=== PATIENT | female | born 1945 | race Caucasian/White ===

== ENCOUNTER → 2016-12-28 | Outpatient (CLI) | payer BC ==
--- NOTE | 2016-12-28 10:08 | CT ---
EXAMINATION TYPE: CT brain wo con DATE OF EXAM: 12/28/2016 COMPARISON: NONE HISTORY: R41.[address] of the brain was performed. The ventricles, basal cisterns and sulci overlying the cerebral convexities demonstrate mild enlargem ent. There is no evidence for intracranial hemorrhage or sulcal effacement. There is decreased attenuation about the periventricular white matter and deep white matter of both c erebral hemispheres, compatible with chronic small vessel ischemia. Differential diagnosis does inclu de demyelination. No mass effects are seen.No midline shift. Osseous calvarium is intact. If symptoms persist consider MRI. IMPRESSION: 1. Age related atrophic and chronic small vessel ischemic change without acute intracranial process s een at this time.
== END | disposition home or self-care (01) ==
LOC: RADCTMAIN 09:26
PROVIDERS: ATTEND Family Medicine
DX: G31.1 Senile degeneration of brain, not elsewhere classified (principal); I67.82 Cerebral ischemia
CPT/HCPCS: 70450

== ENCOUNTER → 2017-09-20 | Outpatient (CLI) | payer BC ==
[2017-09-20 12:01] LABS: Blood Urea Nitrogen 12 mg/dL (7-17)
--- NOTE | 2017-09-20 12:55 | CT ---
EXAMINATION TYPE: CT abdomen w con DATE OF EXAM: 09/20/2017 COMPARISON: NONE HISTORY: Upper Abdominal pain for 1-[address] DLP: 452.7 mGycm CONTRAST: CT scan of the abdomen and pelvis is performed with Oral Contrast and with IV Contrast, patient injec rosaline with 100 mL of Isovue 300. FINDINGS: LUNG BASES-: No visible nodule. No infiltrate. Small sliding-type hiatal hernia. LIVER/GB: No calcified gallstones. No space occupying hepatic lesion. Biliary tree is of normal ca liber. Mild hepatic steatosis noted. Large gallstone seen in the region of the gallbladder neck. No g allbladder wall thickening identified. PANCREAS: No inflammation. No distinct mass. SPLEEN: No splenic enlargement. No lesion seen. Small calcified splenic artery aneurysm measuring 9 mm. ADRENALS: No nodule. No thickening. KIDNEYS/BLADDER: No hydronephrosis. No nephrolithiasis. No distinct renal mass. Urinary bladder g rossly unremarkable. BOWEL: Moderate fecal stasis. Dilated loop of small bowel proximally measuring 3 cm of uncertain etio logy. No inflammation. GENITAL ORGANS: No gross abnormality. LYMPH NODES: No greater than 1cm abdominal or pelvic lymph nodes are appreciated. AORTA: No significant abnormality. OSSEOUS STRUCTURES: No significant abnormality is seen. OTHER: No significant additional abnormality is seen. IMPRESSION: 1. Large gallstone seen in the region of the gallbladder neck. No gallbladder wall thickening identi fied. 2. Mild hepatic steatosis. 3.Moderate fecal stasis. Dilated loop of small bowel proximally measuring 3 cm of uncertain etiology.
== END | disposition home or self-care (01) ==
LOC: RADCTMAIN 11:20
PROVIDERS: ATTEND Family Medicine
DX: K80.20 Calculus of gallbladder without cholecystitis without obstruction (principal); K76.0 Fatty (change of) liver, not elsewhere classified; K56.41 Fecal impaction; K31.89 Other diseases of stomach and duodenum
CPT/HCPCS: 82565; 84520; 74160; 36415; Q9967

== ENCOUNTER 2017-10-22 11:35 | Inpatient (IN) | payer BC, MEDICARE ==
[2017-10-22] MEDS ORDERED: SODIUM CHLORIDE 0.9% 500 ML IV STA (12:24)
--- NOTE | 2017-10-22 12:28 | ED ---
General Adult HPI - General Chief complaint: Abdominal Pain Stated complaint: Abd Pain Time Seen by Provider: 10/22/17 12:10 Source: patient, RN notes reviewed Mode of arrival: ambulatory Limitations: no limitations - History of Present Illness Initial comments: This is a 72-year-old female presents emergency Department complaining of a month-long history of abdominal pain. Patient states is diffuse and a little more in the center and to the left than on the right. Patient states her primary medical care doctor did a CAT scan on her and told her she needed her gallbladder out. Patient states the pain does come and go and is worse on certain occasions but she cannot do anything to make it worse or make it better. Patient states barely eating anything for the last 2 weeks. Patient states her last bowel movement was 2 weeks ago. Patient states last time she passed any gas was 1 weeks ago. Patient denies any fevers or chills. Patient denies any chest pain difficulty breathing shortness of breath. Patient denies any dysuria hematuria urinary frequency. - Related Data Home Medications Medication Instructions Recorded Confirmed Baclofen 10 mg PO HS 10/22/17 10/22/17 Fesoterodine Fumarate [Toviaz] 8 mg PO DAILY 10/22/17 10/22/17 Glimepiride [Amaryl] 1 mg PO DAILY 10/22/17 10/22/17 Losartan [Cozaar] 50 mg PO DAILY 10/22/17 10/22/17 Memantine HCl/Donepezil HCl 1 cap PO DAILY 10/22/17 10/22/17 [Namzaric 14 mg-10 mg Capsule] Pioglitazone [Actos] 15 mg PO DAILY 10/22/17 10/22/17 Repaglinide [Prandin] 0.5 mg PO AC-LUNCH 10/22/17 10/22/17 sitaGLIPtin [Januvia] 100 mg PO DAILY 10/22/17 10/22/17 Allergies Allergy/AdvReac Type Severity Reaction Status Date / Time Iodinated Contrast- Oral and Allergy Anaphylaxis Verified 10/22/17 12:41 IV Dye iodine Allergy Anaphylaxis Verified 10/22/17 12:41 Penicillins Allergy Unknown Verified 10/22/17 12:41 Childhood shellfish derived [Shellfish] Allergy Anaphylaxis Verified 10/22/17 12:41 Review of Systems ROS Statement: Those systems with pertinent positive or pertinent negative responses have been documented in the HPI. ROS Other: All systems not noted in ROS Statement are negative. Past Medical History Past Medical History: Diabetes Mellitus, GERD/Reflux, Hypertension History of Any Multi-Drug Resistant Organisms: None Reported Past Surgical History: Hysterectomy Past Psychological History: No Psychological Hx Reported Smoking Status: Never smoker Past Alcohol Use History: None Reported Past Drug Use History: None Reported General Exam - General Exam Comments Initial Comments: GENERAL: Patient is well-developed and well-nourished. Patient is nontoxic and well- hydrated and is in mild distress. ENT: Neck is soft and supple. No significant lymphadenopathy is noted. Oropharynx is clear. Moist mucous membranes. Neck has full range of motion without eliciting any pain. EYES: The sclera were anicteric and conjunctiva were pink and moist. Extraocular movements were intact and pupils were equal round and reactive to light. Eyelids were unremarkable. PULMONARY: Unlabored respirations. Good breath sounds bilaterally. No audible rales rhonchi or wheezing was noted. CARDIOVASCULAR: There is a regular rate and rhythm without any murmurs gallops or rubs. ABDOMEN: Diffuse abdominal tenderness with the epigastric and left upper quadrant a little more tender than anywhere else. Patient also has very tympanic sounding bowel sounds. SKIN: Skin is clear with no lesions or rashes and otherwise unremarkable. NEUROLOGIC: Patient is alert and oriented x3. Cranial nerves II through XII are grossly intact. Motor and sensory are also intact. Normal speech, volume and content. Symmetrical smile. Cerebellar exam grossly intact. MUSCULOSKELETAL: Normal extremities with adequate strength and full range of motion. No lower extremity swelling or edema. No calf tenderness. LYMPHATICS: No significant lymphadenopathy is noted PSYCHIATRIC: Normal psychiatric evaluation. Limitations: no limitations Course Vital Signs 10/22/17 12:11 Temperature 98.3 F Pulse Rate 78 Respiratory 18 Rate Blood Pressure 168/80 O2 Sat by Pulse 99 Oximetry Medical Decision Making - Medical Decision Making X-ray shows a large bowel obstruction or partial obstruction I spoke with Dr. Berkowitz she agreed to admit the patient admitted the patient consult to Dr. Church. - Lab Data Result diagrams: 10/22/17 12:34 10/22/17 12:34 Lab Results 10/22/17 10/22/17 10/22/17 Range/Units 12:34 12:34 13:02 WBC 11.4 H (3.8-10.6) k/uL RBC 4.65 (3.80-5.40) m/uL Hgb 13.2 (11.4-16.0) gm/dL Hct 38.9 (34.0-46.0) % MCV 83.6 (80.0-100.0) fL MCH 28.4 (25.0-35.0) pg MCHC 34.0 (31.0-37.0) g/dL RDW 14.3 (11.5-15.5) % Plt Count 251 (150-450) k/uL Neutrophils % 85 % Lymphocytes % 9 % Monocytes % 4 % Eosinophils % 0 % Basophils % 0 % Neutrophils # 9.7 H (1.3-7.7) k/uL Lymphocytes # 1.0 (1.0-4.8) k/uL Monocytes # 0.5 (0-1.0) k/uL Eosinophils # 0.1 (0-0.7) k/uL Basophils # 0.0 (0-0.2) k/uL Sodium 147 H (137-145) mmol/L Potassium 3.5 (3.5-5.1) mmol/L Chloride 110 H (98-107) mmol/L Carbon Dioxide 18 L (22-30) mmol/L Anion Gap 19 mmol/L BUN 15 (7-17) mg/dL Creatinine 0.69 (0.52-1.04) mg/dL Est GFR (CKD-EPI)AfAm >90 (>60 ml/min/1.73 sqM) Est GFR (CKD-EPI)NonAf 87 (>60 ml/min/1.73 sqM) Glucose 126 H (74-99) mg/dL Calcium 9.7 (8.4-10.2) mg/dL Total Bilirubin 0.7 (0.2-1.3) mg/dL AST 19 (14-36) U/L ALT 30 (9-52) U/L Alkaline Phosphatase 62 (38-126) U/L Total Protein 6.7 (6.3-8.2) g/dL Albumin 4.2 (3.5-5.0) g/dL Amylase 41 (30-110) U/L Lipase 100 (23-300) U/L Urine Color Yellow Urine Appearance Clear (Clear) Urine pH 5.5 (5.0-8.0) Ur Specific [place] 1.026 (1.001-1.035) Urine Protein 1+ H (Negative) Urine Glucose (UA) Negative (Negative) Urine Ketones 4+ H (Negative) Urine Blood Negative (Negative) Urine Nitrite Negative (Negative) Urine Bilirubin 1+ H (Negative) Urine Urobilinogen 2.0 (<2.0) mg/dL Ur Leukocyte Esterase Moderate H (Negative) Urine RBC 2 (0-5) /hpf Urine WBC 15 H (0-5) /hpf Ur Squamous Epith Cells 3 (0-4) /hpf Hyaline Casts 1 (0-2) /lpf Urine Mucus Occasional H (None) /hpf Disposition Clinical Impression: Large bowel obstruction Disposition: ADMITTED IP TO THIS HOSP Referrals: Patrick Oscar MD [Primary Care Provider] - 1-2 days Time of Disposition: 14:02
[2017-10-22 12:48] LABS: Basophils % (A) 0 %; Eosinophils # (A) 0.1 k/uL (0-0.7); Eosinophils % (A) 0 %; HCT 38.9 % (34.0-46.0); HGB 13.2 gm/dL (11.4-16.0); Lymphocytes % (A) 9 %; MCH 28.4 pg (25.0-35.0); MCV 83.6 fL (80.0-100.0); Mean Platelet Volume 7.8; Monocytes # (A) 0.5 k/uL (0-1.0); Monocytes % (A) 4 %; Neutrophils # (A) 9.7 k/uL (1.3-7.7); Neutrophils % (A) 85 %; Platelet Count 251 k/uL (150-450); RBC 4.65 m/uL (3.80-5.40); RDW 14.3 % (11.5-15.5); WBC 11.4 k/uL (3.8-10.6)
[2017-10-22 13:04] LABS: ALT 30 U/L (9-52); AST 19 U/L (14-36); Albumin 4.2 g/dL (3.5-5.0); Alkaline Phosphatase 62 U/L (38-126); Amylase 41 U/L (30-110); Anion Gap 19 mmol/L; Blood Urea Nitrogen 15 mg/dL (7-17); Calcium 9.7 mg/dL (8.4-10.2); Carbon Dioxide 18 mmol/L (22-30); Chloride 110 mmol/L (98-107); Glucose 126 mg/dL (74-99); Lipase 100 U/L (23-300); Potassium 3.5 mmol/L (3.5-5.1); Sodium 147 mmol/L (137-145); Total Bilirubin 0.7 mg/dL (0.2-1.3); Total Protein 6.7 g/dL (6.3-8.2)
[2017-10-22 13:14] LABS: Appearance,Urine Clear (Clear); Bilirubin,Urine 1+ (Negative); Blood,Urine Negative (Negative); Color,Urine Yellow; Glucose,Urine (UA) Negative (Negative); Hyaline Casts,Urine 1 /lpf (0-2); Ketones,Urine 4+ (Negative); Leukocyte Esterase,Urine Moderate (Negative); Mucus,Urine Occasional /hpf; Nitrite,Urine Negative (Negative); PH, Urine 5.5 (5.0-8.0); Protein,Urine 1+ (Negative); RBC,Urine 2 /hpf (0-5); Specific Gravity,Urine 1.026 (1.001-1.035); Squamous Epithelial Cell,Urine 3 /hpf (0-4); WBC,Urine 15 /hpf (0-5)
--- NOTE | 2017-10-22 13:14 | XR ---
EXAMINATION TYPE: XR KUB DATE OF EXAM: 10/22/2017 12:50 PM CLINICAL HISTORY: Right upper quadrant abdominal pain for 2 and associated nausea and vomiting. TECHNIQUE: Single upright image of the abdomen is obtained. COMPARISON: None. FINDINGS: There is diffuse large bowel dilatation measuring up to 8 cm with air seen within the dista l colon. Differential air-fluid levels are noted. Small bowel is mildly dilated up to 4.0 cm. No samir s evidence of pneumoperitoneum. Lung bases are clear. Moderate degenerative changes of the osseous st ructures are seen. No abnormal calcifications. The known cholelithiasis is not appreciated radiograph ically. IMPRESSION: Colonic distention with differential air-fluid levels and small bowel dilatation. However there is air noted within the distal colon and rectum therefore findings may relate to incomplete la rge bowel obstruction or ileus associated with colitis. No current evidence of pneumoperitoneum.
[2017-10-22] MEDS ORDERED: SODIUM CHLORIDE 0.9% 1,000 ML IV ONE (14:02)
[2017-10-22] MEDS ORDERED: POLYETHYLENE GLYCOL 3350 17 GM POWD.PACK PO STA (15:23)
[2017-10-22] MEDS ORDERED: ACETAMINOPHEN TAB 325 MG TAB PO PRN (15:24)
[2017-10-22] MEDS: SODIUM CHLORIDE 0.9% 1,000 ML IV SCH (15:41)
--- NOTE | 2017-10-22 16:15 | P.GSCN ---
<Lynn Nguyễn M - Last Filed: 10/22/17 16:26> History of Present Illness Consult date: 10/22/17 Reason for Consult: Abdominal pain History of present illness: 72-year-old female presented to the emergency room with a chief complaint of having abdominal pain inability to eat felt nauseated. Patient stated been ongoing for the past several weeks. states she has not had a bowel movement in several weeks. According to the patient this is new. Patient states that she has not been passing any gas no fever chills. states was told by her primary care provider after CAT scan was obtained that she needed to have her gallbladder out. Patient was to see Dr. calixto in the office to discuss treatments for gallbladder disease stated that she never made the appointment and did not follow-up according to the patient her symptoms have been ongoing for 3-4 weeks when questioning. Patient states she's been having developing abdominal discomfort over the last week. Her did give the patient a fleets enema a couple weeks ago according to the patient Was no stool. Patient states she just feels nauseated does not feel like eating or drinking when she tries to drink she feels like she's going to throw up" patient is sitting up in bed currently abdomen is slightly distended In the emergency room an x-ray was obtained did show reviewing the report a large bowel obstruction or partial obstruction. Computed tomography scan of the abdomen with contrast obtained in September 20 in summary it showed moderate fecal stasis dilated loops of the small bowel no calcified gallstones large gallstones seen in the neck of the gallbladder no gallbladder wall thickening Amylase 41 lipase 100 AST and ALT not elevated white count 11.4 and total bilirubin 0.7 Review of Systems Essentially unremarkable except as mentioned in the present illness Past Medical History Past Medical History: Diabetes Mellitus, GERD/Reflux, Hypertension, Memory Impairment Additional Past Medical History / Comment(s): "slight memory impairment", scoliosis, dizzy spells and balance issues History of Any Multi-Drug Resistant Organisms: None Reported Past Surgical History: Hysterectomy, Tonsillectomy Additional Past Surgical History / Comment(s): rt breast bx-neg, dental implants Additional Past Anesthesia/Blood Transfusion Reaction / Comm: hx clausterphobia. difficulty waking after sx. pt stated that during sx once her heart stopped. Smoking Status: Never smoker - Past Family History Mother Family Medical History: Myocardial Infarction ([place]) Additional Family Medical History / Comment(s): grandmother had mi as well Father History Unknown: Yes Medications and Allergies Home Medications Medication Instructions Recorded Confirmed Type Baclofen 10 mg PO HS 10/22/17 10/22/17 History Fesoterodine Fumarate [Toviaz] 8 mg PO DAILY 10/22/17 10/22/17 History Glimepiride [Amaryl] 1 mg PO DAILY 10/22/17 10/22/17 History Losartan [Cozaar] 50 mg PO DAILY 10/22/17 10/22/17 History Memantine HCl/Donepezil HCl 1 cap PO DAILY 10/22/17 10/22/17 History [Namzaric 14 mg-10 mg Capsule] Pioglitazone [Actos] 15 mg PO DAILY 10/22/17 10/22/17 History Repaglinide [Prandin] 0.5 mg PO AC-LUNCH 10/22/17 10/22/17 History sitaGLIPtin [Januvia] 100 mg PO DAILY 10/22/17 10/22/17 History Allergies Allergy/AdvReac Type Severity Reaction Status Date / Time Iodinated Contrast- Oral and Allergy Anaphylaxis Verified 10/22/17 12:41 IV Dye iodine Allergy Anaphylaxis Verified 10/22/17 12:41 Penicillins Allergy Unknown Verified 10/22/17 12:41 Childhood shellfish derived [Shellfish] Allergy Anaphylaxis Verified 10/22/17 12:41 Surgical - Exam Vital Signs Temp Pulse Resp BP Pulse Ox 98.3 F 78 18 168/80 99 10/22/17 12:11 10/22/17 12:11 10/22/17 12:11 10/22/17 12:11 10/22/17 12:11 GENERAL APPEARANCE: talkative 72-year-old female patient is sitting up in bed alert, oriented, in no acute distress. VITAL SIGNS: Reviewed HEENT: Head is normocephalic and atraumatic. Pupils are equal and reactive. The nares are patent. Oropharynx is clear without lesions. NECK: Supple without lymphadenopathy. Traches midline. HEART: S1, S2. Regular rate and rhythm. No murmur noted LUNGS: No crackles or wheezes are heard. ABDOMEN: Diffuse abdominal tenderness left upper quadrant greater than the right radiates to the epigastric area. Tympanic bowel sounds slightly distended reports a nausea sensation no active emesis reports urinating no difficulty EXTREMITIES: Normal skin color and turgor. No cyanosis, rash, ulceration, clubbing or edema. Radial pedal pulses are 2/4 bilaterally. NEUROLOGICAL: No focal deficits. Strength and sensation are grossly intact. Results - Labs 10/22/17 12:34 10/22/17 12:34 Abnormal Lab Results - Last 24 Hours (Table) 10/22/17 10/22/17 10/22/17 Range/Units 12:34 12:34 13:02 WBC 11.4 H (3.8-10.6) k/uL Neutrophils # 9.7 H (1.3-7.7) k/uL Sodium 147 H (137-145) mmol/L Chloride 110 H (98-107) mmol/L Carbon Dioxide 18 L (22-30) mmol/L Glucose 126 H (74-99) mg/dL Urine Protein 1+ H (Negative) Urine Ketones 4+ H (Negative) Urine Bilirubin 1+ H (Negative) Ur Leukocyte Esterase Moderate H (Negative) Urine WBC 15 H (0-5) /hpf Urine Mucus Occasional H (None) /hpf Diabetes panel 10/22/17 Range/Units 12:34 Sodium 147 H (137-145) mmol/L Potassium 3.5 (3.5-5.1) mmol/L Chloride 110 H (98-107) mmol/L Carbon Dioxide 18 L (22-30) mmol/L BUN 15 (7-17) mg/dL Creatinine 0.69 (0.52-1.04) mg/dL Glucose 126 H (74-99) mg/dL Calcium 9.7 (8.4-10.2) mg/dL AST 19 (14-36) U/L ALT 30 (9-52) U/L Alkaline Phosphatase 62 (38-126) U/L Total Protein 6.7 (6.3-8.2) g/dL Albumin 4.2 (3.5-5.0) g/dL Calcium panel 10/22/17 Range/Units 12:34 Calcium 9.7 (8.4-10.2) mg/dL Albumin 4.2 (3.5-5.0) g/dL Pituitary panel 10/22/17 Range/Units 12:34 Sodium 147 H (137-145) mmol/L Potassium 3.5 (3.5-5.1) mmol/L Chloride 110 H (98-107) mmol/L Carbon Dioxide 18 L (22-30) mmol/L BUN 15 (7-17) mg/dL Creatinine 0.69 (0.52-1.04) mg/dL Glucose 126 H (74-99) mg/dL Calcium 9.7 (8.4-10.2) mg/dL Adrenal panel 10/22/17 Range/Units 12:34 Sodium 147 H (137-145) mmol/L Potassium 3.5 (3.5-5.1) mmol/L Chloride 110 H (98-107) mmol/L Carbon Dioxide 18 L (22-30) mmol/L BUN 15 (7-17) mg/dL Creatinine 0.69 (0.52-1.04) mg/dL Glucose 126 H (74-99) mg/dL Calcium 9.7 (8.4-10.2) mg/dL Total Bilirubin 0.7 (0.2-1.3) mg/dL AST 19 (14-36) U/L ALT 30 (9-52) U/L Alkaline Phosphatase 62 (38-126) U/L Total Protein 6.7 (6.3-8.2) g/dL Albumin 4.2 (3.5-5.0) g/dL Assessment and Plan Assessment: ] Thanks impression Present on admission diffuse abdominal pain intractable nausea vomiting likely due to a partial large bowel obstruction Present on admission leukocytosis Present on admission constipation CAT scan of the abdomen with contrast done September 20 report indicates large gallstones seen in the gallbladder neck no gallbladder wall thickening Plan IV fluid for hydration Bowel stimulant to be initiated DVT and GI prophylaxis Further surgical recommendations pending will follow with you Keep nothing by mouth except for ice chips Surgical consultation note dictated for The above impression and plan of care have been discussed and directed by signing physician. Lynn Nguyễn nurse practitioner acting as scribe for signing physician. <Rj Calixto - Last Filed: 10/22/17 16:54> Surgical - Exam Vital Signs Temp Pulse Resp BP Pulse Ox 98.3 F 78 18 168/80 99 10/22/17 12:11 10/22/17 12:11 10/22/17 12:11 10/22/17 12:11 10/22/17 12:11 Results - Labs 10/22/17 12:34 10/22/17 12:34 Abnormal Lab Results - Last 24 Hours (Table) 10/22/17 10/22/17 10/22/17 Range/Units 12:34 12:34 13:02 WBC 11.4 H (3.8-10.6) k/uL Neutrophils # 9.7 H (1.3-7.7) k/uL Sodium 147 H (137-145) mmol/L Chloride 110 H (98-107) mmol/L Carbon Dioxide 18 L (22-30) mmol/L Glucose 126 H (74-99) mg/dL Urine Protein 1+ H (Negative) Urine Ketones 4+ H (Negative) Urine Bilirubin 1+ H (Negative) Ur Leukocyte Esterase Moderate H (Negative) Urine WBC 15 H (0-5) /hpf Urine Mucus Occasional H (None) /hpf Diabetes panel 10/22/17 Range/Units 12:34 Sodium 147 H (137-145) mmol/L Potassium 3.5 (3.5-5.1) mmol/L Chloride 110 H (98-107) mmol/L Carbon Dioxide 18 L (22-30) mmol/L BUN 15 (7-17) mg/dL Creatinine 0.69 (0.52-1.04) mg/dL Glucose 126 H (74-99) mg/dL Calcium 9.7 (8.4-10.2) mg/dL AST 19 (14-36) U/L ALT 30 (9-52) U/L Alkaline Phosphatase 62 (38-126) U/L Total Protein 6.7 (6.3-8.2) g/dL Albumin 4.2 (3.5-5.0) g/dL Calcium panel 10/22/17 Range/Units 12:34 Calcium 9.7 (8.4-10.2) mg/dL Albumin 4.2 (3.5-5.0) g/dL Pituitary panel 10/22/17 Range/Units 12:34 Sodium 147 H (137-145) mmol/L Potassium 3.5 (3.5-5.1) mmol/L Chloride 110 H (98-107) mmol/L Carbon Dioxide 18 L (22-30) mmol/L BUN 15 (7-17) mg/dL Creatinine 0.69 (0.52-1.04) mg/dL Glucose 126 H (74-99) mg/dL Calcium 9.7 (8.4-10.2) mg/dL Adrenal panel 10/22/17 Range/Units 12:34 Sodium 147 H (137-145) mmol/L Potassium 3.5 (3.5-5.1) mmol/L Chloride 110 H (98-107) mmol/L Carbon Dioxide 18 L (22-30) mmol/L BUN 15 (7-17) mg/dL Creatinine 0.69 (0.52-1.04) mg/dL Glucose 126 H (74-99) mg/dL Calcium 9.7 (8.4-10.2) mg/dL Total Bilirubin 0.7 (0.2-1.3) mg/dL AST 19 (14-36) U/L ALT 30 (9-52) U/L Alkaline Phosphatase 62 (38-126) U/L Total Protein 6.7 (6.3-8.2) g/dL Albumin 4.2 (3.5-5.0) g/dL Assessment and Plan Plan: Patient's recent CAT scan shows a large gallstone in the neck of the gallbladder. Patient will undergo repeat CAT scan to evaluate for possible colonic obstruction. We will follow with you.
[2017-10-22] MEDS: LACTULOSE 20 GM/30 ML CUP PO SCH ×3 (16:17→21:52)
[2017-10-22 16:49] LABS: Glucose,Whole Blood 93 mg/dL (75-99)
[2017-10-22] MEDS: INSULIN ASPART 100 UNIT/ML 1 ML 10 ML VIAL SQ SCH ×2 (17:01→20:50)
[2017-10-22] MEDS: BARIUM SULFATE 450 ML ORAL.SUSP BOTTLE PO PRN ×2 (17:11→20:05)
[2017-10-22 20:30] LABS: Glucose,Whole Blood 195 mg/dL (75-99)
[2017-10-22] MEDS: ONDANSETRON 4 MG/2 ML VIAL IVP PRN (20:50)
--- NOTE | 2017-10-22 21:16 | P.HPIM ---
History of Present Illness H&P Date: 10/22/17 Chief Complaint: Abdominal pain 72-year-old female who presented to the emergency room with a chief complaint of abdominal pain. The patient reports she has been having abdominal pain for a few months but it has worsened in severity over the last two weeks. She states she waited to come to the hospital after the 17 of October holiday because "all the good doctors go on vacation for the holidays and there would not be anyone good here to take care of me". The patient did have a CT scan of her abdomen in September 2017 due to abdominal pain which revealed large gallstones seen in the region of the gallbladder neck. No gallbladder wall thickening was identified. Mild hepatic steatosis. Moderate fecal stasis. Dilated loop of small bowel proximally measuring 3 cm. The patient was referred to see Dr. Church. However, the patient never followed through with this. She reports decreased appetite. The patient reports she was consuming mostly liquid foods and protein drinks. She reports she tried to eat small amounts of food but would get abdominal pain so she started chewing her food and then spitting it out. She states she has been drinking fluids but likely less than she usually does. She denies nausea or vomiting, however she does report a lot of heartburn and burping. She reports her last bowel movement was 2 1/2 weeks ago. She states she usually has a bowel movement every 2-3 days. She states she had a colonoscopy "years ago" and was told it was normal. She states she has been in bed for the last week due to weakness and fatigue. She denies any urinary symptoms such as frequency, burning, urgency, pain with urination, or odor. She denies fever or chills. Denies chest pain or pressure. She reports mild SOB when lying flat. The patient has a history of diabetes mellitus, hypertension, and gastroesophageal reflux disease. She also reports a history of short term memory loss but is unable to relay what medical condition this is from or what caused it. She is a lifelong non-smoker. She denies alcohol use or drug use. KUB x-ray revealed colonic distention with differential air fluid levels and small bowel dilation. However there is air noted within the distal colon and rectum therefore findings may relate to incomplete large bowel obstruction or ileus associated with colitis. Laboratory data: White count 11.4. Hemoglobin 13.2. Platelet count 251. Sodium 147. Potassium 3.5. Chloride 110. Carbon dioxide 18. BUN 15. Creatinine 0.69. Glucose 126. Total bilirubin 0.7. AST 19. ALT 30. Alkaline phosphatase 62. Amylase 41. Lipase 100. Urinalysis reveals clear yellow urine, 1+ proteinuria, 4+ ketones, 1+ bilirubin, moderate leukocyte esterase, 15 WBC. The patient was admitted to the hospital under the care of Dr. Oscar. Consultations were placed to general surgery. Review of Systems GENERAL: Patient denies fever. Denies chills. EYES: Denies blurred vision. Denies vision changes. Denies eye pain. EARS, NOSE, MOUTH, & THROAT: Denies headache. Denies sore throat. Denies ear pain. RESPIRATORY: Denies cough. Denies shortness of breath. Denies sputum production. Denies hemoptysis. CARDIOVASCULAR: Denies chest pain or pressure. Denies palpitations. Denies arrhythmias. GASTROINTESTINAL: Positive for abdominal pain. Positive for heartburn. Positive for belching. Positive for constipation. Denies blood in the stool. GENITOURINARY: Denies urinary frequency. Denies burning. Denies dysuria. Denies cloudy urine. Denies blood in the urine. MUSCULOSKELETAL: Denies myalgias. Denies joint swelling. Denies decreased range of motion beyond patients baseline. INTEGUMENTARY: Denies pruitis. Denies rash. PSYCHIATRIC: Denies suicidal or homicial ideations. ENDOCRINE: Denies weight change. Denies polydipsia. Denies polyuria. HEMATOLOGIC: Denies bleeding disorders. Past Medical History Past Medical History: Diabetes Mellitus, GERD/Reflux, Hypertension History of Any Multi-Drug Resistant Organisms: None Reported Past Surgical History: Hysterectomy Past Psychological History: No Psychological Hx Reported Smoking Status: Never smoker Past Alcohol Use History: None Reported Past Drug Use History: None Reported - Past Family History Mother Family Medical History: Myocardial Infarction ([place]) Additional Family Medical History / Comment(s): grandmother had mi as well Father History Unknown: Yes Medications and Allergies Home Medications Medication Instructions Recorded Confirmed Type Baclofen 10 mg PO HS 10/22/17 10/22/17 History Fesoterodine Fumarate [Toviaz] 8 mg PO DAILY 10/22/17 10/22/17 History Glimepiride [Amaryl] 1 mg PO DAILY 10/22/17 10/22/17 History Losartan [Cozaar] 50 mg PO DAILY 10/22/17 10/22/17 History Memantine HCl/Donepezil HCl 1 cap PO DAILY 10/22/17 10/22/17 History [Namzaric 14 mg-10 mg Capsule] Pioglitazone [Actos] 15 mg PO DAILY 10/22/17 10/22/17 History Repaglinide [Prandin] 0.5 mg PO AC-LUNCH 10/22/17 10/22/17 History sitaGLIPtin [Januvia] 100 mg PO DAILY 10/22/17 10/22/17 History Allergies Allergy/AdvReac Type Severity Reaction Status Date / Time Iodinated Contrast- Oral and Allergy Anaphylaxis Verified 10/22/17 12:41 IV Dye iodine Allergy Anaphylaxis Verified 10/22/17 12:41 Penicillins Allergy Unknown Verified 10/22/17 12:41 Childhood shellfish derived [Shellfish] Allergy Anaphylaxis Verified 10/22/17 12:41 Physical Exam Vitals: Vital Signs Temp Pulse Resp BP Pulse Ox 10/22/17 14:04 98.1 F 63 18 172/70 97 10/22/17 12:11 98.3 F 78 18 168/80 99 Intake and Output 10/21/17 10/22/17 10/22/17 22:59 06:59 14:59 Other: Weight 64.682 kg GENERAL: This is a 72-year-old female in no apparent distress at the time of examination. Pleasant and cooperative. HEENT: Head is atraumatic, normocephalic. Pupils are equal, round, and reactive to light. Sclerae anicteric. Conjunctivae are clear. Mucus membranes of the mouth are moist. Neck is supple. RESPIRATORY: Clear to ausculation. No wheezes, rales, or rhonchi. No use of accessory muscles. Patient maintaining oxygen saturation greater than 92%. No chest wall tenderness is noted on palpation or with deep breathing. CARDIOVASCULAR: Regular rate and rhythm. S1 and S2 noted. No systolic or diastolic murmur auscultated. No JVD noted. No S3 or S4 noted. GASTROINTESTINAL: Abdominal distention noted. Tympanic bowel sounds x 4 quadrants. Pain and tenderness noted upon palpation x 4 quadrants. INTEGUMENTARY: No cyanosis. No jaundice. No rashes noted. No cellulitis noted. EXTREMITIES: 2+ peripheral pulses. No evidence of peripheral edema. No calf tenderness noted. NEUROLOGIC: Cranial nerves II-XII intact. PSYCHIATRIC: Awake, alert, and oriented X 3. Appropriate affect. Intact judgement and insight. Results CBC & Chem 7: 10/22/17 12:34 10/22/17 12:34 Labs: Abnormal Lab Results - Last 24 Hours (Table) 10/22/17 10/22/17 10/22/17 Range/Units 12:34 12:34 13:02 WBC 11.4 H (3.8-10.6) k/uL Neutrophils # 9.7 H (1.3-7.7) k/uL Sodium 147 H (137-145) mmol/L Chloride 110 H (98-107) mmol/L Carbon Dioxide 18 L (22-30) mmol/L Glucose 126 H (74-99) mg/dL Urine Protein 1+ H (Negative) Urine Ketones 4+ H (Negative) Urine Bilirubin 1+ H (Negative) Ur Leukocyte Esterase Moderate H (Negative) Urine WBC 15 H (0-5) /hpf Urine Mucus Occasional H (None) /hpf Assessment and Plan Plan: ASSESSMENT: Abdominal pain secondary to large bowel obstruction, present on admission Constipation, patient reports no bowel movement for 2.5 weeks Generalized weakness, secondary to above, patient reports laying in bed x 1 week Pyuria, asymptomatic, patient denies any adverse urinary s/s Diabetes mellitus, type II Hypertension Gastroesophageal reflux disease PLAN: General surgery on consult. Appreciate recommendations and input Bowel stimulants NPO except for ice chips Hold home medications at this time. Will begin novolog sliding scale AC/HS Monitor labs GI prophylaxis: Protonix 40 mg IV Daily DVT prophylaxis: SCDs to bilateral LE Monitor vital signs and address as appropriate Discharge planning: Patient to return home when stable Further recommendations pending patient's course Nurse practitioner note has been reviewed by physician. Signing provider agrees with the documented findings, assessment, and plan of care.
--- NOTE | 2017-10-22 21:32 | CT ---
EXAMINATION TYPE: CT abdomen pelvis wo con DATE OF EXAM: 10/22/2017 COMPARISON: 09/20/2017 HISTORY: Abdominal pain with vomiting CT DLP: 383.5 mGycm Automated exposure control for dose reduction was used. TECHNIQUE: Helical acquisition of images was performed from the lung bases through the pelvis. FINDINGS: There is some patchy linear density at the left lung base consistent with atelectasis that is new com pared to old exam. Heart size is normal. Bile ducts are not dilated. There is a 3 cm calcified gallst one. Liver shows no focal defect. Spleen appears normal. There is no pancreatic mass. There is no adr enal mass. Kidneys have normal size and contour. There is no hydronephrosis. Ureters are not dilated. There is no retroperitoneal adenopathy. There is hiatal hernia that is increased compared to old exa m. There are multiple dilated loops of large and small bowel. There are multiple fluid levels in the lar ge and small bowel. Small bowel measures up to 3 cm. There is mild free fluid in the pelvis. There is no sign of free air. I see no intestinal wall thickening. The cecum is dilated to 10.5 cm. I see no bony destructive process. IMPRESSION: THERE IS DILATED LARGE AND SMALL BOWEL WITH FLUID LEVELS CONSISTENT WITH GENERALIZED ILEUS. THIS APPE ARS NEW COMPARED TO OLD CT EXAM. MINIMAL ASCITES FLUID. THERE IS NEW ATELECTASIS AT THE LEFT LUNG BASE COMPARED TO OLD EXAM. LARGE CRISTHIAN CIFIED GALLSTONE. HIATAL HERNIA.
[2017-10-22] MEDS: DOCUSATE 100 MG CAP PO SCH (21:52)
[2017-10-22] MEDS: HYDROmorphone 0.5 MG/0.5 ML SYRINGE IVP PRN (22:49)
[2017-10-23] MEDS: SODIUM CHLORIDE 0.9% 1,000 ML IV SCH ×2 (01:53→09:01)
[2017-10-23] MEDS: HYDROmorphone 0.5 MG/0.5 ML SYRINGE IVP PRN ×4 (04:26→16:43)
[2017-10-23] MEDS: ONDANSETRON 4 MG/2 ML VIAL IVP PRN (04:26)
[2017-10-23 07:25] LABS: Glucose,Whole Blood 191 mg/dL (75-99)
[2017-10-23] MEDS: INSULIN ASPART 100 UNIT/ML 1 ML 10 ML VIAL SQ SCH ×4 (08:00→21:04)
[2017-10-23] MEDS ORDERED: ONDANSETRON 4 MG/2 ML VIAL IVP PRN (08:43)
[2017-10-23] MEDS: LACTULOSE 20 GM/30 ML CUP PO SCH ×3 (08:46→21:03)
[2017-10-23] MEDS: PANTOPRAZOLE 40 MG/10 ML VIAL IVP SCH (08:46)
[2017-10-23] MEDS: POLYETHYLENE GLYCOL 3350 17 GM POWD.PACK PO SCH (08:47)
[2017-10-23] MEDS: DOCUSATE 100 MG CAP PO SCH ×2 (08:47→21:00)
[2017-10-23] MEDS: LEVOFLOXACIN 500MG-D5W PMX 500 MG in DEXTROSE/WATER 1 100ML.BAG IVPB SCH (08:47)
[2017-10-23 09:05] LABS: Basophils % (A) 0 %; Eosinophils % (A) 0 %; HCT 37.9 % (34.0-46.0); HGB 12.6 gm/dL (11.4-16.0); Lymphocytes # (A) 0.6 k/uL (1.0-4.8); Lymphocytes % (A) 4 %; MCH 28.1 pg (25.0-35.0); MCHC 33.1 g/dL (31.0-37.0); MCV 84.8 fL (80.0-100.0); Mean Platelet Volume 8.1; Monocytes # (A) 0.6 k/uL (0-1.0); Monocytes % (A) 4 %; Neutrophils # (A) 13.7 k/uL (1.3-7.7); Neutrophils % (A) 91 %; Platelet Count 267 k/uL (150-450); RBC 4.47 m/uL (3.80-5.40); RDW 14.7 % (11.5-15.5)
[2017-10-23 09:14] LABS: ALT 38 U/L (9-52); AST 28 U/L (14-36); Albumin 3.6 g/dL (3.5-5.0); Alkaline Phosphatase 59 U/L (38-126); Anion Gap 14 mmol/L; Blood Urea Nitrogen 12 mg/dL (7-17); Calcium 9.2 mg/dL (8.4-10.2); Carbon Dioxide 24 mmol/L (22-30); Chloride 110 mmol/L (98-107); Glucose 173 mg/dL (74-99); Potassium 4.3 mmol/L (3.5-5.1); Sodium 148 mmol/L (137-145); Total Bilirubin 0.5 mg/dL (0.2-1.3); Total Protein 5.9 g/dL (6.3-8.2)
--- NOTE | 2017-10-23 09:55 | P.PN ---
Subjective Progress Note Date: 10/23/17 72-year-old female who presented to the emergency room with a chief complaint of abdominal pain. The patient reports she has been having abdominal pain for a few months but it has worsened in severity over the last two weeks. She states she waited to come to the hospital after the 17 of October holiday because "all the good doctors go on vacation for the holidays and there would not be anyone good here to take care of me". The patient did have a CT scan of her abdomen in September 2017 due to abdominal pain which revealed large gallstones seen in the region of the gallbladder neck. No gallbladder wall thickening was identified. Mild hepatic steatosis. Moderate fecal stasis. Dilated loop of small bowel proximally measuring 3 cm. The patient was referred to see Dr. Church. However, the patient never followed through with this. She reports decreased appetite. The patient reports she was consuming mostly liquid foods and protein drinks. She reports she tried to eat small amounts of food but would get abdominal pain so she started chewing her food and then spitting it out. She states she has been drinking fluids but likely less than she usually does. She denies nausea or vomiting, however she does report a lot of heartburn and burping. She reports her last bowel movement was 2 1/2 weeks ago. She states she usually has a bowel movement every 2-3 days. She states she had a colonoscopy "years ago" and was told it was normal. She states she has been in bed for the last week due to weakness and fatigue. She denies any urinary symptoms such as frequency, burning, urgency, pain with urination, or odor. She denies fever or chills. Denies chest pain or pressure. She reports mild SOB when lying flat. The patient has a history of diabetes mellitus, hypertension, and gastroesophageal reflux disease. She also reports a history of short term memory loss but is unable to relay what medical condition this is from or what caused it. She is a lifelong non-smoker. She denies alcohol use or drug use. KUB x-ray revealed colonic distention with differential air fluid levels and small bowel dilation. However there is air noted within the distal colon and rectum therefore findings may relate to incomplete large bowel obstruction or ileus associated with colitis. Laboratory data: White count 11.4. Hemoglobin 13.2. Platelet count 251. Sodium 147. Potassium 3.5. Chloride 110. Carbon dioxide 18. BUN 15. Creatinine 0.69. Glucose 126. Total bilirubin 0.7. AST 19. ALT 30. Alkaline phosphatase 62. Amylase 41. Lipase 100. Urinalysis reveals clear yellow urine, 1+ proteinuria, 4+ ketones, 1+ bilirubin, moderate leukocyte esterase, 15 WBC. The patient was admitted to the hospital under the care of Dr. Oscar. Consultations were placed to general surgery. 10/23/2017 Patient seen and examined at the bedside. Patient continues to complain of abdominal pain. Soap suds enema was ordered yesterday but patient has been refusing. Patient states she will do enema this morning. Patient underwent CT of abdomen and pelvis yesterday which revealed dilated large and small bowel fluid levels consistent with generalized ileus. Minimal ascites fluid. Atelectasis at the left lung base. Large calcified gallstone. Hiatal hernia. Patient reports she drank oral contrast yesterday and then had an episode of emesis prior to her computed tomography scan. No further episodes of emesis since that time. Patient remains NPO except for ice chips. General surgery is following. Objective - Vital Signs Vital signs: Vital Signs Temp 98.0 F 10/23/17 05:20 Pulse 78 10/23/17 05:20 Resp 16 10/23/17 05:20 BP 141/73 10/23/17 05:20 Pulse Ox 96 10/23/17 05:20 Intake & Output 10/22/17 10/23/17 10/23/17 18:59 06:59 18:59 Intake Total 200 Balance 200 Weight 64.682 kg Intake: Intake, IV Titration 200 Amount Levofloxacin 500Mg-D5w 100 Pmx 500 mg In Dextrose/ Water 1 100ml.bag @ 100 mls/hr IVPB Q24H YANET Rx#: [id number] Sodium Chloride 0.9% 1, 100 000 ml @ 100 mls/hr IV . Q10H YANET Rx#:[id number] Other: Voiding Method Toilet Bedside Commode # Voids 1 # Emeses 1 - Exam GENERAL: This is a 72-year-old female in no apparent distress at the time of examination. Pleasant and cooperative. HEENT: Head is atraumatic, normocephalic. Pupils are equal, round, and reactive to light. Sclerae anicteric. Conjunctivae are clear. Mucus membranes of the mouth are moist. Neck is supple. RESPIRATORY: Clear to ausculation. No wheezes, rales, or rhonchi. No use of accessory muscles. Patient maintaining oxygen saturation greater than 92%. No chest wall tenderness is noted on palpation or with deep breathing. CARDIOVASCULAR: Regular rate and rhythm. S1 and S2 noted. No systolic or diastolic murmur auscultated. No JVD noted. No S3 or S4 noted. GASTROINTESTINAL: Abdominal distention noted. Hypoactive bowel sounds x 4 quadrants. Pain and tenderness noted upon palpation x 4 quadrants. INTEGUMENTARY: No cyanosis. No jaundice. No rashes noted. No cellulitis noted. EXTREMITIES: 2+ peripheral pulses. No evidence of peripheral edema. No calf tenderness noted. NEUROLOGIC: Cranial nerves II-XII intact. PSYCHIATRIC: Awake, alert, and oriented X 3. Appropriate affect. Intact judgement and insight. - Labs CBC & Chem 7: 10/23/17 08:15 10/23/17 08:15 Labs: Abnormal Lab Results - Last 24 Hours (Table) 10/22/17 10/22/17 10/22/17 Range/Units 12:34 12:34 13:02 WBC 11.4 H (3.8-10.6) k/uL Neutrophils # 9.7 H (1.3-7.7) k/uL Lymphocytes # (1.0-4.8) k/uL Sodium 147 H (137-145) mmol/L Chloride 110 H (98-107) mmol/L Carbon Dioxide 18 L (22-30) mmol/L Glucose 126 H (74-99) mg/dL POC Glucose (mg/dL) (75-99) mg/dL Total Protein (6.3-8.2) g/dL Urine Protein 1+ H (Negative) Urine Ketones 4+ H (Negative) Urine Bilirubin 1+ H (Negative) Ur Leukocyte Esterase Moderate H (Negative) Urine WBC 15 H (0-5) /hpf Urine Mucus Occasional H (None) /hpf 10/22/17 10/23/17 10/23/17 Range/Units 20:28 07:17 08:15 WBC 15.0 H (3.8-10.6) k/uL Neutrophils # 13.7 H (1.3-7.7) k/uL Lymphocytes # 0.6 L (1.0-4.8) k/uL Sodium (137-145) mmol/L Chloride (98-107) mmol/L Carbon Dioxide (22-30) mmol/L Glucose (74-99) mg/dL POC Glucose (mg/dL) 195 H 191 H (75-99) mg/dL Total Protein (6.3-8.2) g/dL Urine Protein (Negative) Urine Ketones (Negative) Urine Bilirubin (Negative) Ur Leukocyte Esterase (Negative) Urine WBC (0-5) /hpf Urine Mucus (None) /hpf 10/23/17 Range/Units 08:15 WBC (3.8-10.6) k/uL Neutrophils # (1.3-7.7) k/uL Lymphocytes # (1.0-4.8) k/uL Sodium 148 H (137-145) mmol/L Chloride 110 H (98-107) mmol/L Carbon Dioxide (22-30) mmol/L Glucose 173 H (74-99) mg/dL POC Glucose (mg/dL) (75-99) mg/dL Total Protein 5.9 L (6.3-8.2) g/dL Urine Protein (Negative) Urine Ketones (Negative) Urine Bilirubin (Negative) Ur Leukocyte Esterase (Negative) Urine WBC (0-5) /hpf Urine Mucus (None) /hpf Assessment and Plan Plan: ASSESSMENT: Abdominal pain secondary to large bowel obstruction, present on admission Constipation, patient reports no bowel movement for 2.5 weeks Generalized weakness, secondary to above, patient reports laying in bed x 1 week Cholelithiasis Leukocytosis, no evidence of sepsis at this time Pyuria, asymptomatic, patient denies any adverse urinary s/s Hypernatremia Diabetes mellitus, type II Hypertension Gastroesophageal reflux disease PLAN: General surgery on consult. Appreciate recommendations and input Bowel stimulants. Patient agreeable to enema this morning NPO except for ice chips Change IVF to LR due to increasing sodium Hold home medications at this time. Continue novolog sliding scale AC/HS Monitor labs GI prophylaxis: Protonix 40 mg IV Daily DVT prophylaxis: SCDs to bilateral LE Monitor vital signs and address as appropriate Discharge planning: Patient to return home when stable Further recommendations pending patient's course Nurse practitioner note has been reviewed by physician. Signing provider agrees with the documented findings, assessment, and plan of care.
--- NOTE | 2017-10-23 10:46 | P.PN ---
Subjective Progress Note Date: 10/23/17 72-year-old female seen this morning sitting up in bed. Patient reports having a nausea sensation no active emesis. Reports having no bowel movement is not passing gas. Computed tomography scan of the abdomen and pelvis was reviewed. It showed in summary a dilated large and small bowel with fluid levels consistent with a generalized ileus. The cecum is dilated to 10.5. No evidence of free air. There is a 3 cm calcifying gallstones. The bile ducts are not dilated abdomen this morning is firm with a few hypo-active sounding bowel tones Objective - Vital Signs Vital signs: Vital Signs Temp 98.0 F 10/23/17 05:20 Pulse 78 10/23/17 05:20 Resp 16 10/23/17 05:20 BP 141/73 10/23/17 05:20 Pulse Ox 96 10/23/17 05:20 Intake & Output 10/22/17 10/23/17 10/23/17 18:59 06:59 18:59 Intake Total 200 Balance 200 Weight 64.682 kg Intake: Intake, IV Titration 200 Amount Levofloxacin 500Mg-D5w 100 Pmx 500 mg In Dextrose/ Water 1 100ml.bag @ 100 mls/hr IVPB Q24H [facility]ET Rx#: [id number] Sodium Chloride 0.9% 1, 100 000 ml @ 100 mls/hr IV . Q10H YANET Rx#:[id number] Other: Voiding Method Toilet Bedside Commode # Voids 1 # Emeses 1 - Exam Physical exam 72-year-old female sitting up in bed abdomen is more distended firm states feels nauseated no active emesis Lungs essentially clear adequate air movement Heart S1-S2 audible regular Abdomen more distended than prior exam few hypoactive bowel tones states urinating no difficulty no stool not passing gas is not belching diffuse tenderness Extremities no edema - Labs CBC & Chem 7: 10/23/17 08:15 10/23/17 08:15 Labs: Abnormal Lab Results - Last 24 Hours (Table) 10/22/17 10/22/17 10/22/17 Range/Units 12:34 12:34 13:02 WBC 11.4 H (3.8-10.6) k/uL Neutrophils # 9.7 H (1.3-7.7) k/uL Lymphocytes # (1.0-4.8) k/uL Sodium 147 H (137-145) mmol/L Chloride 110 H (98-107) mmol/L Carbon Dioxide 18 L (22-30) mmol/L Glucose 126 H (74-99) mg/dL POC Glucose (mg/dL) (75-99) mg/dL Total Protein (6.3-8.2) g/dL Urine Protein 1+ H (Negative) Urine Ketones 4+ H (Negative) Urine Bilirubin 1+ H (Negative) Ur Leukocyte Esterase Moderate H (Negative) Urine WBC 15 H (0-5) /hpf Urine Mucus Occasional H (None) /hpf 10/22/17 10/23/17 10/23/17 Range/Units 20:28 07:17 08:15 WBC 15.0 H (3.8-10.6) k/uL Neutrophils # 13.7 H (1.3-7.7) k/uL Lymphocytes # 0.6 L (1.0-4.8) k/uL Sodium (137-145) mmol/L Chloride (98-107) mmol/L Carbon Dioxide (22-30) mmol/L Glucose (74-99) mg/dL POC Glucose (mg/dL) 195 H 191 H (75-99) mg/dL Total Protein (6.3-8.2) g/dL Urine Protein (Negative) Urine Ketones (Negative) Urine Bilirubin (Negative) Ur Leukocyte Esterase (Negative) Urine WBC (0-5) /hpf Urine Mucus (None) /hpf 10/23/17 Range/Units 08:15 WBC (3.8-10.6) k/uL Neutrophils # (1.3-7.7) k/uL Lymphocytes # (1.0-4.8) k/uL Sodium 148 H (137-145) mmol/L Chloride 110 H (98-107) mmol/L Carbon Dioxide (22-30) mmol/L Glucose 173 H (74-99) mg/dL POC Glucose (mg/dL) (75-99) mg/dL Total Protein 5.9 L (6.3-8.2) g/dL Urine Protein (Negative) Urine Ketones (Negative) Urine Bilirubin (Negative) Ur Leukocyte Esterase (Negative) Urine WBC (0-5) /hpf Urine Mucus (None) /hpf Assessment and Plan Assessment: ] Thanks impression Present on admission diffuse abdominal pain intractable nausea vomiting likely due to a partial large bowel obstruction Present on admission leukocytosis Present on admission constipation CAT scan of the abdomen with contrast done September 20 report indicates large gallstones seen in the gallbladder neck no gallbladder wall thickening Computed tomography scan abdomen pelvis without contrast done on October 22 report indicates dilated large and small bowel with fluid levels consistent with a generalized ileus new compared to prior CT exam with a 3 cm calcified gallstone Plan Inserted nasal gastric tube connected to suction monitor the response IV fluid for hydration Bowel stimulant to be initiated DVT and GI prophylaxis Further surgical recommendations pending will follow with you Keep nothing by mouth except for ice chips Pain control note dictated for The above impression and plan of care have been discussed and directed by signing physician. Lynn Nguyễn nurse practitioner acting as scribe for signing physician.
[2017-10-23 11:22] LABS: Glucose,Whole Blood 176 mg/dL (75-99)
[2017-10-23] MEDS: LACTATED RINGERS 1,000 ML IV SCH ×2 (12:19→21:02)
[2017-10-23] MEDS: metroNIDAZOLE-NS PMX 500 MG in SALINE 1 100ML.BAG IVPB SCH ×2 (15:10→21:03)
[2017-10-23] MEDS: BENZOCAINE SPRAY 1 CAN MUCOUS MEM PRN (16:44)
[2017-10-23] MEDS ORDERED: ACETAMINOPHEN IV (For NPO) 1,000 MG in EMPTY BAG 1 BAG IVPB PRN (16:55)
[2017-10-23 17:10] LABS: Glucose,Whole Blood 162 mg/dL (75-99)
[2017-10-23 21:06] LABS: Glucose,Whole Blood 133 mg/dL (75-99)
[2017-10-23] MEDS ORDERED: HYDROmorphone 0.5 MG/0.5 ML SYRINGE ONE (23:55)
[2017-10-24] MEDS ORDERED: HYDROmorphone 0.5 MG/0.5 ML SYRINGE ONE (03:26)
[2017-10-24] MEDS: metroNIDAZOLE-NS PMX 500 MG in SALINE 1 100ML.BAG IVPB SCH ×4 (05:18→21:39)
[2017-10-24] MEDS: LACTATED RINGERS 1,000 ML IV SCH ×2 (05:21→15:44)
[2017-10-24 07:27] LABS: Glucose,Whole Blood 186 mg/dL (75-99)
[2017-10-24] MEDS: INSULIN ASPART 100 UNIT/ML 1 ML 10 ML VIAL SQ SCH ×3 (07:41→19:06)
[2017-10-24] MEDS: POLYETHYLENE GLYCOL 3350 17 GM POWD.PACK PO SCH ×2 (07:42→07:47)
[2017-10-24] MEDS: DOCUSATE 100 MG CAP PO SCH ×2 (07:42→21:36)
[2017-10-24] MEDS: LACTULOSE 20 GM/30 ML CUP PO SCH ×3 (07:42→21:39)
[2017-10-24] MEDS: PANTOPRAZOLE 40 MG/10 ML VIAL IVP SCH (07:42)
[2017-10-24] MEDS: HYDROmorphone 0.5 MG/0.5 ML SYRINGE IVP PRN ×3 (07:43→17:34)
[2017-10-24] MEDS: BENZOCAINE SPRAY 1 CAN MUCOUS MEM PRN (07:50)
[2017-10-24 08:26] LABS: Basophils % (A) 0 %; Eosinophils % (A) 0 %; HCT 38.5 % (34.0-46.0); HGB 12.5 gm/dL (11.4-16.0); Lymphocytes # (A) 0.5 k/uL (1.0-4.8); Lymphocytes % (A) 4 %; MCH 27.5 pg (25.0-35.0); MCHC 32.4 g/dL (31.0-37.0); MCV 84.9 fL (80.0-100.0); Mean Platelet Volume 8.5; Monocytes # (A) 0.7 k/uL (0-1.0); Monocytes % (A) 5 %; Neutrophils # (A) 12.3 k/uL (1.3-7.7); Neutrophils % (A) 90 %; Platelet Count 259 k/uL (150-450); RBC 4.53 m/uL (3.80-5.40); RDW 14.6 % (11.5-15.5); WBC 13.7 k/uL (3.8-10.6)
[2017-10-24 08:37] LABS: ALT 53 U/L (9-52); AST 35 U/L (14-36); Albumin 3.5 g/dL (3.5-5.0); Alkaline Phosphatase 61 U/L (38-126); Anion Gap 13 mmol/L; Blood Urea Nitrogen 14 mg/dL (7-17); Calcium 9.2 mg/dL (8.4-10.2); Carbon Dioxide 21 mmol/L (22-30); Chloride 110 mmol/L (98-107); Glucose 183 mg/dL (74-99); Sodium 144 mmol/L (137-145); Total Bilirubin 0.8 mg/dL (0.2-1.3); Total Protein 5.7 g/dL (6.3-8.2)
[2017-10-24] MEDS: LEVOFLOXACIN 500MG-D5W PMX 500 MG in DEXTROSE/WATER 1 100ML.BAG IVPB SCH (09:02)
--- NOTE | 2017-10-24 11:13 | P.PN ---
Subjective Progress Note Date: 10/24/17 72-year-old female seen at the bedside this morning nasal gastric tube to suction increased abdominal distention increased abdominal pain this morning. No stool. States urinating no difficulty. White count 13.7 electrolytes reviewed normal limits afebrile states having more abdominal pain. A few hypoactive bowel tones noted abdomen is distended firm Abdominal x-ray done this morning show a new large amount of free air consider colon perforation small bowel loops dilated up to 5 discuss x-ray findings with Dr. calixto plan is for surgery today discussed findings and plan a care with patient and patient's spouse at the bedside questions answered Objective - Vital Signs Vital signs: Vital Signs Temp 97.8 F 10/24/17 07:30 Pulse 63 10/24/17 07:30 Resp 16 10/24/17 07:30 BP 135/66 10/24/17 09:05 Pulse Ox 96 10/24/17 07:30 Intake & Output 10/23/17 10/24/17 10/24/17 18:59 06:59 18:59 Intake Total 300 1000 200 Output Total 1050 400 Balance -750 600 200 Intake: IV 800 Lactated Ringers 1,000 ml 800 @ 100 mls/hr IV .Q10H [facility] Rx#:[id number] Intake, IV Titration 300 200 200 Amount Levofloxacin 500Mg-D5w 100 100 Pmx 500 mg In Dextrose/ Water 1 100ml.bag @ 100 mls/hr IVPB Q24H [facility] Rx#: [id number] Sodium Chloride 0.9% 1, 100 000 ml @ 100 mls/hr IV . Q10H [facility] Rx#:[id number] metroNIDAZOLE-NS PMX 500 100 200 100 mg In Saline 1 100ml.bag @ 100 mls/hr IVPB Q6H [facility] Rx#:[id number] Output: Gastric Drainage 1050 400 Other: Voiding Method Bedside Commode # Voids 1 1 - Exam Physical exam 72-year-old female sitting up in bed abdomen more distended firm states feels nauseated no active emesis increase abdominal pain this morning Lungs essentially clear adequate air movement no shortness of breath noted Heart S1-S2 audible regular no murmur noted denying chest pain Abdomen nasal gastric tube connected to suction increased distention firm increased abdominal pain a few hypoactive bowel tones noted no stool no difficulty urinating reports a nausea sensation no emesis taking ice chips Extremities no edema - Labs CBC & Chem 7: 10/24/17 08:02 10/24/17 08:02 Labs: Abnormal Lab Results - Last 24 Hours (Table) 10/23/17 10/23/17 10/23/17 Range/Units 11:19 16:48 21:00 WBC (3.8-10.6) k/uL Neutrophils # (1.3-7.7) k/uL Lymphocytes # (1.0-4.8) k/uL Chloride (98-107) mmol/L Carbon Dioxide (22-30) mmol/L Glucose (74-99) mg/dL POC Glucose (mg/dL) 176 H 162 H 133 H (75-99) mg/dL ALT (9-52) U/L Total Protein (6.3-8.2) g/dL 10/24/17 10/24/17 10/24/17 Range/Units 07:10 08:02 08:02 WBC 13.7 H (3.8-10.6) k/uL Neutrophils # 12.3 H (1.3-7.7) k/uL Lymphocytes # 0.5 L (1.0-4.8) k/uL Chloride 110 H (98-107) mmol/L Carbon Dioxide 21 L (22-30) mmol/L Glucose 183 H (74-99) mg/dL POC Glucose (mg/dL) 186 H (75-99) mg/dL ALT 53 H (9-52) U/L Total Protein 5.7 L (6.3-8.2) g/dL Assessment and Plan Assessment: ] Thanks impression Present on admission diffuse abdominal pain intractable nausea vomiting likely due to a partial large bowel obstruction Present on admission leukocytosis Present on admission constipation CAT scan of the abdomen with contrast done September 20 report indicates large gallstones seen in the gallbladder neck no gallbladder wall thickening Computed tomography scan abdomen pelvis without contrast done on October 22 report indicates dilated large and small bowel with fluid levels consistent with a generalized ileus new compared to prior CT exam with a 3 cm calcified gallstone Abdominal x-ray done on the show large amount of free air new consider colon perforation Plan Plan for surgery exploratory laparotomy IV fluid for hydration Bowel stimulant to be initiated DVT and GI prophylaxis Further surgical recommendations pending will follow with you Keep nothing by mouth except for ice chips Pain control note dictated for The above impression and plan of care have been discussed and directed by signing physician. Lynn Nguyễn nurse practitioner acting as scribe for signing physician.
--- NOTE | 2017-10-24 11:59 | XR ---
EXAMINATION TYPE: XR abdomen complete w decub DATE OF EXAM: 10/24/2017 COMPARISON: Correlation CT 10/22/2017 HISTORY: 72-year-old female with ileus and abdominal pain TECHNIQUE: Supine, upright, and left side down lateral decubitus views of the abdomen are obtained. FINDINGS: NG tube is down. The sidehole is just below the level of the GE junction. There is large am ount of free air which is new. Air-fluid levels are present throughout with small bowel loops dilated up to 5.0 cm. IMPRESSION: New large amount of free air. Consider colonic perforation. Small bowel loops remain dilated measurin g up to 5.0 cm. Critical findings called to Nurse Shashi on [facility] at 11:53am and [employer] Gopi at 11:55 AM.
--- NOTE | 2017-10-24 12:05 | P.PN ---
Subjective Progress Note Date: 10/24/17 72-year-old female who presented to the emergency room with a chief complaint of abdominal pain. The patient reports she has been having abdominal pain for a few months but it has worsened in severity over the last two weeks. She states she waited to come to the hospital after the 17 of October holiday because "all the good doctors go on vacation for the holidays and there would not be anyone good here to take care of me". The patient did have a CT scan of her abdomen in September 2017 due to abdominal pain which revealed large gallstones seen in the region of the gallbladder neck. No gallbladder wall thickening was identified. Mild hepatic steatosis. Moderate fecal stasis. Dilated loop of small bowel proximally measuring 3 cm. The patient was referred to see Dr. Church. However, the patient never followed through with this. She reports decreased appetite. The patient reports she was consuming mostly liquid foods and protein drinks. She reports she tried to eat small amounts of food but would get abdominal pain so she started chewing her food and then spitting it out. She states she has been drinking fluids but likely less than she usually does. She denies nausea or vomiting, however she does report a lot of heartburn and burping. She reports her last bowel movement was 2 1/2 weeks ago. She states she usually has a bowel movement every 2-3 days. She states she had a colonoscopy "years ago" and was told it was normal. She states she has been in bed for the last week due to weakness and fatigue. She denies any urinary symptoms such as frequency, burning, urgency, pain with urination, or odor. She denies fever or chills. Denies chest pain or pressure. She reports mild SOB when lying flat. The patient has a history of diabetes mellitus, hypertension, and gastroesophageal reflux disease. She also reports a history of short term memory loss but is unable to relay what medical condition this is from or what caused it. She is a lifelong non-smoker. She denies alcohol use or drug use. KUB x-ray revealed colonic distention with differential air fluid levels and small bowel dilation. However there is air noted within the distal colon and rectum therefore findings may relate to incomplete large bowel obstruction or ileus associated with colitis. Laboratory data: White count 11.4. Hemoglobin 13.2. Platelet count 251. Sodium 147. Potassium 3.5. Chloride 110. Carbon dioxide 18. BUN 15. Creatinine 0.69. Glucose 126. Total bilirubin 0.7. AST 19. ALT 30. Alkaline phosphatase 62. Amylase 41. Lipase 100. Urinalysis reveals clear yellow urine, 1+ proteinuria, 4+ ketones, 1+ bilirubin, moderate leukocyte esterase, 15 WBC. The patient was admitted to the hospital under the care of Dr. Oscar. Consultations were placed to general surgery. 10/23/2017 Patient seen and examined at the bedside. Patient continues to complain of abdominal pain. Soap suds enema was ordered yesterday but patient has been refusing. Patient states she will do enema this morning. Patient underwent CT of abdomen and pelvis yesterday which revealed dilated large and small bowel fluid levels consistent with generalized ileus. Minimal ascites fluid. Atelectasis at the left lung base. Large calcified gallstone. Hiatal hernia. Patient reports she drank oral contrast yesterday and then had an episode of emesis prior to her computed tomography scan. No further episodes of emesis since that time. Patient remains NPO except for ice chips. General surgery is following. 10/24/2017 Patient seen and examined at the bedside with Dr. Oscar. NG tube was inserted yesterday. Remains connected to LIS. Patient has had a total of approximately 1700cc out since insertion. Approximately 400cc since 0200. Patient does report passing flatus. No bowel movement today. Tolerating ice chips. Reports occasional nausea. Abdomen appears more distended today in comparison to yesterday. Sodium has improved to 144 today. Remains on LR at 100cc. Patient is scheduled for xray of her abdomen. Objective - Vital Signs Vital signs: Vital Signs Temp 97.8 F 10/24/17 07:30 Pulse 63 10/24/17 07:30 Resp 16 10/24/17 07:30 BP 135/66 10/24/17 09:05 Pulse Ox 96 10/24/17 07:30 Intake & Output 10/23/17 10/24/17 10/24/17 18:59 06:59 18:59 Intake Total 300 1000 200 Output Total 1050 400 Balance -750 600 200 Weight 64.682 kg Intake: IV 800 Lactated Ringers 1,000 ml 800 @ 100 mls/hr IV .Q10H [facility] Rx#:[id number] Intake, IV Titration 300 200 200 Amount Levofloxacin 500Mg-D5w 100 100 Pmx 500 mg In Dextrose/ Water 1 100ml.bag @ 100 mls/hr IVPB Q24H [facility] Rx#: [id number] Sodium Chloride 0.9% 1, 100 000 ml @ 100 mls/hr IV . Q10H [facility] Rx#:[id number] metroNIDAZOLE-NS PMX 500 100 200 100 mg In Saline 1 100ml.bag @ 100 mls/hr IVPB Q6H [facility] Rx#:[id number] Output: Gastric Drainage 1050 400 Other: Voiding Method Bedside Commode Bedside Commode # Voids 1 1 1 - Exam GENERAL: This is a 72-year-old female in no apparent distress at the time of examination. Pleasant and cooperative. HEENT: Head is atraumatic, normocephalic. Pupils are equal, round, and reactive to light. Sclerae anicteric. Conjunctivae are clear. Mucus membranes of the mouth are moist. Neck is supple. RESPIRATORY: Clear to ausculation. No wheezes, rales, or rhonchi. No use of accessory muscles. Patient maintaining oxygen saturation greater than 92%. No chest wall tenderness is noted on palpation or with deep breathing. CARDIOVASCULAR: Regular rate and rhythm. S1 and S2 noted. No systolic or diastolic murmur auscultated. No JVD noted. No S3 or S4 noted. GASTROINTESTINAL: NG to LIS. Abdominal distention noted. No bowel sounds auscultated in left upper or lower quadrant or right upper quadrant. A few hypoactive tones noted to right lower quadrant. Pain and tenderness noted upon palpation x 4 quadrants. INTEGUMENTARY: No cyanosis. No jaundice. No rashes noted. No cellulitis noted. EXTREMITIES: 2+ peripheral pulses. Trace bilateral lower extremity edema. No calf tenderness noted. NEUROLOGIC: Cranial nerves II-XII intact. PSYCHIATRIC: Awake, alert, and oriented X 3. Appropriate affect. Intact judgement and insight. - Labs CBC & Chem 7: 10/24/17 08:02 10/24/17 08:02 Labs: Abnormal Lab Results - Last 24 Hours (Table) 10/23/17 10/23/17 10/24/17 Range/Units 16:48 21:00 07:10 WBC (3.8-10.6) k/uL Neutrophils # (1.3-7.7) k/uL Lymphocytes # (1.0-4.8) k/uL Chloride (98-107) mmol/L Carbon Dioxide (22-30) mmol/L Glucose (74-99) mg/dL POC Glucose (mg/dL) 162 H 133 H 186 H (75-99) mg/dL ALT (9-52) U/L Total Protein (6.3-8.2) g/dL 10/24/17 10/24/17 Range/Units 08:02 08:02 WBC 13.7 H (3.8-10.6) k/uL Neutrophils # 12.3 H (1.3-7.7) k/uL Lymphocytes # 0.5 L (1.0-4.8) k/uL Chloride 110 H (98-107) mmol/L Carbon Dioxide 21 L (22-30) mmol/L Glucose 183 H (74-99) mg/dL POC Glucose (mg/dL) (75-99) mg/dL ALT 53 H (9-52) U/L Total Protein 5.7 L (6.3-8.2) g/dL Assessment and Plan Plan: ASSESSMENT: Abdominal pain secondary to large bowel obstruction, present on admission Constipation, patient reports no bowel movement for 2.5 weeks Generalized weakness, secondary to above, patient reports laying in bed x 1 week Cholelithiasis Leukocytosis, no evidence of sepsis at this time Pyuria, asymptomatic, patient denies any adverse urinary s/s Hypernatremia, resolved Diabetes mellitus, type II Hypertension Gastroesophageal reflux disease PLAN: General surgery on consult. Appreciate recommendations and input Patient scheduled for abdominal xray. Await results. NPO except for ice chips Hold home medications at this time. Continue novolog sliding scale AC/HS Monitor labs GI prophylaxis: Protonix 40 mg IV Daily DVT prophylaxis: SCDs to bilateral LE Monitor vital signs and address as appropriate Discharge planning: Patient to return home when stable Further recommendations pending patient's course Nurse practitioner note has been reviewed by physician. Signing provider agrees with the documented findings, assessment, and plan of care.
[2017-10-24 12:10] LABS: Glucose,Whole Blood 167 mg/dL (75-99)
--- NOTE | 2017-10-24 13:23 | P.PN ---
Progress Note - Text Progress Note Date: 10/24/17 The patient had abdominal x-rays performed today. There is a large amount of new free air. Patient's condition remains largely unchanged. Patient will undergo exploratory laparoscopy due to perforated viscus today.
[2017-10-24] MEDS: LORazepam 2 MG/ML INJ IV PRN ×2 (13:33→18:56)
[2017-10-24] MEDS ORDERED: IV FLUID CONTINUATION 1,000 ML IV ONE (14:00)
[2017-10-24] MEDS ORDERED: MIDAZOLAM 2 MG/2 ML VIAL IV ONE (14:30)
[2017-10-24] MEDS ORDERED: fentaNYL (PF) 50 MCG/ML 2 ML AMP ONE (14:50)
[2017-10-24] MEDS ORDERED: PHENYLEPHRINE-0.9% NACL SYG 1 MG/10 ML SYRINGE ONE (14:50)
[2017-10-24] MEDS ORDERED: PROPOFOL 10 MG/ML 20 ML VIAL IV ONE (14:50)
[2017-10-24] MEDS ORDERED: ROCURONIUM BROMIDE 10 MG/ML 10 ML VIAL IV ONE (14:50)
[2017-10-24] MEDS ORDERED: LIDOCAINE 1% INJ 10MG/ML (20 ML MDV) ONE (14:50)
[2017-10-24] MEDS ORDERED: SUCCINYLCHOLINE CHLORIDE 100 MG/5 ML SYR IV ONE (14:50)
[2017-10-24] MEDS ORDERED: LACTATED RINGERS 1,000 ML IV ONE ×2 (15:39→16:15)
[2017-10-24] MEDS ORDERED: METOCLOPRAMIDE 5 MG/ML 2 ML VIAL IVP PRN (16:37)
[2017-10-24] MEDS ORDERED: NALOXONE 0.4 MG/ML 1 ML VIAL IV PRN (16:37)
--- NOTE | 2017-10-24 16:37 | P.OP ---
Date of Procedure: 10/24/17 Preoperative Diagnosis: Perforated viscus Postoperative Diagnosis: Cecal perforation Obstructing left colon tumor Procedure(s) Performed: Exploratory laparotomy Right colectomy Left colectomy Partial omentectomy Anesthesia: BRENDAN Surgeon: Rj Church Estimated Blood Loss (ml): 50 Pathology: other (Right colon, left colon, omentum) Condition: critical Disposition: ICU Description of Procedure: Patient's placed on the operative table in the supine position. She received general anesthesia. Her abdomen was prepped and draped in usual sterile fashion. The area was entered through midline incision. There was some free air encountered. The Bookwalter tract with wound. The wound was explored. The cecum appeared to be distended with some serosal tears. There was some evidence of a small perforation of the cecum. This point the small bowel was run it appeared dilated. The colon was then run. The cecum was dilated. The right colon and transverse colon was moderately dilated. In the left colon there was an obstructing apple core type tumor. At this point the right colon was transected at the proximal transverse colon and the terminal ileum was transected with a GI stapler. The Enseal device is used to divide the mesentery. The specimen was sent to pathology. Next the left colon was mobilized. And then using a GI stapler the colon was transected proximally distally to the tumor. Next a [id number] functional end-to-end staple anastomosis created between the ileum and the transverse colon. A 3-0 GI silk sutures uses a stay stitch. The colostomy was then brought up into the left upper quadrant. The fascia was closed with looped #1 PDS suture. The skin was partially closed otto. 2 Telfa aaron were placed in the superior and inferior portion of the wound. The colostomy was then matured using 3-0 Vicryl suture. Patient top procedure well and was sent to ICU in guarded condition.
[2017-10-24] MEDS ORDERED: PROPOFOL 100 ML IV ONE (17:09)
[2017-10-24 17:11] LABS: Glucose,Whole Blood 163 mg/dL (75-99)
--- NOTE | 2017-10-24 17:30 | P.CNPUL ---
History of Present Illness Consult date: 10/24/17 Chief complaint: Acute bowel perforation, obstructive left colonic tumor History of present illness: 72-year-old female patient presented emergency department with abdominal pain and inability to eat and she was having increased nausea. She stated that she has not a bowel movement for several weeks. The patient stated that she was not passing gas also. A CAT scan of the abdomen was done and it showed fecal stasis along with dilated loops of small bowel. An NG tube was placed and significant amount of gastric material was aspirated immediately after the insertion. At the later stage, the patient's abdomen became more distended and a ferritin of the abdomen showed free air within the abdomen. The patient was taken to the operating room for expiratory laparotomy and perforated viscus. The patient was found to have a cecal perforation. 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 She underwent expiratory laparotomy, right colectomy and left colectomy and partial omentectomy and diverticular colostomy. Estimated blood loss was 50 mL. The patient was brought into the ICU following her surgery for further management. She was kept intubated on a mechanical ventilator. Her preoperative blood work showed a white cell count of 15.7. Renal function was stable and within normal limits. LFTs were nonelevated.. The patient is currently intubated on a mechanical ventilator on assist control mode at the rate of 16 with a tidal volume 400 with an FiO2 of 100% and a PEEP of 5. Hemodynamically stable. On no pressors. Orogastric and orotracheal tube are both in place. She is was sedated with Diprivan. She is producing 30-40 mL of urine output. Review of Systems ROS unobtainable: due to endotracheal tube Past Medical History Past Medical History: Dementia, Diabetes Mellitus, GERD/Reflux, Hypertension Additional Past Medical History / Comment(s): "slight memory impairment", scoliosis, dizzy spells and balance issues History of Any Multi-Drug Resistant Organisms: None Reported Past Surgical History: Hysterectomy Additional Past Surgical History / Comment(s): rt breast bx-neg, dental implants Additional Past Anesthesia/Blood Transfusion Reaction / Comment(s): hx clausterphobia. difficulty waking after sx. pt stated that during sx once her heart stopped. Past Psychological History: No Psychological Hx Reported Smoking Status: Never smoker Past Alcohol Use History: None Reported Past Drug Use History: None Reported - Past Family History Mother Family Medical History: Myocardial Infarction ([place]) Additional Family Medical History / Comment(s): grandmother had mi as well Father History Unknown: Yes Medications and Allergies Home Medications Medication Instructions Recorded Confirmed Type Baclofen 10 mg PO HS 10/22/17 10/22/17 History Fesoterodine Fumarate [Toviaz] 8 mg PO DAILY 10/22/17 10/22/17 History Glimepiride [Amaryl] 1 mg PO DAILY 10/22/17 10/22/17 History Losartan [Cozaar] 50 mg PO DAILY 10/22/17 10/22/17 History Memantine HCl/Donepezil HCl 1 cap PO DAILY 10/22/17 10/22/17 History [Namzaric 14 mg-10 mg Capsule] Pioglitazone [Actos] 15 mg PO DAILY 10/22/17 10/22/17 History Repaglinide [Prandin] 0.5 mg PO AC-LUNCH 10/22/17 10/22/17 History sitaGLIPtin [Januvia] 100 mg PO DAILY 10/22/17 10/22/17 History Allergies Allergy/AdvReac Type Severity Reaction Status Date / Time Iodinated Contrast- Oral and Allergy Anaphylaxis Verified 10/24/17 14:03 IV Dye iodine Allergy Anaphylaxis Verified 10/24/17 14:03 Penicillins Allergy Unknown Verified 10/24/17 14:03 Childhood shellfish derived [Shellfish] Allergy Anaphylaxis Verified 10/24/17 14:03 Physical Exam Vitals: Vital Signs Temp Pulse Resp BP Pulse Ox 10/24/17 14:40 100 16 121/76 94 L 10/24/17 14:09 102 H 18 137/75 95 10/24/17 09:05 135/66 10/24/17 07:30 97.8 F 63 16 110/59 96 10/23/17 22:40 98.3 F 84 16 128/70 95 10/23/17 18:15 73 16 Intake and Output 10/24/17 10/24/17 10/24/17 06:59 14:59 22:59 Intake Total 1000 1100 1050 Output Total 400 450 180 Balance 600 650 870 Intake: IV 705 488 1959 Lactated Ringers 1,000 ml 800 @ 100 mls/hr IV .Q10H [facility] Rx#:[id number] Intake, IV Titration 200 200 Amount Levofloxacin 500Mg-D5w 100 Pmx 500 mg In Dextrose/ Water 1 100ml.bag @ 100 mls/hr IVPB Q24H [facility] Rx#: [id number] metroNIDAZOLE-NS PMX 500 200 100 mg In Saline 1 100ml.bag @ 100 mls/hr IVPB Q6H [facility] Rx#:[id number] Output: Gastric Drainage 400 450 Urine 80 Estimated Blood Loss 100 Other: Voiding Method Bedside Commode # Voids 3 Weight 64.682 kg Gen. appearance, comfortable likely distress. Intubated on a mechanical ventilator. Sedated with Diprivan. Head exam was generally normal. There was no scleral icterus or corneal arcus. Mucous membranes were moist. Neck was supple and without jugular venous distension, thyromegaly, or carotid bruits. Carotids were easily palpable bilaterally. There was no adenopathy. Lungs were clear to auscultation and percussion, and with normal diaphragmatic excursion. No wheezes or rales were noted. Cardiac exam revealed the PMI to be normally situated and sized. The rhythm was regular and no extrasystoles were noted during several minutes of auscultation. The first and second heart sounds were normal and physiologic splitting of the second heart sound was noted. There were no murmurs, rubs, clicks, or gallops. Abdomen is soft and nontender. Colostomy site is clean right now and the tissue is viable. No direct tenderness. No rebound tensile guarding at this point. Examination of the extremities revealed easily palpable radial, femoral and pedal pulses. There was no cyanosis, clubbing or edema. Examination of the skin revealed no evidence of significant rashes, suspicious appearing nevi or other concerning lesions. Neurologically the patient is sedated, withdrawing to painful stimuli in all 4 extremities Results - Laboratory Findings CBC and BMP: 10/24/17 08:02 10/24/17 08:02 Abnormal lab findings: Abnormal Labs 10/22/17 10/22/17 10/22/17 12:34 12:34 13:02 WBC 11.4 H Neutrophils # 9.7 H Lymphocytes # Sodium 147 H Chloride 110 H Carbon Dioxide 18 L Glucose 126 H POC Glucose (mg/dL) ALT Total Protein Urine Protein 1+ H Urine Ketones 4+ H Urine Bilirubin 1+ H Ur Leukocyte Esterase Moderate H Urine WBC 15 H Urine Mucus Occasional H 10/22/17 10/23/17 10/23/17 20:28 07:17 08:15 WBC 15.0 H Neutrophils # 13.7 H Lymphocytes # 0.6 L Sodium Chloride Carbon Dioxide Glucose POC Glucose (mg/dL) 195 H 191 H ALT Total Protein Urine Protein Urine Ketones Urine Bilirubin Ur Leukocyte Esterase Urine WBC Urine Mucus 10/23/17 10/23/17 10/23/17 08:15 11:19 16:48 WBC Neutrophils # Lymphocytes # Sodium 148 H Chloride 110 H Carbon Dioxide Glucose 173 H POC Glucose (mg/dL) 176 H 162 H ALT Total Protein 5.9 L Urine Protein Urine Ketones Urine Bilirubin Ur Leukocyte Esterase Urine WBC Urine Mucus 10/23/17 10/24/17 10/24/17 21:00 07:10 08:02 WBC 13.7 H Neutrophils # 12.3 H Lymphocytes # 0.5 L Sodium Chloride Carbon Dioxide Glucose POC Glucose (mg/dL) 133 H 186 H ALT Total Protein Urine Protein Urine Ketones Urine Bilirubin Ur Leukocyte Esterase Urine WBC Urine Mucus 10/24/17 10/24/17 08:02 12:09 WBC Neutrophils # Lymphocytes # Sodium Chloride 110 H Carbon Dioxide 21 L Glucose 183 H POC Glucose (mg/dL) 167 H ALT 53 H Total Protein 5.7 L Urine Protein Urine Ketones Urine Bilirubin Ur Leukocyte Esterase Urine WBC Urine Mucus - Diagnostic Findings Chest x-ray: image reviewed Assessment and Plan Plan: Assessment 1 acute cecal perforation due to an obstructive left colonic mass, status post expiratory laparotomy and right and left colectomy and diverticular colostomy and partial omentectomy and the patient is postop day #0. 2 acute hypoxic respiratory failure secondary to above. The patient was kept intubated on mechanical ventilator postoperatively the patient was transferred to the intensive care unit for further care 3 acute abdomen with cecal perforation and free air in the abdomen secondary to above 4 diabetes mellitus 5 hypertension 6 dementia Plan Continue vent support. Obtain a chest x-ray immediately after arrival to the intensive care unit. Obtain a blood gas. Necessary vent changes were begun accordingly. Continue with IV fluids and the patient will need fluid resuscitation and the patient is currently on lactated Ringer at the rate of 150 mL an hour. Continue Levaquin and Flagyl. Lovenox for DVT prophylaxis. Keep the patient sedated with Diprivan. Monitor hemodynamics. Monitor blood work. Obtain a blood gas in the necessary vent changes. Awaiting postoperative chest x-ray. Keep the patient sedated for today. We'll continue to follow. She is on Lovenox for the prophylaxis. Dilaudid for pain control. NovoLog coverage. We'll continue to follow.
[2017-10-24] MEDS: LACTATED RINGERS 1,000 ML IV ONE ×2 (17:41→21:42)
[2017-10-24 17:42] LABS: ABG Base Excess -2.5 mmol/L; ABG HCO3 23 mmol/L (21-25); ABG PCO2 37 mmHg (35-45); ABG PH 7.39 (7.35-7.45); ABG PO2 >400 mmHg (83-108); ABG TCO2 24 mmol/L (19-24)
[2017-10-24] MEDS ORDERED: INSULIN ASPART 100 UNIT/ML 1 ML 10 ML VIAL SQ SCH (19:15)
[2017-10-24] MEDS: PROPOFOL 1,000 MG in EMPTY BAG 1 BAG IV SCH (19:45)
[2017-10-24] MEDS: IPRATROPIUM-ALBUTEROL 3 ML NEB INHALATION SCH ×2 (20:39→22:58)
[2017-10-25 00:39] LABS: Glucose,Whole Blood 175 mg/dL (75-99)
[2017-10-25] MEDS: PROPOFOL 1,000 MG in EMPTY BAG 1 BAG IV SCH ×2 (00:58→09:15)
[2017-10-25] MEDS: INSULIN ASPART 100 UNIT/ML 1 ML 10 ML VIAL SQ SCH ×4 (00:58→17:51)
[2017-10-25] MEDS ORDERED: SODIUM CHLORIDE 0.9% 1,000 ML IV ONE ×2 (01:45→03:58)
[2017-10-25] MEDS: ACETAMINOPHEN IV (For NPO) 1,000 MG in EMPTY BAG 1 BAG IVPB PRN ×2 (02:44→12:22)
[2017-10-25] MEDS: IPRATROPIUM-ALBUTEROL 3 ML NEB INHALATION SCH ×5 (03:09→20:02)
[2017-10-25] MEDS: metroNIDAZOLE-NS PMX 500 MG in SALINE 1 100ML.BAG IVPB SCH ×4 (04:00→20:54)
[2017-10-25 04:44] LABS: ABG Base Excess -0.9 mmol/L; ABG HCO3 23 mmol/L (21-25); ABG PCO2 34 mmHg (35-45); ABG PH 7.45 (7.35-7.45); ABG PO2 125 mmHg (83-108); ABG TCO2 24 mmol/L (19-24)
[2017-10-25 05:20] LABS: Basophils % (A) 0 %; Eosinophils % (A) 0 %; HCT 33.9 % (34.0-46.0); HGB 11.2 gm/dL (11.4-16.0); Lymphocytes # (A) 0.6 k/uL (1.0-4.8); Lymphocytes % (A) 6 %; MCH 28.4 pg (25.0-35.0); MCHC 33.1 g/dL (31.0-37.0); MCV 85.9 fL (80.0-100.0); Mean Platelet Volume 8.3; Monocytes # (A) 0.6 k/uL (0-1.0); Monocytes % (A) 6 %; Neutrophils # (A) 9.3 k/uL (1.3-7.7); Neutrophils % (A) 87 %; Platelet Count 242 k/uL (150-450); RBC 3.94 m/uL (3.80-5.40); RDW 14.9 % (11.5-15.5); WBC 10.7 k/uL (3.8-10.6)
[2017-10-25 05:49] LABS: ALT 40 U/L (9-52); AST 14 U/L (14-36); Albumin 2.1 g/dL (3.5-5.0); Alkaline Phosphatase 38 U/L (38-126); Anion Gap 7 mmol/L; Blood Urea Nitrogen 12 mg/dL (7-17); Calcium 8.2 mg/dL (8.4-10.2); Carbon Dioxide 22 mmol/L (22-30); Chloride 110 mmol/L (98-107); Glucose 159 mg/dL (74-99); Magnesium 1.7 mg/dL (1.6-2.3); Phosphorus 2.3 mg/dL (2.5-4.5); Potassium 3.8 mmol/L (3.5-5.1); Sodium 139 mmol/L (137-145); Total Bilirubin 0.5 mg/dL (0.2-1.3); Total Protein 3.9 g/dL (6.3-8.2)
[2017-10-25] MEDS ORDERED: Potassium Replacement Protocol 1 EACH MISC MISCELLANE PRN ×2 (06:17→06:25)
[2017-10-25 06:39] LABS: Glucose,Whole Blood 169 mg/dL (75-99)
[2017-10-25] MEDS: MAGNESIUM SULFATE-D5W PMX 1 GM in DEXTROSE/WATER 1 100ML.BAG IVPB SCH ×3 (06:42→10:44)
[2017-10-25] MEDS ORDERED: POTASSIUM PHOSPHATE 10 MMOL in SODIUM CHLORIDE 0.9% 250 ML IV ONE (07:00)
[2017-10-25] MEDS ORDERED: POTASSIUM CHLORIDE ER 20 MEQ TAB.ER PO SCH (07:00)
--- NOTE | 2017-10-25 07:10 | XR ---
EXAMINATION TYPE: XR chest 1V DATE OF EXAM: 10/25/2017 CLINICAL HISTORY: Difficulty breathing progress study. Recent open abdominal surgery for free air. TECHNIQUE: Single AP portable upright view of the chest is obtained. COMPARISON: None. FINDINGS: There is endotracheal tube with tip at aortic knob approximately 3 to 4 cm above esther. T here is orogastric tube projecting below diaphragm. There is right internal jugular central venous ca theter terminating in right atrium. Osseous structures are demineralized. Underlying scoliotic curvature is present. Cardiac silhouette s ize is within normal limits. Patchy bibasilar atelectasis and/or infiltrate with likely tiny bilatera l pleural effusions. Upper lungs are clear without pneumothorax. IMPRESSION: Patchy bibasilar atelectasis and/or infiltrate with suspected tiny bilateral pleural effu sions.
--- NOTE | 2017-10-25 07:15 | P.PN ---
Progress Note - Text Progress Note Date: 10/25/17 72-year-old female status post exporter laparotomy with colectomy. Patient is postop day one catheter day #2. Patient was reviewed left intubated overnight, epidural was not infusing overnight. We'll start epidural infusion at a low rate until the patient is more arousable. Patient is afebrile, intubated, being weaned to extubate.
[2017-10-25] MEDS ORDERED: NALOXONE 0.4 MG/ML 1 ML VIAL IV PRN (07:16)
[2017-10-25] MEDS: ENOXAPARIN 40 MG/0.4 ML SYRINGE SQ SCH (08:15)
[2017-10-25] MEDS: PANTOPRAZOLE 40 MG/10 ML VIAL IVP SCH (08:17)
[2017-10-25] MEDS: LEVOFLOXACIN 500MG-D5W PMX 500 MG in DEXTROSE/WATER 1 100ML.BAG IVPB SCH (08:17)
[2017-10-25] MEDS: POTASSIUM CHLORIDE 10 MEQ in WATER FOR INJECTION 1 100ML.BAG IVPB SCH ×2 (09:16→10:42)
[2017-10-25] MEDS ORDERED: LACTATED RINGERS 1,000 ML IV ONE (10:30)
[2017-10-25] MEDS: LACTULOSE 20 GM/30 ML CUP PO SCH ×3 (11:04→20:53)
[2017-10-25] MEDS: POLYETHYLENE GLYCOL 3350 17 GM POWD.PACK PO SCH (11:04)
[2017-10-25] MEDS: DOCUSATE 100 MG CAP PO SCH ×2 (11:04→20:52)
[2017-10-25 12:09] LABS: Glucose,Whole Blood 161 mg/dL (75-99)
[2017-10-25 12:11] LABS: ABG HCO3 22 mmol/L (21-25); ABG Oxygen Saturation 99.6 % (94-97); ABG PCO2 32 mmHg (35-45); ABG PH 7.45 (7.35-7.45); ABG PO2 134 mmHg (83-108); ABG TCO2 23 mmol/L (19-24)
--- NOTE | 2017-10-25 12:54 | P.PN ---
Subjective Progress Note Date: 10/25/17 72-year-old female who presented to the emergency room with a chief complaint of abdominal pain. The patient reports she has been having abdominal pain for a few months but it has worsened in severity over the last two weeks. She states she waited to come to the hospital after the 17 of October holiday because "all the good doctors go on vacation for the holidays and there would not be anyone good here to take care of me". The patient did have a CT scan of her abdomen in September 2017 due to abdominal pain which revealed large gallstones seen in the region of the gallbladder neck. No gallbladder wall thickening was identified. Mild hepatic steatosis. Moderate fecal stasis. Dilated loop of small bowel proximally measuring 3 cm. The patient was referred to see Dr. Church. However, the patient never followed through with this. She reports decreased appetite. The patient reports she was consuming mostly liquid foods and protein drinks. She reports she tried to eat small amounts of food but would get abdominal pain so she started chewing her food and then spitting it out. She states she has been drinking fluids but likely less than she usually does. She denies nausea or vomiting, however she does report a lot of heartburn and burping. She reports her last bowel movement was 2 1/2 weeks ago. She states she usually has a bowel movement every 2-3 days. She states she had a colonoscopy "years ago" and was told it was normal. She states she has been in bed for the last week due to weakness and fatigue. She denies any urinary symptoms such as frequency, burning, urgency, pain with urination, or odor. She denies fever or chills. Denies chest pain or pressure. She reports mild SOB when lying flat. The patient has a history of diabetes mellitus, hypertension, and gastroesophageal reflux disease. She also reports a history of short term memory loss but is unable to relay what medical condition this is from or what caused it. She is a lifelong non-smoker. She denies alcohol use or drug use. KUB x-ray revealed colonic distention with differential air fluid levels and small bowel dilation. However there is air noted within the distal colon and rectum therefore findings may relate to incomplete large bowel obstruction or ileus associated with colitis. Laboratory data: White count 11.4. Hemoglobin 13.2. Platelet count 251. Sodium 147. Potassium 3.5. Chloride 110. Carbon dioxide 18. BUN 15. Creatinine 0.69. Glucose 126. Total bilirubin 0.7. AST 19. ALT 30. Alkaline phosphatase 62. Amylase 41. Lipase 100. Urinalysis reveals clear yellow urine, 1+ proteinuria, 4+ ketones, 1+ bilirubin, moderate leukocyte esterase, 15 WBC. The patient was admitted to the hospital under the care of Dr. Oscar. Consultations were placed to general surgery. 10/23/2017 Patient seen and examined at the bedside. Patient continues to complain of abdominal pain. Soap suds enema was ordered yesterday but patient has been refusing. Patient states she will do enema this morning. Patient underwent CT of abdomen and pelvis yesterday which revealed dilated large and small bowel fluid levels consistent with generalized ileus. Minimal ascites fluid. Atelectasis at the left lung base. Large calcified gallstone. Hiatal hernia. Patient reports she drank oral contrast yesterday and then had an episode of emesis prior to her computed tomography scan. No further episodes of emesis since that time. Patient remains NPO except for ice chips. General surgery is following. 10/24/2017 Patient seen and examined at the bedside with Dr. Oscar. NG tube was inserted yesterday. Remains connected to LIS. Patient has had a total of approximately 1700cc out since insertion. Approximately 400cc since 0200. Patient does report passing flatus. No bowel movement today. Tolerating ice chips. Reports occasional nausea. Abdomen appears more distended today in comparison to yesterday. Sodium has improved to 144 today. Remains on LR at 100cc. Patient is scheduled for xray of her abdomen. 10/25/2017 Patient had abdominal xray yesterday which revealed free air. She was taken to the OR by Dr. Church. She underwent exploratory laparotomy with right colectomy, left colectomy, partial omentectomy. 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 A colostomy was also performed. She remained intubated and was transferred to the ICU overnight. She was seen and examined this morning in the ICU with Dr. Oscar. She remains vented on 40% Fio2. She is maintaining oxygen saturations greater than 92%. She is sedated on propofol. Patient does withdraw to painful stimuli. She remains hemodynamically stable. NG tube is intact to LIS with bilious output. Approximately 200cc in collection canister. Urinary catheter is intact with yellow urine. Dressing to abdomen is CDI with small area of shadowing to right upper corner of dressing. Colostomy is noted with minimal bloody drainage. Objective - Vital Signs Vital signs: Vital Signs Temp 100.7 F H 10/25/17 04:00 Pulse 74 10/25/17 08:05 Resp 16 10/25/17 08:00 BP 109/52 10/25/17 08:00 Pulse Ox 100 10/25/17 08:00 Intake & Output 10/24/17 10/25/17 10/25/17 18:59 06:59 18:59 Intake Total 2300 4042.098 244.478 Output Total 710 247 Balance 1590 3795.098 244.478 Weight 64.682 kg 73.5 kg Intake: IV 2100 4000 150 ACETAMINOPHEN IV (For NPO 100 ) 1,000 mg In Empty Bag 1 bag @ 400 mls/hr IVPB Q6HR PRN Rx#:[id number] Lactated Ringers 1,000 ml 150 1700 150 @ 100 mls/hr IV .Q10H [facility] Rx#:[id number] Sodium Chloride 0.9% 1, 2000 000 ml @ 999 mls/hr IV . Q1H1M ONE Rx#:[id number] metroNIDAZOLE-NS PMX 500 200 mg In Saline 1 100ml.bag @ 100 mls/hr IVPB Q6H [facility] Rx#:[id number] Intake, IV Titration 200 42.098 94.478 Amount Levofloxacin 500Mg-D5w 100 Pmx 500 mg In Dextrose/ Water 1 100ml.bag @ 100 mls/hr IVPB Q24H [facility] Rx#: [id number] Propofol 1,000 mg In 42.098 94.478 Empty Bag 1 bag @ Titrate IV .Q0M [facility] Rx#: [id number] metroNIDAZOLE-NS PMX 500 100 mg In Saline 1 100ml.bag @ 100 mls/hr IVPB Q6H [facility] Rx#:[id number] Output: Gastric Drainage 450 50 Urine 160 197 Estimated Blood Loss 100 Other: Voiding Method Indwelling Catheter Indwelling Catheter # Voids 3 ABP, PAP, CO, CI - Last Documented Arterial Blood Pressure 138/44 - Exam GENERAL: This is a 72-year-old female who remains intubated and sedated in the ICU. HEENT: ET tube intact. NG intact to LIS. Head is atraumatic, normocephalic. Pupils are equal, round, and reactive to light, although sluggish. Sclerae anicteric. Conjunctivae are clear. Mucus membranes of the mouth are moist. Neck is supple. RESPIRATORY: ET tube intact. Remains on mechanical ventilation. Clear to ausculation. No wheezes, rales, or rhonchi. Patient maintaining oxygen saturation greater than 92%. CARDIOVASCULAR: Regular rate and rhythm. S1 and S2 noted. No systolic or diastolic murmur auscultated. No JVD noted. No S3 or S4 noted. GASTROINTESTINAL: NG tube is intact to LIS with bilious output. Approximately 200cc in collection canister. Urinary catheter is intact with yellow urine. Dressing to abdomen is CDI with small area of shadowing to right upper corner of dressing. Colostomy is noted with minimal bloody drainage. No blood sounds noted. INTEGUMENTARY: No cyanosis. No jaundice. No rashes noted. No cellulitis noted. EXTREMITIES: 2+ peripheral pulses. Trace bilateral lower extremity edema. No calf tenderness noted. NEUROLOGIC: Unable to assess due to mechanical ventilation and continuous IV sedation PSYCHIATRIC: Unable to assess due to mechanical ventilation and continuous IV sedation - Labs CBC & Chem 7: 10/25/17 04:35 10/25/17 04:35 Labs: Abnormal Lab Results - Last 24 Hours (Table) 10/24/17 10/24/17 10/24/17 Range/Units 12:09 17:10 17:39 WBC (3.8-10.6) k/uL Hgb (11.4-16.0) gm/dL Hct (34.0-46.0) % Neutrophils # (1.3-7.7) k/uL Lymphocytes # (1.0-4.8) k/uL ABG pCO2 (35-45) mmHg ABG pO2 >400 H (83-108) mmHg ABG O2 Saturation 100.0 H (94-97) % Chloride (98-107) mmol/L Glucose (74-99) mg/dL POC Glucose (mg/dL) 167 H 163 H (75-99) mg/dL Calcium (8.4-10.2) mg/dL Phosphorus (2.5-4.5) mg/dL Total Protein (6.3-8.2) g/dL Albumin (3.5-5.0) g/dL 10/25/17 10/25/17 10/25/17 Range/Units 00:36 04:35 04:35 WBC 10.7 H (3.8-10.6) k/uL Hgb 11.2 L (11.4-16.0) gm/dL Hct 33.9 L (34.0-46.0) % Neutrophils # 9.3 H (1.3-7.7) k/uL Lymphocytes # 0.6 L (1.0-4.8) k/uL ABG pCO2 (35-45) mmHg ABG pO2 (83-108) mmHg ABG O2 Saturation (94-97) % Chloride 110 H (98-107) mmol/L Glucose 159 H (74-99) mg/dL POC Glucose (mg/dL) 175 H (75-99) mg/dL Calcium 8.2 L (8.4-10.2) mg/dL Phosphorus 2.3 L (2.5-4.5) mg/dL Total Protein 3.9 L (6.3-8.2) g/dL Albumin 2.1 L (3.5-5.0) g/dL 10/25/17 10/25/17 Range/Units 04:37 06:37 WBC (3.8-10.6) k/uL Hgb (11.4-16.0) gm/dL Hct (34.0-46.0) % Neutrophils # (1.3-7.7) k/uL Lymphocytes # (1.0-4.8) k/uL ABG pCO2 34 L (35-45) mmHg ABG pO2 125 H (83-108) mmHg ABG O2 Saturation 99.0 H (94-97) % Chloride (98-107) mmol/L Glucose (74-99) mg/dL POC Glucose (mg/dL) 169 H (75-99) mg/dL Calcium (8.4-10.2) mg/dL Phosphorus (2.5-4.5) mg/dL Total Protein (6.3-8.2) g/dL Albumin (3.5-5.0) g/dL Assessment and Plan Plan: ASSESSMENT: 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, s/p exploratory laparotomy and right and left colectomy and diverticular colostomy and partial omentectomy, POD #1 Abdominal pain secondary to large bowel obstruction, present on admission Constipation, patient reports no bowel movement for 2.5 weeks Generalized weakness, secondary to above, patient reports laying in bed x 1 week Cholelithiasis Leukocytosis, no evidence of sepsis at this time Pyuria, asymptomatic, patient denies any adverse urinary s/s Hypernatremia, resolved Diabetes mellitus, type II Hypertension Gastroesophageal reflux disease Hypophosphatemia PLAN: Continue ventilator management per Dr. Melgar General surgery on consult. Appreciate recommendations and input Monitor labs GI prophylaxis: Protonix 40 mg IV Daily DVT prophylaxis: SCDs to bilateral LE Monitor vital signs and address as appropriate Discharge planning: Patient to return home when stable Further recommendations pending patient's course Nurse practitioner note has been reviewed by physician. Signing provider agrees with the documented findings, assessment, and plan of care.
--- NOTE | 2017-10-25 13:01 | P.PN ---
Subjective Progress Note Date: 10/25/17 Principal diagnosis: Colonic obstruction The patient's postoperative day 1 from exploratory laparotomy with right colectomy and ileocolonic anastomosis and left colectomy with end colostomy. Patient's found have a cecal perforation and a left colon obstruction secondary to a tumor. The patient was extubated a few minutes ago. She's had some complaints of incisional pain. She's been in identical stable overnight with marginal urine output. Objective - Vital Signs Vital signs: Vital Signs Temp 100.7 F H 10/25/17 04:00 Pulse 110 H 10/25/17 11:37 Resp 29 H 10/25/17 11:00 BP 151/63 10/25/17 11:00 Pulse Ox 100 10/25/17 11:00 Intake & Output 10/24/17 10/25/17 10/25/17 18:59 06:59 18:59 Intake Total 2300 4042.098 921.832 Output Total 710 247 100 Balance 1590 3795.098 821.832 Weight 64.682 kg 73.5 kg 73.5 kg Intake: IV 2100 4000 800 ACETAMINOPHEN IV (For NPO 100 ) 1,000 mg In Empty Bag 1 bag @ 400 mls/hr IVPB Q6HR PRN Rx#:[id number] Lactated Ringers 1,000 ml 150 1700 600 @ 100 mls/hr IV .Q10H [facility] Rx#:[id number] Magnesium Sulfate-D5w Pmx 100 1 gm In Dextrose/Water 1 100ml.bag @ 100 mls/hr IVPB Q1H [facility] Rx#: [id number] Potassium Chloride 10 meq 100 In Water For Injection 1 100ml.bag @ 100 mls/hr IVPB Q1H [facility] Rx#: [id number] Sodium Chloride 0.9% 1, 2000 000 ml @ 999 mls/hr IV . Q1H1M [facility] Rx#:[id number] metroNIDAZOLE-NS PMX 500 200 mg In Saline 1 100ml.bag @ 100 mls/hr IVPB Q6H [facility] Rx#:[id number] Intake, IV Titration 200 42.098 121.832 Amount Levofloxacin 500Mg-D5w 100 Pmx 500 mg In Dextrose/ Water 1 100ml.bag @ 100 mls/hr IVPB Q24H [facility] Rx#: [id number] Propofol 1,000 mg In 42.098 121.832 Empty Bag 1 bag @ Titrate IV .Q0M [facility] Rx#: [id number] metroNIDAZOLE-NS PMX 500 100 mg In Saline 1 100ml.bag @ 100 mls/hr IVPB Q6H [facility] Rx#:[id number] Output: Gastric Drainage 450 50 Urine 160 197 100 Estimated Blood Loss 100 Other: Voiding Method Indwelling Catheter Indwelling Catheter Indwelling Catheter # Voids 3 ABP, PAP, CO, CI - Last Documented Arterial Blood Pressure 178/54 - Constitutional General appearance: Present: cooperative - Gastrointestinal Gastrointestinal Comment(s): Abdomen soft. Incision site is clean dry and intact. - Labs CBC & Chem 7: 10/25/17 04:35 10/25/17 04:35 Labs: Abnormal Lab Results - Last 24 Hours (Table) 10/24/17 10/24/17 10/25/17 Range/Units 17:10 17:39 00:36 WBC (3.8-10.6) k/uL Hgb (11.4-16.0) gm/dL Hct (34.0-46.0) % Neutrophils # (1.3-7.7) k/uL Lymphocytes # (1.0-4.8) k/uL ABG pCO2 (35-45) mmHg ABG pO2 >400 H (83-108) mmHg ABG O2 Saturation 100.0 H (94-97) % Chloride (98-107) mmol/L Glucose (74-99) mg/dL POC Glucose (mg/dL) 163 H 175 H (75-99) mg/dL Calcium (8.4-10.2) mg/dL Phosphorus (2.5-4.5) mg/dL Total Protein (6.3-8.2) g/dL Albumin (3.5-5.0) g/dL 10/25/17 10/25/17 10/25/17 Range/Units 04:35 04:35 04:37 WBC 10.7 H (3.8-10.6) k/uL Hgb 11.2 L (11.4-16.0) gm/dL Hct 33.9 L (34.0-46.0) % Neutrophils # 9.3 H (1.3-7.7) k/uL Lymphocytes # 0.6 L (1.0-4.8) k/uL ABG pCO2 34 L (35-45) mmHg ABG pO2 125 H (83-108) mmHg ABG O2 Saturation 99.0 H (94-97) % Chloride 110 H (98-107) mmol/L Glucose 159 H (74-99) mg/dL POC Glucose (mg/dL) (75-99) mg/dL Calcium 8.2 L (8.4-10.2) mg/dL Phosphorus 2.3 L (2.5-4.5) mg/dL Total Protein 3.9 L (6.3-8.2) g/dL Albumin 2.1 L (3.5-5.0) g/dL 10/25/17 10/25/17 10/25/17 Range/Units 06:37 12:00 12:07 WBC (3.8-10.6) k/uL Hgb (11.4-16.0) gm/dL Hct (34.0-46.0) % Neutrophils # (1.3-7.7) k/uL Lymphocytes # (1.0-4.8) k/uL ABG pCO2 32 L (35-45) mmHg ABG pO2 134 H (83-108) mmHg ABG O2 Saturation 99.6 H (94-97) % Chloride (98-107) mmol/L Glucose (74-99) mg/dL POC Glucose (mg/dL) 169 H 161 H (75-99) mg/dL Calcium (8.4-10.2) mg/dL Phosphorus (2.5-4.5) mg/dL Total Protein (6.3-8.2) g/dL Albumin (3.5-5.0) g/dL Assessment and Plan Assessment: Exploratory laparotomy with partial colectomy and colostomy. Patient will remain nothing by mouth. Would recommend TPN to be started. She'll remain in the ICU for another 24-48 hours. Her epidural be resumed.
[2017-10-25] MEDS: ROPIVACAINE 250 MG, HYDROMORPHONE (PF) 5 MG in SODIUM CHLORIDE 0.9% 200 ML EPIDURAL PRN (13:29)
--- NOTE | 2017-10-25 16:02 | P.PN ---
Subjective Progress Note Date: 10/25/17 72-year-old female patient presented emergency department with abdominal pain and inability to eat and she was having increased nausea. She stated that she has not a bowel movement for several weeks. The patient stated that she was not passing gas also. A CAT scan of the abdomen was done and it showed fecal stasis along with dilated loops of small bowel. An NG tube was placed and significant amount of gastric material was aspirated immediately after the insertion. At the later stage, the patient's abdomen became more distended and a ferritin of the abdomen showed free air within the abdomen. The patient was taken to the operating room for expiratory laparotomy and perforated viscus. The patient was found to have a cecal perforation. 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 She underwent expiratory laparotomy, right colectomy and left colectomy and partial omentectomy and diverticular colostomy. Estimated blood loss was 50 mL. The patient was brought into the ICU following her surgery for further management. She was kept intubated on a mechanical ventilator. Her preoperative blood work showed a white cell count of 15.7. Renal function was stable and within normal limits. LFTs were nonelevated.. The patient is currently intubated on a mechanical ventilator on assist control mode at the rate of 16 with a tidal volume 400 with an FiO2 of 100% and a PEEP of 5. Hemodynamically stable. On no pressors. Orogastric and orotracheal tube are both in place. She is was sedated with Diprivan. She is producing 30-40 mL of urine output. On today's evaluation of 10/25/2017 I'm seeing this patient for a follow-up. She is postop day #1. As mentioned earlier the patient underwent a expiratory laparotomy, bowel resection and diverticular colostomy. The patient is intubated on a mechanical ventilator. I give the patient is sedation holiday this morning and she was able to recover very well arouse and follow commands and answering questions appropriately. The patient was an assist-control mode of ventilation and we managed to drop down the FiO2 down to 40% throughout the day yesterday. This morning, her chest x-ray shows no acute abnormalities and ET tube is in a good location. The patient had weaning parameters showing a rapid shallow breathing index of 76 with a respiratory rate of 26 and tidal volume of 550 with a minute ventilation of 11.4 L and a NIF of -14. Subsequently the patient was given a spelled his breathing trial a pressure support of 5 and a PEEP of 5 and after 30 minutes a blood gases obtained that showed a pH of 7.44 with a pCO2 of 31 and pO2 of 134 and the patient was extubated to nasal cannula. Note that overnight the patient was having lower urine output. The patient was given a total of 2 L of IV fluid boluses. She was given another bolus this morning prior to extubation. No leukocytosis. She is having a low-grade fever. She is covered with a combination of Levaquin and Flagyl. The chest x-ray shows some patchy bibasilar atelectatic changes and tiny pleural effusions. Otherwise no other major abnormalities have been noted. Objective - Vital Signs Vital signs: Vital Signs Temp 100.7 F H 10/25/17 04:00 Pulse 102 H 10/25/17 15:30 Resp 23 10/25/17 15:30 BP 124/56 10/25/17 15:30 Pulse Ox 99 10/25/17 15:30 Intake & Output 10/24/17 10/25/17 10/25/17 18:59 06:59 18:59 Intake Total 2300 4042.098 1621.832 Output Total 710 247 215 Balance 1590 3795.098 1406.832 Weight 64.682 kg 73.5 kg 73.5 kg Intake: IV 2100 4000 1500 ACETAMINOPHEN IV (For NPO 100 ) 1,000 mg In Empty Bag 1 bag @ 400 mls/hr IVPB Q6HR PRN Rx#:[id number] Lactated Ringers 1,000 ml 150 1700 1200 @ 100 mls/hr IV .Q10H [facility] Rx#:[id number] Magnesium Sulfate-D5w Pmx 100 1 gm In Dextrose/Water 1 100ml.bag @ 100 mls/hr IVPB Q1H [facility] Rx#: [id number] Potassium Chloride 10 meq 100 In Water For Injection 1 100ml.bag @ 100 mls/hr IVPB Q1H [facility] Rx#: [id number] Sodium Chloride 0.9% 1, 2000 000 ml @ 999 mls/hr IV . Q1H1M [facility] Rx#:[id number] metroNIDAZOLE-NS PMX 500 200 100 mg In Saline 1 100ml.bag @ 100 mls/hr IVPB Q6H [facility] Rx#:[id number] Intake, IV Titration 200 42.098 121.832 Amount Levofloxacin 500Mg-D5w 100 Pmx 500 mg In Dextrose/ Water 1 100ml.bag @ 100 mls/hr IVPB Q24H [facility] Rx#: [id number] Propofol 1,000 mg In 42.098 121.832 Empty Bag 1 bag @ Titrate IV .Q0M [facility] Rx#: [id number] metroNIDAZOLE-NS PMX 500 100 mg In Saline 1 100ml.bag @ 100 mls/hr IVPB Q6H [facility] Rx#:[id number] Output: Gastric Drainage 450 50 Urine 160 197 215 Estimated Blood Loss 100 Other: Voiding Method Indwelling Catheter Indwelling Catheter Indwelling Catheter # Voids 3 ABP, PAP, CO, CI - Last Documented Arterial Blood Pressure 126/50 - Exam Awake and alert and extubated. Nonacute distress. Head exam was generally normal. There was no scleral icterus or corneal arcus. Mucous membranes were moist. NG tube still in place. Neck was supple and without jugular venous distension, thyromegaly, or carotid bruits. Carotids were easily palpable bilaterally. There was no adenopathy. Lungs were clear to auscultation and percussion, and with normal diaphragmatic excursion. No wheezes or rales were noted. Cardiac exam revealed the PMI to be normally situated and sized. The rhythm was regular and no extrasystoles were noted during several minutes of auscultation. The first and second heart sounds were normal and physiologic splitting of the second heart sound was noted. There were no murmurs, rubs, clicks, or gallops. Abdomen is soft. Bowel sounds are absent. No direct tenderness rebound tensile guarding. Surgical wound is dry clean and intact. Colostomy site is viable. Examination of the extremities revealed easily palpable radial, femoral and pedal pulses. There was no cyanosis, clubbing or edema. Examination of the skin revealed no evidence of significant rashes, suspicious appearing nevi or other concerning lesions. Neurologically awake and alert following commands and answering questions appropriately. - Labs CBC & Chem 7: 10/25/17 04:35 10/25/17 04:35 Labs: Abnormal Lab Results - Last 24 Hours (Table) 10/24/17 10/24/17 10/25/17 Range/Units 17:10 17:39 00:36 WBC (3.8-10.6) k/uL Hgb (11.4-16.0) gm/dL Hct (34.0-46.0) % Neutrophils # (1.3-7.7) k/uL Lymphocytes # (1.0-4.8) k/uL ABG pCO2 (35-45) mmHg ABG pO2 >400 H (83-108) mmHg ABG O2 Saturation 100.0 H (94-97) % Chloride (98-107) mmol/L Glucose (74-99) mg/dL POC Glucose (mg/dL) 163 H 175 H (75-99) mg/dL Calcium (8.4-10.2) mg/dL Phosphorus (2.5-4.5) mg/dL Total Protein (6.3-8.2) g/dL Albumin (3.5-5.0) g/dL 18 10/25/17 10/25/17 Range/Units 04:35 04:35 04:37 WBC 10.7 H (3.8-10.6) k/uL Hgb 11.2 L (11.4-16.0) gm/dL Hct 33.9 L (34.0-46.0) % Neutrophils # 9.3 H (1.3-7.7) k/uL Lymphocytes # 0.6 L (1.0-4.8) k/uL ABG pCO2 34 L (35-45) mmHg ABG pO2 125 H (83-108) mmHg ABG O2 Saturation 99.0 H (94-97) % Chloride 110 H (98-107) mmol/L Glucose 159 H (74-99) mg/dL POC Glucose (mg/dL) (75-99) mg/dL Calcium 8.2 L (8.4-10.2) mg/dL Phosphorus 2.3 L (2.5-4.5) mg/dL Total Protein 3.9 L (6.3-8.2) g/dL Albumin 2.1 L (3.5-5.0) g/dL 10/25/17 10/25/17 10/25/17 Range/Units 06:37 12:00 12:07 WBC (3.8-10.6) k/uL Hgb (11.4-16.0) gm/dL Hct (34.0-46.0) % Neutrophils # (1.3-7.7) k/uL Lymphocytes # (1.0-4.8) k/uL ABG pCO2 32 L (35-45) mmHg ABG pO2 134 H (83-108) mmHg ABG O2 Saturation 99.6 H (94-97) % Chloride (98-107) mmol/L Glucose (74-99) mg/dL POC Glucose (mg/dL) 169 H 161 H (75-99) mg/dL Calcium (8.4-10.2) mg/dL Phosphorus (2.5-4.5) mg/dL Total Protein (6.3-8.2) g/dL Albumin (3.5-5.0) g/dL Assessment and Plan Plan: Assessment 1 acute cecal perforation due to an obstructive left colonic mass, status post expiratory laparotomy and right and left colectomy and diverticular colostomy and partial omentectomy and the patient is postop day #1. Hemodynamically stable. Lower urine output was treated with IV fluids. No pressors. 2 acute hypoxic respiratory failure secondary to above. The patient was weaned off the mechanical ventilator based on protocol. The patient had adequate weaning parameters and the patient passed this point is breathing trial and subsequently the patient was extubated to nasal cannula. Chest x-ray showing some limited postoperative attackers changes in lung bases bilaterally. 3 acute abdomen with cecal perforation and free air in the abdomen secondary to above 4 diabetes mellitus 5 hypertension 6 dementia 7 fever, possibly secondary to intra-abdominal source of infection/bacterial peritonitis post cecal perforation. Currently on a combination of Levaquin and Flagyl. Hemodynamically stable. Plan Continue current antibiotic coverage. IV fluids at the rate of 100 mL an hour. Keep NG tube in place. The fever pattern. Use Tylenol for fever. Lactulose was started regarding bowel activity. Lovenox for DVT prophylaxis. Dilaudid for pain control. Patient has epidural Dilaudid for pain control also. Provide the patient incentive spirometer. We'll continue to follow. This is a critically care evaluation that was done in more than 40 minutes. Time with Patient: Greater than 30
[2017-10-25] MEDS: CHLORHEXIDINE GLUCONATE 15 ML CUP MUCOUS MEM SCH ×2 (16:35→20:50)
[2017-10-25] MEDS: LACTATED RINGERS 1,000 ML IV SCH (17:38)
[2017-10-25 17:46] LABS: Glucose,Whole Blood 169 mg/dL (75-99)
[2017-10-25] MEDS ORDERED: IPRATROPIUM-ALBUTEROL 3 ML NEB INHALATION PRN (20:07)
[2017-10-25] MEDS: LORazepam 2 MG/ML INJ IV PRN (23:20)
[2017-10-25 23:26] LABS: Glucose,Whole Blood 129 mg/dL (75-99)
[2017-10-26] MEDS: INSULIN ASPART 100 UNIT/ML 1 ML 10 ML VIAL SQ SCH ×4 (00:45→17:37)
[2017-10-26] MEDS: LACTATED RINGERS 1,000 ML IV SCH ×3 (00:46→17:25)
[2017-10-26] MEDS: metroNIDAZOLE-NS PMX 500 MG in SALINE 1 100ML.BAG IVPB SCH ×4 (02:30→21:40)
[2017-10-26 04:01] LABS: Anion Gap 3 mmol/L; Basophils % (A) 0 %; Blood Urea Nitrogen 11 mg/dL (7-17); Calcium 8.1 mg/dL (8.4-10.2); Carbon Dioxide 24 mmol/L (22-30); Chloride 112 mmol/L (98-107); Eosinophils # (A) 0.1 k/uL (0-0.7); Eosinophils % (A) 1 %; Glucose 122 mg/dL (74-99); HCT 29.1 % (34.0-46.0); Lymphocytes # (A) 0.6 k/uL (1.0-4.8); Lymphocytes % (A) 5 %; MCH 28.3 pg (25.0-35.0); MCHC 32.9 g/dL (31.0-37.0); Magnesium 1.9 mg/dL (1.6-2.3); Mean Platelet Volume 8.1; Monocytes # (A) 0.6 k/uL (0-1.0); Monocytes % (A) 5 %; Neutrophils # (A) 10.1 k/uL (1.3-7.7); Neutrophils % (A) 88 %; Phosphorus 2.4 mg/dL (2.5-4.5); Platelet Count 210 k/uL (150-450); Potassium 4.1 mmol/L (3.5-5.1); RBC 3.38 m/uL (3.80-5.40); RDW 14.8 % (11.5-15.5); Sodium 139 mmol/L (137-145); WBC 11.6 k/uL (3.8-10.6)
[2017-10-26 04:03] LABS: HGB 9.6 gm/dL (11.4-16.0)
[2017-10-26] MEDS ORDERED: Magnesium Replacement Protocol 1 EACH MISC MISCELLANE PRN (04:42)
[2017-10-26] MEDS: MAGNESIUM SULFATE-D5W PMX 1 GM in DEXTROSE/WATER 1 100ML.BAG IVPB SCH ×2 (05:43→06:50)
[2017-10-26 05:48] LABS: Glucose,Whole Blood 141 mg/dL (75-99)
[2017-10-26] MEDS: IPRATROPIUM-ALBUTEROL 3 ML NEB INHALATION SCH ×4 (07:06→21:19)
--- NOTE | 2017-10-26 07:08 | P.PN ---
Progress Note - Text 10/26 650am 72-year-old female status post low anterior resection. Patient is still in the ICU but has been extubated with NG tube still in place. The epidural solution is running at 5 mL an hour and she is comfortable with postop pain control. She is here hemodynamically stable. Plan to continue epidural infusion
--- NOTE | 2017-10-26 08:15 | XR ---
EXAMINATION TYPE: XR chest 1V DATE OF EXAM: 10/26/2017 COMPARISON: 10/25/2017 HISTORY: Difficulty breathing. TECHNIQUE: Single frontal view of the chest is obtained. FINDINGS: Endotracheal tube has been removed in the interim. Enteric tube is slightly cephalad in po sition with its fenestrated portion at the gastroesophageal junction. This should be advanced approxi mately 3 cm for optimal placement. Right internal jugular central venous catheter is unchanged in pos ition. There is improved aeration of the lung bases with minimal residual left basilar atelectasis. S coliotic curvature is again seen with osseous demineralization. Cardia mediastinal silhouette is uppe r limits of normal. Trace left pleural effusion is present with radiographic resolution of the right pleural effusion. IMPRESSION: 1. Improved aeration of the lungs with minimal left basilar subsegmental atelectasis and trace pleura l effusion remaining. 2. Interval extubation although the enteric tube appears slightly cephalad in position and should be advanced approximately 3 cm for optimal placement.
[2017-10-26] MEDS: POLYETHYLENE GLYCOL 3350 17 GM POWD.PACK PO SCH (08:25)
[2017-10-26] MEDS: CHLORHEXIDINE GLUCONATE 15 ML CUP MUCOUS MEM SCH (08:29)
[2017-10-26] MEDS: PANTOPRAZOLE 40 MG/10 ML VIAL IVP SCH (08:29)
[2017-10-26] MEDS: LACTULOSE 20 GM/30 ML CUP PO SCH (08:30)
[2017-10-26] MEDS: DOCUSATE 100 MG CAP PO SCH ×2 (08:30→20:20)
[2017-10-26] MEDS: ENOXAPARIN 40 MG/0.4 ML SYRINGE SQ SCH (08:30)
[2017-10-26] MEDS: LEVOFLOXACIN 500MG-D5W PMX 500 MG in DEXTROSE/WATER 1 100ML.BAG IVPB SCH (08:34)
--- NOTE | 2017-10-26 11:53 | P.PN ---
Subjective Progress Note Date: 10/26/17 72-year-old female who presented to the emergency room with a chief complaint of abdominal pain. The patient reports she has been having abdominal pain for a few months but it has worsened in severity over the last two weeks. She states she waited to come to the hospital after the 17 of October holiday because "all the good doctors go on vacation for the holidays and there would not be anyone good here to take care of me". The patient did have a CT scan of her abdomen in September 2017 due to abdominal pain which revealed large gallstones seen in the region of the gallbladder neck. No gallbladder wall thickening was identified. Mild hepatic steatosis. Moderate fecal stasis. Dilated loop of small bowel proximally measuring 3 cm. The patient was referred to see Dr. Church. However, the patient never followed through with this. She reports decreased appetite. The patient reports she was consuming mostly liquid foods and protein drinks. She reports she tried to eat small amounts of food but would get abdominal pain so she started chewing her food and then spitting it out. She states she has been drinking fluids but likely less than she usually does. She denies nausea or vomiting, however she does report a lot of heartburn and burping. She reports her last bowel movement was 2 1/2 weeks ago. She states she usually has a bowel movement every 2-3 days. She states she had a colonoscopy "years ago" and was told it was normal. She states she has been in bed for the last week due to weakness and fatigue. She denies any urinary symptoms such as frequency, burning, urgency, pain with urination, or odor. She denies fever or chills. Denies chest pain or pressure. She reports mild SOB when lying flat. The patient has a history of diabetes mellitus, hypertension, and gastroesophageal reflux disease. She also reports a history of short term memory loss but is unable to relay what medical condition this is from or what caused it. She is a lifelong non-smoker. She denies alcohol use or drug use. KUB x-ray revealed colonic distention with differential air fluid levels and small bowel dilation. However there is air noted within the distal colon and rectum therefore findings may relate to incomplete large bowel obstruction or ileus associated with colitis. Laboratory data: White count 11.4. Hemoglobin 13.2. Platelet count 251. Sodium 147. Potassium 3.5. Chloride 110. Carbon dioxide 18. BUN 15. Creatinine 0.69. Glucose 126. Total bilirubin 0.7. AST 19. ALT 30. Alkaline phosphatase 62. Amylase 41. Lipase 100. Urinalysis reveals clear yellow urine, 1+ proteinuria, 4+ ketones, 1+ bilirubin, moderate leukocyte esterase, 15 WBC. The patient was admitted to the hospital under the care of Dr. Oscar. Consultations were placed to general surgery. 10/23/2017 Patient seen and examined at the bedside. Patient continues to complain of abdominal pain. Soap suds enema was ordered yesterday but patient has been refusing. Patient states she will do enema this morning. Patient underwent CT of abdomen and pelvis yesterday which revealed dilated large and small bowel fluid levels consistent with generalized ileus. Minimal ascites fluid. Atelectasis at the left lung base. Large calcified gallstone. Hiatal hernia. Patient reports she drank oral contrast yesterday and then had an episode of emesis prior to her computed tomography scan. No further episodes of emesis since that time. Patient remains NPO except for ice chips. General surgery is following. 10/24/2017 Patient seen and examined at the bedside with Dr. Oscar. NG tube was inserted yesterday. Remains connected to LIS. Patient has had a total of approximately 1700cc out since insertion. Approximately 400cc since 0200. Patient does report passing flatus. No bowel movement today. Tolerating ice chips. Reports occasional nausea. Abdomen appears more distended today in comparison to yesterday. Sodium has improved to 144 today. Remains on LR at 100cc. Patient is scheduled for xray of her abdomen. 10/25/2017 Patient had abdominal xray yesterday which revealed free air. She was taken to the OR by Dr. Church. She underwent exploratory laparotomy with right colectomy, left colectomy, partial omentectomy. 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 A colostomy was also performed. She remained intubated and was transferred to the ICU overnight. She was seen and examined this morning in the ICU with Dr. Oscar. She remains vented on 40% Fio2. She is maintaining oxygen saturations greater than 92%. She is sedated on propofol. Patient does withdraw to painful stimuli. She remains hemodynamically stable. NG tube is intact to LIS with bilious output. Approximately 200cc in collection canister. Urinary catheter is intact with yellow urine. Dressing to abdomen is CDI with small area of shadowing to right upper corner of dressing. Colostomy is noted with minimal bloody drainage. 10/26/2017 Patient seen and examined at the bedside. Patient remains in the ICU. She was extubated yesterday. She remains on 2 L nasal cannula with oxygen saturations greater than 92%. Blood pressure has been stable. She is afebrile this morning however the patient did have a temperature last night of 101.1F. She remains on Levaquin and Flagyl. Chest x-ray reveals improved aeration of the lungs with minimal left basilar subsegmental atelectasis and trace pleural effusion. Patient is slightly tachycardic with a heart rate between 100-110. She has an epidural infusing at 5 mL an hour. Patient states her pain is tolerable at this time. Colostomy noted with minimal dark bloody output. NG tube intact to LIS. Indwelling urinary catheter remains intact. Patient denies chest pain or pressure. Denies shortness of breath. She reports dry mouth. White count is 11.6. Hemoglobin is 9.6, down from 11.2. Patient received a few liters of fluid yesterday due to decreased urine output which may account for drop in hemoglobin. Objective - Vital Signs Vital signs: Vital Signs Temp 98.2 F 10/26/17 08:00 Pulse 101 H 10/26/17 10:00 Resp 12 10/26/17 10:00 BP 132/56 10/26/17 10:00 Pulse Ox 94 L 10/26/17 10:00 Intake & Output 10/25/17 10/26/17 10/26/17 18:59 06:59 18:59 Intake Total 3131.832 1905 450 Output Total 655 515 90 Balance 2476.832 1390 360 Weight 73.5 kg 77.6 kg Intake: IV 3010 1905 450 Lactated Ringers 1,000 ml 1350 @ 100 mls/hr IV .Q10H [facility] Rx#:[id number] Lactated Ringers 1,000 ml 260 1905 450 @ 150 mls/hr IV .Q6H40M [facility] Rx#:[id number] Lactated Ringers 1,000 ml 1000 @ 999 mls/hr IV .Q1H1M [facility] Rx#:[id number] Magnesium Sulfate-D5w Pmx 100 1 gm In Dextrose/Water 1 100ml.bag @ 100 mls/hr IVPB Q1H [facility] Rx#: [id number] Potassium Chloride 10 meq 100 In Water For Injection 1 100ml.bag @ 100 mls/hr IVPB Q1H [facility] Rx#: [id number] metroNIDAZOLE-NS PMX 500 200 mg In Saline 1 100ml.bag @ 100 mls/hr IVPB Q6H [facility] Rx#:[id number] Intake, IV Titration 121.832 Amount Propofol 1,000 mg In 121.832 Empty Bag 1 bag @ Titrate IV .Q0M [facility] Rx#: [id number] Output: Gastric Drainage 150 50 Urine 505 465 90 Other: Voiding Method Indwelling Catheter Indwelling Catheter ABP, PAP, CO, CI - Last Documented Arterial Blood Pressure 143/38 - Exam GENERAL: This is a 72-year-old female in no acute distress at the time of examination HEENT: NG intact to LIS. Head is atraumatic, normocephalic. Pupils are equal, round, and reactive to light. Sclerae anicteric. Conjunctivae are clear. Mucus membranes of the mouth are moist. Neck is supple. RESPIRATORY: Clear to ausculation. No wheezes, rales, or rhonchi. Patient maintaining oxygen saturation greater than 92%. CARDIOVASCULAR: Regular rate and rhythm. S1 and S2 noted. No systolic or diastolic murmur auscultated. No JVD noted. No S3 or S4 noted. GASTROINTESTINAL: NG tube is intact to LIS with bilious output. Urinary catheter is intact with yellow urine. Dressing to abdomen is CDI with small area of shadowing. Colostomy is noted with minimal dark bloody drainage. Hypoactive bowel sounds auscultated 4 quadrants INTEGUMENTARY: No cyanosis. No jaundice. No rashes noted. No cellulitis noted. EXTREMITIES: 2+ peripheral pulses. Trace bilateral lower extremity edema. No calf tenderness noted. NEUROLOGIC: Cranial nerves II-XII intact. PSYCHIATRIC: Awake, alert, and oriented X 3. Appropriate affect. Intact judgement and insight. - Labs CBC & Chem 7: 10/26/17 03:45 10/26/17 03:45 Labs: Abnormal Lab Results - Last 24 Hours (Table) 10/25/17 10/25/17 10/25/17 Range/Units 12:00 12:07 17:43 WBC (3.8-10.6) k/uL RBC (3.80-5.40) m/uL Hgb (11.4-16.0) gm/dL Hct (34.0-46.0) % Neutrophils # (1.3-7.7) k/uL Lymphocytes # (1.0-4.8) k/uL ABG pCO2 32 L (35-45) mmHg ABG pO2 134 H (83-108) mmHg ABG O2 Saturation 99.6 H (94-97) % Chloride (98-107) mmol/L Creatinine (0.52-1.04) mg/dL Glucose (74-99) mg/dL POC Glucose (mg/dL) 161 H 169 H (75-99) mg/dL Calcium (8.4-10.2) mg/dL Phosphorus (2.5-4.5) mg/dL 10/25/17 10/26/17 10/26/17 Range/Units 23:24 03:45 03:45 WBC 11.6 H (3.8-10.6) k/uL RBC 3.38 L (3.80-5.40) m/uL Hgb 9.6 L D (11.4-16.0) gm/dL Hct 29.1 L (34.0-46.0) % Neutrophils # 10.1 H (1.3-7.7) k/uL Lymphocytes # 0.6 L (1.0-4.8) k/uL ABG pCO2 (35-45) mmHg ABG pO2 (83-108) mmHg ABG O2 Saturation (94-97) % Chloride 112 H (98-107) mmol/L Creatinine 0.50 L (0.52-1.04) mg/dL Glucose 122 H (74-99) mg/dL POC Glucose (mg/dL) 129 H (75-99) mg/dL Calcium 8.1 L (8.4-10.2) mg/dL Phosphorus 2.4 L (2.5-4.5) mg/dL 10/26/17 Range/Units 05:38 WBC (3.8-10.6) k/uL RBC (3.80-5.40) m/uL Hgb (11.4-16.0) gm/dL Hct (34.0-46.0) % Neutrophils # (1.3-7.7) k/uL Lymphocytes # (1.0-4.8) k/uL ABG pCO2 (35-45) mmHg ABG pO2 (83-108) mmHg ABG O2 Saturation (94-97) % Chloride (98-107) mmol/L Creatinine (0.52-1.04) mg/dL Glucose (74-99) mg/dL POC Glucose (mg/dL) 141 H (75-99) mg/dL Calcium (8.4-10.2) mg/dL Phosphorus (2.5-4.5) mg/dL Assessment and Plan Plan: ASSESSMENT: Abdominal pain with constipation, patient reports no bowel movement for 2.5 weeks, initial imaging reveals large bowel obstruction, 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, s/p exploratory laparotomy and right and left colectomy and diverticular colostomy and partial omentectomy, POD #2 Postoperative acute hypoxic respiratory failure requiring mechanical ventilation , since extubated, an unexpected but potential outcome of surgery Anemia, hemoglobin 9.6, down from 11.2, suspect due to hemodilution from IV fluids/boluses Suspected sepsis with fever, leukocytosis, and tachycardia due to intraabdominal infectious process secondary to cecal perforation Generalized weakness, secondary to abdominal pain, patient reports laying in bed x 1 week History of cholelithiasis Pyuria on admission UA, asymptomatic, patient denies any adverse urinary s/s Hypernatremia, resolved Diabetes mellitus, type II Hypertension Gastroesophageal reflux disease Hypophosphatemia Moderate protein calorie malnutrition, secondary to decreased PO intake PLAN: General surgery on consult. Appreciate recommendations and input Consult dietary for PPN as recommended by general surgery Continue NPO. Patient may have green swabs to moisturize her mouth Continue antibiotics: levaquin and flagyl Continue epidural per anesthesia Monitor labs GI prophylaxis: Protonix 40 mg IV Daily DVT prophylaxis: Lovenox 40mg SQ Daily Monitor vital signs and address as appropriate Discharge planning: Patient lives at home with . When appropriate, will consult PT/OT to determine if patient is safe to be discharged home or if she will require RADHA before returning home Further recommendations pending patient's course Nurse practitioner note has been reviewed by physician. Signing provider agrees with the documented findings, assessment, and plan of care.
[2017-10-26 12:20] LABS: Glucose,Whole Blood 112 mg/dL (75-99)
--- NOTE | 2017-10-26 12:35 | P.PN ---
Subjective Progress Note Date: 10/26/17 72-year-old female patient presented emergency department with abdominal pain and inability to eat and she was having increased nausea. She stated that she has not a bowel movement for several weeks. The patient stated that she was not passing gas also. A CAT scan of the abdomen was done and it showed fecal stasis along with dilated loops of small bowel. An NG tube was placed and significant amount of gastric material was aspirated immediately after the insertion. At the later stage, the patient's abdomen became more distended and a ferritin of the abdomen showed free air within the abdomen. The patient was taken to the operating room for expiratory laparotomy and perforated viscus. The patient was found to have a cecal perforation. 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 She underwent expiratory laparotomy, right colectomy and left colectomy and partial omentectomy and diverticular colostomy. Estimated blood loss was 50 mL. The patient was brought into the ICU following her surgery for further management. She was kept intubated on a mechanical ventilator. Her preoperative blood work showed a white cell count of 15.7. Renal function was stable and within normal limits. LFTs were nonelevated.. The patient is currently intubated on a mechanical ventilator on assist control mode at the rate of 16 with a tidal volume 400 with an FiO2 of 100% and a PEEP of 5. Hemodynamically stable. On no pressors. Orogastric and orotracheal tube are both in place. She is was sedated with Diprivan. She is producing 30-40 mL of urine output. On today's evaluation of 10/25/2017 I'm seeing this patient for a follow-up. She is postop day #1. As mentioned earlier the patient underwent a expiratory laparotomy, bowel resection and diverticular colostomy. The patient is intubated on a mechanical ventilator. I give the patient is sedation holiday this morning and she was able to recover very well arouse and follow commands and answering questions appropriately. The patient was an assist-control mode of ventilation and we managed to drop down the FiO2 down to 40% throughout the day yesterday. This morning, her chest x-ray shows no acute abnormalities and ET tube is in a good location. The patient had weaning parameters showing a rapid shallow breathing index of 76 with a respiratory rate of 26 and tidal volume of 550 with a minute ventilation of 11.4 L and a NIF of -14. Subsequently the patient was given a spelled his breathing trial a pressure support of 5 and a PEEP of 5 and after 30 minutes a blood gases obtained that showed a pH of 7.44 with a pCO2 of 31 and pO2 of 134 and the patient was extubated to nasal cannula. Note that overnight the patient was having lower urine output. The patient was given a total of 2 L of IV fluid boluses. She was given another bolus this morning prior to extubation. No leukocytosis. She is having a low-grade fever. She is covered with a combination of Levaquin and Flagyl. The chest x-ray shows some patchy bibasilar atelectatic changes and tiny pleural effusions. Otherwise no other major abnormalities have been noted. This morning, on 10/26/2017, the patient is postop day #2. The patient is awake yet confused. Note that the patient has underlying dementia and she is admitted to the [facility] at this point in time yet there is no agitation. She is not taking any benzodiazepines. She is off sedation for now. She is using incentive spirometer. NG tube is in place. Output from the NG tube has been in the order of 200 mL over the past 8 hours and 5 of these over the past 24 hours. The patient is afebrile. The patient is hemodynamically stable. The patient has been resuscitated aggressively with IV fluids. The net fluid balance for yesterday was 5.3 L positive. The patient was started on TPN for nutritional support. The patient will have the IV fluids To 75 ML an Hour of Lactated Ringer. No Leukocytosis. No Fever. Still on Levaquin and Flagyl. No Other Significant Events Overnight. Surgeries on the Case and the Abdominal Wound Is Dry Clean and Intact with a Viable Colostomy Site. Objective - Vital Signs Vital signs: Vital Signs Temp 98.2 F 10/26/17 08:00 Pulse 99 10/26/17 11:17 Resp 12 10/26/17 10:00 BP 132/56 10/26/17 10:00 Pulse Ox 94 L 10/26/17 10:00 Intake & Output 10/25/17 10/26/17 10/26/17 18:59 06:59 18:59 Intake Total 3131.832 1905 450 Output Total 655 515 90 Balance 2476.832 1390 360 Weight 73.5 kg 77.6 kg 77.6 kg Intake: IV 3010 1905 450 Lactated Ringers 1,000 ml 1350 @ 100 mls/hr IV .Q10H [facility] Rx#:[id number] Lactated Ringers 1,000 ml 260 1905 450 @ 150 mls/hr IV .Q6H40M [facility] Rx#:[id number] Lactated Ringers 1,000 ml 1000 @ 999 mls/hr IV .Q1H1M [facility] Rx#:[id number] Magnesium Sulfate-D5w Pmx 100 1 gm In Dextrose/Water 1 100ml.bag @ 100 mls/hr IVPB Q1H [facility] Rx#: [id number] Potassium Chloride 10 meq 100 In Water For Injection 1 100ml.bag @ 100 mls/hr IVPB Q1H [facility] Rx#: [id number] metroNIDAZOLE-NS PMX 500 200 mg In Saline 1 100ml.bag @ 100 mls/hr IVPB Q6H [facility] Rx#:[id number] Intake, IV Titration 121.832 Amount Propofol 1,000 mg In 121.832 Empty Bag 1 bag @ Titrate IV .Q0M [facility] Rx#: [id number] Output: Gastric Drainage 150 50 Urine 505 465 90 Other: Voiding Method Indwelling Catheter Indwelling Catheter ABP, PAP, CO, CI - Last Documented Arterial Blood Pressure 143/38 - Exam Awake and alert and extubated. Nonacute distress. NG tube is in place Head exam was generally normal. There was no scleral icterus or corneal arcus. Mucous membranes were moist. NG tube still in place. Neck was supple and without jugular venous distension, thyromegaly, or carotid bruits. Carotids were easily palpable bilaterally. There was no adenopathy. Lungs were clear to auscultation and percussion, and with normal diaphragmatic excursion. No wheezes or rales were noted. Cardiac exam revealed the PMI to be normally situated and sized. The rhythm was regular and no extrasystoles were noted during several minutes of auscultation. The first and second heart sounds were normal and physiologic splitting of the second heart sound was noted. There were no murmurs, rubs, clicks, or gallops. Abdomen is soft. Bowel sounds are absent. No direct tenderness rebound tensile guarding. Surgical wound is dry clean and intact. Colostomy site is viable. Examination of the extremities revealed easily palpable radial, femoral and pedal pulses. There was no cyanosis, clubbing or edema. Examination of the skin revealed no evidence of significant rashes, suspicious appearing nevi or other concerning lesions. Neurologically awake and alert, the patient is resistant confused and oriented only to people not to place and time. - Labs CBC & Chem 7: 10/26/17 03:45 10/26/17 03:45 Labs: Abnormal Lab Results - Last 24 Hours (Table) 10/25/17 10/25/17 10/26/17 Range/Units 17:43 23:24 03:45 WBC 11.6 H (3.8-10.6) k/uL RBC 3.38 L (3.80-5.40) m/uL Hgb 9.6 L D (11.4-16.0) gm/dL Hct 29.1 L (34.0-46.0) % Neutrophils # 10.1 H (1.3-7.7) k/uL Lymphocytes # 0.6 L (1.0-4.8) k/uL Chloride (98-107) mmol/L Creatinine (0.52-1.04) mg/dL Glucose (74-99) mg/dL POC Glucose (mg/dL) 169 H 129 H (75-99) mg/dL Calcium (8.4-10.2) mg/dL Phosphorus (2.5-4.5) mg/dL 10/26/17 10/26/17 10/26/17 Range/Units 03:45 05:38 12:00 WBC (3.8-10.6) k/uL RBC (3.80-5.40) m/uL Hgb (11.4-16.0) gm/dL Hct (34.0-46.0) % Neutrophils # (1.3-7.7) k/uL Lymphocytes # (1.0-4.8) k/uL Chloride 112 H (98-107) mmol/L Creatinine 0.50 L (0.52-1.04) mg/dL Glucose 122 H (74-99) mg/dL POC Glucose (mg/dL) 141 H 112 H (75-99) mg/dL Calcium 8.1 L (8.4-10.2) mg/dL Phosphorus 2.4 L (2.5-4.5) mg/dL Assessment and Plan Plan: Assessment 1 acute cecal perforation due to an obstructive left colonic mass, status post expiratory laparotomy and right and left colectomy and diverticular colostomy and partial omentectomy and the patient is postop day #2. Hemodynamically stable. is still nothing by mouth. NG tube is in place. TPN will be started for nutritional support. 2 acute hypoxic respiratory failure secondary to above. Patient was extubated without any major difficulties and currently she is stable with improved aeration in lung bases on today's chest x-ray with trace small bilateral pleural effusions. 3 acute abdomen with cecal perforation and free air in the abdomen secondary to above 4 diabetes mellitus 5 hypertension 6 dementia 7 fever, possibly secondary to intra-abdominal source of infection/bacterial peritonitis post cecal perforation. Currently on a combination of Levaquin and Flagyl. Hemodynamically stable. Plan Continue supportive care. Keep the patient nothing by mouth for now. TPN for nutritional support. The IV Fluids to 75 ML an Hour. Continue Levaquin and Flagyl. Monitor Mentation. Avoid Benzodiazepines. Epidural Dilaudid for Pain Control. Incentive Spirometer. Keep the Patient ICU for 24 Hours. Keep NG Tube in Place for Another 24 Hours.
[2017-10-26] MEDS ORDERED: MVI, ADULT NO.4 WITH VIT K 10 ML, TRACE (CONC-1ML/DOSE) 1 ML in AMINO ACID 4.25%-D10W+L... IV SCH ×3 (13:00)
[2017-10-26 13:51] LABS: ALT 37 U/L (9-52); AST 16 U/L (14-36); Albumin 1.9 g/dL (3.5-5.0); Alkaline Phosphatase 39 U/L (38-126); Anion Gap 2 mmol/L; Blood Urea Nitrogen 9 mg/dL (7-17); Calcium 7.7 mg/dL (8.4-10.2); Carbon Dioxide 25 mmol/L (22-30); Chloride 112 mmol/L (98-107); Glucose 106 mg/dL (74-99); Potassium 3.8 mmol/L (3.5-5.1); Sodium 139 mmol/L (137-145); Total Bilirubin 0.3 mg/dL (0.2-1.3); Total Protein 3.6 g/dL (6.3-8.2); Triglycerides 62 mg/dL (<150)
--- NOTE | 2017-10-26 14:41 | P.PN ---
Subjective Progress Note Date: 10/26/17 Principal diagnosis: Obstructing left colon cancer, cecal perforation The patient remained stable. She is undergoing physical therapy currently. There is been no acute changes overnight. She's has no significant bowel function. Objective - Vital Signs Vital signs: Vital Signs Temp 98.2 F 10/26/17 08:00 Pulse 99 10/26/17 11:17 Resp 12 10/26/17 10:00 BP 132/56 10/26/17 10:00 Pulse Ox 94 L 10/26/17 10:00 Intake & Output 10/25/17 10/26/17 10/26/17 18:59 06:59 18:59 Intake Total 3131.832 1905 450 Output Total 655 515 90 Balance 2476.832 1390 360 Weight 73.5 kg 77.6 kg 77.6 kg Intake: IV 3010 1905 450 Lactated Ringers 1,000 ml 1350 @ 100 mls/hr IV .Q10H [facility] Rx#:[id number] Lactated Ringers 1,000 ml 260 1905 450 @ 150 mls/hr IV .Q6H40M [facility] Rx#:[id number] Lactated Ringers 1,000 ml 1000 @ 999 mls/hr IV .Q1H1M [facility] Rx#:[id number] Magnesium Sulfate-D5w Pmx 100 1 gm In Dextrose/Water 1 100ml.bag @ 100 mls/hr IVPB Q1H [facility] Rx#: [id number] Potassium Chloride 10 meq 100 In Water For Injection 1 100ml.bag @ 100 mls/hr IVPB Q1H [facility] Rx#: [id number] metroNIDAZOLE-NS PMX 500 200 mg In Saline 1 100ml.bag @ 100 mls/hr IVPB Q6H [facility] Rx#:[id number] Intake, IV Titration 121.832 Amount Propofol 1,000 mg In 121.832 Empty Bag 1 bag @ Titrate IV .Q0M [facility] Rx#: [id number] Output: Gastric Drainage 150 50 Urine 505 465 90 Other: Voiding Method Indwelling Catheter Indwelling Catheter ABP, PAP, CO, CI - Last Documented Arterial Blood Pressure 143/38 - Constitutional General appearance: Present: cooperative - Gastrointestinal Gastrointestinal Comment(s): Abdomen soft. Colostomy is pink. Incision site is clean dry and intact. - Labs CBC & Chem 7: 10/26/17 03:45 10/26/17 12:58 Labs: Abnormal Lab Results - Last 24 Hours (Table) 10/25/17 10/25/17 10/26/17 Range/Units 17:43 23:24 03:45 WBC 11.6 H (3.8-10.6) k/uL RBC 3.38 L (3.80-5.40) m/uL Hgb 9.6 L D (11.4-16.0) gm/dL Hct 29.1 L (34.0-46.0) % Neutrophils # 10.1 H (1.3-7.7) k/uL Lymphocytes # 0.6 L (1.0-4.8) k/uL Chloride (98-107) mmol/L Creatinine (0.52-1.04) mg/dL Glucose (74-99) mg/dL POC Glucose (mg/dL) 169 H 129 H (75-99) mg/dL Calcium (8.4-10.2) mg/dL Phosphorus (2.5-4.5) mg/dL Total Protein (6.3-8.2) g/dL Albumin (3.5-5.0) g/dL 10/26/17 10/26/17 10/26/17 Range/Units 03:45 05:38 12:00 WBC (3.8-10.6) k/uL RBC (3.80-5.40) m/uL Hgb (11.4-16.0) gm/dL Hct (34.0-46.0) % Neutrophils # (1.3-7.7) k/uL Lymphocytes # (1.0-4.8) k/uL Chloride 112 H (98-107) mmol/L Creatinine 0.50 L (0.52-1.04) mg/dL Glucose 122 H (74-99) mg/dL POC Glucose (mg/dL) 141 H 112 H (75-99) mg/dL Calcium 8.1 L (8.4-10.2) mg/dL Phosphorus 2.4 L (2.5-4.5) mg/dL Total Protein (6.3-8.2) g/dL Albumin (3.5-5.0) g/dL 10/26/17 Range/Units 12:58 WBC (3.8-10.6) k/uL RBC (3.80-5.40) m/uL Hgb (11.4-16.0) gm/dL Hct (34.0-46.0) % Neutrophils # (1.3-7.7) k/uL Lymphocytes # (1.0-4.8) k/uL Chloride 112 H (98-107) mmol/L Creatinine (0.52-1.04) mg/dL Glucose 106 H (74-99) mg/dL POC Glucose (mg/dL) (75-99) mg/dL Calcium 7.7 L (8.4-10.2) mg/dL Phosphorus (2.5-4.5) mg/dL Total Protein 3.6 L (6.3-8.2) g/dL Albumin 1.9 L (3.5-5.0) g/dL Assessment and Plan Assessment: Status post right colectomy with ileocolonic anastomosis, status post left colectomy with end colostomy. Patient will continue nothing by mouth. She'll have her diet started once her bowel functions returned. Continue TPN. Dr. Packer will be covering me
[2017-10-26] MEDS: FAT EMULSION 20% 250 ML IV SCH (17:23)
[2017-10-26 17:56] LABS: Glucose,Whole Blood 134 mg/dL (75-99)
[2017-10-26 18:06] LABS: Glucose,Whole Blood 137 mg/dL (75-99)
[2017-10-27 00:09] LABS: Glucose,Whole Blood 152 mg/dL (75-99)
[2017-10-27] MEDS: INSULIN ASPART 100 UNIT/ML 1 ML 10 ML VIAL SQ SCH ×4 (00:30→18:20)
[2017-10-27] MEDS: metroNIDAZOLE-NS PMX 500 MG in SALINE 1 100ML.BAG IVPB SCH ×4 (03:00→21:58)
[2017-10-27] MEDS: LACTATED RINGERS 1,000 ML IV SCH ×2 (03:00→17:06)
[2017-10-27 06:06] LABS: Basophils % (A) 0 %; Eosinophils # (A) 0.2 k/uL (0-0.7); Eosinophils % (A) 2 %; HCT 29.3 % (34.0-46.0); HGB 9.3 gm/dL (11.4-16.0); Hypochromasia Slight; Lymphocytes # (A) 0.7 k/uL (1.0-4.8); Lymphocytes % (A) 5 %; MCH 27.8 pg (25.0-35.0); MCHC 31.9 g/dL (31.0-37.0); MCV 87.4 fL (80.0-100.0); Monocytes # (A) 0.6 k/uL (0-1.0); Monocytes % (A) 5 %; Neutrophils # (A) 10.8 k/uL (1.3-7.7); Neutrophils % (A) 87 %; Platelet Count 205 k/uL (150-450); RBC 3.35 m/uL (3.80-5.40); RDW 14.5 % (11.5-15.5); WBC 12.4 k/uL (3.8-10.6)
[2017-10-27 06:13] LABS: Glucose,Whole Blood 162 mg/dL (75-99)
[2017-10-27] MEDS: 1: MVI, ADULT NO.4 WITH VIT K 10 ML, TRACE (CONC-1ML/DOSE) 1 ML in AMINO ACID 4.25%-D10W IV SCH ×6 (06:17→08:51)
[2017-10-27 06:33] LABS: Anion Gap 4 mmol/L; Blood Urea Nitrogen 9 mg/dL (7-17); Calcium 7.8 mg/dL (8.4-10.2); Carbon Dioxide 26 mmol/L (22-30); Chloride 109 mmol/L (98-107); Glucose 166 mg/dL (74-99); Magnesium 1.9 mg/dL (1.6-2.3); Phosphorus 2.8 mg/dL (2.5-4.5); Potassium 3.7 mmol/L (3.5-5.1); Sodium 139 mmol/L (137-145)
[2017-10-27] MEDS ORDERED: Potassium Replacement Protocol 1 EACH MISC MISCELLANE PRN (06:46)
--- NOTE | 2017-10-27 06:58 | XR ---
EXAMINATION TYPE: XR chest 1V DATE OF EXAM: 10/27/2017 HISTORY: follow up. REFERENCE: Previous study dated 10/26/2017. FINDINGS: The patient's NG tube and right internal jugular catheter remain in place, unchanged in kayleen earance. There is left basilar airspace disease. There is platelike atelectasis at the right lung base. This h as worsened slightly. Heart size upper limits of normal. No definite pleural fluid is seen. IMPRESSION: MILD, WORSENING ATELECTASIS, RIGHT LUNG BASE.
[2017-10-27] MEDS: MAGNESIUM SULFATE-D5W PMX 1 GM in DEXTROSE/WATER 1 100ML.BAG IVPB SCH ×2 (07:17→08:42)
[2017-10-27] MEDS: POTASSIUM CHLORIDE 10 MEQ in WATER FOR INJECTION 1 100ML.BAG IVPB SCH ×2 (07:17→08:39)
[2017-10-27] MEDS: IPRATROPIUM-ALBUTEROL 3 ML NEB INHALATION SCH ×4 (07:58→22:02)
[2017-10-27] MEDS: DOCUSATE 100 MG CAP PO SCH ×2 (08:37→21:57)
[2017-10-27] MEDS: ENOXAPARIN 40 MG/0.4 ML SYRINGE SQ SCH (08:38)
[2017-10-27] MEDS: FAT EMULSION 20% 250 ML IV SCH (08:45)
[2017-10-27] MEDS: PANTOPRAZOLE 40 MG/10 ML VIAL IVP SCH (08:45)
[2017-10-27] MEDS: POLYETHYLENE GLYCOL 3350 17 GM POWD.PACK PO SCH (08:46)
[2017-10-27] MEDS: LEVOFLOXACIN 500MG-D5W PMX 500 MG in DEXTROSE/WATER 1 100ML.BAG IVPB SCH (09:50)
[2017-10-27 12:03] LABS: Glucose,Whole Blood 188 mg/dL (75-99)
--- NOTE | 2017-10-27 12:41 | PN ---
PROGRESS NOTE INTENSIVE CARE PROGRESS NOTE: This is a 72-year-old white female who presented to the emergency room with the chief complaint of abdominal pain. The patient reports that she was having abdominal pain for a few months, but it worsened in severity over the last weeks. She states she wanted to come to the hospital after the October 17 holiday because all the good doctors go on vacation for the holidays and there would not be anyone there to take care of her. Unfortunately, she had a CT scan of the abdomen in September of 2017 due to abdominal pain which revealed large gallstones in the region of the gallbladder. At that time we thought she either had some gallbladder disease or something acutely. At that time I tried to put her in a hospital. Again she disagreed and actually had stated that she would, then she called back from home and said that she would not. She has a longstanding history of diabetes, hypertension, GE reflux. She has had some short memory loss with some mild progressive dementia, but she is well orientated to person, place and thing. She is a long-time nonsmoker. No alcohol use. She initially was placed in the hospital and had an NG tube placed for small and large bowel obstruction, and she looked like she continued to improve. Her CT scan on 10/23/2017 was reviewed and revealed dilated large and small bowel consistent with generalized ileus and some minimal amount of ascites. she was examined by me at bedside. An NG tube was inserted and she remained comfortable. She had not been passing any flatulence and her physical examination at that time remained stable. On 10/24 she underwent an abdominal flat plate after we examined her, and the abdominal flat plate was completed on 10/25 which basically free air. At that time she was taken to the operating room. Dr. Church did a right colectomy and a left colectomy with partial omentectomy and she was found to have a cecal perforation and obstructive tumor in the left colon. Colostomy was performed and she remained intubated and was placed in the ICU for observation. On 10/25 we saw her; she remained intubated but stable. Her labs were all within normal limits at that period of time and she was treated accordingly. Her vital signs at this time are blood pressure 140/70, heart rate in the 90s, respiratory rate 17, and oxygen saturation 99 on room air. Her eyes and nose remained okay. Her weight has changed from 77.6 to 79 kg. She has now been started on hyperalimentation accordingly. Laboratory this morning showed a WBC of 12.4 and hemoglobin 9.3. Her chem-17 showed a creatinine of 0.5 and a BUN of 9, and her blood sugars were stable. Sodium 139, potassium 3.9. Pathology specimen from surgery is still pending. EYES: Pupils seem well. ENT is within normal limits. A dry mouth. She does have an NG tube placed. Oxygen at 3 L. Neck is supple. She does have a carotid vein catheter intravenous, which is stable. CHEST: Essentially clear to auscultation, but chest x-ray noted to have some left lower lung atelectasis. HEART: Sinus rhythm. No murmur. ABDOMEN: Observation shows the colostomy but no drainage, just a little bit of blood. No bowel sounds are heard at this point. Incision is covered. No surrounding cellulitis. Lower extremities have a minimal amount of swelling with good palpable lower extremity pulses. ASSESSMENT: 1. Abdominal pain with constipation; had no bowel movements for a couple weeks; found to have an acute cecal perforation and obstructed left colonic mass. 2. Exploratory laparotomy with right and left colectomy, diverticular colostomy and partial omentectomy. 3. Postoperative acute hypoxic respiratory failure requiring mechanical ventilation. She is now extubated. 4. Hemoglobin at this time is now 9.6. 5. Suspected sepsis with fever, leukocytosis and tachycardia from an intraabdominal infection and cecal perforation. 6. Weakness secondary to abdominal pain and lying in bed. 7. Cholelithiasis. 8. Pyuria. Denies symptomatology. 9. Hypernatremia, resolved. 10.Type 2 diabetes, stable. 11.Hypertension. 12.Gastroesophageal reflux. 13.Hypophosphatemia. 14.Moderate protein-caloric problems at this time. We are following with Surgery. N.P.O. We did start some TPN. Epidural to be discontinued today. Will continue with antibiotics, Lovenox, Protonix. Will consult PT and OT to determine if patient is safe to discharge when she finally gets to that point. She might need ECF for short periods. We have no micro at this point and still waiting on pathology specimen. I talked with family, which was her daughter and son-in-law and also her at the bedside, and answered all their questions and they seemed to be fine with the answers. Patient seems to be well orientated to her place. She did have some delirium last night. She is safe, after talking with Dr. Melgar and nurses, to be transferred to a med/surg bed. Time spent with her was 45 minutes. JULES / WINNIE: [id number] /
--- NOTE | 2017-10-27 13:06 | P.PN ---
Subjective Progress Note Date: 10/27/17 The patient is a 72-year-old female who underwent surgery by Dr. Church and is s/p colectomy. Family and daughter is at bedside. Patient is awake and alert. Pain is controlled with epidural. No nausea or vomiting with NGT present. Ostomy is starting to function. Objective - Vital Signs Vital signs: Vital Signs Temp 98.7 F 10/27/17 12:00 Pulse 101 H 10/27/17 12:00 Resp 22 10/27/17 12:00 BP 155/72 10/27/17 12:00 Pulse Ox 98 10/27/17 12:00 Intake & Output 10/26/17 10/27/17 10/27/17 18:59 06:59 18:59 Intake Total 1200 1705 1488 Output Total 495 425 100 Balance 705 1280 1388 Weight 77.6 kg 79.7 kg Intake: IV 1200 730 550 Lactated Ringers 1,000 ml 1050 @ 75 mls/hr IV .[id number] [facility] Rx#:[id number] Mvi, Adult No.4 with Vit 150 730 450 K 10 ml Trace (Conc-1Ml/ Dose) 1 ml In Amino Acid 4.25%-D10w+Lytes*E* 1,000 ml @ 50 mls/hr IV . [id number] [facility] Rx#:[id number] metroNIDAZOLE-NS PMX 500 100 mg In Saline 1 100ml.bag @ 100 mls/hr IVPB Q6H [facility] Rx#:[id number] Intake, IV Titration 975 938 Amount Fat Emulsion 20% 250 ml @ 63 21 mls/hr IV DAILY [facility] Rx#:[id number] Lactated Ringers 1,000 ml 975 375 @ 75 mls/hr IV .[id number] [facility] Rx#:[id number] Levofloxacin 500Mg-D5w 100 Pmx 500 mg In Dextrose/ Water 1 100ml.bag @ 100 mls/hr IVPB Q24H [facility] Rx#: [id number] Magnesium Sulfate-D5w Pmx 200 1 gm In Dextrose/Water 1 100ml.bag @ 100 mls/hr IVPB Q1H [facility] Rx#: [id number] Potassium Chloride 10 meq 200 In Water For Injection 1 100ml.bag @ 100 mls/hr IVPB Q1H [facility] Rx#: [id number] Output: Gastric Drainage 150 Urine 345 425 100 Other: Voiding Method Indwelling Catheter Indwelling Catheter ABP, PAP, CO, CI - Last Documented Arterial Blood Pressure 117/43 - Exam ABDOMEN: Dressing changed at bedside with her nurse. Packing present along superior and inferior of incision removed. No signs of cellulitis or infection. Ostomy with scant stool and no flatus in coloplast. GENERAL: Well developed and in no acute distress. HEENT: No sclera icterus. Extraocular movements grossly intact. Moist buccal mucosa. Head is atraumatic, normocephalic. Hears conversational speech. No nasal drainage. NECK: Supple without lymphadenopathy. No JV distention. CHEST: Non-labored respirations and equal bilateral excursions. CARDIOVASCULAR: Regular rate and rhythm. Palpable 2+ radial pulses. MUSCULOSKELETAL: No clubbing, cyanosis. 2+ pedal pulses. + pedal edema. NEUROLOGIC: No focal or lateralizing signs. PSYCH: Appropriate affect. Alert and oriented to person, place and time. SKIN: Good skin turgor. Well perfused. - Labs CBC & Chem 7: 10/27/17 05:25 10/27/17 05:25 Labs: Abnormal Lab Results - Last 24 Hours (Table) 10/26/17 10/26/17 10/26/17 Range/Units 12:58 17:36 18:01 WBC (3.8-10.6) k/uL RBC (3.80-5.40) m/uL Hgb (11.4-16.0) gm/dL Hct (34.0-46.0) % Neutrophils # (1.3-7.7) k/uL Lymphocytes # (1.0-4.8) k/uL Chloride 112 H (98-107) mmol/L Creatinine (0.52-1.04) mg/dL Glucose 106 H (74-99) mg/dL POC Glucose (mg/dL) 134 H 137 H (75-99) mg/dL Calcium 7.7 L (8.4-10.2) mg/dL Total Protein 3.6 L (6.3-8.2) g/dL Albumin 1.9 L (3.5-5.0) g/dL 10/27/17 10/27/17 10/27/17 Range/Units 00:07 05:25 05:25 WBC 12.4 H (3.8-10.6) k/uL RBC 3.35 L (3.80-5.40) m/uL Hgb 9.3 L (11.4-16.0) gm/dL Hct 29.3 L (34.0-46.0) % Neutrophils # 10.8 H (1.3-7.7) k/uL Lymphocytes # 0.7 L (1.0-4.8) k/uL Chloride 109 H (98-107) mmol/L Creatinine 0.50 L (0.52-1.04) mg/dL Glucose 166 H (74-99) mg/dL POC Glucose (mg/dL) 152 H (75-99) mg/dL Calcium 7.8 L (8.4-10.2) mg/dL Total Protein (6.3-8.2) g/dL Albumin (3.5-5.0) g/dL 10/27/17 10/27/17 Range/Units 06:11 12:02 WBC (3.8-10.6) k/uL RBC (3.80-5.40) m/uL Hgb (11.4-16.0) gm/dL Hct (34.0-46.0) % Neutrophils # (1.3-7.7) k/uL Lymphocytes # (1.0-4.8) k/uL Chloride (98-107) mmol/L Creatinine (0.52-1.04) mg/dL Glucose (74-99) mg/dL POC Glucose (mg/dL) 162 H 188 H (75-99) mg/dL Calcium (8.4-10.2) mg/dL Total Protein (6.3-8.2) g/dL Albumin (3.5-5.0) g/dL Assessment and Plan (1) Colon neoplasm Current Visit: Yes Status: Acute Code(s): D49.0 - NEOPLASM OF UNSPECIFIED BEHAVIOR OF DIGESTIVE SYSTEM SNOMED Code(s): 345081434 (2) Large bowel obstruction Current Visit: Yes Status: Acute Code(s): K56.609 - UNSP INTESTNL OBST, UNSP TO PARTIAL VERSUS COMPLETE OBST SNOMED Code(s): 712249310 (3) H/O colectomy Current Visit: Yes Status: Acute Code(s): Z90.49 - ACQUIRED ABSENCE OF OTHER SPECIFIED PARTS OF DIGESTIVE TRACT SNOMED Code(s): 814936465 Plan: 1. Epidural management per anesthesia protocol. 2. Okay with transfer to floor when agreeable with critical care team. 3. Physical therapy and occupational therapy evaluation recommended. 4. Continue NGT pending resolution of bowel function. Critical care time 17 minutes
--- NOTE | 2017-10-27 14:02 | P.PN ---
Subjective Progress Note Date: 10/27/17 72-year-old female patient presented emergency department with abdominal pain and inability to eat and she was having increased nausea. She stated that she has not a bowel movement for several weeks. The patient stated that she was not passing gas also. A CAT scan of the abdomen was done and it showed fecal stasis along with dilated loops of small bowel. An NG tube was placed and significant amount of gastric material was aspirated immediately after the insertion. At the later stage, the patient's abdomen became more distended and a ferritin of the abdomen showed free air within the abdomen. The patient was taken to the operating room for expiratory laparotomy and perforated viscus. The patient was found to have a cecal perforation. 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 She underwent expiratory laparotomy, right colectomy and left colectomy and partial omentectomy and diverticular colostomy. Estimated blood loss was 50 mL. The patient was brought into the ICU following her surgery for further management. She was kept intubated on a mechanical ventilator. Her preoperative blood work showed a white cell count of 15.7. Renal function was stable and within normal limits. LFTs were nonelevated.. The patient is currently intubated on a mechanical ventilator on assist control mode at the rate of 16 with a tidal volume 400 with an FiO2 of 100% and a PEEP of 5. Hemodynamically stable. On no pressors. Orogastric and orotracheal tube are both in place. She is was sedated with Diprivan. She is producing 30-40 mL of urine output. On today's evaluation of 10/25/2017 I'm seeing this patient for a follow-up. She is postop day #1. As mentioned earlier the patient underwent a expiratory laparotomy, bowel resection and diverticular colostomy. The patient is intubated on a mechanical ventilator. I give the patient is sedation holiday this morning and she was able to recover very well arouse and follow commands and answering questions appropriately. The patient was an assist-control mode of ventilation and we managed to drop down the FiO2 down to 40% throughout the day yesterday. This morning, her chest x-ray shows no acute abnormalities and ET tube is in a good location. The patient had weaning parameters showing a rapid shallow breathing index of 76 with a respiratory rate of 26 and tidal volume of 550 with a minute ventilation of 11.4 L and a NIF of -14. Subsequently the patient was given a spelled his breathing trial a pressure support of 5 and a PEEP of 5 and after 30 minutes a blood gases obtained that showed a pH of 7.44 with a pCO2 of 31 and pO2 of 134 and the patient was extubated to nasal cannula. Note that overnight the patient was having lower urine output. The patient was given a total of 2 L of IV fluid boluses. She was given another bolus this morning prior to extubation. No leukocytosis. She is having a low-grade fever. She is covered with a combination of Levaquin and Flagyl. The chest x-ray shows some patchy bibasilar atelectatic changes and tiny pleural effusions. Otherwise no other major abnormalities have been noted. This morning, on 10/26/2017, the patient is postop day #2. The patient is awake yet confused. Note that the patient has underlying dementia and she is admitted to the [facility] at this point in time yet there is no agitation. She is not taking any benzodiazepines. She is off sedation for now. She is using incentive spirometer. NG tube is in place. Output from the NG tube has been in the order of 200 mL over the past 8 hours and 5 of these over the past 24 hours. The patient is afebrile. The patient is hemodynamically stable. The patient has been resuscitated aggressively with IV fluids. The net fluid balance for yesterday was 5.3 L positive. The patient was started on TPN for nutritional support. The patient will have the IV fluids To 75 ML an Hour of Lactated Ringer. No Leukocytosis. No Fever. Still on Levaquin and Flagyl. No Other Significant Events Overnight. Surgeries on the Case and the Abdominal Wound Is Dry Clean and Intact with a Viable Colostomy Site. Objective - Vital Signs Vital signs: Vital Signs Temp 98.7 F 10/27/17 12:00 Pulse 94 10/27/17 13:00 Resp 19 10/27/17 13:00 BP 133/60 10/27/17 13:00 Pulse Ox 98 10/27/17 13:00 Intake & Output 10/26/17 10/27/17 10/27/17 18:59 06:59 18:59 Intake Total 1200 1705 2484 Output Total 495 425 145 Balance 705 1280 2339 Weight 77.6 kg 79.7 kg Intake: IV 7684 268 1485 Lactated Ringers 1,000 ml 1050 @ 75 mls/hr IV .[id number] [facility] Rx#:[id number] Mvi, Adult No.4 with Vit 856 806 7546 K 10 ml Trace (Conc-1Ml/ Dose) 1 ml In Amino Acid 4.25%-D10w+Lytes*E* 1,000 ml @ 50 mls/hr IV . [id number] [facility] Rx#:[id number] metroNIDAZOLE-NS PMX 500 100 mg In Saline 1 100ml.bag @ 100 mls/hr IVPB Q6H [facility] Rx#:[id number] Intake, IV Titration 975 1034 Amount Fat Emulsion 20% 250 ml @ 84 21 mls/hr IV DAILY [facility] Rx#:[id number] Lactated Ringers 1,000 ml 975 450 @ 75 mls/hr IV .[id number] [facility] Rx#:[id number] Levofloxacin 500Mg-D5w 100 Pmx 500 mg In Dextrose/ Water 1 100ml.bag @ 100 mls/hr IVPB Q24H [facility] Rx#: [id number] Magnesium Sulfate-D5w Pmx 200 1 gm In Dextrose/Water 1 100ml.bag @ 100 mls/hr IVPB Q1H [facility] Rx#: [id number] Potassium Chloride 10 meq 200 In Water For Injection 1 100ml.bag @ 100 mls/hr IVPB Q1H [facility] Rx#: [id number] Output: Gastric Drainage 150 Urine 345 425 145 Other: Voiding Method Indwelling Catheter Indwelling Catheter ABP, PAP, CO, CI - Last Documented Arterial Blood Pressure 117/43 - Exam Awake and alert and extubated. Nonacute distress. NG tube is in place Head exam was generally normal. There was no scleral icterus or corneal arcus. Mucous membranes were moist. NG tube still in place. Neck was supple and without jugular venous distension, thyromegaly, or carotid bruits. Carotids were easily palpable bilaterally. There was no adenopathy. Lungs were clear to auscultation and percussion, and with normal diaphragmatic excursion. No wheezes or rales were noted. Cardiac exam revealed the PMI to be normally situated and sized. The rhythm was regular and no extrasystoles were noted during several minutes of auscultation. The first and second heart sounds were normal and physiologic splitting of the second heart sound was noted. There were no murmurs, rubs, clicks, or gallops. Abdomen is soft. Bowel sounds are absent. No direct tenderness rebound tensile guarding. Surgical wound is dry clean and intact. Colostomy site is viable. Examination of the extremities revealed easily palpable radial, femoral and pedal pulses. There was no cyanosis, clubbing or edema. Examination of the skin revealed no evidence of significant rashes, suspicious appearing nevi or other concerning lesions. Neurologically awake and alert, the patient is resistant confused and oriented only to people not to place and time. - Labs CBC & Chem 7: 10/27/17 05:25 10/27/17 05:25 Labs: Abnormal Lab Results - Last 24 Hours (Table) 10/26/17 10/26/17 10/27/17 Range/Units 17:36 18:01 00:07 WBC (3.8-10.6) k/uL RBC (3.80-5.40) m/uL Hgb (11.4-16.0) gm/dL Hct (34.0-46.0) % Neutrophils # (1.3-7.7) k/uL Lymphocytes # (1.0-4.8) k/uL Chloride (98-107) mmol/L Creatinine (0.52-1.04) mg/dL Glucose (74-99) mg/dL POC Glucose (mg/dL) 134 H 137 H 152 H (75-99) mg/dL Calcium (8.4-10.2) mg/dL 10/27/17 10/27/17 10/27/17 Range/Units 05:25 05:25 06:11 WBC 12.4 H (3.8-10.6) k/uL RBC 3.35 L (3.80-5.40) m/uL Hgb 9.3 L (11.4-16.0) gm/dL Hct 29.3 L (34.0-46.0) % Neutrophils # 10.8 H (1.3-7.7) k/uL Lymphocytes # 0.7 L (1.0-4.8) k/uL Chloride 109 H (98-107) mmol/L Creatinine 0.50 L (0.52-1.04) mg/dL Glucose 166 H (74-99) mg/dL POC Glucose (mg/dL) 162 H (75-99) mg/dL Calcium 7.8 L (8.4-10.2) mg/dL 10/27/17 Range/Units 12:02 WBC (3.8-10.6) k/uL RBC (3.80-5.40) m/uL Hgb (11.4-16.0) gm/dL Hct (34.0-46.0) % Neutrophils # (1.3-7.7) k/uL Lymphocytes # (1.0-4.8) k/uL Chloride (98-107) mmol/L Creatinine (0.52-1.04) mg/dL Glucose (74-99) mg/dL POC Glucose (mg/dL) 188 H (75-99) mg/dL Calcium (8.4-10.2) mg/dL Assessment and Plan Plan: Assessment 1 acute cecal perforation due to an obstructive left colonic mass, status post expiratory laparotomy and right and left colectomy and diverticular colostomy and partial omentectomy and the patient is postop day #3. Hemodynamically stable. is still nothing by mouth. NG tube is in place. The patient remains nothing by mouth. TPN was started for nutritional support. Patient remains on a broad-spectrum antibiotic coverage with a combination of Levaquin and Flagyl. Hemodynamically stable. Patient is on epidural Dilaudid for pain control. 2 acute hypoxic respiratory failure secondary to above. Patient was extubated without any major difficulties and currently she is stable with improved aeration in lung bases on today's chest x-ray with trace small bilateral pleural effusions and atelectatic changes in lung bases. NG tube remains in a good location. 3 acute abdomen with cecal perforation and free air in the abdomen secondary to above 4 diabetes mellitus 5 hypertension 6 dementia, with ongoing altered mentation probably due to a combination of dementia and postoperative delirium 7 fever, possibly secondary to intra-abdominal source of infection/bacterial peritonitis post cecal perforation. Currently on a combination of Levaquin and Flagyl. Hemodynamically stable. Currently the patient is afebrile and her last temperature spike was on 10/25/2017 afternoon when she spiked a temperature of 11.1. 8 delirium Plan Continue supportive care. Keep the patient nothing by mouth for now. TPN for nutritional support. The IV Fluids to 75 ML an Hour. Continue Levaquin and Flagyl. Monitor Mentation. Avoid Benzodiazepines. Epidural Dilaudid for Pain Control. Incentive Spirometer. Keep the Patient ICU for 24 Hours. Keep NG Tube in Place for Another 24 Hours. Lovenox for DVT prophylaxis. Electrolyte monitoring. monitoring. We'll continue to follow.
--- NOTE | 2017-10-27 14:33 | P.PN ---
Progress Note - Text Progress Note Date: 10/27/17 Postoperative day # 3 status post explarotory laparotomy/epidural catheter placed for postoperative analgesia, patient doing well epidural site okay, patient currently on combination of epidural infusion solution of ropivacaine 0.0625% and Dilaudid 20 g per mL the infusion rate at 5 ml per hour , patient had no motor deficit epidural site okay , vital signs stable , Assessment and plan= post operative day # 3 patient doing well , there is no anesthesia related complications Patient received Lovenox 8:00 in the morning epidural catheter will be discontinued at 8:00 PM ( 20 :00) Medications will be managed by the surgical team.
[2017-10-27] MEDS: ROPIVACAINE 250 MG, HYDROMORPHONE (PF) 5 MG in SODIUM CHLORIDE 0.9% 200 ML EPIDURAL PRN (15:18)
[2017-10-27] MEDS ORDERED: 1: MVI, ADULT NO.4 WITH VIT K 10 ML, TRACE (CONC-1ML/DOSE) 1 ML, POTASSIUM CHLORIDE 20 M IV SCH ×10 (16:00)
[2017-10-27] MEDS: 1: MVI, ADULT NO.4 WITH VIT K 10 ML, TRACE (CONC-1ML/DOSE) 1 ML, POTASSIUM CHLORIDE 20 M IV SCH ×10 (16:58→18:00)
[2017-10-27 18:33] LABS: Glucose,Whole Blood 189 mg/dL (75-99)
[2017-10-27] MEDS ORDERED: 1: MVI, ADULT NO.4 WITH VIT K 10 ML, TRACE (CONC-1ML/DOSE) 1 ML in AMINO ACID 4.25%-D10W IV SCH ×3 (20:00)
[2017-10-28 01:25] LABS: Glucose,Whole Blood 249 mg/dL (75-99)
[2017-10-28] MEDS: INSULIN ASPART 100 UNIT/ML 1 ML 10 ML VIAL SQ SCH ×5 (01:45→23:38)
[2017-10-28] MEDS: metroNIDAZOLE-NS PMX 500 MG in SALINE 1 100ML.BAG IVPB SCH ×4 (04:10→21:44)
[2017-10-28] MEDS: 1: MVI, ADULT NO.4 WITH VIT K 10 ML, TRACE (CONC-1ML/DOSE) 1 ML, POTASSIUM CHLORIDE 20 M IV SCH ×15 (04:11→16:35)
[2017-10-28 05:34] LABS: Glucose,Whole Blood 246 mg/dL (75-99)
[2017-10-28] MEDS: LACTATED RINGERS 1,000 ML IV SCH ×2 (06:23→21:42)
[2017-10-28] MEDS: DOCUSATE 100 MG CAP PO SCH ×2 (07:15→21:42)
[2017-10-28] MEDS: POLYETHYLENE GLYCOL 3350 17 GM POWD.PACK PO SCH (07:45)
[2017-10-28] MEDS: ENOXAPARIN 40 MG/0.4 ML SYRINGE SQ SCH (07:49)
[2017-10-28] MEDS: PANTOPRAZOLE 40 MG/10 ML VIAL IVP SCH (07:49)
[2017-10-28] MEDS: FAT EMULSION 20% 250 ML IV SCH (07:49)
[2017-10-28] MEDS: LEVOFLOXACIN 500MG-D5W PMX 500 MG in DEXTROSE/WATER 1 100ML.BAG IVPB SCH (07:50)
[2017-10-28 08:35] LABS: Basophils % (A) 0 %; Eosinophils # (A) 0.1 k/uL (0-0.7); Eosinophils % (A) 1 %; HCT 28.1 % (34.0-46.0); Lymphocytes # (A) 0.4 k/uL (1.0-4.8); Lymphocytes % (A) 4 %; MCH 26.9 pg (25.0-35.0); MCV 84.2 fL (80.0-100.0); Monocytes # (A) 0.9 k/uL (0-1.0); Monocytes % (A) 8 %; Neutrophils # (A) 9.3 k/uL (1.3-7.7); Neutrophils % (A) 86 %; Platelet Count 228 k/uL (150-450); RBC 3.33 m/uL (3.80-5.40); RDW 14.3 % (11.5-15.5); WBC 10.8 k/uL (3.8-10.6)
[2017-10-28 08:43] LABS: Anion Gap 4 mmol/L; Blood Urea Nitrogen 11 mg/dL (7-17); Calcium 7.6 mg/dL (8.4-10.2); Carbon Dioxide 27 mmol/L (22-30); Chloride 107 mmol/L (98-107); Glucose 184 mg/dL (74-99); Magnesium 2.1 mg/dL (1.6-2.3); Phosphorus 3.4 mg/dL (2.5-4.5); Sodium 138 mmol/L (137-145)
[2017-10-28] MEDS: IPRATROPIUM-ALBUTEROL 3 ML NEB INHALATION SCH ×4 (08:59→20:01)
--- NOTE | 2017-10-28 11:27 | P.PN ---
Subjective Progress Note Date: 10/28/17 On 10/28/2017, the patient is on the medical floor. NG tube is in place and output has diminished. The patient's colostomy is functioning is some stool material active bleeding within the back. Patient on TPN for nutritional support. She is confused at baseline. She has underlying dementia. Surgical wound site is dry clean and intact. She is using incentive spirometer. No respiratory difficulties. She is postop day #4. TPN is being utilized for nutritional support. Objective - Vital Signs Vital signs: Vital Signs Temp 100 F H 10/28/17 06:00 Pulse 96 10/28/17 09:10 Resp 20 10/28/17 06:00 BP 151/76 10/28/17 06:48 Pulse Ox 92 L 10/28/17 06:00 Intake & Output 10/27/17 10/28/17 10/28/17 18:59 06:59 18:59 Intake Total 2295.083 2359.5 Output Total 225 600 Balance 2070.083 1759.5 Intake: IV 820 200 Lactated Ringers 1,000 ml 0 0 @ 75 mls/hr IV .[id number] [facility] Rx#:[id number] Mvi, Adult No.4 with Vit 720 K 10 ml Trace (Conc-1Ml/ Dose) 1 ml In Amino Acid 4.25%-D10w+Lytes*E* 1,000 ml @ 50 mls/hr IV . [id number] [facility] Rx#:[id number] metroNIDAZOLE-NS PMX 500 100 200 mg In Saline 1 100ml.bag @ 100 mls/hr IVPB Q6H [facility] Rx#:[id number] Intake, IV Titration 1358.272 4089.5 Amount Fat Emulsion 20% 250 ml @ 126 250 21 mls/hr IV DAILY [facility] Rx#:[id number] Lactated Ringers 1,000 ml 600 0 @ 75 mls/hr IV .[id number] [facility] Rx#:[id number] Levofloxacin 500Mg-D5w 100 Pmx 500 mg In Dextrose/ Water 1 100ml.bag @ 100 mls/hr IVPB Q24H [facility] Rx#: [id number] Magnesium Sulfate-D5w Pmx 200 1 gm In Dextrose/Water 1 100ml.bag @ 100 mls/hr IVPB Q1H [facility] Rx#: [id number] Mvi, Adult No.4 with Vit 900 K 10 ml Trace (Conc-1Ml/ Dose) 1 ml In Amino Acid 4.25%-D10w+Lytes*E* 1,000 ml @ 90 mls/hr IV .BY DURATION [facility] Rx#: [id number] Mvi, Adult No.4 with Vit 1009.5 K 10 ml Trace (Conc-1Ml/ Dose) 1 ml Potassium Chloride 20 meq Magnesium Sulfate Syg 8 meq In Amino Acid 4.25%-D10w+ Lytes*E* 1,000 ml @ 90 mls/hr IV .BY DURATION [facility] Rx#:[id number] Potassium Chloride 10 meq 200 In Water For Injection 1 100ml.bag @ 100 mls/hr IVPB Q1H [facility] Rx#: [id number] Potassium Chloride 20 meq 0 Magnesium Sulfate Syg 8 meq In Amino Acid 4.25%- D10w+Lytes*E* 1,000 ml @ 90 mls/hr IV .BY DURATION [facility] Rx#:[id number] Ropivacaine 250 mg 249.083 Hydromorphone (Pf) 5 mg In Sodium Chloride 0.9% 200 ml @ Per Protocol EPIDURAL .Q0M PRN Rx#: [id number] Oral 0 Output: Urine 225 600 Other: Voiding Method Indwelling Catheter Indwelling Catheter ABP, PAP, CO, CI - Last Documented Arterial Blood Pressure 117/43 - Exam Awake and alert NG tube is in place Head exam was generally normal. There was no scleral icterus or corneal arcus. Mucous membranes were moist. NG tube still in place. Neck was supple and without jugular venous distension, thyromegaly, or carotid bruits. Carotids were easily palpable bilaterally. There was no adenopathy. Lungs were clear to auscultation and percussion, and with normal diaphragmatic excursion. No wheezes or rales were noted. Cardiac exam revealed the PMI to be normally situated and sized. The rhythm was regular and no extrasystoles were noted during several minutes of auscultation. The first and second heart sounds were normal and physiologic splitting of the second heart sound was noted. There were no murmurs, rubs, clicks, or gallops. Abdomen is soft. Bowel sounds are absent. No direct tenderness rebound tensile guarding. Surgical wound is dry clean and intact. Colostomy site is viable. Examination of the extremities revealed easily palpable radial, femoral and pedal pulses. There was no cyanosis, clubbing or edema. Examination of the skin revealed no evidence of significant rashes, suspicious appearing nevi or other concerning lesions. Neurologically awake and alert, the patient is resistant confused and oriented only to people not to place and time. - Labs CBC & Chem 7: 10/28/17 07:50 10/28/17 07:50 Labs: Abnormal Lab Results - Last 24 Hours (Table) 10/27/17 10/27/17 10/28/17 Range/Units 12:02 18:06 00:53 WBC (3.8-10.6) k/uL RBC (3.80-5.40) m/uL Hgb (11.4-16.0) gm/dL Hct (34.0-46.0) % Neutrophils # (1.3-7.7) k/uL Lymphocytes # (1.0-4.8) k/uL Creatinine (0.52-1.04) mg/dL Glucose (74-99) mg/dL POC Glucose (mg/dL) 188 H 189 H 249 H (75-99) mg/dL Calcium (8.4-10.2) mg/dL 10/28/17 10/28/17 10/28/17 Range/Units 05:28 07:50 07:50 WBC 10.8 H (3.8-10.6) k/uL RBC 3.33 L (3.80-5.40) m/uL Hgb 9.0 L (11.4-16.0) gm/dL Hct 28.1 L (34.0-46.0) % Neutrophils # 9.3 H (1.3-7.7) k/uL Lymphocytes # 0.4 L (1.0-4.8) k/uL Creatinine 0.40 L (0.52-1.04) mg/dL Glucose 184 H (74-99) mg/dL POC Glucose (mg/dL) 246 H (75-99) mg/dL Calcium 7.6 L (8.4-10.2) mg/dL Assessment and Plan Plan: Assessment 1 acute 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 Epidural catheter has been removed. The patient has NG tube in place. The patient is receiving TPN for nutritional support. His adequate material collecting in the colostomy bag. 2 acute hypoxic respiratory failure secondary to above. Patient was extubated without any major difficulties and currently she is stable 3 acute abdomen with cecal perforation and free air in the abdomen secondary to above 4 diabetes mellitus 5 hypertension 6 dementia, with ongoing altered mentation probably due to a combination of dementia and postoperative delirium 7 fever 8 delirium Plan Continue supportive care. Keep the patient nothing by mouth for now. TPN for nutritional support. Discussed with surgery and consider removing NG tube. Continue rest of the supportive care. The patient will be advised to continue the incentive spirometer. Early mobility. We'll continue to follow.
--- NOTE | 2017-10-28 11:39 | PN ---
PROGRESS NOTE The patient is doing much better today. Still having abdominal pain. Epidural anesthesia-pain control was removed at 4 o'clock this morning. The patient doing relatively well at this period of time, and I appreciate Dr. Melgar and Dr. Wells and Tiana Sharp, nurse practitioner's note. Again, this is a 72-year-old white female presented to the emergency room with chief complaint of abdominal pain. The patient reports that she was having abdominal pain for a few months and worsened with severity. I did see her in the office and did order a CT scan of the abdomen at that time, which has showed some minimal dilated loops of bowel, but worst of all was a large gallstone in her gallbladder. At that time, I told her that she needed to have a surgical consultation and be placed in the hospital accordingly. She denied at that period of time. After another week or so, she called and said she had severe abdominal pain, talked with her , brought to the emergency room. Long-standing history of diabetes, hypertension, GE reflux. Followup CT scan of 09/23/2017 revealed bilaterally dilated small bowel and large bowel, which appeared to be ileus with some minimal amount of ascites. NG tube was placed at that period of time. That morning I walked into the room with my nurse practitioner, Valeria, and she had no bowel sounds. Abdominal series was ordered by surgery and she had free air. She at that time was taken to the hospital and taken to the OR by Dr. 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 At this period of time we are into the 4th day postop, still awaiting pathology results. Her lab shows WBC of 10, 8.9 hemoglobin with a 138 sodium, 4 potassium, 0.4 and creatinine and a BUN of 11. Her blood sugars are within normal limits. Covered by insulin. Her I's and O's show a positive 1659 balance with her on hyperalimentation along with IV fluids at 100 at this point. She is still having gastric drainage, a bloody type of material, over the last 12 hours for 10 hours. She has only had 50 mL indwelling catheter is still present. The patient is not mobile. She is sitting up, minimally elevated in bed. REVIEW OF SYSTEMS: EYES: She is seeing well, but she does have some exudate pus material she says on her eyes. ENT: Very dry mouth. Wants to drink water but cannot. RESPIRATORY: No shortness of breath. HEART: No palpitations. No chest pain. No orthopnea or paroxysmal nocturnal dyspnea. ABDOMEN: No hematemesis, melena, hematochezia, but off the colostomy. There is some mixed reddish drainage and obviously she also has a hemoglobin has now dropped down to 9. Lower legs are been within normal limits with minimal amount of pain. SKIN: She has no complaints. PSYCHIATRIC: She does have some dementia. Her delirium appears to be improved. She is not depressed, but just anxious. PHYSICAL EXAMINATION: VITAL SIGNS: At this time, vital signs show blood pressure 150/76, heart rate at this time was 96, respiratory rate is right around 16, O2 is at 2 L. EYES: Pupils are equal, round, react to light and accommodation. ENT showed tympanic membranes and pharynx to be negative, but a very dry mouth. NECK: Supple. Midline trachea. Left carotid vein catheterization is done. CHEST: Essentially clear to auscultation. Heart sinus rhythm. No murmur. Abdomen has no bowel sounds. Colostomy is draining mostly clear or bloody type of drainage. It is soft. No palpable organomegaly. Lower extremities are +1 swelling. PSYCHIATRIC she is alert, well oriented to person, place, and thing. No palpable masses. No organomegaly. Lower extremities are +1 swelling, nonpitting. Good palpable lower extremity pulses. No new rashes that are seen. ASSESSMENT: 1. Postop day 4 from previous abdominal pain with constipation with acute cecal perforation and left colonic mass still waiting results pathology assessment exploratory. 2. Exploratory laparotomy with right and left colectomy per and partial omentectomy. 3. Postoperative acute hypoxic respiratory failure, on mechanical ventilation. Not on mechanical ventilation, has now been removed. 4. Respiratory therapy. 5. Anemia secondary from blood loss. At this time. Hemoglobin is at 9. I suspected sepsis with fever, leukocytosis, tachycardia from intraabdominal infection, cecal perforation. No cultures were done. 6. Weakness secondary to abdominal pain. 7. Cholelithiasis. 8. Pyuria, which was negative for urine in her urine at this time. 9. Hypernatremia. 10.Type 2 diabetes. 11.History of some dementia. 12.Hypertension. 13.Gastroesophageal reflux disease. 14.Possible hypophosphatemia 14. 15.Moderate protein caloric decrease in intake. 16.Acute conjunctivitis. PLAN: The patient has been started on TPN. We will continue to decrease her IV fluids, peripheral to 50 mL an hour. NG tube is still in place with it to be decided on removal continued per Dr. Wells today. Physical therapy and occupational therapy has been ordered, but no activity at this time. We added Cipro ophthalmic drops. I talked with Dr. Melgar last p.m. We will continue her on 4th floor. The patient's prognosis is good. Please refer to my orders. MMODL / IJN: [id number] /
[2017-10-28 11:43] LABS: Glucose,Whole Blood 261 mg/dL (75-99)
[2017-10-28] MEDS: CIPROFLOXACIN 0.3% OPHTH SOLN 5 ML BTL BOTH EYES SCH ×4 (11:51→23:22)
--- NOTE | 2017-10-28 12:57 | P.PN ---
Subjective Progress Note Date: 10/28/17 The patient is a 72-year-old female who underwent surgery by Dr. Church and is s/p colectomy. Her is at bedside. She has flatus and stool in her colostomy bag. She is eager to drink water. Epidural was discontinued. Cruz catheter present. No fevers or chills. WBC improving. Objective - Vital Signs Vital signs: Vital Signs Temp 100 F H 10/28/17 06:00 Pulse 96 10/28/17 12:10 Resp 20 10/28/17 06:00 BP 151/76 10/28/17 06:48 Pulse Ox 92 L 10/28/17 06:00 Intake & Output 10/27/17 10/28/17 10/28/17 18:59 06:59 18:59 Intake Total 2295.083 2359.5 Output Total 225 600 Balance 2070.083 1759.5 Intake: IV 820 200 Lactated Ringers 1,000 ml 0 0 @ 75 mls/hr IV .[id number] [facility] Rx#:[id number] Mvi, Adult No.4 with Vit 720 K 10 ml Trace (Conc-1Ml/ Dose) 1 ml In Amino Acid 4.25%-D10w+Lytes*E* 1,000 ml @ 50 mls/hr IV . [id number] YANET Rx#:[id number] metroNIDAZOLE-NS PMX 500 100 200 mg In Saline 1 100ml.bag @ 100 mls/hr IVPB Q6H [facility] Rx#:[id number] Intake, IV Titration 5384.111 3548.5 Amount Fat Emulsion 20% 250 ml @ 126 250 21 mls/hr IV DAILY [facility] Rx#:[id number] Lactated Ringers 1,000 ml 600 0 @ 75 mls/hr IV .[id number] [facility] Rx#:[id number] Levofloxacin 500Mg-D5w 100 Pmx 500 mg In Dextrose/ Water 1 100ml.bag @ 100 mls/hr IVPB Q24H [facility] Rx#: [id number] Magnesium Sulfate-D5w Pmx 200 1 gm In Dextrose/Water 1 100ml.bag @ 100 mls/hr IVPB Q1H [facility] Rx#: [id number] Mvi, Adult No.4 with Vit 900 K 10 ml Trace (Conc-1Ml/ Dose) 1 ml In Amino Acid 4.25%-D10w+Lytes*E* 1,000 ml @ 90 mls/hr IV .BY DURATION [facility] Rx#: [id number] Mvi, Adult No.4 with Vit 1009.5 K 10 ml Trace (Conc-1Ml/ Dose) 1 ml Potassium Chloride 20 meq Magnesium Sulfate Syg 8 meq In Amino Acid 4.25%-D10w+ Lytes*E* 1,000 ml @ 90 mls/hr IV .BY DURATION [facility] Rx#:[id number] Potassium Chloride 10 meq 200 In Water For Injection 1 100ml.bag @ 100 mls/hr IVPB Q1H [facility] Rx#: [id number] Potassium Chloride 20 meq 0 Magnesium Sulfate Syg 8 meq In Amino Acid 4.25%- D10w+Lytes*E* 1,000 ml @ 90 mls/hr IV .BY DURATION [facility] Rx#:[id number] Ropivacaine 250 mg 249.083 Hydromorphone (Pf) 5 mg In Sodium Chloride 0.9% 200 ml @ Per Protocol EPIDURAL .Q0M PRN Rx#: [id number] Oral 0 Output: Urine 225 600 Other: Voiding Method Indwelling Catheter Indwelling Catheter ABP, PAP, CO, CI - Last Documented Arterial Blood Pressure 117/43 - Exam ABDOMEN: New dressing along midline and clean. No cellulitis. Ostomy with stool and flatus GENERAL: Well developed and in no acute distress. HEENT: No sclera icterus. Extraocular movements grossly intact. Moist buccal mucosa. Head is atraumatic, normocephalic. Hears conversational speech. No nasal drainage. NECK: Supple without lymphadenopathy. CHEST: Non-labored respirations and equal bilateral excursions. CARDIOVASCULAR: Regular rate and rhythm. Palpable 2+ radial pulses. MUSCULOSKELETAL: No clubbing, cyanosis. 2+ pedal pulses. 1+ pedal edema. NEUROLOGIC: No focal or lateralizing signs. PSYCH: Appropriate affect. Alert and oriented to person, place and time. SKIN: Good skin turgor. Well perfused. - Labs CBC & Chem 7: 10/28/17 07:50 10/28/17 07:50 Labs: Abnormal Lab Results - Last 24 Hours (Table) 10/27/17 10/28/17 10/28/17 Range/Units 18:06 00:53 05:28 WBC (3.8-10.6) k/uL RBC (3.80-5.40) m/uL Hgb (11.4-16.0) gm/dL Hct (34.0-46.0) % Neutrophils # (1.3-7.7) k/uL Lymphocytes # (1.0-4.8) k/uL Creatinine (0.52-1.04) mg/dL Glucose (74-99) mg/dL POC Glucose (mg/dL) 189 H 249 H 246 H (75-99) mg/dL Calcium (8.4-10.2) mg/dL 10/28/17 10/28/17 10/28/17 Range/Units 07:50 07:50 11:41 WBC 10.8 H (3.8-10.6) k/uL RBC 3.33 L (3.80-5.40) m/uL Hgb 9.0 L (11.4-16.0) gm/dL Hct 28.1 L (34.0-46.0) % Neutrophils # 9.3 H (1.3-7.7) k/uL Lymphocytes # 0.4 L (1.0-4.8) k/uL Creatinine 0.40 L (0.52-1.04) mg/dL Glucose 184 H (74-99) mg/dL POC Glucose (mg/dL) 261 H (75-99) mg/dL Calcium 7.6 L (8.4-10.2) mg/dL Assessment and Plan (1) Colon neoplasm Current Visit: Yes Status: Acute Code(s): D49.0 - NEOPLASM OF UNSPECIFIED BEHAVIOR OF DIGESTIVE SYSTEM SNOMED Code(s): 725693510 (2) Large bowel obstruction Current Visit: Yes Status: Acute Code(s): K56.609 - UNSP INTESTNL OBST, UNSP TO PARTIAL VERSUS COMPLETE OBST SNOMED Code(s): 095457542 (3) H/O colectomy Current Visit: Yes Status: Acute Code(s): Z90.49 - ACQUIRED ABSENCE OF OTHER SPECIFIED PARTS OF DIGESTIVE TRACT SNOMED Code(s): 406763048 Plan: 1. Remove Cruz catheter as she has increased risk for urinary tract infection. May use adult diapers instead. 2. Start clear liquid diet. However clamp NG tube in the interim for nausea. 3. NG tube to be discontinued once patient tolerated liquid diet.
[2017-10-28] MEDS: HYDROmorphone 0.5 MG/0.5 ML SYRINGE IVP PRN ×2 (15:07→21:35)
[2017-10-28 17:12] LABS: Glucose,Whole Blood 289 mg/dL (75-99)
[2017-10-28 23:30] LABS: Glucose,Whole Blood 284 mg/dL (75-99)
[2017-10-29] MEDS: HYDROmorphone 0.5 MG/0.5 ML SYRINGE IVP PRN ×5 (01:49→20:30)
[2017-10-29] MEDS: metroNIDAZOLE-NS PMX 500 MG in SALINE 1 100ML.BAG IVPB SCH ×4 (02:15→21:40)
[2017-10-29] MEDS: 1: MVI, ADULT NO.4 WITH VIT K 10 ML, TRACE (CONC-1ML/DOSE) 1 ML, POTASSIUM CHLORIDE 20 M IV SCH ×15 (03:24→14:06)
[2017-10-29] MEDS: CIPROFLOXACIN 0.3% OPHTH SOLN 5 ML BTL BOTH EYES SCH ×6 (04:04→23:03)
[2017-10-29 05:24] LABS: Glucose,Whole Blood 278 mg/dL (75-99)
[2017-10-29] MEDS: INSULIN ASPART 100 UNIT/ML 1 ML 10 ML VIAL SQ SCH ×5 (05:29→21:50)
[2017-10-29] MEDS: LACTATED RINGERS 1,000 ML IV SCH (07:35)
[2017-10-29] MEDS: IPRATROPIUM-ALBUTEROL 3 ML NEB INHALATION SCH ×4 (08:15→19:46)
--- NOTE | 2017-10-29 08:26 | P.PN ---
Subjective Progress Note Date: 10/29/17 72-year-old female who presented to the emergency room with a chief complaint of abdominal pain. The patient reports she has been having abdominal pain for a few months but it has worsened in severity over the last two weeks. She states she waited to come to the hospital after the 17 of October holiday because "all the good doctors go on vacation for the holidays and there would not be anyone good here to take care of me". The patient did have a CT scan of her abdomen in September 2017 due to abdominal pain which revealed large gallstones seen in the region of the gallbladder neck. No gallbladder wall thickening was identified. Mild hepatic steatosis. Moderate fecal stasis. Dilated loop of small bowel proximally measuring 3 cm. The patient was referred to see Dr. Church. However, the patient never followed through with this. She reports decreased appetite. The patient reports she was consuming mostly liquid foods and protein drinks. She reports she tried to eat small amounts of food but would get abdominal pain so she started chewing her food and then spitting it out. She states she has been drinking fluids but likely less than she usually does. She denies nausea or vomiting, however she does report a lot of heartburn and burping. She reports her last bowel movement was 2 1/2 weeks ago. She states she usually has a bowel movement every 2-3 days. She states she had a colonoscopy "years ago" and was told it was normal. She states she has been in bed for the last week due to weakness and fatigue. She denies any urinary symptoms such as frequency, burning, urgency, pain with urination, or odor. She denies fever or chills. Denies chest pain or pressure. She reports mild SOB when lying flat. The patient has a history of diabetes mellitus, hypertension, and gastroesophageal reflux disease. She also reports a history of short term memory loss but is unable to relay what medical condition this is from or what caused it. She is a lifelong non-smoker. She denies alcohol use or drug use. KUB x-ray revealed colonic distention with differential air fluid levels and small bowel dilation. However there is air noted within the distal colon and rectum therefore findings may relate to incomplete large bowel obstruction or ileus associated with colitis. Laboratory data: White count 11.4. Hemoglobin 13.2. Platelet count 251. Sodium 147. Potassium 3.5. Chloride 110. Carbon dioxide 18. BUN 15. Creatinine 0.69. Glucose 126. Total bilirubin 0.7. AST 19. ALT 30. Alkaline phosphatase 62. Amylase 41. Lipase 100. Urinalysis reveals clear yellow urine, 1+ proteinuria, 4+ ketones, 1+ bilirubin, moderate leukocyte esterase, 15 WBC. The patient was admitted to the hospital under the care of Dr. Oscar. Consultations were placed to general surgery. 10/23/2017 Patient seen and examined at the bedside. Patient continues to complain of abdominal pain. Soap suds enema was ordered yesterday but patient has been refusing. Patient states she will do enema this morning. Patient underwent CT of abdomen and pelvis yesterday which revealed dilated large and small bowel fluid levels consistent with generalized ileus. Minimal ascites fluid. Atelectasis at the left lung base. Large calcified gallstone. Hiatal hernia. Patient reports she drank oral contrast yesterday and then had an episode of emesis prior to her computed tomography scan. No further episodes of emesis since that time. Patient remains NPO except for ice chips. General surgery is following. 10/24/2017 Patient seen and examined at the bedside with Dr. Oscar. NG tube was inserted yesterday. Remains connected to LIS. Patient has had a total of approximately 1700cc out since insertion. Approximately 400cc since 0200. Patient does report passing flatus. No bowel movement today. Tolerating ice chips. Reports occasional nausea. Abdomen appears more distended today in comparison to yesterday. Sodium has improved to 144 today. Remains on LR at 100cc. Patient is scheduled for xray of her abdomen. 10/25/2017 Patient had abdominal xray yesterday which revealed free air. She was taken to the OR by Dr. Church. She underwent exploratory laparotomy with right colectomy, left colectomy, partial omentectomy. 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 A colostomy was also performed. She remained intubated and was transferred to the ICU overnight. She was seen and examined this morning in the ICU with Dr. Oscar. She remains vented on 40% Fio2. She is maintaining oxygen saturations greater than 92%. She is sedated on propofol. Patient does withdraw to painful stimuli. She remains hemodynamically stable. NG tube is intact to LIS with bilious output. Approximately 200cc in collection canister. Urinary catheter is intact with yellow urine. Dressing to abdomen is CDI with small area of shadowing to right upper corner of dressing. Colostomy is noted with minimal bloody drainage. 10/26/2017 Patient seen and examined at the bedside. Patient remains in the ICU. She was extubated yesterday. She remains on 2 L nasal cannula with oxygen saturations greater than 92%. Blood pressure has been stable. She is afebrile this morning however the patient did have a temperature last night of 101.1F. She remains on Levaquin and Flagyl. Chest x-ray reveals improved aeration of the lungs with minimal left basilar subsegmental atelectasis and trace pleural effusion. Patient is slightly tachycardic with a heart rate between 100-110. She has an epidural infusing at 5 mL an hour. Patient states her pain is tolerable at this time. Colostomy noted with minimal dark bloody output. NG tube intact to LIS. Indwelling urinary catheter remains intact. Patient denies chest pain or pressure. Denies shortness of breath. She reports dry mouth. White count is 11.6. Hemoglobin is 9.6, down from 11.2. Patient received a few liters of fluid yesterday due to decreased urine output which may account for drop in hemoglobin. 10/27/2017-notes per Dr. Oscar 10/28/2017-notes per Dr. Oscar 10/29/2017 Patient seen and examined at the bedside. Patient is awake and alert. Patient was started on clear liquids and is tolerating well. Denies nausea or vomiting. Patient states she feels as though she can not swallow and feels like she is choking at times, however patient is laying flat in bed and trying to drink. Patient encouraged to sit up in bed when attempting to drink liquids. Patients urinary catheter was discontinued yesterday. Patient is voiding in a brief. She has not been ambulating to the bathroom. She denies shortness of breath, chest pain, or pressure. TPN continues to infuse. Colostomy with small amount of brown output. Lab work from this morning is currently pending. Objective - Vital Signs Vital signs: Vital Signs Temp 98.9 F 10/29/17 07:16 Pulse 102 H 10/29/17 07:16 Resp 16 10/29/17 07:16 BP 182/81 07/16/18 07:16 Pulse Ox 97 10/29/17 07:16 Intake & Output 10/28/17 10/29/17 10/29/17 18:59 06:59 18:59 Output Total 600 Balance -600 Output: Urine 600 Uretheral (Cruz) 600 Other: Voiding Method Indwelling Catheter Bedpan # Voids 2 ABP, PAP, CO, CI - Last Documented Arterial Blood Pressure 117/43 - Exam GENERAL: This is a 72-year-old female in no acute distress at the time of examination HEENT: NG intact. Head is atraumatic, normocephalic. Pupils are equal, round, and reactive to light. Sclerae anicteric. Conjunctivae are clear. Mucus membranes of the mouth are moist. Neck is supple. RESPIRATORY: Clear to ausculation. No wheezes, rales, or rhonchi. Patient maintaining oxygen saturation greater than 92%. CARDIOVASCULAR: Regular rate and rhythm. S1 and S2 noted. No systolic or diastolic murmur auscultated. No JVD noted. No S3 or S4 noted. GASTROINTESTINAL: NG tube is intact. Dressing to abdomen is CDI. Colostomy is noted with small amount of brown stool. Hypoactive bowel sounds auscultated 4 quadrants INTEGUMENTARY: No cyanosis. No jaundice. No rashes noted. No cellulitis noted. EXTREMITIES: 2+ peripheral pulses. Minimal bilateral lower extremity edema. No calf tenderness noted. NEUROLOGIC: Cranial nerves II-XII intact. PSYCHIATRIC: Awake, alert, and oriented X 3. Appropriate affect. Intact judgement and insight. - Labs CBC & Chem 7: 10/29/17 08:19 10/29/17 08:19 Labs: Abnormal Lab Results - Last 24 Hours (Table) 10/28/17 10/28/17 10/28/17 Range/Units 07:50 07:50 11:41 WBC 10.8 H (3.8-10.6) k/uL RBC 3.33 L (3.80-5.40) m/uL Hgb 9.0 L (11.4-16.0) gm/dL Hct 28.1 L (34.0-46.0) % Neutrophils # 9.3 H (1.3-7.7) k/uL Lymphocytes # 0.4 L (1.0-4.8) k/uL Creatinine 0.40 L (0.52-1.04) mg/dL Glucose 184 H (74-99) mg/dL POC Glucose (mg/dL) 261 H (75-99) mg/dL Calcium 7.6 L (8.4-10.2) mg/dL 10/28/17 10/28/17 10/29/17 Range/Units 17:04 23:28 05:22 WBC (3.8-10.6) k/uL RBC (3.80-5.40) m/uL Hgb (11.4-16.0) gm/dL Hct (34.0-46.0) % Neutrophils # (1.3-7.7) k/uL Lymphocytes # (1.0-4.8) k/uL Creatinine (0.52-1.04) mg/dL Glucose (74-99) mg/dL POC Glucose (mg/dL) 289 H 284 H 278 H (75-99) mg/dL Calcium (8.4-10.2) mg/dL Assessment and Plan Plan: ASSESSMENT: Abdominal pain with constipation, patient reports no bowel movement for 2.5 weeks, initial imaging reveals large bowel obstruction, 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, s/p exploratory laparotomy and right and left colectomy and diverticular colostomy and partial omentectomy, POD #5 Postoperative acute hypoxic respiratory failure requiring mechanical ventilation , since extubated, an unexpected but potential outcome of surgery Anemia, hemoglobin 9.6, down from 11.2, suspect due to hemodilution from IV fluids/boluses Suspected sepsis with fever, leukocytosis, and tachycardia due to intraabdominal infectious process secondary to cecal perforation, improving Generalized weakness, secondary to abdominal pain, patient reports laying in bed x 1 week History of cholelithiasis Pyuria on admission UA, asymptomatic, patient denies any adverse urinary s/s Hypernatremia, resolved Diabetes mellitus, type II Hyperglycemia, suspect secondary to clear liquid diet and dextrose in PPN Hypertension Gastroesophageal reflux disease Hypophosphatemia, resolved History of dementia Moderate protein calorie malnutrition, secondary to decreased PO intake Acute conjunctivitis PLAN: General surgery on consult. Appreciate recommendations and input Continue clear liquid diet. Continue PPN and IV fluids. Discontinue NG if tolerating clear liquid diet Patient to be out of bed and ambulating today. Up to chair for all meals. Up to bathroom or BSC to void. Avoid letting patient void in a brief due to possible excoriation. Continue novolog sliding scale. Will add novolog 5 units with meals and levemir 15 units at HS Continue antibiotics: levaquin and flagyl Monitor labs GI prophylaxis: Protonix 40 mg IV Daily DVT prophylaxis: Lovenox 40mg SQ Daily Monitor vital signs and address as appropriate Discharge planning: Patient lives at home with . Patient will likely require RADHA before returning home Further recommendations pending patient's course Nurse practitioner note has been reviewed by physician. Signing provider agrees with the documented findings, assessment, and plan of care.
[2017-10-29] MEDS: FAT EMULSION 20% 250 ML IV SCH (09:16)
[2017-10-29] MEDS: PANTOPRAZOLE 40 MG/10 ML VIAL IVP SCH (09:16)
[2017-10-29] MEDS: DOCUSATE 100 MG CAP PO SCH ×2 (09:17→21:42)
[2017-10-29] MEDS: ENOXAPARIN 40 MG/0.4 ML SYRINGE SQ SCH (09:17)
[2017-10-29] MEDS: LEVOFLOXACIN 500MG-D5W PMX 500 MG in DEXTROSE/WATER 1 100ML.BAG IVPB SCH (09:17)
[2017-10-29 09:30] LABS: Basophils % (A) 0 %; Eosinophils # (A) 0.1 k/uL (0-0.7); Eosinophils % (A) 1 %; HCT 31.1 % (34.0-46.0); HGB 10.1 gm/dL (11.4-16.0); Lymphocytes # (A) 0.5 k/uL (1.0-4.8); Lymphocytes % (A) 4 %; MCH 27.3 pg (25.0-35.0); MCHC 32.4 g/dL (31.0-37.0); MCV 84.3 fL (80.0-100.0); Mean Platelet Volume 7.3; Monocytes # (A) 1.3 k/uL (0-1.0); Monocytes % (A) 9 %; Neutrophils # (A) 11.3 k/uL (1.3-7.7); Neutrophils % (A) 85 %; Platelet Count 287 k/uL (150-450); RBC 3.69 m/uL (3.80-5.40); RDW 14.1 % (11.5-15.5); WBC 13.4 k/uL (3.8-10.6)
[2017-10-29 09:33] LABS: Anion Gap 7 mmol/L; Blood Urea Nitrogen 11 mg/dL (7-17); Calcium 7.8 mg/dL (8.4-10.2); Carbon Dioxide 25 mmol/L (22-30); Chloride 106 mmol/L (98-107); Glucose 240 mg/dL (74-99); Magnesium 2.1 mg/dL (1.6-2.3); Phosphorus 3.5 mg/dL (2.5-4.5); Potassium 4.4 mmol/L (3.5-5.1); Sodium 138 mmol/L (137-145)
[2017-10-29 11:55] LABS: Glucose,Whole Blood 292 mg/dL (75-99)
[2017-10-29] MEDS: NYSTATIN 100,000 UNIT/ML SUSP 500,000 UNIT/5 ML CUP PO SCH ×3 (14:00→21:51)
--- NOTE | 2017-10-29 14:12 | P.PN ---
Subjective Progress Note Date: 10/29/17 Principal diagnosis: Acute cecal perforation On 10/28/2017, the patient is on the medical floor. NG tube is in place and output has diminished. The patient's colostomy is functioning is some stool material active bleeding within the back. Patient on TPN for nutritional support. She is confused at baseline. She has underlying dementia. Surgical wound site is dry clean and intact. She is using incentive spirometer. No respiratory difficulties. She is postop day #4. TPN is being utilized for nutritional support. On 10/29/2017, patient seems to be doing quite well, continues to have abdominal pain and discomfort. Colostomy is functioning relatively well. Patient is on TPN for nutritional support, intermittently confused, but today she seems to be very appropriate, she knew where she was, she knew what year wasn't, and her daughter is at bedside. Patient is doing poorly with incentive spirometry, she is presently postoperative day #5. Labs were reviewed relatively normal electrolytes, CBC is relatively normal she does have a bit of leukocytosis with WBC count of 13.4. Objective - Vital Signs Vital signs: Vital Signs Temp 98.9 F 10/29/17 07:16 Pulse 90 10/29/17 12:33 Resp 16 10/29/17 07:16 BP 182/81 10/29/17 07:16 Pulse Ox 97 10/29/17 07:16 Intake & Output 10/28/17 10/29/17 10/29/17 18:59 06:59 18:59 Intake Total 963 Output Total 600 Balance -600 963 Intake: Intake, IV Titration 963 Amount Potassium Chloride 20 meq 963 Magnesium Sulfate Syg 8 meq In Amino Acid 4.25%- D10w+Lytes*E* 1,000 ml @ 90 mls/hr IV .BY DURATION [facility] Rx#:[id number] Output: Urine 600 Uretheral (Cruz) 600 Other: Voiding Method Indwelling Catheter Bedpan # Voids 2 ABP, PAP, CO, CI - Last Documented Arterial Blood Pressure 117/43 - Exam Physical Exam: Revealed a 72-year-old female in no form of respiratory distress. Head: Atraumatic, normocephalic. HEENT:[Neck is supple.] [No neck masses.] [No thyromegaly.] [No JVD.] Chest: [Diminished breath sounds at the bases no crackles or rhonchi or wheezes. Cardiac Exam: [Normal S1 and S2, no S3 gallop, no murmur.] Abdomen: [Bowel sounds are absent. No direct tenderness rebound tensile guarding. Surgical wound is dry clean and intact. Colostomy site is viable. Extremities: [No clubbing, no edema, no cyanosis.] Neurological Exam: [No focal neurologic deficit.] Skin: No rashes. - Labs CBC & Chem 7: 10/29/17 08:19 10/29/17 08:19 Labs: Abnormal Lab Results - Last 24 Hours (Table) 10/28/17 10/28/17 10/29/17 Range/Units 17:04 23:28 05:22 WBC (3.8-10.6) k/uL RBC (3.80-5.40) m/uL Hgb (11.4-16.0) gm/dL Hct (34.0-46.0) % Neutrophils # (1.3-7.7) k/uL Lymphocytes # (1.0-4.8) k/uL Monocytes # (0-1.0) k/uL Creatinine (0.52-1.04) mg/dL Glucose (74-99) mg/dL POC Glucose (mg/dL) 289 H 284 H 278 H (75-99) mg/dL Calcium (8.4-10.2) mg/dL 10/29/17 10/29/17 10/29/17 Range/Units 08:19 08:19 11:41 WBC 13.4 H (3.8-10.6) k/uL RBC 3.69 L (3.80-5.40) m/uL Hgb 10.1 L (11.4-16.0) gm/dL Hct 31.1 L (34.0-46.0) % Neutrophils # 11.3 H (1.3-7.7) k/uL Lymphocytes # 0.5 L (1.0-4.8) k/uL Monocytes # 1.3 H (0-1.0) k/uL Creatinine 0.40 L (0.52-1.04) mg/dL Glucose 240 H (74-99) mg/dL POC Glucose (mg/dL) 292 H (75-99) mg/dL Calcium 7.8 L (8.4-10.2) mg/dL Assessment and Plan Assessment: 1 acute cecal perforation due to an obstructive left colonic mass, status post expiratory laparotomy and right and left colectomy and diverticular colostomy and partial omentectomy and the patient is postop day #5. Epidural catheter has been removed. The patient has NG tube in place. The patient is receiving TPN for nutritional support. His adequate material collecting in the colostomy bag. 2 acute hypoxic respiratory failure secondary to above. Patient was extubated without any major difficulties and currently she is stable 3 acute abdomen with cecal perforation and free air in the abdomen secondary to above 4 diabetes mellitus 5 hypertension 6 fever, resolved 7 delirium, resolved Recommendation: Continue present supportive care measures, nutritional support, incentive spirometry, early ambulation. We'll continue to follow on a when necessary basis. Time with Patient: Less than 30
[2017-10-29 14:45] VITALS: BMI 30.1
[2017-10-29] MEDS: LOSARTAN 50 MG TAB PO SCH (15:49)
[2017-10-29 17:10] LABS: Glucose,Whole Blood 297 mg/dL (75-99)
--- NOTE | 2017-10-29 18:42 | P.PN ---
Subjective Progress Note Date: 10/29/17 The patient is a 72-year-old female who underwent surgery by Dr. Church and is s/p colectomy. Her NG tube has been discontinued. She is tolerating clears however she complains about high sugary beverages. She is a diabetic. She is yet to ambulate per her discussion. No reports of fevers or chills. Her ostomy is working. Objective - Vital Signs Vital signs: Vital Signs Temp 99.1 F 10/29/17 13:58 Pulse 90 10/29/17 16:22 Resp 16 10/29/17 13:58 BP 164/79 10/29/17 13:58 Pulse Ox 97 10/29/17 16:09 Intake & Output 10/28/17 10/29/17 10/29/17 18:59 06:59 18:59 Intake Total 963 Output Total 600 Balance -600 963 Weight 79.7 kg Intake: Intake, IV Titration 963 Amount Potassium Chloride 20 meq 963 Magnesium Sulfate Syg 8 meq In Amino Acid 4.25%- D10w+Lytes*E* 1,000 ml @ 90 mls/hr IV .BY DURATION [facility] Rx#:[id number] Output: Urine 600 Uretheral (Cruz) 600 Other: Voiding Method Indwelling Catheter Bedpan # Voids 2 ABP, PAP, CO, CI - Last Documented Arterial Blood Pressure 117/43 - Exam ABDOMEN: Intact. No cellulitis. Ostomy with stool and flatus GENERAL: Well developed and in no acute distress. HEENT: No sclera icterus. Extraocular movements grossly intact. Moist buccal mucosa. Head is atraumatic, normocephalic. Hears conversational speech. No nasal drainage. NECK: Supple without lymphadenopathy. CHEST: Non-labored respirations and equal bilateral excursions. CARDIOVASCULAR: Regular rate and rhythm. Palpable 2+ radial pulses. MUSCULOSKELETAL: No clubbing, cyanosis. 2+ pedal pulses. 1+ pedal edema. NEUROLOGIC: No focal or lateralizing signs. PSYCH: Appropriate affect. Alert and oriented to person, place and time. SKIN: Good skin turgor. Well perfused. - Labs CBC & Chem 7: 10/29/17 08:19 10/29/17 08:19 Labs: Abnormal Lab Results - Last 24 Hours (Table) 10/28/17 10/29/17 10/29/17 Range/Units 23:28 05:22 08:19 WBC 13.4 H (3.8-10.6) k/uL RBC 3.69 L (3.80-5.40) m/uL Hgb 10.1 L (11.4-16.0) gm/dL Hct 31.1 L (34.0-46.0) % Neutrophils # 11.3 H (1.3-7.7) k/uL Lymphocytes # 0.5 L (1.0-4.8) k/uL Monocytes # 1.3 H (0-1.0) k/uL Creatinine (0.52-1.04) mg/dL Glucose (74-99) mg/dL POC Glucose (mg/dL) 284 H 278 H (75-99) mg/dL Calcium (8.4-10.2) mg/dL 10/29/17 10/29/17 10/29/17 Range/Units 08:19 11:41 17:08 WBC (3.8-10.6) k/uL RBC (3.80-5.40) m/uL Hgb (11.4-16.0) gm/dL Hct (34.0-46.0) % Neutrophils # (1.3-7.7) k/uL Lymphocytes # (1.0-4.8) k/uL Monocytes # (0-1.0) k/uL Creatinine 0.40 L (0.52-1.04) mg/dL Glucose 240 H (74-99) mg/dL POC Glucose (mg/dL) 292 H 297 H (75-99) mg/dL Calcium 7.8 L (8.4-10.2) mg/dL Assessment and Plan (1) Colon neoplasm Current Visit: Yes Status: Acute Code(s): D49.0 - NEOPLASM OF UNSPECIFIED BEHAVIOR OF DIGESTIVE SYSTEM SNOMED Code(s): 240489156 (2) Large bowel obstruction Current Visit: Yes Status: Acute Code(s): K56.609 - UNSP INTESTNL OBST, UNSP TO PARTIAL VERSUS COMPLETE OBST SNOMED Code(s): 114943689 (3) H/O colectomy Current Visit: Yes Status: Acute Code(s): Z90.49 - ACQUIRED ABSENCE OF OTHER SPECIFIED PARTS OF DIGESTIVE TRACT SNOMED Code(s): 560375048 Plan: 1. Clear liquid diet adjusted to consistent carbohydrate. 2. Physical therapy recommended. 3. Patient is stable from a surgical standpoint for discharge once medically stable.
[2017-10-29 20:47] LABS: Glucose,Whole Blood 274 mg/dL (75-99)
[2017-10-29] MEDS ORDERED: INSULIN DETEMIR 100 UNIT/ML 10 ML VIAL SQ SCH (21:00)
[2017-10-29] MEDS: BACLOFEN 10 MG TAB PO SCH (21:42)
[2017-10-30] MEDS: HYDROmorphone 0.5 MG/0.5 ML SYRINGE IVP PRN ×6 (00:32→21:11)
[2017-10-30 00:51] LABS: Glucose,Whole Blood 288 mg/dL (75-99)
[2017-10-30] MEDS: 1: MVI, ADULT NO.4 WITH VIT K 10 ML, TRACE (CONC-1ML/DOSE) 1 ML, POTASSIUM CHLORIDE 20 M IV SCH ×10 (01:26→12:07)
[2017-10-30] MEDS: ACETAMINOPHEN TAB 325 MG TAB PO PRN ×2 (02:02→15:49)
[2017-10-30] MEDS: CIPROFLOXACIN 0.3% OPHTH SOLN 5 ML BTL BOTH EYES SCH ×6 (03:50→23:00)
[2017-10-30] MEDS: metroNIDAZOLE-NS PMX 500 MG in SALINE 1 100ML.BAG IVPB SCH ×4 (03:50→21:08)
[2017-10-30] MEDS: LACTATED RINGERS 1,000 ML IV SCH (03:51)
[2017-10-30] MEDS: IPRATROPIUM-ALBUTEROL 3 ML NEB INHALATION SCH ×4 (07:00→20:17)
[2017-10-30 07:32] LABS: Glucose,Whole Blood 298 mg/dL (75-99)
[2017-10-30] MEDS: INSULIN ASPART 100 UNIT/ML 1 ML 10 ML VIAL SQ SCH ×7 (08:14→21:07)
[2017-10-30] MEDS: DOCUSATE 100 MG CAP PO SCH ×2 (08:15→21:06)
[2017-10-30] MEDS: ENOXAPARIN 40 MG/0.4 ML SYRINGE SQ SCH (08:15)
[2017-10-30] MEDS: LEVOFLOXACIN 500MG-D5W PMX 500 MG in DEXTROSE/WATER 1 100ML.BAG IVPB SCH (08:15)
[2017-10-30] MEDS: FAT EMULSION 20% 250 ML IV SCH (08:15)
[2017-10-30] MEDS: PANTOPRAZOLE 40 MG/10 ML VIAL IVP SCH (08:16)
[2017-10-30] MEDS: PIOGLITAZONE 15 MG TAB PO SCH (08:16)
[2017-10-30] MEDS: TROSPIUM CHLORIDE 20 MG TABLET PO SCH ×2 (08:16→21:09)
[2017-10-30] MEDS: LOSARTAN 50 MG TAB PO SCH (08:16)
[2017-10-30] MEDS: NYSTATIN 100,000 UNIT/ML SUSP 500,000 UNIT/5 ML CUP PO SCH ×4 (08:16→21:09)
[2017-10-30] MEDS: DONEPEZIL HCL PO SCH (08:17)
[2017-10-30] MEDS: MEMANTINE HCL PO SCH (08:17)
[2017-10-30 09:31] LABS: Basophils % (A) 0 %; Eosinophils # (A) 0.1 k/uL (0-0.7); Eosinophils % (A) 1 %; HCT 31.3 % (34.0-46.0); Lymphocytes # (A) 0.6 k/uL (1.0-4.8); Lymphocytes % (A) 4 %; MCH 27.1 pg (25.0-35.0); MCHC 32.1 g/dL (31.0-37.0); MCV 84.4 fL (80.0-100.0); Mean Platelet Volume 8.3; Monocytes # (A) 1.2 k/uL (0-1.0); Monocytes % (A) 8 %; Neutrophils # (A) 13.2 k/uL (1.3-7.7); Neutrophils % (A) 86 %; Platelet Count 347 k/uL (150-450); RDW 14.4 % (11.5-15.5); WBC 15.3 k/uL (3.8-10.6)
[2017-10-30 09:50] LABS: Anion Gap 6 mmol/L; Blood Urea Nitrogen 11 mg/dL (7-17); Calcium 7.9 mg/dL (8.4-10.2); Carbon Dioxide 26 mmol/L (22-30); Chloride 106 mmol/L (98-107); Glucose 283 mg/dL (74-99); Magnesium 2.1 mg/dL (1.6-2.3); Phosphorus 3.9 mg/dL (2.5-4.5); Potassium 4.4 mmol/L (3.5-5.1); Sodium 138 mmol/L (137-145)
--- NOTE | 2017-10-30 10:31 | P.PN ---
Subjective Progress Note Date: 10/30/17 72-year-old female who presented to the emergency room with a chief complaint of abdominal pain. The patient reports she has been having abdominal pain for a few months but it has worsened in severity over the last two weeks. She states she waited to come to the hospital after the 17 of October holiday because "all the good doctors go on vacation for the holidays and there would not be anyone good here to take care of me". The patient did have a CT scan of her abdomen in September 2017 due to abdominal pain which revealed large gallstones seen in the region of the gallbladder neck. No gallbladder wall thickening was identified. Mild hepatic steatosis. Moderate fecal stasis. Dilated loop of small bowel proximally measuring 3 cm. The patient was referred to see Dr. Church. However, the patient never followed through with this. She reports decreased appetite. The patient reports she was consuming mostly liquid foods and protein drinks. She reports she tried to eat small amounts of food but would get abdominal pain so she started chewing her food and then spitting it out. She states she has been drinking fluids but likely less than she usually does. She denies nausea or vomiting, however she does report a lot of heartburn and burping. She reports her last bowel movement was 2 1/2 weeks ago. She states she usually has a bowel movement every 2-3 days. She states she had a colonoscopy "years ago" and was told it was normal. She states she has been in bed for the last week due to weakness and fatigue. She denies any urinary symptoms such as frequency, burning, urgency, pain with urination, or odor. She denies fever or chills. Denies chest pain or pressure. She reports mild SOB when lying flat. The patient has a history of diabetes mellitus, hypertension, and gastroesophageal reflux disease. She also reports a history of short term memory loss but is unable to relay what medical condition this is from or what caused it. She is a lifelong non-smoker. She denies alcohol use or drug use. KUB x-ray revealed colonic distention with differential air fluid levels and small bowel dilation. However there is air noted within the distal colon and rectum therefore findings may relate to incomplete large bowel obstruction or ileus associated with colitis. Laboratory data: White count 11.4. Hemoglobin 13.2. Platelet count 251. Sodium 147. Potassium 3.5. Chloride 110. Carbon dioxide 18. BUN 15. Creatinine 0.69. Glucose 126. Total bilirubin 0.7. AST 19. ALT 30. Alkaline phosphatase 62. Amylase 41. Lipase 100. Urinalysis reveals clear yellow urine, 1+ proteinuria, 4+ ketones, 1+ bilirubin, moderate leukocyte esterase, 15 WBC. The patient was admitted to the hospital under the care of Dr. Oscar. Consultations were placed to general surgery. 10/23/2017 Patient seen and examined at the bedside. Patient continues to complain of abdominal pain. Soap suds enema was ordered yesterday but patient has been refusing. Patient states she will do enema this morning. Patient underwent CT of abdomen and pelvis yesterday which revealed dilated large and small bowel fluid levels consistent with generalized ileus. Minimal ascites fluid. Atelectasis at the left lung base. Large calcified gallstone. Hiatal hernia. Patient reports she drank oral contrast yesterday and then had an episode of emesis prior to her computed tomography scan. No further episodes of emesis since that time. Patient remains NPO except for ice chips. General surgery is following. 10/24/2017 Patient seen and examined at the bedside with Dr. Oscar. NG tube was inserted yesterday. Remains connected to LIS. Patient has had a total of approximately 1700cc out since insertion. Approximately 400cc since 0200. Patient does report passing flatus. No bowel movement today. Tolerating ice chips. Reports occasional nausea. Abdomen appears more distended today in comparison to yesterday. Sodium has improved to 144 today. Remains on LR at 100cc. Patient is scheduled for xray of her abdomen. 10/25/2017 Patient had abdominal xray yesterday which revealed free air. She was taken to the OR by Dr. Church. She underwent exploratory laparotomy with right colectomy, left colectomy, partial omentectomy. 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 A colostomy was also performed. She remained intubated and was transferred to the ICU overnight. She was seen and examined this morning in the ICU with Dr. Oscar. She remains vented on 40% Fio2. She is maintaining oxygen saturations greater than 92%. She is sedated on propofol. Patient does withdraw to painful stimuli. She remains hemodynamically stable. NG tube is intact to LIS with bilious output. Approximately 200cc in collection canister. Urinary catheter is intact with yellow urine. Dressing to abdomen is CDI with small area of shadowing to right upper corner of dressing. Colostomy is noted with minimal bloody drainage. 10/26/2017 Patient seen and examined at the bedside. Patient remains in the ICU. She was extubated yesterday. She remains on 2 L nasal cannula with oxygen saturations greater than 92%. Blood pressure has been stable. She is afebrile this morning however the patient did have a temperature last night of 101.1F. She remains on Levaquin and Flagyl. Chest x-ray reveals improved aeration of the lungs with minimal left basilar subsegmental atelectasis and trace pleural effusion. Patient is slightly tachycardic with a heart rate between 100-110. She has an epidural infusing at 5 mL an hour. Patient states her pain is tolerable at this time. Colostomy noted with minimal dark bloody output. NG tube intact to LIS. Indwelling urinary catheter remains intact. Patient denies chest pain or pressure. Denies shortness of breath. She reports dry mouth. White count is 11.6. Hemoglobin is 9.6, down from 11.2. Patient received a few liters of fluid yesterday due to decreased urine output which may account for drop in hemoglobin. 10/27/2017-notes per Dr. Oscar 10/28/2017-notes per Dr. Oscar 10/29/2017 Patient seen and examined at the bedside. Patient is awake and alert. Patient was started on clear liquids and is tolerating well. Denies nausea or vomiting. Patient states she feels as though she can not swallow and feels like she is choking at times, however patient is laying flat in bed and trying to drink. Patient encouraged to sit up in bed when attempting to drink liquids. Patients urinary catheter was discontinued yesterday. Patient is voiding in a brief. She has not been ambulating to the bathroom. She denies shortness of breath, chest pain, or pressure. TPN continues to infuse. Colostomy with small amount of brown output. Lab work from this morning is currently pending. 10/30/2017 Patient seen and examined at the bedside at the bedside on rounds with Dr. Oscar. Patient is sitting up in the chair. She states she does not feel well this morning. Patient did have a fever last night of 100.2. She was slightly tachycardic with a heart rate in the low 100s. She is afebrile this morning. She is tolerating clear liquid diet. Diet has not been advanced yet. Will defer to surgery. Patient continues to have TPN infusing. Blood sugars yesterday were in the 200s. Levemir and novolog with meals were added, in addition to novolog sliding scale. Spoke with dietary yesterday who states patients TPN has the minimal amount of dextrose possible. PT/OT are on consult. Patient continues to have generalized weakness and will likely require RADHA at the time of discharge. Objective - Vital Signs Vital signs: Vital Signs Temp 98.6 F 10/30/17 05:40 Pulse 86 10/30/17 07:13 Resp 20 10/30/17 05:40 BP 134/70 10/30/17 05:40 Pulse Ox 96 10/30/17 07:04 Intake & Output 10/29/17 10/30/17 10/30/17 18:59 06:59 18:59 Intake Total 963 Balance 963 Weight 79.7 kg Intake: Intake, IV Titration 963 Amount Potassium Chloride 20 meq 963 Magnesium Sulfate Syg 8 meq In Amino Acid 4.25%- D10w+Lytes*E* 1,000 ml @ 90 mls/hr IV .BY DURATION [facility] Rx#:[id number] Other: Voiding Method Bedside Commode Bedpan Diaper Incontinent ABP, PAP, CO, CI - Last Documented Arterial Blood Pressure 117/43 - Exam GENERAL: This is a 72-year-old female in no acute distress at the time of examination HEENT: Head is atraumatic, normocephalic. Pupils are equal, round, and reactive to light. Sclerae anicteric. Conjunctivae are clear. Mucus membranes of the mouth are moist. Neck is supple. RESPIRATORY: Rhonchi present bilaterally. No wheezing noted. Patient maintaining oxygen saturation greater than 92%. CARDIOVASCULAR: Regular rate and rhythm. S1 and S2 noted. No systolic or diastolic murmur auscultated. No JVD noted. No S3 or S4 noted. GASTROINTESTINAL: Dressing to abdomen is CDI. Colostomy is noted with brown liquid stool. Bowel sounds auscultated 4 quadrants INTEGUMENTARY: No cyanosis. No jaundice. No rashes noted. No cellulitis noted. EXTREMITIES: 2+ peripheral pulses. Minimal bilateral lower extremity edema. No calf tenderness noted. NEUROLOGIC: Cranial nerves II-XII intact. PSYCHIATRIC: Awake, alert, and oriented X 3. Appropriate affect. Intact judgement and insight. - Labs CBC & Chem 7: 10/30/17 08:25 10/30/17 08:25 Labs: Abnormal Lab Results - Last 24 Hours (Table) 10/29/17 10/29/17 10/29/17 Range/Units 08:19 11:41 17:08 WBC 13.4 H (3.8-10.6) k/uL RBC 3.69 L (3.80-5.40) m/uL Hgb 10.1 L (11.4-16.0) gm/dL Hct 31.1 L (34.0-46.0) % Neutrophils # 11.3 H (1.3-7.7) k/uL Lymphocytes # 0.5 L (1.0-4.8) k/uL Monocytes # 1.3 H (0-1.0) k/uL Creatinine (0.52-1.04) mg/dL Glucose (74-99) mg/dL POC Glucose (mg/dL) 292 H 297 H (75-99) mg/dL Calcium (8.4-10.2) mg/dL 10/29/17 10/30/17 10/30/17 Range/Units 20:46 00:49 07:29 WBC (3.8-10.6) k/uL RBC (3.80-5.40) m/uL Hgb (11.4-16.0) gm/dL Hct (34.0-46.0) % Neutrophils # (1.3-7.7) k/uL Lymphocytes # (1.0-4.8) k/uL Monocytes # (0-1.0) k/uL Creatinine (0.52-1.04) mg/dL Glucose (74-99) mg/dL POC Glucose (mg/dL) 274 H 288 H 298 H (75-99) mg/dL Calcium (8.4-10.2) mg/dL 10/30/17 10/30/17 Range/Units 08:25 08:25 WBC 15.3 H (3.8-10.6) k/uL RBC 3.70 L (3.80-5.40) m/uL Hgb 10.0 L (11.4-16.0) gm/dL Hct 31.3 L (34.0-46.0) % Neutrophils # 13.2 H (1.3-7.7) k/uL Lymphocytes # 0.6 L (1.0-4.8) k/uL Monocytes # 1.2 H (0-1.0) k/uL Creatinine 0.42 L (0.52-1.04) mg/dL Glucose 283 H (74-99) mg/dL POC Glucose (mg/dL) (75-99) mg/dL Calcium 7.9 L (8.4-10.2) mg/dL Assessment and Plan Plan: ASSESSMENT: Abdominal pain with constipation, patient reports no bowel movement for 2.5 weeks, initial imaging reveals large bowel obstruction, 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, s/p exploratory laparotomy and right and left colectomy and diverticular colostomy and partial omentectomy, POD #6 Postoperative acute hypoxic respiratory failure requiring mechanical ventilation , since extubated, an unexpected but potential outcome of surgery Anemia, hemoglobin 9.6, down from 11.2, suspect due to hemodilution from IV fluids/boluses, improving Suspected sepsis with fever, leukocytosis, and tachycardia due to intraabdominal infectious process secondary to cecal perforation, improving Generalized weakness, secondary to abdominal pain, patient reports laying in bed x 1 week History of cholelithiasis Pyuria on admission UA, asymptomatic, patient denies any adverse urinary s/s Hypernatremia, resolved Diabetes mellitus, type II Hyperglycemia, suspect secondary to clear liquid diet and dextrose in TPN Hypertension Gastroesophageal reflux disease Hypophosphatemia, resolved History of dementia Moderate protein calorie malnutrition, secondary to decreased PO intake Acute conjunctivitis PLAN: General surgery on consult. Appreciate recommendations and input Continue clear liquid diet. Advance when okay with surgery Continue TPN until PO intake improves. Obtain midline IV and then discontinue right IJ to reduce risk of infection UA, blood cultures, and chest x-ray Patient to be out of bed and ambulating. Up to chair for all meals. Up to bathroom or BSC to void. Avoid letting patient void in a brief due to possible excoriation. Continue novolog sliding scale. Increase novolog to 10 units with meals and increase Levemir to 30 units. Continue antibiotics: levaquin and flagyl Monitor labs GI prophylaxis: Protonix 40 mg IV Daily DVT prophylaxis: Lovenox 40mg SQ Daily Monitor vital signs and address as appropriate Discharge planning: Patient lives at home with . Patient will require RADHA before returning home Further recommendations pending patient's course Nurse practitioner note has been reviewed by physician. Signing provider agrees with the documented findings, assessment, and plan of care.
[2017-10-30 11:36] LABS: Glucose,Whole Blood 268 mg/dL (75-99)
--- NOTE | 2017-10-30 14:12 | XR ---
EXAMINATION TYPE: XR chest 2V DATE OF EXAM: 10/30/2017 COMPARISON: Chest x-ray from 3 days ago. HISTORY: Rhonchi and leukocytosis with fever. TECHNIQUE: Frontal and lateral views of the chest are obtained. FINDINGS: There is interval removal of orogastric tube. There is stable appearance of right internal jugular central venous catheter. There is persistent bibasilar opacities. There is no new focal airspace opacity, pleural effusion, pn eumothorax. Cardiac silhouette size is stable and upper limits of normal. Osseous structures remain d emineralized. IMPRESSION: Persistent bibasilar infiltrate and/or atelectasis perhaps slightly more prominent in r ight lung base versus post recent prior.
--- NOTE | 2017-10-30 16:26 | P.PN ---
Subjective Progress Note Date: 10/30/17 Principal diagnosis: Acute cecal perforation due to an obstructive left colonic mass, status post exploratory laparotomy right and left colectomy and diverticular colostomy Acute cecal perforation On 10/28/2017, the patient is on the medical floor. NG tube is in place and output has diminished. The patient's colostomy is functioning is some stool material active bleeding within the back. Patient on TPN for nutritional support. She is confused at baseline. She has underlying dementia. Surgical wound site is dry clean and intact. She is using incentive spirometer. No respiratory difficulties. She is postop day #4. TPN is being utilized for nutritional support. On 10/29/2017, patient seems to be doing quite well, continues to have abdominal pain and discomfort. Colostomy is functioning relatively well. Patient is on TPN for nutritional support, intermittently confused, but today she seems to be very appropriate, she knew where she was, she knew what year wasn't, and her daughter is at bedside. Patient is doing poorly with incentive spirometry, she is presently postoperative day #5. Labs were reviewed relatively normal electrolytes, CBC is relatively normal she does have a bit of leukocytosis with WBC count of 13.4. On 10/30/2016 patient seen in follow-up on medical surgical floor. She is awake , alert, oriented 3, denies any cold, room air pulse ox is 88%, lung sounds are positive for scattered basilar crackles, patient's incentive spirometer effort is 500 mL today. She is still having to moderate amount of incisional abdominal discomfort. Her colostomy is now working, there is a small amount of liquid brown stool in it today. She was started on TPN, patient was started on oral feedings and she is tolerating regular diet, although her oral intake is limited due to lack of appetite. She did have a low-grade fever last night, with T-max of 100.2F, this was an isolated fever, patient continues on Levaquin , Flagyl. Today's chest x-ray has been reviewed by Dr. Chin, showed persistent bibasilar atelectasis slightly more prominent in the right lung. Clinically patient is stable. Objective - Vital Signs Vital signs: Vital Signs Temp 98.0 F 10/30/17 14:35 Pulse 102 H 10/30/17 14:35 Resp 18 10/30/17 14:35 BP 133/77 07/17/18 14:35 Pulse Ox 98 10/30/17 14:35 Intake & Output 10/29/17 10/30/17 10/30/17 18:59 06:59 18:59 Intake Total 963 961.5 Balance 963 961.5 Weight 79.7 kg 79.7 kg Intake: Intake, IV Titration 963 961.5 Amount Mvi, Adult No.4 with Vit 961.5 K 10 ml Trace (Conc-1Ml/ Dose) 1 ml Potassium Chloride 20 meq Magnesium Sulfate Syg 8 meq In Amino Acid 4.25%-D10w+ Lytes*E* 1,000 ml @ 90 mls/hr IV .BY DURATION [facility] Rx#:[id number] Potassium Chloride 20 meq 963 Magnesium Sulfate Syg 8 meq In Amino Acid 4.25%- D10w+Lytes*E* 1,000 ml @ 90 mls/hr IV .BY DURATION [facility] Rx#:[id number] Other: Voiding Method Bedside Commode Bedside Commode Bedpan Bedpan Diaper Diaper Incontinent Incontinent ABP, PAP, CO, CI - Last Documented Arterial Blood Pressure 117/43 - Exam Physical Exam: Revealed a 72-year-old female in no form of respiratory distress. Head: Atraumatic, normocephalic. HEENT:[Neck is supple.] [No neck masses.] [No thyromegaly.] [No JVD.] Chest: [Diminished breath sounds at the bases, with bibasilar crackles Cardiac Exam: [Normal S1 and S2, no S3 gallop, no murmur.] Abdomen: [Bowel sounds are absent. No direct tenderness rebound tensile guarding. Surgical wound is dry clean and intact. Colostomy site is viable. Extremities: [No clubbing, no edema, no cyanosis.] Neurological Exam: [No focal neurologic deficit.] Skin: No rashes. - Labs CBC & Chem 7: 10/30/17 08:25 10/30/17 08:25 Labs: Abnormal Lab Results - Last 24 Hours (Table) 10/29/17 10/29/17 10/30/17 Range/Units 17:08 20:46 00:49 WBC (3.8-10.6) k/uL RBC (3.80-5.40) m/uL Hgb (11.4-16.0) gm/dL Hct (34.0-46.0) % Neutrophils # (1.3-7.7) k/uL Lymphocytes # (1.0-4.8) k/uL Monocytes # (0-1.0) k/uL Creatinine (0.52-1.04) mg/dL Glucose (74-99) mg/dL POC Glucose (mg/dL) 297 H 274 H 288 H (75-99) mg/dL Calcium (8.4-10.2) mg/dL 10/30/17 10/30/17 10/30/17 Range/Units 07:29 08:25 08:25 WBC 15.3 H (3.8-10.6) k/uL RBC 3.70 L (3.80-5.40) m/uL Hgb 10.0 L (11.4-16.0) gm/dL Hct 31.3 L (34.0-46.0) % Neutrophils # 13.2 H (1.3-7.7) k/uL Lymphocytes # 0.6 L (1.0-4.8) k/uL Monocytes # 1.2 H (0-1.0) k/uL Creatinine 0.42 L (0.52-1.04) mg/dL Glucose 283 H (74-99) mg/dL POC Glucose (mg/dL) 298 H (75-99) mg/dL Calcium 7.9 L (8.4-10.2) mg/dL 10/30/17 Range/Units 11:32 WBC (3.8-10.6) k/uL RBC (3.80-5.40) m/uL Hgb (11.4-16.0) gm/dL Hct (34.0-46.0) % Neutrophils # (1.3-7.7) k/uL Lymphocytes # (1.0-4.8) k/uL Monocytes # (0-1.0) k/uL Creatinine (0.52-1.04) mg/dL Glucose (74-99) mg/dL POC Glucose (mg/dL) 268 H (75-99) mg/dL Calcium (8.4-10.2) mg/dL Assessment and Plan Plan: Assessment: 1 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 Epidural catheter has been removed. NG tube has been discontinued, no nausea, no vomiting, and the patient is tolerating oral feedings. The patient is receiving TPN for nutritional support. His adequate material collecting in the colostomy bag. 2 acute hypoxic respiratory failure secondary to above. Patient was extubated without any major difficulties and currently she is stable 3 acute abdomen with cecal perforation and free air in the abdomen secondary to above 4 diabetes mellitus 5 hypertension 6 fever, resolved 7 delirium, resolved Recommendation: Continue incentive spirometry use, continue encouraging deep breathing and coughing, trace activity as tolerated, his chest x-ray has been reviewed, and shows bibasilar atelectasis. Patient remains stable from pulmonary/critical care standpoint, will follow the patient on as-needed basis. I performed a history & physical examination of the patient and discussed their management with my nurse practitioner, Maureen Hernandez. I reviewed the nurse practitioner's note and agree with the documented findings and plan of care. Lung sounds are positive for bibasilar crackles. The findings and the impression was discussed with the patient. I attest to the documentation by the nurse practitioner. Time with Patient: Less than 30
[2017-10-30 17:20] LABS: Glucose,Whole Blood 287 mg/dL (75-99)
[2017-10-30 19:20] LABS: Appearance,Urine Clear (Clear); Bacteria,Urine Occasional /hpf; Bilirubin,Urine Negative (Negative); Blood,Urine Negative (Negative); Color,Urine Yellow; Glucose,Urine (UA) 4+ (Negative); Ketones,Urine Negative (Negative); Leukocyte Esterase,Urine Small (Negative); Mucus,Urine Rare /hpf; Nitrite,Urine Negative (Negative); Protein,Urine Negative (Negative); RBC,Urine 1 /hpf (0-5); Squamous Epithelial Cell,Urine 1 /hpf (0-4); Urobilinogen,Urine <2.0 mg/dL (<2.0); WBC,Urine 4 /hpf (0-5)
--- NOTE | 2017-10-30 20:14 | P.PN ---
Subjective Progress Note Date: 10/30/17 The patient is a 72-year-old female who underwent surgery by Dr. Church and is s/p colectomy. She is tolerating soft diet. In fact, she has more energy today at the last several days. She is working physical therapy. Separately, WBC elevated. She still on TPN. Objective - Vital Signs Vital signs: Vital Signs Temp 98.0 F 10/30/17 14:35 Pulse 88 10/30/17 16:45 Resp 18 10/30/17 14:35 BP 133/77 10/30/17 14:35 Pulse Ox 98 10/30/17 14:35 Intake & Output 10/30/17 10/30/17 10/31/17 06:59 18:59 06:59 Intake Total 961.5 Balance 961.5 Weight 79.7 kg Intake: Intake, IV Titration 961.5 Amount Mvi, Adult No.4 with Vit 961.5 K 10 ml Trace (Conc-1Ml/ Dose) 1 ml Potassium Chloride 20 meq Magnesium Sulfate Syg 8 meq In Amino Acid 4.25%-D10w+ Lytes*E* 1,000 ml @ 90 mls/hr IV .BY DURATION [facility] Rx#:[id number] Other: Voiding Method Bedside Commode Bedside Commode Bedpan Bedpan Diaper Diaper Incontinent Incontinent ABP, PAP, CO, CI - Last Documented Arterial Blood Pressure 117/43 - Exam ABDOMEN: Intact. Ostomy with stool and flatus GENERAL: Well developed and in no acute distress. HEENT: No sclera icterus. Extraocular movements grossly intact. Moist buccal mucosa. Head is atraumatic, normocephalic. Hears conversational speech. No nasal drainage. NECK: Supple without lymphadenopathy. CHEST: Non-labored respirations and equal bilateral excursions. CARDIOVASCULAR: Regular rate and rhythm. Palpable 2+ radial pulses. MUSCULOSKELETAL: No clubbing, cyanosis. 2+ pedal pulses. 1+ pedal edema. NEUROLOGIC: No focal or lateralizing signs. PSYCH: Appropriate affect. Alert and oriented to person, place and time. SKIN: Good skin turgor. Well perfused. - Labs CBC & Chem 7: 10/30/17 08:25 10/30/17 08:25 Labs: Abnormal Lab Results - Last 24 Hours (Table) 07/10/30/17 10/30/17 Range/Units 20:46 00:49 07:29 WBC (3.8-10.6) k/uL RBC (3.80-5.40) m/uL Hgb (11.4-16.0) gm/dL Hct (34.0-46.0) % Neutrophils # (1.3-7.7) k/uL Lymphocytes # (1.0-4.8) k/uL Monocytes # (0-1.0) k/uL Creatinine (0.52-1.04) mg/dL Glucose (74-99) mg/dL POC Glucose (mg/dL) 274 H 288 H 298 H (75-99) mg/dL Calcium (8.4-10.2) mg/dL Urine Glucose (UA) (Negative) Ur Leukocyte Esterase (Negative) Urine Bacteria (None) /hpf Urine Mucus (None) /hpf 10/30/17 10/30/17 10/30/17 Range/Units 08:25 08:25 11:32 WBC 15.3 H (3.8-10.6) k/uL RBC 3.70 L (3.80-5.40) m/uL Hgb 10.0 L (11.4-16.0) gm/dL Hct 31.3 L (34.0-46.0) % Neutrophils # 13.2 H (1.3-7.7) k/uL Lymphocytes # 0.6 L (1.0-4.8) k/uL Monocytes # 1.2 H (0-1.0) k/uL Creatinine 0.42 L (0.52-1.04) mg/dL Glucose 283 H (74-99) mg/dL POC Glucose (mg/dL) 268 H (75-99) mg/dL Calcium 7.9 L (8.4-10.2) mg/dL Urine Glucose (UA) (Negative) Ur Leukocyte Esterase (Negative) Urine Bacteria (None) /hpf Urine Mucus (None) /hpf 10/30/17 10/30/17 Range/Units 17:16 19:00 WBC (3.8-10.6) k/uL RBC (3.80-5.40) m/uL Hgb (11.4-16.0) gm/dL Hct (34.0-46.0) % Neutrophils # (1.3-7.7) k/uL Lymphocytes # (1.0-4.8) k/uL Monocytes # (0-1.0) k/uL Creatinine (0.52-1.04) mg/dL Glucose (74-99) mg/dL POC Glucose (mg/dL) 287 H (75-99) mg/dL Calcium (8.4-10.2) mg/dL Urine Glucose (UA) 4+ H (Negative) Ur Leukocyte Esterase Small H (Negative) Urine Bacteria Occasional H (None) /hpf Urine Mucus Rare H (None) /hpf Assessment and Plan (1) Colon neoplasm Current Visit: Yes Status: Acute Code(s): D49.0 - NEOPLASM OF UNSPECIFIED BEHAVIOR OF DIGESTIVE SYSTEM SNOMED Code(s): 152468317 (2) Large bowel obstruction Current Visit: Yes Status: Acute Code(s): K56.609 - UNSP INTESTNL OBST, UNSP TO PARTIAL VERSUS COMPLETE OBST SNOMED Code(s): 985353784 (3) H/O colectomy Current Visit: Yes Status: Acute Code(s): Z90.49 - ACQUIRED ABSENCE OF OTHER SPECIFIED PARTS OF DIGESTIVE TRACT SNOMED Code(s): 371746138 Plan: 1. Her WBCs elevating. Recommend evaluation for potential source including right neck central line. 2. Weaning TPN. 3. Start peripheral IV. 4. Antibiotic management per infectious disease.
[2017-10-30 20:54] LABS: Glucose,Whole Blood 156 mg/dL (75-99)
[2017-10-30] MEDS: INSULIN DETEMIR 100 UNIT/ML 10 ML VIAL SQ SCH (21:06)
[2017-10-30] MEDS: BACLOFEN 10 MG TAB PO SCH (21:06)
[2017-10-31] MEDS ORDERED: HYDROmorphone 0.5 MG/0.5 ML SYRINGE ONE (00:25)
[2017-10-31] MEDS ORDERED: LACTATED RINGERS 1,000 ML BAG IV ONE (00:25)
[2017-10-31] MEDS: LACTATED RINGERS 1,000 ML IV SCH ×2 (04:19→23:55)
[2017-10-31] MEDS: CIPROFLOXACIN 0.3% OPHTH SOLN 5 ML BTL BOTH EYES SCH ×5 (04:21→21:41)
[2017-10-31] MEDS: metroNIDAZOLE-NS PMX 500 MG in SALINE 1 100ML.BAG IVPB SCH ×4 (04:21→21:07)
[2017-10-31 07:10] LABS: Glucose,Whole Blood 239 mg/dL (75-99)
[2017-10-31] MEDS: ENOXAPARIN 40 MG/0.4 ML SYRINGE SQ SCH (07:40)
[2017-10-31] MEDS: INSULIN ASPART 100 UNIT/ML 1 ML 10 ML VIAL SQ SCH ×7 (07:59→23:57)
[2017-10-31] MEDS: TROSPIUM CHLORIDE 20 MG TABLET PO SCH ×2 (08:00→21:18)
[2017-10-31] MEDS: NYSTATIN 100,000 UNIT/ML SUSP 500,000 UNIT/5 ML CUP PO SCH ×4 (08:00→21:18)
[2017-10-31] MEDS: LOSARTAN 50 MG TAB PO SCH (08:00)
[2017-10-31] MEDS: LEVOFLOXACIN 500MG-D5W PMX 500 MG in DEXTROSE/WATER 1 100ML.BAG IVPB SCH (08:00)
[2017-10-31] MEDS: FAT EMULSION 20% 250 ML IV SCH (08:00)
[2017-10-31] MEDS: PIOGLITAZONE 15 MG TAB PO SCH (08:00)
[2017-10-31] MEDS: PANTOPRAZOLE 40 MG/10 ML VIAL IVP SCH (08:00)
[2017-10-31] MEDS: DOCUSATE 100 MG CAP PO SCH (08:00)
[2017-10-31] MEDS: MEMANTINE HCL PO SCH (08:13)
[2017-10-31] MEDS: DONEPEZIL HCL PO SCH (08:13)
--- NOTE | 2017-10-31 08:41 | P.PN ---
Subjective Progress Note Date: 10/31/17 72-year-old female who presented to the emergency room with a chief complaint of abdominal pain. The patient reports she has been having abdominal pain for a few months but it has worsened in severity over the last two weeks. She states she waited to come to the hospital after the 17 of October holiday because "all the good doctors go on vacation for the holidays and there would not be anyone good here to take care of me". The patient did have a CT scan of her abdomen in September 2017 due to abdominal pain which revealed large gallstones seen in the region of the gallbladder neck. No gallbladder wall thickening was identified. Mild hepatic steatosis. Moderate fecal stasis. Dilated loop of small bowel proximally measuring 3 cm. The patient was referred to see Dr. Church. However, the patient never followed through with this. She reports decreased appetite. The patient reports she was consuming mostly liquid foods and protein drinks. She reports she tried to eat small amounts of food but would get abdominal pain so she started chewing her food and then spitting it out. She states she has been drinking fluids but likely less than she usually does. She denies nausea or vomiting, however she does report a lot of heartburn and burping. She reports her last bowel movement was 2 1/2 weeks ago. She states she usually has a bowel movement every 2-3 days. She states she had a colonoscopy "years ago" and was told it was normal. She states she has been in bed for the last week due to weakness and fatigue. She denies any urinary symptoms such as frequency, burning, urgency, pain with urination, or odor. She denies fever or chills. Denies chest pain or pressure. She reports mild SOB when lying flat. The patient has a history of diabetes mellitus, hypertension, and gastroesophageal reflux disease. She also reports a history of short term memory loss but is unable to relay what medical condition this is from or what caused it. She is a lifelong non-smoker. She denies alcohol use or drug use. KUB x-ray revealed colonic distention with differential air fluid levels and small bowel dilation. However there is air noted within the distal colon and rectum therefore findings may relate to incomplete large bowel obstruction or ileus associated with colitis. Laboratory data: White count 11.4. Hemoglobin 13.2. Platelet count 251. Sodium 147. Potassium 3.5. Chloride 110. Carbon dioxide 18. BUN 15. Creatinine 0.69. Glucose 126. Total bilirubin 0.7. AST 19. ALT 30. Alkaline phosphatase 62. Amylase 41. Lipase 100. Urinalysis reveals clear yellow urine, 1+ proteinuria, 4+ ketones, 1+ bilirubin, moderate leukocyte esterase, 15 WBC. The patient was admitted to the hospital under the care of Dr. Oscar. Consultations were placed to general surgery. 10/23/2017 Patient seen and examined at the bedside. Patient continues to complain of abdominal pain. Soap suds enema was ordered yesterday but patient has been refusing. Patient states she will do enema this morning. Patient underwent CT of abdomen and pelvis yesterday which revealed dilated large and small bowel fluid levels consistent with generalized ileus. Minimal ascites fluid. Atelectasis at the left lung base. Large calcified gallstone. Hiatal hernia. Patient reports she drank oral contrast yesterday and then had an episode of emesis prior to her computed tomography scan. No further episodes of emesis since that time. Patient remains NPO except for ice chips. General surgery is following. 10/24/2017 Patient seen and examined at the bedside with Dr. Oscar. NG tube was inserted yesterday. Remains connected to LIS. Patient has had a total of approximately 1700cc out since insertion. Approximately 400cc since 0200. Patient does report passing flatus. No bowel movement today. Tolerating ice chips. Reports occasional nausea. Abdomen appears more distended today in comparison to yesterday. Sodium has improved to 144 today. Remains on LR at 100cc. Patient is scheduled for xray of her abdomen. 10/25/2017 Patient had abdominal xray yesterday which revealed free air. She was taken to the OR by Dr. Church. She underwent exploratory laparotomy with right colectomy, left colectomy, partial omentectomy. 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 A colostomy was also performed. She remained intubated and was transferred to the ICU overnight. She was seen and examined this morning in the ICU with Dr. Oscar. She remains vented on 40% Fio2. She is maintaining oxygen saturations greater than 92%. She is sedated on propofol. Patient does withdraw to painful stimuli. She remains hemodynamically stable. NG tube is intact to LIS with bilious output. Approximately 200cc in collection canister. Urinary catheter is intact with yellow urine. Dressing to abdomen is CDI with small area of shadowing to right upper corner of dressing. Colostomy is noted with minimal bloody drainage. 10/26/2017 Patient seen and examined at the bedside. Patient remains in the ICU. She was extubated yesterday. She remains on 2 L nasal cannula with oxygen saturations greater than 92%. Blood pressure has been stable. She is afebrile this morning however the patient did have a temperature last night of 101.1F. She remains on Levaquin and Flagyl. Chest x-ray reveals improved aeration of the lungs with minimal left basilar subsegmental atelectasis and trace pleural effusion. Patient is slightly tachycardic with a heart rate between 100-110. She has an epidural infusing at 5 mL an hour. Patient states her pain is tolerable at this time. Colostomy noted with minimal dark bloody output. NG tube intact to LIS. Indwelling urinary catheter remains intact. Patient denies chest pain or pressure. Denies shortness of breath. She reports dry mouth. White count is 11.6. Hemoglobin is 9.6, down from 11.2. Patient received a few liters of fluid yesterday due to decreased urine output which may account for drop in hemoglobin. 10/27/2017-notes per Dr. Oscar 10/28/2017-notes per Dr. Oscar 10/29/2017 Patient seen and examined at the bedside. Patient is awake and alert. Patient was started on clear liquids and is tolerating well. Denies nausea or vomiting. Patient states she feels as though she can not swallow and feels like she is choking at times, however patient is laying flat in bed and trying to drink. Patient encouraged to sit up in bed when attempting to drink liquids. Patients urinary catheter was discontinued yesterday. Patient is voiding in a brief. She has not been ambulating to the bathroom. She denies shortness of breath, chest pain, or pressure. TPN continues to infuse. Colostomy with small amount of brown output. Lab work from this morning is currently pending. 10/30/2017 Patient seen and examined at the bedside at the bedside on rounds with Dr. Oscar. Patient is sitting up in the chair. She states she does not feel well this morning. Patient did have a fever last night of 100.2. She was slightly tachycardic with a heart rate in the low 100s. She is afebrile this morning. She is tolerating clear liquid diet. Diet has not been advanced yet. Will defer to surgery. Patient continues to have TPN infusing. Blood sugars yesterday were in the 200s. Levemir and novolog with meals were added, in addition to novolog sliding scale. Spoke with dietary yesterday who states patients TPN has the minimal amount of dextrose possible. PT/OT are on consult. Patient continues to have generalized weakness and will likely require RADHA at the time of discharge. 10/31/2017 Patient seen and examined at the bedside. Patient is awake and alert. Patient reports she sat in the chair yesterday and worked with PT. She states she ambulated to the bathroom. Patient reports decreased appetite. She is tolerating PO intake without nausea or vomiting, but reports only taking a few bites of each meal. TPN continues to infuse. Patient is scheduled for midline IV insertion today. Lovenox to be held until after procedure. Right IJ to be removed afterwards and tip cultured. Infectious disease was consulted yesterday due to increasing WBC. Labs from this AM are pending. Patient was pancultured and results are currently pending. Chest x-ray completed yesterday reveals bilateral atelectasis. Patient was encouraged to increase activity as tolerated. Patient is to be up in the chair 3 with meals. Patients blood sugars have been in the 200s. Patient's Levemir was increased to 30 units yesterday. NovoLog with meals was also increased yesterday. Per nursing, they did not give 30 units of Levemir as ordered because the patient sugar was 159. Nursing only gave the patient 15 units of Levemir and did not notify physician. Patient's blood sugar this morning is 239. Objective - Vital Signs Vital signs: Vital Signs Temp 98.6 F 10/31/17 06:12 Pulse 111 H 10/31/17 06:12 Resp 22 10/31/17 06:12 BP 173/84 10/31/17 06:12 Pulse Ox 96 10/31/17 06:12 Intake & Output 10/30/17 10/31/17 10/31/17 18:59 06:59 18:59 Intake Total 961.5 Balance 961.5 Weight 79.7 kg Intake: Intake, IV Titration 961.5 Amount Mvi, Adult No.4 with Vit 961.5 K 10 ml Trace (Conc-1Ml/ Dose) 1 ml Potassium Chloride 20 meq Magnesium Sulfate Syg 8 meq In Amino Acid 4.25%-D10w+ Lytes*E* 1,000 ml @ 90 mls/hr IV .BY DURATION [facility] Rx#:[id number] Other: Voiding Method Bedside Commode Bedside Commode Bedpan Bedpan Diaper Diaper Incontinent Incontinent ABP, PAP, CO, CI - Last Documented Arterial Blood Pressure 117/43 - Exam GENERAL: This is a 72-year-old female in no acute distress at the time of examination HEENT: Head is atraumatic, normocephalic. Pupils are equal, round, and reactive to light. Sclerae anicteric. Conjunctivae are clear. Mucus membranes of the mouth are moist. Neck is supple. RESPIRATORY: Diminished bilaterally, improved from yesterday. No wheezing noted. Patient maintaining oxygen saturation greater than 92%. CARDIOVASCULAR: Regular rate and rhythm. S1 and S2 noted. No systolic or diastolic murmur auscultated. No JVD noted. No S3 or S4 noted. GASTROINTESTINAL: Dressing to abdomen is CDI. Colostomy is noted with brown liquid stool. Bowel sounds auscultated 4 quadrants INTEGUMENTARY: No cyanosis. No jaundice. No rashes noted. No cellulitis noted. EXTREMITIES: 2+ peripheral pulses. Minimal bilateral lower extremity edema. No calf tenderness noted. NEUROLOGIC: Cranial nerves II-XII intact. PSYCHIATRIC: Awake, alert, and oriented X 3. Appropriate affect. Intact judgement and insight. - Labs CBC & Chem 7: 10/30/17 08:25 10/30/17 08:25 Labs: Abnormal Lab Results - Last 24 Hours (Table) 10/30/17 10/30/17 10/30/17 Range/Units 08:25 08:25 11:32 WBC 15.3 H (3.8-10.6) k/uL RBC 3.70 L (3.80-5.40) m/uL Hgb 10.0 L (11.4-16.0) gm/dL Hct 31.3 L (34.0-46.0) % Neutrophils # 13.2 H (1.3-7.7) k/uL Lymphocytes # 0.6 L (1.0-4.8) k/uL Monocytes # 1.2 H (0-1.0) k/uL Creatinine 0.42 L (0.52-1.04) mg/dL Glucose 283 H (74-99) mg/dL POC Glucose (mg/dL) 268 H (75-99) mg/dL Calcium 7.9 L (8.4-10.2) mg/dL Urine Glucose (UA) (Negative) Ur Leukocyte Esterase (Negative) Urine Bacteria (None) /hpf Urine Mucus (None) /hpf 10/30/17 10/30/17 10/30/17 Range/Units 17:16 19:00 20:52 WBC (3.8-10.6) k/uL RBC (3.80-5.40) m/uL Hgb (11.4-16.0) gm/dL Hct (34.0-46.0) % Neutrophils # (1.3-7.7) k/uL Lymphocytes # (1.0-4.8) k/uL Monocytes # (0-1.0) k/uL Creatinine (0.52-1.04) mg/dL Glucose (74-99) mg/dL POC Glucose (mg/dL) 287 H 156 H (75-99) mg/dL Calcium (8.4-10.2) mg/dL Urine Glucose (UA) 4+ H (Negative) Ur Leukocyte Esterase Small H (Negative) Urine Bacteria Occasional H (None) /hpf Urine Mucus Rare H (None) /hpf 10/31/17 Range/Units 07:08 WBC (3.8-10.6) k/uL RBC (3.80-5.40) m/uL Hgb (11.4-16.0) gm/dL Hct (34.0-46.0) % Neutrophils # (1.3-7.7) k/uL Lymphocytes # (1.0-4.8) k/uL Monocytes # (0-1.0) k/uL Creatinine (0.52-1.04) mg/dL Glucose (74-99) mg/dL POC Glucose (mg/dL) 239 H (75-99) mg/dL Calcium (8.4-10.2) mg/dL Urine Glucose (UA) (Negative) Ur Leukocyte Esterase (Negative) Urine Bacteria (None) /hpf Urine Mucus (None) /hpf Microbiology - Last 24 Hours (Table) 10/30/17 19:00 Urine Culture - Preliminary Urine,Voided Assessment and Plan Plan: ASSESSMENT: Abdominal pain with constipation, patient reports no bowel movement for 2.5 weeks, initial imaging reveals large bowel obstruction, 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, s/p exploratory laparotomy and right and left colectomy and diverticular colostomy and partial omentectomy, POD #7 Postoperative acute hypoxic respiratory failure requiring mechanical ventilation , since extubated, an unexpected but potential outcome of surgery Anemia, hemoglobin 9.6, down from 11.2, suspect due to hemodilution from IV fluids/boluses, improving Suspected sepsis with fever, leukocytosis, and tachycardia due to intraabdominal infectious process secondary to cecal perforation or other infectious etiology Generalized weakness, secondary to abdominal pain, patient reports laying in bed x 1 week History of cholelithiasis Pyuria on admission UA, asymptomatic, patient denies any adverse urinary s/s Hypernatremia, resolved Diabetes mellitus, type II Hyperglycemia, suspect secondary to clear liquids and dextrose in TPN Hypertension Gastroesophageal reflux disease Hypophosphatemia, resolved History of dementia Moderate protein calorie malnutrition, secondary to decreased PO intake Acute conjunctivitis PLAN: General surgery on consult. Appreciate recommendations and input Continue IV fluid as patient reports only taking a few sips of water throughout the day Encourage oral intake. Continue TPN until PO intake improves. Obtain midline IV and then discontinue right IJ to reduce risk of infection Culture tip of right IJ after removal Await results of cultures. Continue antibiotics Infectious disease consulted yesterday. Await recommendations and input Patient to be out of bed and ambulating. Up to chair for all meals. Up to bathroom or BSC to void. Avoid letting patient void in a brief due to possible excoriation. Continue novolog sliding scale, levemir at HS, and novolog 10 units with meals DO NOT hold patients levemir or give decreased dose without notifying physician Monitor labs GI prophylaxis: Protonix 40 mg IV Daily DVT prophylaxis: Lovenox 40mg SQ Daily Monitor vital signs and address as appropriate Discharge planning: Patient lives at home with . Patient will require RADHA before returning home Further recommendations pending patient's course Nurse practitioner note has been reviewed by physician. Signing provider agrees with the documented findings, assessment, and plan of care.
[2017-10-31 09:18] LABS: Basophils # (A) 0.1 k/uL (0-0.2); Basophils % (A) 0 %; Eosinophils # (A) 0.2 k/uL (0-0.7); Eosinophils % (A) 1 %; HCT 33.6 % (34.0-46.0); HGB 10.8 gm/dL (11.4-16.0); Lymphocytes # (A) 0.8 k/uL (1.0-4.8); Lymphocytes % (A) 5 %; MCH 27.3 pg (25.0-35.0); MCHC 32.2 g/dL (31.0-37.0); MCV 84.8 fL (80.0-100.0); Mean Platelet Volume 7.6; Monocytes % (A) 7 %; Neutrophils # (A) 13.6 k/uL (1.3-7.7); Neutrophils % (A) 86 %; Platelet Count 485 k/uL (150-450); RBC 3.97 m/uL (3.80-5.40); RDW 14.7 % (11.5-15.5); WBC 15.8 k/uL (3.8-10.6)
[2017-10-31] MEDS: HYDROmorphone 0.5 MG/0.5 ML SYRINGE IVP PRN ×3 (09:19→16:05)
[2017-10-31] MEDS: IPRATROPIUM-ALBUTEROL 3 ML NEB INHALATION SCH ×4 (09:28→20:30)
[2017-10-31 09:44] LABS: Anion Gap 8 mmol/L; Blood Urea Nitrogen 12 mg/dL (7-17); Carbon Dioxide 25 mmol/L (22-30); Chloride 106 mmol/L (98-107); Glucose 244 mg/dL (74-99); Magnesium 2.1 mg/dL (1.6-2.3); Phosphorus 4.7 mg/dL (2.5-4.5); Potassium 4.5 mmol/L (3.5-5.1); Sodium 139 mmol/L (137-145)
[2017-10-31] MEDS ORDERED: IV FLUID CONTINUATION 50 ML IV ONE (09:45)
[2017-10-31] MEDS ORDERED: LIDOCAINE 2% SYG (PF) 100 MG/5 ML MISCELLANE ONE (09:55)
[2017-10-31] MEDS: ACETAMINOPHEN TAB 325 MG TAB PO PRN ×2 (11:13→21:23)
--- NOTE | 2017-10-31 11:56 | IR ---
EXAMINATION TYPE: IR cvc insert >=5 years DATE OF EXAM: 10/31/2017 COMPARISON: NONE CLINICAL HISTORY: Needs long-term intravenous access for total parenteral nutrition PROCEDURE: After informed consent, the skin overlying the left cephalic vein was localized with ultrasound and n oted to be compressible and patent. An ultrasound image was obtained and submitted on the patient's chart. The overlying skin was prepped and draped and Lidocaine was used for local anesthesia. A ski n maria isabel was made with a scalpel. Access was gained to the vein under ultrasound guidance with a 21 ga uge needle and a 0.018 inch wire was advanced. Access site was dilated with Peel-Away sheath and cat heter tailored to the appropriate length and advanced such that the distal tip is at the cavoatrial j unction. Spot image was obtained verifying placement. Catheter was fixed to the skin and a sterile dressing was placed following hemostasis. Catheter was aspirated and flushed with saline. Patient w as discharged in stable condition without complication. Maximal barrier technique is utilized. Ultra sound image is documented on the chart. Ultrasound used with sterile technique. Fluoro time and fluoroscopic images submitted to document procedure: 38 intraoperative images. 0.2 mi nutes fluoroscopy time. IMPRESSION: STATUS POST ULTRASOUND AND FLUOROSCOPIC GUIDED PICC LINE PLACEMENT, READY FOR USE. THIS PROCEDURE WAS PERFORMED BY THE UNDERSIGNED.
[2017-10-31 11:59] LABS: Glucose,Whole Blood 250 mg/dL (75-99)
--- NOTE | 2017-10-31 12:42 | P.PN ---
Subjective Progress Note Date: 10/31/17 The patient is a 72-year-old female who underwent surgery by Dr. Church and is s/p colectomy. She is sitting up in bedside. Her daughter is at bedside. Infectious disease team is at bedside. She has central line along the right neck. Patient reports generalized weakness. Minimal ambulation. Objective - Vital Signs Vital signs: Vital Signs Temp 98.6 F 10/31/17 06:12 Pulse 100 10/31/17 11:43 Resp 22 10/31/17 06:12 BP 173/84 10/31/17 06:12 Pulse Ox 96 10/31/17 06:12 Intake & Output 10/30/17 10/31/17 10/31/17 18:59 06:59 18:59 Intake Total 961.5 Balance 961.5 Weight 79.7 kg Intake: Intake, IV Titration 961.5 Amount Mvi, Adult No.4 with Vit 961.5 K 10 ml Trace (Conc-1Ml/ Dose) 1 ml Potassium Chloride 20 meq Magnesium Sulfate Syg 8 meq In Amino Acid 4.25%-D10w+ Lytes*E* 1,000 ml @ 90 mls/hr IV .BY DURATION [facility] Rx#:[id number] Other: Voiding Method Bedside Commode Bedside Commode Bedside Commode Bedpan Bedpan Bedpan Diaper Diaper Incontinent Incontinent Incontinent ABP, PAP, CO, CI - Last Documented Arterial Blood Pressure 117/43 - Exam ABDOMEN: Dressing intact. Ostomy with stool and flatus GENERAL: Well developed and in no acute distress. HEENT: No sclera icterus. Extraocular movements grossly intact. Moist buccal mucosa. Head is atraumatic, normocephalic. Hears conversational speech. No nasal drainage. NECK: Supple without lymphadenopathy. CHEST: Non-labored respirations and equal bilateral excursions. CARDIOVASCULAR: Regular rate and rhythm. Palpable 2+ radial pulses. MUSCULOSKELETAL: No clubbing, cyanosis. NEUROLOGIC: No focal or lateralizing signs. PSYCH: Appropriate affect. Alert and oriented to person, place and time. SKIN: Good skin turgor. Well perfused. - Labs CBC & Chem 7: 10/31/17 08:24 10/31/17 08:24 Labs: Abnormal Lab Results - Last 24 Hours (Table) 10/30/17 10/30/17 10/30/17 Range/Units 17:16 19:00 20:52 WBC (3.8-10.6) k/uL Hgb (11.4-16.0) gm/dL Hct (34.0-46.0) % Plt Count (150-450) k/uL Neutrophils # (1.3-7.7) k/uL Lymphocytes # (1.0-4.8) k/uL Creatinine (0.52-1.04) mg/dL Glucose (74-99) mg/dL POC Glucose (mg/dL) 287 H 156 H (75-99) mg/dL Calcium (8.4-10.2) mg/dL Phosphorus (2.5-4.5) mg/dL Urine Glucose (UA) 4+ H (Negative) Ur Leukocyte Esterase Small H (Negative) Urine Bacteria Occasional H (None) /hpf Urine Mucus Rare H (None) /hpf 10/31/17 10/31/17 10/31/17 Range/Units 07:08 08:24 08:24 WBC 15.8 H (3.8-10.6) k/uL Hgb 10.8 L (11.4-16.0) gm/dL Hct 33.6 L (34.0-46.0) % Plt Count 485 H (150-450) k/uL Neutrophils # 13.6 H (1.3-7.7) k/uL Lymphocytes # 0.8 L (1.0-4.8) k/uL Creatinine 0.45 L (0.52-1.04) mg/dL Glucose 244 H (74-99) mg/dL POC Glucose (mg/dL) 239 H (75-99) mg/dL Calcium 8.0 L (8.4-10.2) mg/dL Phosphorus 4.7 H (2.5-4.5) mg/dL Urine Glucose (UA) (Negative) Ur Leukocyte Esterase (Negative) Urine Bacteria (None) /hpf Urine Mucus (None) /hpf 10/31/17 Range/Units 11:56 WBC (3.8-10.6) k/uL Hgb (11.4-16.0) gm/dL Hct (34.0-46.0) % Plt Count (150-450) k/uL Neutrophils # (1.3-7.7) k/uL Lymphocytes # (1.0-4.8) k/uL Creatinine (0.52-1.04) mg/dL Glucose (74-99) mg/dL POC Glucose (mg/dL) 250 H (75-99) mg/dL Calcium (8.4-10.2) mg/dL Phosphorus (2.5-4.5) mg/dL Urine Glucose (UA) (Negative) Ur Leukocyte Esterase (Negative) Urine Bacteria (None) /hpf Urine Mucus (None) /hpf Microbiology - Last 24 Hours (Table) 10/30/17 08:25 Blood Culture - Preliminary Blood No Growth after 24 hours 10/30/17 09:06 Blood Culture - Preliminary Blood No Growth after 24 hours 10/30/17 19:00 Urine Culture - Preliminary Urine,Voided Assessment and Plan (1) Colon neoplasm Current Visit: Yes Status: Acute Code(s): D49.0 - NEOPLASM OF UNSPECIFIED BEHAVIOR OF DIGESTIVE SYSTEM SNOMED Code(s): 873062677 (2) Large bowel obstruction Current Visit: Yes Status: Acute Code(s): K56.609 - UNSP INTESTNL OBST, UNSP TO PARTIAL VERSUS COMPLETE OBST SNOMED Code(s): 734242837 (3) H/O colectomy Current Visit: Yes Status: Acute Code(s): Z90.49 - ACQUIRED ABSENCE OF OTHER SPECIFIED PARTS OF DIGESTIVE TRACT SNOMED Code(s): 636568614 Plan: 1. Infectious disease following for source of leukocytosis. 2. Recommend discontinuing central line with peripheral IV placement. 3. Continue physical therapy. 4. Ostomy care.
[2017-10-31] MEDS: 1: MVI, ADULT NO.4 WITH VIT K 10 ML, TRACE (CONC-1ML/DOSE) 1 ML, POTASSIUM CHLORIDE 20 M IV SCH ×5 (13:03)
[2017-10-31] MEDS: MEROPENEM 2 GM in SODIUM CHLORIDE 0.9% 100 ML IVPB SCH ×2 (13:24→21:41)
--- NOTE | 2017-10-31 14:06 | P.CONS ---
History of Present Illness - Reason for Consult Consult date: 10/31/17 Antibiotic management - History of Present Illness This is a 72-year-old female patient who has had ongoing problems with abdominal pain for a few months but had been worsening. In September the patient was referred to Dr. Church however she did not follow up. She then presented to [facility] emergency center on October 22 complaining of abdominal pain, decreased appetite heartburn, no nausea or vomiting and lack of bowel movement. She was initially found to have fecal stasis along with dilated loops of the small bowel. NG tube was placed and there was return of significant amount of gastric material. She was treated conservatively until she had further abdominal distention and x-ray of the abdomen showed free air. Patient was taken for exploratory laparotomy on October 24 with right colectomy and left colectomy and partial omentectomy and diverticular colostomy. She was then transferred to the intensive care unit where she was intubated for approximately 24 hours. She was started on TPN which is continued. She has had episodes of fever starting on October 25 of 101.4 and has ongoing leukocytosis currently at 15. On the she had a repeat urinalysis done which was clear with leukoesterase small and bacteria occasional. Urine culture is in progress. She does have previous blood cultures are showing no growth after 24 hours. She has been treated with Levaquin and Flagyl due to ALLERGY to penicillin. According to the patient, daughters at the bedside and nursing staff, patient has been essentially and active. She transferred from bed to chair today with physical therapy. She complains of weakness in her legs unable to lift her left leg and weakness of her right arm and feels that everything is very heavy. She is having output from her colostomy and brown liquid stool. She complains of frequent incontinence of urine for which she is wearing a depends. Patient states that she has had this problem prior to this admission and was on medication for it. Her Cruz catheter has been removed. Patient is eating very little and Ensure has been added. She remains on TPN with access of right central line which is to be removed today and catheter tip sent for culture. She has had a PICC line placed in the left arm. Patient complains about abdominal pain which is not controlled and she forgets to take her medicine when it is due and then her pain is more significant. She states the pain is why she is not moving and doing physical therapy. Suggested that patient keep track of her next dose of pain medicine on her board and also to request pain medicine before physical therapy works with her. Review of Systems All systems: negative Constitutional: Reports anorexia, Reports fatigue, Reports poor appetite, Reports weakness, Denies chills, Denies fever Eyes: denies blurred vision, denies pain Ears, nose, mouth and throat: Denies dental pain, Denies headache, Denies mouth pain, Denies sore throat Cardiovascular: Reports leg edema, Denies chest pain, Denies claudication, Denies dyspnea on exertion, Denies lightheadedness, Denies shortness of breath, Denies syncope Respiratory: Denies cough, Denies cough with sputum, Denies dyspnea, Denies excessive sputum, Denies hemoptysis, Denies home oxygen, Denies wheezing Gastrointestinal: Reports abdominal pain, Reports loss of appetite, Denies diarrhea, Denies nausea, Denies vomiting Genitourinary: Reports dysuria, Denies hematuria Musculoskeletal: Denies myalgias Integumentary: Denies pruritus, Denies rash Neurological: Denies numbness, Denies weakness Psychiatric: Denies anxiety, Denies depression Endocrine: Denies fatigue, Denies weight change Past Medical History Past Medical History: Dementia, Diabetes Mellitus, GERD/Reflux, Hypertension Additional Past Medical History / Comment(s): "slight memory impairment", scoliosis, dizzy spells and balance issues History of Any Multi-Drug Resistant Organisms: None Reported Past Surgical History: Hysterectomy Additional Past Surgical History / Comment(s): rt breast bx-neg, dental implants Additional Past Anesthesia/Blood Transfusion Reaction / Comm: hx clausterphobia. difficulty waking after sx. pt stated that during sx once her heart stopped. Past Psychological History: No Psychological Hx Reported Smoking Status: Never smoker Past Alcohol Use History: None Reported Past Drug Use History: None Reported - Past Family History Mother Family Medical History: Myocardial Infarction ([place]) Additional Family Medical History / Comment(s): grandmother had mi as well Father History Unknown: Yes Medications and Allergies Home Medications Medication Instructions Recorded Confirmed Type Baclofen 10 mg PO HS 10/22/17 10/22/17 History Fesoterodine Fumarate [Toviaz] 8 mg PO DAILY 10/22/17 10/22/17 History Glimepiride [Amaryl] 1 mg PO DAILY 10/22/17 10/22/17 History Losartan [Cozaar] 50 mg PO DAILY 10/22/17 10/22/17 History Memantine HCl/Donepezil HCl 1 cap PO DAILY 10/22/17 10/22/17 History [Namzaric 14 mg-10 mg Capsule] Pioglitazone [Actos] 15 mg PO DAILY 10/22/17 10/22/17 History Repaglinide [Prandin] 0.5 mg PO AC-LUNCH 10/22/17 10/22/17 History sitaGLIPtin [Januvia] 100 mg PO DAILY 10/22/17 10/22/17 History Allergies Allergy/AdvReac Type Severity Reaction Status Date / Time Iodinated Contrast- Oral and Allergy Anaphylaxis Verified 10/24/17 14:03 IV Dye iodine Allergy Anaphylaxis Verified 10/24/17 14:03 Penicillins Allergy Unknown Verified 10/24/17 14:03 Childhood shellfish derived [Shellfish] Allergy Anaphylaxis Verified 10/24/17 14:03 Physical Exam Vitals: Vital Signs Temp Pulse Pulse Resp BP BP Pulse Ox 10/31/17 11:43 100 10/31/17 11:30 100 10/31/17 06:12 98.6 F 111 H 22 173/84 96 10/30/17 22:40 98.6 F 114 H 24 174/85 96 10/30/17 16:45 88 10/30/17 16:29 88 10/30/17 14:35 98.0 F 102 H 18 133/77 98 Intake and Output 10/30/17 10/31/17 10/31/17 22:59 06:59 14:59 Other: Voiding Method Bedside Commode Bedside Commode Bedside Commode Bedpan Bedpan Bedpan Diaper Diaper Incontinent Incontinent Incontinent Gen: This is a 72-year-old patient seen sitting in a chair at the bedside in no acute distress. HEENT: Head is atraumatic, normocephalic. Pupils equal, round. Sclerae is anicteric. Mucous membranes of the mouth are somewhat dry. NECK: Supple. No JVD. No lymphadenopathy. No thyromegaly. LUNGS: Clear to auscultation. No wheezes or rhonchi. No intercostal retractions. HEART: Regular rate and rhythm. No murmur. ABDOMEN: Soft. Bowel sounds are present. +[address] on the left side draining brown liquid stool. Large dressing in place to the right abdomen which was not removed for evaluation.. EXTREMITIES: Trace bilateral pedal edema. Dorsalis pedis is +2 bilaterally. NEUROLOGICAL: Patient is awake, alert and oriented x3. Cranial nerves 2 through 12 are grossly intact. Results Results: Laboratory Results WBC 15.8 k/uL (3.8-10.6) H 10/31/17 08:24 RBC 3.97 m/uL (3.80-5.40) 10/31/17 08:24 Hgb 10.8 gm/dL (11.4-16.0) L 10/31/17 08:24 Hct 33.6 % (34.0-46.0) L 10/31/17 08:24 MCV 84.8 fL (80.0-100.0) 10/31/17 08:24 MCH 27.3 pg (25.0-35.0) 10/31/17 08:24 MCHC 32.2 g/dL (31.0-37.0) 10/31/17 08:24 RDW 14.7 % (11.5-15.5) 10/31/17 08:24 Plt Count 485 k/uL (150-450) H 10/31/17 08:24 Neutrophils % 86 % 10/31/17 08:24 Lymphocytes % 5 % 10/31/17 08:24 Monocytes % 7 % 10/31/17 08:24 Eosinophils % 1 % 10/31/17 08:24 Basophils % 0 % 10/31/17 08:24 Neutrophils # 13.6 k/uL (1.3-7.7) H 10/31/17 08:24 Lymphocytes # 0.8 k/uL (1.0-4.8) L 10/31/17 08:24 Monocytes # 1.0 k/uL (0-1.0) 10/31/17 08:24 Eosinophils # 0.2 k/uL (0-0.7) 10/31/17 08:24 Basophils # 0.1 k/uL (0-0.2) 10/31/17 08:24 Manual Slide Review Performed 10/29/17 08:19 Hypochromasia Slight 10/27/17 05:25 Sample Site casey 10/25/17 12:00 ABG pH 7.45 (7.35-7.45) 10/25/17 12:00 ABG pCO2 32 mmHg (35-45) L 10/25/17 12:00 ABG pO2 134 mmHg (83-108) H 10/25/17 12:00 ABG HCO3 22 mmol/L (21-25) 10/25/17 12:00 ABG Total CO2 23 mmol/L (19-24) 10/25/17 12:00 ABG O2 Saturation 99.6 % (94-97) H 10/25/17 12:00 ABG Base Excess -2.0 mmol/L 10/25/17 12:00 Solo Test no 10/25/17 12:00 FiO2 40 % 10/25/17 12:00 Sodium 139 mmol/L (137-145) 10/31/17 08:24 Potassium 4.5 mmol/L (3.5-5.1) 10/31/17 08:24 Chloride 106 mmol/L (98-107) 10/31/17 08:24 Carbon Dioxide 25 mmol/L (22-30) 10/31/17 08:24 Anion Gap 8 mmol/L 10/31/17 08:24 BUN 12 mg/dL (7-17) 10/31/17 08:24 Creatinine 0.45 mg/dL (0.52-1.04) L 10/31/17 08:24 Est GFR (CKD-EPI)AfAm >90 (>60 ml/min/1.73 sqM) 10/31/17 08:24 Est GFR (CKD-EPI)NonAf >90 (>60 ml/min/1.73 sqM) 10/31/17 08:24 Glucose 244 mg/dL (74-99) H 10/31/17 08:24 POC Glucose (mg/dL) 250 mg/dL (75-99) H 10/31/17 11:56 POC Glu Match Marker JOVANY Jennifre Ho 10/31/17 11:56 Calcium 8.0 mg/dL (8.4-10.2) L 10/31/17 08:24 Ionized Calcium Randall 5.0 mg/dL (4.5-5.3) 10/26/17 12:58 Phosphorus 4.7 mg/dL (2.5-4.5) H 10/31/17 08:24 Magnesium 2.1 mg/dL (1.6-2.3) 10/31/17 08:24 Total Bilirubin 0.3 mg/dL (0.2-1.3) 10/26/17 12:58 AST 16 U/L (14-36) 10/26/17 12:58 ALT 37 U/L (9-52) 10/26/17 12:58 Alkaline Phosphatase 39 U/L (38-126) 10/26/17 12:58 Total Protein 3.6 g/dL (6.3-8.2) L 10/26/17 12:58 Albumin 1.9 g/dL (3.5-5.0) L 10/26/17 12:58 Triglycerides 62 mg/dL (<150) 10/26/17 12:58 Amylase 41 U/L (30-110) 10/22/17 12:34 Lipase 100 U/L (23-300) 10/22/17 12:34 Urine Color Yellow 10/30/17 19:00 Urine Appearance Clear (Clear) 10/30/17 19:00 Urine pH 7.0 (5.0-8.0) 10/30/17 19:00 Ur Specific [place] 1.010 (1.001-1.035) 10/30/17 19:00 Urine Protein Negative (Negative) 10/30/17 19:00 Urine Glucose (UA) 4+ (Negative) H 10/30/17 19:00 Urine Ketones Negative (Negative) 10/30/17 19:00 Urine Blood Negative (Negative) 10/30/17 19:00 Urine Nitrite Negative (Negative) 10/30/17 19:00 Urine Bilirubin Negative (Negative) 10/30/17 19:00 Urine Urobilinogen <2.0 mg/dL (<2.0) 10/30/17 19:00 Ur Leukocyte Esterase Small (Negative) H 10/30/17 19:00 Urine RBC 1 /hpf (0-5) 10/30/17 19:00 Urine WBC 4 /hpf (0-5) 10/30/17 19:00 Ur Squamous Epith Cells 1 /hpf (0-4) 10/30/17 19:00 Urine Bacteria Occasional /hpf (None) H 10/30/17 19:00 Hyaline Casts 1 /lpf (0-2) 10/22/17 13:02 Urine Mucus Rare /hpf (None) H 10/30/17 19:00 Blood Type B Positive 10/24/17 13:49 Blood Type Confirm B Positive 10/24/17 08:02 Blood Type Recheck CABO Indicated 10/24/17 13:49 Antibody Screen NEGATIVE 10/24/17 13:49 Spec Expiration Date 10/27/2017 - 234810/24/17 13:49 CBC & Chem 7: 11/01/17 08:03 11/01/17 08:03 Labs: Abnormal Lab Results - Last 24 Hours (Table) 10/30/17 10/30/17 10/30/17 Range/Units 17:16 19:00 20:52 WBC (3.8-10.6) k/uL Hgb (11.4-16.0) gm/dL Hct (34.0-46.0) % Plt Count (150-450) k/uL Neutrophils # (1.3-7.7) k/uL Lymphocytes # (1.0-4.8) k/uL Creatinine (0.52-1.04) mg/dL Glucose (74-99) mg/dL POC Glucose (mg/dL) 287 H 156 H (75-99) mg/dL Calcium (8.4-10.2) mg/dL Phosphorus (2.5-4.5) mg/dL Urine Glucose (UA) 4+ H (Negative) Ur Leukocyte Esterase Small H (Negative) Urine Bacteria Occasional H (None) /hpf Urine Mucus Rare H (None) /hpf 10/31/17 10/31/17 10/31/17 Range/Units 07:08 08:24 08:24 WBC 15.8 H (3.8-10.6) k/uL Hgb 10.8 L (11.4-16.0) gm/dL Hct 33.6 L (34.0-46.0) % Plt Count 485 H (150-450) k/uL Neutrophils # 13.6 H (1.3-7.7) k/uL Lymphocytes # 0.8 L (1.0-4.8) k/uL Creatinine 0.45 L (0.52-1.04) mg/dL Glucose 244 H (74-99) mg/dL POC Glucose (mg/dL) 239 H (75-99) mg/dL Calcium 8.0 L (8.4-10.2) mg/dL Phosphorus 4.7 H (2.5-4.5) mg/dL Urine Glucose (UA) (Negative) Ur Leukocyte Esterase (Negative) Urine Bacteria (None) /hpf Urine Mucus (None) /hpf 10/31/17 Range/Units 11:56 WBC (3.8-10.6) k/uL Hgb (11.4-16.0) gm/dL Hct (34.0-46.0) % Plt Count (150-450) k/uL Neutrophils # (1.3-7.7) k/uL Lymphocytes # (1.0-4.8) k/uL Creatinine (0.52-1.04) mg/dL Glucose (74-99) mg/dL POC Glucose (mg/dL) 250 H (75-99) mg/dL Calcium (8.4-10.2) mg/dL Phosphorus (2.5-4.5) mg/dL Urine Glucose (UA) (Negative) Ur Leukocyte Esterase (Negative) Urine Bacteria (None) /hpf Urine Mucus (None) /hpf Microbiology - Last 24 Hours (Table) 10/30/17 08:25 Blood Culture - Preliminary Blood No Growth after 24 hours 10/30/17 09:06 Blood Culture - Preliminary Blood No Growth after 24 hours 10/30/17 19:00 Urine Culture - Preliminary Urine,Voided Assessment and Plan Plan: This is a 72-year-old female patient presented to the hospital with abdominal pain found to have perforated viscus status post exploratory laparotomy, right colectomy, left colectomy and partial omentectomy and diverticula colostomy. Patient has had ongoing leukocytosis. She has been on IV antibiotics the form of Levaquin and Flagyl which will be switched over to meropenem and vancomycin. Continue supportive care. Patient has been encouraged to participate with physical therapy increase activity. Ensure has been added. Patient is currently on TPN and on oral food as well but taking only a few bites at a time. Right triple-lumen to be removed and patient has had a PICC line placed. Culture to be sent from the central line. Continue supportive care. Further recommendations as patient presses. The above dictated assessment and findings were discussed with Dr. Craty. The impression and plan of care have been directed as dictated. Gladys Moreland nurse practitioner acting as scribe for Dr. Carty.
[2017-10-31 17:21] LABS: Glucose,Whole Blood 227 mg/dL (75-99)
[2017-10-31 20:58] LABS: Glucose,Whole Blood 130 mg/dL (75-99)
[2017-10-31] MEDS: BACLOFEN 10 MG TAB PO SCH (21:05)
[2017-10-31] MEDS: BENZOCAINE SPRAY 1 CAN MUCOUS MEM PRN (21:05)
[2017-10-31] MEDS: INSULIN DETEMIR 100 UNIT/ML 10 ML VIAL SQ SCH (21:18)
[2017-10-31] MEDS ORDERED: VANCOMYCIN IV PER PHARMACY 1 EACH MISC MISCELLANE PRN (22:48)
--- NOTE | 2017-10-31 22:50 | P.CON ---
Consult Note - . Consult date: 10/31/17 Assessment/Plan:: This is a 72-year-old female patient who has had ongoing problems with abdominal pain for a few months but had been worsening. In September the patient was referred to Dr. Church however she did not follow up. She then presented to [facility] emergency center on October 22 complaining of abdominal pain, decreased appetite heartburn, no nausea or vomiting and lack of bowel movement. She was initially found to have fecal stasis along with dilated loops of the small bowel. NG tube was placed and there was return of significant amount of gastric material. She was treated conservatively until she had further abdominal distention and x-ray of the abdomen showed free air. Patient was taken for exploratory laparotomy on October 24 with right colectomy and left colectomy and partial omentectomy and diverticular colostomy. She was then transferred to the intensive care unit where she was intubated for approximately 24 hours. She was started on TPN which is continued. She has had episodes of fever starting on October 25 of 101.4 and has ongoing leukocytosis currently at 15. On the she had a repeat urinalysis done which was clear with leukoesterase small and bacteria occasional. Urine culture is in progress. She does have previous blood cultures are showing no growth after 24 hours. She has been treated with Levaquin and Flagyl due to ALLERGY to penicillin. According to the patient, daughters at the bedside and nursing staff, patient has been essentially and active. She transferred from bed to chair today with physical therapy. She complains of weakness in her legs unable to lift her left leg and weakness of her right arm and feels that everything is very heavy. She is having output from her colostomy and brown liquid stool. She complains of frequent incontinence of urine for which she is wearing a depends. Patient states that she has had this problem prior to this admission and was on medication for it. Her Cruz catheter has been removed. Patient is eating very little and Ensure has been added. She remains on TPN with access of right central line which is to be removed today and catheter tip sent for culture. She has had a PICC line placed in the left arm. Patient complains about abdominal pain which is not controlled and she forgets to take her medicine when it is due and then her pain is more significant. She states the pain is why she is not moving and doing physical therapy. Suggested that patient keep track of her next dose of pain medicine on her board and also to request pain medicine before physical therapy works with her. Please see the consult note is dictated by nurse practitioner Mrs. Gladys Morelnad. This 72-year-old woman has a very complex hospital stay regarding her history of months of abdominal pain eventually had surgical intervention was found to have evidence of colon cancer. Since then she having difficulties with fever and leukocytosis. Cultures negative so far but there are concerns to potential pneumonia and line related infection and consequently the consult requested antibiotics have been altered to meropenem and vancomycin with the above concerns. Cultures are in progress. The patient is profoundly weak and likely will need to go to rehab for recovery. Patient was monitored after antibiotic changed and cultures will be followed. I agree with evaluation, assessment and plan by nurse Mrs. Gladys Moreland.
[2017-10-31] MEDS: HYDROmorphone 1 MG/ML 1 ML SYRINGE IVP PRN (23:16)
[2017-10-31] MEDS: VANCOMYCIN 1,500 MG in SODIUM CHLORIDE 0.9% 250 ML IVPB ONE (23:39)
[2017-11-01] MEDS: metroNIDAZOLE-NS PMX 500 MG in SALINE 1 100ML.BAG IVPB SCH (00:05)
[2017-11-01] MEDS: CIPROFLOXACIN 0.3% OPHTH SOLN 5 ML BTL BOTH EYES SCH ×6 (02:31→20:38)
[2017-11-01] MEDS: DOCUSATE 100 MG CAP PO SCH ×3 (03:14→20:14)
[2017-11-01] MEDS: 1: MVI, ADULT NO.4 WITH VIT K 10 ML, TRACE (CONC-1ML/DOSE) 1 ML, POTASSIUM CHLORIDE 20 M IV SCH ×15 (03:29→22:07)
[2017-11-01] MEDS: VANCOMYCIN 1,500 MG in SODIUM CHLORIDE 0.9% 250 ML IVPB ONE (03:31)
[2017-11-01] MEDS: MEROPENEM 2 GM in SODIUM CHLORIDE 0.9% 100 ML IVPB SCH ×3 (03:54→20:12)
[2017-11-01 06:47] LABS: Glucose,Whole Blood 143 mg/dL (75-99)
[2017-11-01] MEDS: IPRATROPIUM-ALBUTEROL 3 ML NEB INHALATION SCH ×4 (07:16→19:18)
[2017-11-01 08:23] LABS: Basophils # (A) 0.1 k/uL (0-0.2); Basophils % (A) 1 %; Eosinophils # (A) 0.3 k/uL (0-0.7); Eosinophils % (A) 2 %; HCT 36.3 % (34.0-46.0); HGB 11.6 gm/dL (11.4-16.0); Lymphocytes # (A) 1.2 k/uL (1.0-4.8); Lymphocytes % (A) 7 %; MCHC 32.1 g/dL (31.0-37.0); MCV 84.3 fL (80.0-100.0); Mean Platelet Volume 7.1; Monocytes # (A) 0.8 k/uL (0-1.0); Monocytes % (A) 5 %; Neutrophils # (A) 15.9 k/uL (1.3-7.7); Neutrophils % (A) 85 %; Platelet Count 578 k/uL (150-450); RDW 14.8 % (11.5-15.5); WBC 18.7 k/uL (3.8-10.6)
[2017-11-01 08:41] LABS: Anion Gap 8 mmol/L; Blood Urea Nitrogen 12 mg/dL (7-17); Calcium 8.2 mg/dL (8.4-10.2); Carbon Dioxide 24 mmol/L (22-30); Chloride 108 mmol/L (98-107); Glucose 174 mg/dL (74-99); Magnesium 2.2 mg/dL (1.6-2.3); Phosphorus 4.6 mg/dL (2.5-4.5); Potassium 4.6 mmol/L (3.5-5.1); Sodium 140 mmol/L (137-145)
[2017-11-01] MEDS: DONEPEZIL HCL PO SCH (08:53)
[2017-11-01] MEDS: MEMANTINE HCL PO SCH (08:53)
[2017-11-01] MEDS: LOSARTAN 50 MG TAB PO SCH (08:55)
[2017-11-01] MEDS: INSULIN ASPART 100 UNIT/ML 1 ML 10 ML VIAL SQ SCH ×7 (08:56→22:12)
[2017-11-01] MEDS: ENOXAPARIN 40 MG/0.4 ML SYRINGE SQ SCH (08:56)
[2017-11-01] MEDS: TROSPIUM CHLORIDE 20 MG TABLET PO SCH ×2 (08:56→20:13)
[2017-11-01] MEDS: VANCOMYCIN 1,500 MG in SODIUM CHLORIDE 0.9% 250 ML IVPB SCH ×2 (08:56→21:44)
[2017-11-01] MEDS: FAT EMULSION 20% 250 ML IV SCH (08:56)
[2017-11-01] MEDS: HYDROmorphone 1 MG/ML 1 ML SYRINGE IVP PRN ×4 (09:00→18:38)
[2017-11-01] MEDS: PANTOPRAZOLE 40 MG/10 ML VIAL IVP SCH (09:13)
[2017-11-01] MEDS: PIOGLITAZONE 15 MG TAB PO SCH (09:13)
[2017-11-01] MEDS: NYSTATIN 100,000 UNIT/ML SUSP 500,000 UNIT/5 ML CUP PO SCH ×4 (09:13→22:13)
[2017-11-01] MEDS: ACETAMINOPHEN TAB 325 MG TAB PO PRN (11:28)
[2017-11-01 12:12] LABS: Glucose,Whole Blood 218 mg/dL (75-99)
[2017-11-01 17:24] LABS: Glucose,Whole Blood 156 mg/dL (75-99)
[2017-11-01] MEDS: LACTATED RINGERS 1,000 ML IV SCH (17:41)
--- NOTE | 2017-11-01 19:38 | P.PN ---
Subjective Progress Note Date: 11/01/17 The patient is a 72-year-old female who underwent surgery by Dr. Church and is s/p colectomy. She has more energy today. She now has an appetite. Central line is removed. Infectious disease team is seeing her for her leukocytosis. She complains mostly of swelling of her legs. Objective - Vital Signs Vital signs: Vital Signs Temp 97.4 F L 11/01/17 15:16 Pulse 96 11/01/17 19:30 Resp 18 11/01/17 15:44 BP 130/60 11/01/17 15:16 Pulse Ox 97 11/01/17 15:16 Intake & Output 11/01/17 11/01/17 11/02/17 06:59 18:59 06:59 Intake Total 600 720 Balance 600 720 Intake: Oral 600 720 Other: Voiding Method Bedside Commode Toilet # Voids 2 1 # Bowel Movements 1 ABP, PAP, CO, CI - Last Documented Arterial Blood Pressure 117/43 - Exam ABDOMEN: Ostomy with stool and flatus GENERAL: Well developed and in no acute distress. HEENT: No sclera icterus. Extraocular movements grossly intact. Moist buccal mucosa. Head is atraumatic, normocephalic. Hears conversational speech. No nasal drainage. NECK: Supple without lymphadenopathy. CHEST: Non-labored respirations and equal bilateral excursions. CARDIOVASCULAR: Regular rate and rhythm. Palpable 2+ radial pulses. MUSCULOSKELETAL: No clubbing, cyanosis. 2+ pedal edema. NEUROLOGIC: No focal or lateralizing signs. PSYCH: Appropriate affect. Alert and oriented to person, place and time. SKIN: Good skin turgor. Well perfused. - Labs CBC & Chem 7: 11/01/17 08:03 11/01/17 08:03 Labs: Abnormal Lab Results - Last 24 Hours (Table) 10/31/17 11/01/17 11/01/17 Range/Units 20:49 06:44 08:03 WBC (3.8-10.6) k/uL Plt Count (150-450) k/uL Neutrophils # (1.3-7.7) k/uL Chloride 108 H (98-107) mmol/L Creatinine 0.50 L (0.52-1.04) mg/dL Glucose 174 H (74-99) mg/dL POC Glucose (mg/dL) 130 H 143 H (75-99) mg/dL Calcium 8.2 L (8.4-10.2) mg/dL Phosphorus 4.6 H (2.5-4.5) mg/dL 11/01/17 11/01/17 11/01/17 Range/Units 08:03 12:06 17:11 WBC 18.7 H (3.8-10.6) k/uL Plt Count 578 H (150-450) k/uL Neutrophils # 15.9 H (1.3-7.7) k/uL Chloride (98-107) mmol/L Creatinine (0.52-1.04) mg/dL Glucose (74-99) mg/dL POC Glucose (mg/dL) 218 H 156 H (75-99) mg/dL Calcium (8.4-10.2) mg/dL Phosphorus (2.5-4.5) mg/dL Microbiology - Last 24 Hours (Table) 10/30/17 08:25 Blood Culture - Preliminary Blood No Growth after 48 hours 10/30/17 09:06 Blood Culture - Preliminary Blood No Growth after 48 hours 10/31/17 13:48 Catheter Tip Culture - Preliminary Catheter Tip 10/30/17 19:00 Urine Culture - Final Urine,Voided Assessment and Plan (1) Colon neoplasm Current Visit: Yes Status: Acute Code(s): D49.0 - NEOPLASM OF UNSPECIFIED BEHAVIOR OF DIGESTIVE SYSTEM SNOMED Code(s): 861116866 (2) Large bowel obstruction Current Visit: Yes Status: Acute Code(s): K56.609 - UNSP INTESTNL OBST, UNSP TO PARTIAL VERSUS COMPLETE OBST SNOMED Code(s): 424836302 (3) H/O colectomy Current Visit: Yes Status: Acute Code(s): Z90.49 - ACQUIRED ABSENCE OF OTHER SPECIFIED PARTS OF DIGESTIVE TRACT SNOMED Code(s): 857539331 Plan: 1. Regular diet. 2. Physical therapy. 3. Dr. Church to resume care tomorrow.
[2017-11-01] MEDS: BENZOCAINE SPRAY 1 CAN MUCOUS MEM PRN (20:13)
[2017-11-01] MEDS: BACLOFEN 10 MG TAB PO SCH (20:13)
[2017-11-01 21:17] LABS: Glucose,Whole Blood 85 mg/dL (75-99)
[2017-11-01] MEDS: INSULIN DETEMIR 100 UNIT/ML 10 ML VIAL SQ SCH (22:11)
[2017-11-02] MEDS ORDERED: HYDROmorphone 1 MG/ML 1 ML SYRINGE ONE (00:35)
[2017-11-02] MEDS: MEROPENEM 2 GM in SODIUM CHLORIDE 0.9% 100 ML IVPB SCH ×3 (06:18→20:36)
[2017-11-02 06:59] LABS: Glucose,Whole Blood 129 mg/dL (75-99)
[2017-11-02] MEDS: INSULIN ASPART 100 UNIT/ML 1 ML 10 ML VIAL SQ SCH ×7 (07:12→22:36)
[2017-11-02] MEDS: CIPROFLOXACIN 0.3% OPHTH SOLN 5 ML BTL BOTH EYES SCH ×5 (07:35→20:36)
[2017-11-02] MEDS: IPRATROPIUM-ALBUTEROL 3 ML NEB INHALATION SCH ×4 (07:41→22:07)
[2017-11-02] MEDS: 1: MVI, ADULT NO.4 WITH VIT K 10 ML, TRACE (CONC-1ML/DOSE) 1 ML, POTASSIUM CHLORIDE 20 M IV SCH ×5 (08:19)
[2017-11-02] MEDS: DONEPEZIL HCL PO SCH (08:20)
[2017-11-02] MEDS: MEMANTINE HCL PO SCH (08:20)
[2017-11-02] MEDS: FAT EMULSION 20% 250 ML IV SCH (08:20)
[2017-11-02] MEDS: DOCUSATE 100 MG CAP PO SCH ×2 (08:21→20:42)
[2017-11-02] MEDS: PANTOPRAZOLE 40 MG/10 ML VIAL IVP SCH (08:21)
[2017-11-02] MEDS: TROSPIUM CHLORIDE 20 MG TABLET PO SCH ×2 (08:21→20:42)
[2017-11-02] MEDS: LOSARTAN 50 MG TAB PO SCH (08:22)
[2017-11-02] MEDS: NYSTATIN 100,000 UNIT/ML SUSP 500,000 UNIT/5 ML CUP PO SCH ×4 (08:22→20:42)
[2017-11-02] MEDS: PIOGLITAZONE 15 MG TAB PO SCH (08:22)
[2017-11-02] MEDS: ENOXAPARIN 40 MG/0.4 ML SYRINGE SQ SCH (08:22)
[2017-11-02 08:24] LABS: Anion Gap 8 mmol/L; Blood Urea Nitrogen 11 mg/dL (7-17); Calcium 8.3 mg/dL (8.4-10.2); Carbon Dioxide 23 mmol/L (22-30); Chloride 107 mmol/L (98-107); Glucose 134 mg/dL (74-99); Magnesium 2.1 mg/dL (1.6-2.3); Phosphorus 4.3 mg/dL (2.5-4.5); Potassium 4.5 mmol/L (3.5-5.1); Sodium 138 mmol/L (137-145)
[2017-11-02] MEDS: ACETAMINOPHEN TAB 325 MG TAB PO PRN (08:32)
[2017-11-02 09:32] LABS: Basophils # (A) 0.1 k/uL (0-0.2); Basophils % (A) 1 %; Eosinophils # (A) 0.3 k/uL (0-0.7); Eosinophils % (A) 2 %; HGB 10.7 gm/dL (11.4-16.0); Hypochromasia Slight; Lymphocytes % (A) 6 %; MCHC 31.6 g/dL (31.0-37.0); MCV 85.7 fL (80.0-100.0); Mean Platelet Volume 7.5; Monocytes # (A) 0.7 k/uL (0-1.0); Monocytes % (A) 4 %; Neutrophils # (A) 14.8 k/uL (1.3-7.7); Neutrophils % (A) 86 %; Platelet Count 537 k/uL (150-450); RBC 3.97 m/uL (3.80-5.40); RDW 15.4 % (11.5-15.5); WBC 17.2 k/uL (3.8-10.6)
[2017-11-02] MEDS: HYDROcodone/APAP 7.5-325MG 1 EACH TAB PO PRN ×3 (09:35→22:54)
[2017-11-02] MEDS: VANCOMYCIN 1,500 MG in SODIUM CHLORIDE 0.9% 250 ML IVPB SCH ×2 (10:01→21:36)
[2017-11-02] MEDS: HYDROmorphone 1 MG/ML 1 ML SYRINGE IVP PRN ×2 (12:07→15:22)
[2017-11-02 12:42] LABS: Glucose,Whole Blood 136 mg/dL (75-99)
[2017-11-02] MEDS: LACTATED RINGERS 1,000 ML IV SCH (12:49)
[2017-11-02 17:34] LABS: Glucose,Whole Blood 79 mg/dL (75-99)
[2017-11-02 17:34] LABS: Glucose,Whole Blood 56 mg/dL (75-99)
[2017-11-02 17:34] LABS: Glucose,Whole Blood 58 mg/dL (75-99)
[2017-11-02] MEDS: BACLOFEN 10 MG TAB PO SCH (20:37)
--- NOTE | 2017-11-02 20:50 | US ---
EXAMINATION TYPE: US venous doppler duplex LE BI DATE OF EXAM: 11/02/2017 6:04 PM COMPARISON: NONE CLINICAL HISTORY: bilateral leg edema. SIDE PERFORMED: Bilateral TECHNIQUE: The lower extremity deep venous system is examined utilizing real time linear array sonog thierry with graded compression, doppler sonography and color-flow sonography. VESSELS IMAGED: External Iliac Vein (EIV) Common Femoral Vein Deep Femoral Vein Greater Saphenous Vein * Femoral Vein Popliteal Vein Small Saphenous Vein * Proximal Calf Veins-limited visualization (* superficial vessels) Patient has severe swelling, with pitting edema. Technically difficult study. Right Leg: Negative for DVT Left Leg: Negative for DVT IMPRESSION: No evidence of deep venous thrombosis in the right and left leg.
[2017-11-02 20:58] LABS: Glucose,Whole Blood 141 mg/dL (75-99)
[2017-11-02] MEDS ORDERED: VANCOMYCIN TROUGH DUE 1 EACH MISC MISCELLANE ONE (21:00)
[2017-11-02] MEDS: INSULIN DETEMIR 100 UNIT/ML 10 ML VIAL SQ SCH (22:49)
[2017-11-02] MEDS ORDERED: INSULIN DETEMIR 100 UNIT/ML 10 ML VIAL SQ STA (22:53)
--- NOTE | 2017-11-03 00:08 | P.PN ---
Subjective Progress Note Date: 11/02/17 This is a 72-year-old female patient who has had ongoing problems with abdominal pain for a few months but had been worsening. In September the patient was referred to Dr. Church however she did not follow up. She then presented to [facility] emergency [facility] on October 22 complaining of abdominal pain, decreased appetite heartburn, no nausea or vomiting and lack of bowel movement. She was initially found to have fecal stasis along with dilated loops of the small bowel. NG tube was placed and there was return of significant amount of gastric material. She was treated conservatively until she had further abdominal distention and x-ray of the abdomen showed free air. Patient was taken for exploratory laparotomy on October 24 with right colectomy and left colectomy and partial omentectomy and diverticular colostomy. She was then transferred to the intensive care unit where she was intubated for approximately 24 hours. She was started on TPN which is continued. She has had episodes of fever starting on October 25 of 101.4 and has ongoing leukocytosis currently at 15. On the she had a repeat urinalysis done which was clear with leukoesterase small and bacteria occasional. Urine culture is in progress. She does have previous blood cultures are showing no growth after 24 hours. She has been treated with Levaquin and Flagyl due to ALLERGY to penicillin. According to the patient, daughters at the bedside and nursing staff, patient has been essentially and active. She transferred from bed to chair today with physical therapy. She complains of weakness in her legs unable to lift her left leg and weakness of her right arm and feels that everything is very heavy. She is having output from her colostomy and brown liquid stool. She complains of frequent incontinence of urine for which she is wearing a depends. Patient states that she has had this problem prior to this admission and was on medication for it. Her Cruz catheter has been removed. Patient is eating very little and Ensure has been added. She remains on TPN with access of right central line which is to be removed today and catheter tip sent for culture. She has had a PICC line placed in the left arm. Patient complains about abdominal pain which is not controlled and she forgets to take her medicine when it is due and then her pain is more significant. She states the pain is why she is not moving and doing physical therapy. Suggested that patient keep track of her next dose of pain medicine on her board and also to request pain medicine before physical therapy works with her. 11/02/2017 72-year-old woman is started have some recovery from her surgery. She is no longer on TPN, has developed some appetite and has had solid foods throughout the day. Despite this she has a very negative attitude, relates nobody is helping her, and is quite uncooperative. Objective - Vital Signs Vital signs: Vital Signs Temp 97.4 F L 11/02/17 14:44 Pulse 88 11/02/17 15:55 Resp 20 11/02/17 14:44 BP 109/50 11/02/17 16:59 Pulse Ox 96 11/02/17 14:44 Intake & Output 11/02/17 11/02/17 11/03/17 06:59 18:59 06:59 Intake Total 0 Balance 0 Weight 79.7 kg Intake: Oral 0 Other: Voiding Method Bedside Commode Bedside Commode # Voids 1 ABP, PAP, CO, CI - Last Documented Arterial Blood Pressure 117/43 - Exam Gen: This is a 72-year-old patient seen sitting in a chair at the bedside in no acute distress. HEENT: Head is atraumatic, normocephalic. Pupils equal, round. Sclerae is anicteric. Mucous membranes of the mouth are somewhat dry. NECK: Supple. No JVD. No lymphadenopathy. No thyromegaly. LUNGS: Clear to auscultation. No wheezes or rhonchi. No intercostal retractions. HEART: Regular rate and rhythm. No murmur. ABDOMEN: Soft. Bowel sounds are present. +[address] on the left side draining brown liquid stool. Large dressing in place to the right abdomen which was not removed for evaluation.. EXTREMITIES: Trace bilateral pedal edema. Dorsalis pedis is +2 bilaterally. NEUROLOGICAL: Patient is awake, alert and oriented x3 - Labs CBC & Chem 7: 11/02/17 07:33 11/02/17 07:33 Labs: Abnormal Lab Results - Last 24 Hours (Table) 11/02/17 11/02/17 11/02/17 Range/Units 06:53 07:33 07:33 WBC 17.2 H (3.8-10.6) k/uL Hgb 10.7 L (11.4-16.0) gm/dL Plt Count 537 H (150-450) k/uL Neutrophils # 14.8 H (1.3-7.7) k/uL Glucose 134 H (74-99) mg/dL POC Glucose (mg/dL) 129 H (75-99) mg/dL Calcium 8.3 L (8.4-10.2) mg/dL 11/02/17 11/02/17 11/02/17 Range/Units 12:39 16:58 17:13 WBC (3.8-10.6) k/uL Hgb (11.4-16.0) gm/dL Plt Count (150-450) k/uL Neutrophils # (1.3-7.7) k/uL Glucose (74-99) mg/dL POC Glucose (mg/dL) 136 H 56 L 58 L (75-99) mg/dL Calcium (8.4-10.2) mg/dL 11/02/17 Range/Units 20:39 WBC (3.8-10.6) k/uL Hgb (11.4-16.0) gm/dL Plt Count (150-450) k/uL Neutrophils # (1.3-7.7) k/uL Glucose (74-99) mg/dL POC Glucose (mg/dL) 141 H (75-99) mg/dL Calcium (8.4-10.2) mg/dL Microbiology - Last 24 Hours (Table) 10/31/17 13:48 Catheter Tip Culture - Final Catheter Tip 10/30/17 08:25 Blood Culture - Preliminary Blood No Growth after 72 hours 10/30/17 09:06 Blood Culture - Preliminary Blood No Growth after 72 hours Laboratory Results WBC 17.2 k/uL (3.8-10.6) H 11/02/17 07:33 RBC 3.97 m/uL (3.80-5.40) 11/02/17 07:33 Hgb 10.7 gm/dL (11.4-16.0) L 11/02/17 07:33 Hct 34.0 % (34.0-46.0) 11/02/17 07:33 MCV 85.7 fL (80.0-100.0) 11/02/17 07:33 MCH 27.0 pg (25.0-35.0) 11/02/17 07:33 MCHC 31.6 g/dL (31.0-37.0) 11/02/17 07:33 RDW 15.4 % (11.5-15.5) 11/02/17 07:33 Plt Count 537 k/uL (150-450) H 11/02/17 07:33 Neutrophils % 86 % 11/02/17 07:33 Lymphocytes % 6 % 11/02/17 07:33 Monocytes % 4 % 11/02/17 07:33 Eosinophils % 2 % 11/02/17 07:33 Basophils % 1 % 11/02/17 07:33 Neutrophils # 14.8 k/uL (1.3-7.7) H 11/02/17 07:33 Lymphocytes # 1.0 k/uL (1.0-4.8) 11/02/17 07:33 Monocytes # 0.7 k/uL (0-1.0) 11/02/17 07:33 Eosinophils # 0.3 k/uL (0-0.7) 11/02/17 07:33 Basophils # 0.1 k/uL (0-0.2) 11/02/17 07:33 Manual Slide Review Performed 10/29/17 08:19 Hypochromasia Slight 11/02/17 07:33 Sample Site casey 10/25/17 12:00 ABG pH 7.45 (7.35-7.45) 10/25/17 12:00 ABG pCO2 32 mmHg (35-45) L 10/25/17 12:00 ABG pO2 134 mmHg (83-108) H 10/25/17 12:00 ABG HCO3 22 mmol/L (21-25) 10/25/17 12:00 ABG Total CO2 23 mmol/L (19-24) 10/25/17 12:00 ABG O2 Saturation 99.6 % (94-97) H 10/25/17 12:00 ABG Base Excess -2.0 mmol/L 10/25/17 12:00 Solo Test no 10/25/17 12:00 FiO2 40 % 10/25/17 12:00 Sodium 138 mmol/L (137-145) 11/02/17 07:33 Potassium 4.5 mmol/L (3.5-5.1) 11/02/17 07:33 Chloride 107 mmol/L (98-107) 11/02/17 07:33 Carbon Dioxide 23 mmol/L (22-30) 11/02/17 07:33 Anion Gap 8 mmol/L 11/02/17 07:33 BUN 11 mg/dL (7-17) 11/02/17 07:33 Creatinine 0.54 mg/dL (0.52-1.04) 11/02/17 07:33 Est GFR (CKD-EPI)AfAm >90 (>60 ml/min/1.73 sqM) 11/02/17 07:33 Est GFR (CKD-EPI)NonAf >90 (>60 ml/min/1.73 sqM) 11/02/17 07:33 Glucose 134 mg/dL (74-99) H 11/02/17 07:33 POC Glucose (mg/dL) 141 mg/dL (75-99) H 11/02/17 20:39 POC Glu Magnetic T[employer] Typewriter Operator ID Zelda Phillips 11/02/17 20:39 Calcium 8.3 mg/dL (8.4-10.2) L 11/02/17 07:33 Ionized Calcium Randall 5.0 mg/dL (4.5-5.3) 10/26/17 12:58 Phosphorus 4.3 mg/dL (2.5-4.5) 11/02/17 07:33 Magnesium 2.1 mg/dL (1.6-2.3) 11/02/17 07:33 Total Bilirubin 0.3 mg/dL (0.2-1.3) 10/26/17 12:58 AST 16 U/L (14-36) 10/26/17 12:58 ALT 37 U/L (9-52) 10/26/17 12:58 Alkaline Phosphatase 39 U/L (38-126) 10/26/17 12:58 Total Protein 3.6 g/dL (6.3-8.2) L 10/26/17 12:58 Albumin 1.9 g/dL (3.5-5.0) L 10/26/17 12:58 Triglycerides 62 mg/dL (<150) 10/26/17 12:58 Amylase 41 U/L (30-110) 10/22/17 12:34 Lipase 100 U/L (23-300) 10/22/17 12:34 Urine Color Yellow 10/30/17 19:00 Urine Appearance Clear (Clear) 10/30/17 19:00 Urine pH 7.0 (5.0-8.0) 10/30/17 19:00 Ur Specific [place] 1.010 (1.001-1.035) 10/30/17 19:00 Urine Protein Negative (Negative) 10/30/17 19:00 Urine Glucose (UA) 4+ (Negative) H 10/30/17 19:00 Urine Ketones Negative (Negative) 10/30/17 19:00 Urine Blood Negative (Negative) 10/30/17 19:00 Urine Nitrite Negative (Negative) 10/30/17 19:00 Urine Bilirubin Negative (Negative) 10/30/17 19:00 Urine Urobilinogen <2.0 mg/dL (<2.0) 10/30/17 19:00 Ur Leukocyte Esterase Small (Negative) H 10/30/17 19:00 Urine RBC 1 /hpf (0-5) 10/30/17 19:00 Urine WBC 4 /hpf (0-5) 10/30/17 19:00 Ur Squamous Epith Cells 1 /hpf (0-4) 10/30/17 19:00 Urine Bacteria Occasional /hpf (None) H 10/30/17 19:00 Hyaline Casts 1 /lpf (0-2) 10/22/17 13:02 Urine Mucus Rare /hpf (None) H 10/30/17 19:00 Vancomycin Trough 17.4 ug/mL 11/02/17 21:09 Blood Type B Positive 10/24/17 13:49 Blood Type Confirm B Positive 10/24/17 08:02 Blood Type Recheck CABO Indicated 10/24/17 13:49 Antibody Screen NEGATIVE 10/24/17 13:49 Spec Expiration Date 10/27/2017 - 2349 10/24/17 13:49 Microbiology 10/31/17 13:48 Catheter Tip Catheter Tip Culture - Final 10/30/17 08:25 Blood Blood Culture - Preliminary No Growth after 72 hours 10/30/17 09:06 Blood Blood Culture - Preliminary No Growth after 72 hours 10/30/17 19:00 Urine,Voided Urine Culture - Final Assessment and Plan (1) Colon neoplasm Current Visit: Yes Status: Acute Code(s): D49.0 - NEOPLASM OF UNSPECIFIED BEHAVIOR OF DIGESTIVE SYSTEM SNOMED Code(s): 259356347 (2) Fever Narrative/Plan: This 72-year-old woman has a very complex hospital stay regarding her history of months of abdominal pain eventually had surgical intervention was found to have evidence of colon cancer. Since then she having difficulties with fever and leukocytosis. Cultures negative so far but there are concerns to potential pneumonia and line related infection and consequently the consult requested antibiotics have been altered to meropenem and vancomycin with the above concerns. Cultures are in progress. 11/02/2017. Cultures remain negative at this point in time the patient has had improvement of her status in that she is now off of TPN, she is tolerating a diet and is not having significant abdominal pain at the moment. Catheter tip cultures negative as are her blood cultures. Is responding well to current antimicrobial therapy. The improvement is related to the patient however she is in a very unpleasant mood at this time. She relates that no one is helping her and that she will never get better. We do reinforce the obvious improvements that she has had over the last few days. Although she is able to voice the improvements she refuses to see that she is having improvement at this time. And as noted was distinctly unpleasant and difficult to communicate with. In plain language she was educated that she has been very ill, she 72 years of age and is going to take her many weeks to have any significant recovery from this level of illness. She is in charge of how quickly she will recover by participating in rehabilitation course. She again states that she simply isn't going to get better. Again reinforced that she has been very ill, it is our expectation is that she will have improvement and that she needs to be hopeful that she'll occur. Current Visit: Yes Status: Acute Code(s): R50.9 - FEVER, UNSPECIFIED SNOMED Code(s): 904689320
[2017-11-03] MEDS: CIPROFLOXACIN 0.3% OPHTH SOLN 5 ML BTL BOTH EYES SCH ×6 (01:10→19:54)
[2017-11-03 01:55] LABS: Glucose,Whole Blood 112 mg/dL (75-99)
[2017-11-03] MEDS: HYDROcodone/APAP 7.5-325MG 1 EACH TAB PO PRN ×3 (03:54→21:47)
[2017-11-03] MEDS: MEROPENEM 2 GM in SODIUM CHLORIDE 0.9% 100 ML IVPB SCH ×3 (05:19→19:54)
[2017-11-03 07:26] LABS: Glucose,Whole Blood 82 mg/dL (75-99)
[2017-11-03] MEDS: INSULIN ASPART 100 UNIT/ML 1 ML 10 ML VIAL SQ SCH ×7 (07:57→21:44)
[2017-11-03] MEDS: DOCUSATE 100 MG CAP PO SCH ×2 (07:59→19:55)
[2017-11-03] MEDS: ENOXAPARIN 40 MG/0.4 ML SYRINGE SQ SCH (07:59)
[2017-11-03] MEDS: NYSTATIN 100,000 UNIT/ML SUSP 500,000 UNIT/5 ML CUP PO SCH ×4 (08:00→19:57)
[2017-11-03] MEDS: LOSARTAN 50 MG TAB PO SCH (08:00)
[2017-11-03] MEDS: TROSPIUM CHLORIDE 20 MG TABLET PO SCH ×2 (08:00→19:55)
[2017-11-03] MEDS: PIOGLITAZONE 15 MG TAB PO SCH (08:00)
[2017-11-03] MEDS: PANTOPRAZOLE 40 MG/10 ML VIAL IVP SCH (08:00)
[2017-11-03] MEDS: LACTATED RINGERS 1,000 ML IV SCH (08:01)
[2017-11-03] MEDS: MEMANTINE HCL PO SCH (08:07)
[2017-11-03] MEDS: DONEPEZIL HCL PO SCH (08:07)
[2017-11-03] MEDS: IPRATROPIUM-ALBUTEROL 3 ML NEB INHALATION SCH ×4 (09:06→20:17)
[2017-11-03] MEDS: VANCOMYCIN 1,500 MG in SODIUM CHLORIDE 0.9% 250 ML IVPB SCH ×2 (09:25→21:47)
[2017-11-03] MEDS: HYDROmorphone 1 MG/ML 1 ML SYRINGE IVP PRN ×3 (09:29→19:57)
--- NOTE | 2017-11-03 10:13 | P.PN ---
Subjective Progress Note Date: 11/03/17 Principal diagnosis: Obstructing left colon cancer The patient resting comfortably in chair. She has had some oral intake. She has had some mild incisional pain. Her colostomy is functional. Objective - Vital Signs Vital signs: Vital Signs Temp 97.3 F L 11/03/17 07:00 Pulse 95 11/03/17 07:00 Resp 20 11/03/17 07:00 BP 108/69 11/03/17 07:00 Pulse Ox 95 11/03/17 07:00 Intake & Output 11/02/17 11/03/17 11/03/17 18:59 06:59 18:59 Intake Total 0 Balance 0 Weight 79.7 kg Intake: Oral 0 Other: Voiding Method Bedside Commode Bedside Commode ABP, PAP, CO, CI - Last Documented Arterial Blood Pressure 117/43 - Constitutional General appearance: Present: average body habitus, cooperative - Gastrointestinal Gastrointestinal Comment(s): Abdomen soft. Incision site is clean and intact. Colostomy has some liquid stool within it. - Labs CBC & Chem 7: 11/02/17 07:33 11/02/17 07:33 Labs: Abnormal Lab Results - Last 24 Hours (Table) 11/02/17 11/02/17 11/02/17 Range/Units 12:39 16:58 17:13 POC Glucose (mg/dL) 136 H 56 L 58 L (75-99) mg/dL 11/02/17 11/03/17 Range/Units 20:39 01:53 POC Glucose (mg/dL) 141 H 112 H (75-99) mg/dL Microbiology - Last 24 Hours (Table) 10/31/17 13:48 Catheter Tip Culture - Final Catheter Tip 10/30/17 08:25 Blood Culture - Preliminary Blood No Growth after 72 hours 10/30/17 09:06 Blood Culture - Preliminary Blood No Growth after 72 hours Assessment and Plan Plan: Status post left colectomy with end colostomy, status post right colectomy for cecal perforation with ileal colon anastomosis. Patient's is doing well. I anticipate she will be able to discharge home in 24-48 hours.
[2017-11-03 11:33] LABS: Glucose,Whole Blood 112 mg/dL (75-99)
[2017-11-03 17:37] LABS: Glucose,Whole Blood 135 mg/dL (75-99)
[2017-11-03] MEDS: BACLOFEN 10 MG TAB PO SCH (19:55)
[2017-11-03 20:59] LABS: Glucose,Whole Blood 141 mg/dL (75-99)
[2017-11-03] MEDS: INSULIN DETEMIR 100 UNIT/ML 10 ML VIAL SQ SCH (21:47)
[2017-11-04] MEDS: CIPROFLOXACIN 0.3% OPHTH SOLN 5 ML BTL BOTH EYES SCH ×6 (00:55→20:34)
[2017-11-04 02:09] LABS: Glucose,Whole Blood 111 mg/dL (75-99)
[2017-11-04] MEDS: MEROPENEM 2 GM in SODIUM CHLORIDE 0.9% 100 ML IVPB SCH ×3 (04:02→20:34)
[2017-11-04] MEDS: LACTATED RINGERS 1,000 ML IV SCH (05:17)
[2017-11-04] MEDS: HYDROmorphone 1 MG/ML 1 ML SYRINGE IVP PRN ×4 (05:18→18:23)
[2017-11-04 07:09] LABS: Glucose,Whole Blood 104 mg/dL (75-99)
[2017-11-04] MEDS: INSULIN ASPART 100 UNIT/ML 1 ML 10 ML VIAL SQ SCH ×7 (07:16→22:16)
[2017-11-04] MEDS: IPRATROPIUM-ALBUTEROL 3 ML NEB INHALATION SCH ×4 (07:51→18:29)
[2017-11-04] MEDS: ENOXAPARIN 40 MG/0.4 ML SYRINGE SQ SCH (08:03)
[2017-11-04] MEDS: TROSPIUM CHLORIDE 20 MG TABLET PO SCH ×2 (08:04→20:36)
[2017-11-04] MEDS: DOCUSATE 100 MG CAP PO SCH ×2 (08:04→20:36)
[2017-11-04] MEDS: PIOGLITAZONE 15 MG TAB PO SCH (08:04)
[2017-11-04] MEDS: LOSARTAN 50 MG TAB PO SCH (08:04)
[2017-11-04] MEDS: PANTOPRAZOLE 40 MG/10 ML VIAL IVP SCH (08:04)
[2017-11-04] MEDS: NYSTATIN 100,000 UNIT/ML SUSP 500,000 UNIT/5 ML CUP PO SCH ×4 (08:04→22:10)
[2017-11-04] MEDS: MEMANTINE HCL PO SCH (08:12)
[2017-11-04] MEDS: DONEPEZIL HCL PO SCH (08:12)
--- NOTE | 2017-11-04 09:19 | P.PN ---
Progress Note - Text Progress Note Date: 11/04/17 The patient has complaints of a headache. She also has some complaints of incisional pain. She states her throat is dry. On exam her vital signs appear stable. Her abdomen is soft. There is some mild incisional tenderness. There is no rebound or guarding. There is a large amount of stool in the colostomy. History of obstructing left colon cancer with cecal perforation. Patient has undergone right colectomy with ileocolonic anastomosis and left colectomy with end colostomy. Patient's leukocytosis was thought to be due to her central line. She will have her CBC drawn again tomorrow. If she has any further abdominal pain we will perform a CAT scan of the abdomen pelvis to rule out any possible abscess.
[2017-11-04] MEDS: VANCOMYCIN 1,500 MG in SODIUM CHLORIDE 0.9% 250 ML IVPB SCH ×2 (10:17→22:10)
[2017-11-04 11:54] LABS: Glucose,Whole Blood 104 mg/dL (75-99)
[2017-11-04 14:08] LABS: Glucose,Whole Blood 119 mg/dL (75-99)
[2017-11-04] MEDS: HYDROcodone/APAP 7.5-325MG 1 EACH TAB PO PRN (15:37)
[2017-11-04 17:04] LABS: Glucose,Whole Blood 156 mg/dL (75-99)
[2017-11-04] MEDS: BACLOFEN 10 MG TAB PO SCH (20:36)
[2017-11-04 21:03] LABS: Glucose,Whole Blood 63 mg/dL (75-99)
[2017-11-04 21:23] LABS: Glucose,Whole Blood 58 mg/dL (75-99)
[2017-11-04 21:40] LABS: Glucose,Whole Blood 68 mg/dL (75-99)
[2017-11-04 22:10] LABS: Glucose,Whole Blood 84 mg/dL (75-99)
[2017-11-04] MEDS: INSULIN DETEMIR 100 UNIT/ML 10 ML VIAL SQ SCH (22:16)
--- NOTE | 2017-11-04 22:18 | PN ---
PROGRESS NOTE I am covering for Dr. Oscar. DATE OF SERVICE: 11/04/2017. HISTORY OF PRESENT ILLNESS: This 72-year-old woman who was admitted after right colectomy for obstructing left colon cancer and sigmoid perforation, is being closely monitored. Patient is complaining of severe abdominal pain and the patient has had bilateral leg edema as well. Dr. Church is following the patient closely. An ultrasound of the legs was negative for DVT. No chest pain. No palpitations. No fever. EXAM: Alert and oriented x3. Pulse 92, blood pressure 150/68, respirations 16, temperature 98.8, pulse ox 98% on room air. HEENT: Conjunctivae normal. LUNGS: Breath sounds diminished at the bases. Few scattered rhonchi. ABDOMEN: Soft, nontender. LEGS: Bilateral leg edema. NERVOUS SYSTEM: Diffusely weak. LABS: Glucose 104, 104, 119, 156. ASSESSMENT: 1. Status post exploratory laparotomy and colectomy with colostomy. 2. History of cecal perforation and obstructive left colonic mass. 3. Possible acute hypoxic respiratory failure. 4. Anemia. 5. Generalized weakness and abdominal pain. 6. History of cholelithiasis. 7. Pyuria. 8. Hyponatremia. 9. Diabetes type 2. 10.Hypertension. 11.Gastroesophageal reflux disease. 12.Hypophosphatemia. 13.Dementia. RECOMMENDATIONS: Recommend to continue current management. Continue with continue medications. Multiple consultants including Pulmonary and Infectious Disease are following the patient. Patient is on antibiotics. We will continue to monitor. Dr. Oscar will follow. Further management to follow. See orders for details. MMODL / IJN: [id number] /
[2017-11-04 22:57] LABS: Glucose,Whole Blood 131 mg/dL (75-99)
[2017-11-05] MEDS: CIPROFLOXACIN 0.3% OPHTH SOLN 5 ML BTL BOTH EYES SCH ×7 (01:03→23:02)
[2017-11-05 02:16] LABS: Glucose,Whole Blood 182 mg/dL (75-99)
[2017-11-05] MEDS: HYDROmorphone 1 MG/ML 1 ML SYRINGE IVP PRN ×5 (02:24→22:56)
[2017-11-05] MEDS: LACTATED RINGERS 1,000 ML IV SCH ×2 (03:41→21:22)
[2017-11-05] MEDS: MEROPENEM 2 GM in SODIUM CHLORIDE 0.9% 100 ML IVPB SCH ×3 (03:52→20:18)
[2017-11-05 07:19] LABS: Glucose,Whole Blood 149 mg/dL (75-99)
[2017-11-05] MEDS: IPRATROPIUM-ALBUTEROL 3 ML NEB INHALATION SCH ×4 (07:26→20:24)
[2017-11-05] MEDS: NYSTATIN 100,000 UNIT/ML SUSP 500,000 UNIT/5 ML CUP PO SCH ×4 (08:03→23:02)
[2017-11-05] MEDS: INSULIN ASPART 100 UNIT/ML 1 ML 10 ML VIAL SQ SCH ×7 (08:03→22:46)
[2017-11-05] MEDS: DOCUSATE 100 MG CAP PO SCH ×2 (08:03→20:19)
[2017-11-05] MEDS: PIOGLITAZONE 15 MG TAB PO SCH (08:03)
[2017-11-05] MEDS: ENOXAPARIN 40 MG/0.4 ML SYRINGE SQ SCH (08:03)
[2017-11-05] MEDS: PANTOPRAZOLE 40 MG/10 ML VIAL IVP SCH (08:04)
[2017-11-05 08:20] LABS: Basophils % (A) 0 %; Eosinophils # (A) 0.1 k/uL (0-0.7); Eosinophils % (A) 2 %; HCT 31.4 % (34.0-46.0); HGB 10.1 gm/dL (11.4-16.0); Hypochromasia Slight; Lymphocytes # (A) 1.2 k/uL (1.0-4.8); Lymphocytes % (A) 14 %; MCH 27.1 pg (25.0-35.0); MCV 84.6 fL (80.0-100.0); Mean Platelet Volume 7.5; Monocytes # (A) 0.6 k/uL (0-1.0); Monocytes % (A) 7 %; Neutrophils # (A) 6.1 k/uL (1.3-7.7); Neutrophils % (A) 74 %; Platelet Count 467 k/uL (150-450); RBC 3.71 m/uL (3.80-5.40); RDW 15.8 % (11.5-15.5); WBC 8.2 k/uL (3.8-10.6)
[2017-11-05] MEDS: LOSARTAN 50 MG TAB PO SCH (08:35)
[2017-11-05] MEDS: TROSPIUM CHLORIDE 20 MG TABLET PO SCH ×2 (08:35→20:19)
[2017-11-05] MEDS: HYDROcodone/APAP 7.5-325MG 1 EACH TAB PO PRN ×4 (09:12→22:57)
[2017-11-05] MEDS: DONEPEZIL HCL PO SCH (10:50)
[2017-11-05] MEDS: MEMANTINE HCL PO SCH (10:50)
[2017-11-05] MEDS: VANCOMYCIN 1,500 MG in SODIUM CHLORIDE 0.9% 250 ML IVPB SCH ×2 (10:50→23:18)
[2017-11-05 12:06] LABS: Anion Gap 4 mmol/L; Blood Urea Nitrogen 6 mg/dL (7-17); Calcium 8.4 mg/dL (8.4-10.2); Carbon Dioxide 23 mmol/L (22-30); Chloride 111 mmol/L (98-107); Glucose 150 mg/dL (74-99); Sodium 138 mmol/L (137-145)
[2017-11-05 12:07] LABS: Glucose,Whole Blood 59 mg/dL (75-99)
[2017-11-05 12:07] LABS: Glucose,Whole Blood 65 mg/dL (75-99)
[2017-11-05 12:18] LABS: Glucose,Whole Blood 156 mg/dL (75-99)
[2017-11-05] MEDS: FUROSEMIDE 10 MG/ML 4 ML VIAL IV SCH ×2 (12:58→20:18)
[2017-11-05 14:27] LABS: Glucose,Whole Blood 223 mg/dL (75-99)
--- NOTE | 2017-11-05 16:33 | P.PN ---
Progress Note - Text Progress Note Date: 11/05/17 The patient resting comfortably in her chair. She has some minimal complaints of abdominal pain. Her white count is normal. On exam her vital signs are stable. Her abdomen is soft. Her incision is clean dry and intact. There is liquid stool in her colostomy bag. Status post left colectomy and right colectomy with ileocolonic anastomosis. The patient is doing fairly well. She can hopefully be discharged home tomorrow.
--- NOTE | 2017-11-05 16:38 | PN ---
PROGRESS NOTE DATE OF SERVICE: 11/05/2017. I am covering for Dr. Oscar. HISTORY OF PRESENT ILLNESS: This 72-year-old woman was admitted after exploratory laparotomy, colectomy and colostomy is being closely monitored. Patient had bilateral leg swelling also. The patient is possibly looking for PT, OT evaluation also. No chest pain. No palpitations. No fever. PHYSICAL EXAM: Alert and oriented x3. Pulse is 86, blood pressure 117/71, respiration 20, temperature 98.8, pulse ox 94% on room air. HEENT: Conjunctivae normal. NECK: No jugular venous distention. CARDIOVASCULAR: S1, S2 RESPIRATORY: Breath sounds diminished in the bases. A few scattered rhonchi, no crackles. ABDOMEN: Soft, nontender. LEGS: Bilateral leg edema. NERVOUS SYSTEM: No focal deficits. LABS: WBC 8, hemoglobin 10.7. Accu-Cheks noted. ASSESSMENT: 1. Status post exploratory laparotomy, colectomy and colostomy. 2. History of cecal perforation and obstruction of the left chronic mass. 3. Postoperative acute hypoxic respiratory failure. 4. Anemia. 5. Generalized weakness. 6. Abdominal pain. 7. History of cholelithiasis. 8. Pyuria. 9. Hyponatremia. 10.Diabetes mellitus type 2. 11.Hypertension. 12.Gastroesophageal reflux disease. 13.Hypophosphatemia. 14.Dementia. RECOMMENDATIONS AND DISCUSSION: I recommend to continue current management and symptomatic treatment, incentive spirometry. I would start the patient on a small dose of Lasix and continue to monitor. Monitor blood sugars closely. PT/OT evaluation, possible ECF rehab. Guarded prognosis. Further recommendations to follow. Continue the DVT prophylaxis. Continue the rest of the medications. Dr. Oscar will follow. MMODL / IJN: [id number] /
[2017-11-05 17:08] LABS: Glucose,Whole Blood 165 mg/dL (75-99)
[2017-11-05] MEDS: BACLOFEN 10 MG TAB PO SCH (20:19)
[2017-11-05] MEDS: INSULIN DETEMIR 100 UNIT/ML 10 ML VIAL SQ SCH (20:31)
[2017-11-05 20:50] LABS: Glucose,Whole Blood 171 mg/dL (75-99)
--- NOTE | 2017-11-05 22:58 | P.PN ---
Subjective Progress Note Date: 11/05/17 This is a 72-year-old female patient who has had ongoing problems with abdominal pain for a few months but had been worsening. In September the patient was referred to Dr. Church however she did not follow up. She then presented to [facility] emergency center on October 22 complaining of abdominal pain, decreased appetite heartburn, no nausea or vomiting and lack of bowel movement. She was initially found to have fecal stasis along with dilated loops of the small bowel. NG tube was placed and there was return of significant amount of gastric material. She was treated conservatively until she had further abdominal distention and x-ray of the abdomen showed free air. Patient was taken for exploratory laparotomy on October 24 with right colectomy and left colectomy and partial omentectomy and diverticular colostomy. She was then transferred to the intensive care unit where she was intubated for approximately 24 hours. She was started on TPN which is continued. She has had episodes of fever starting on October 25 of 101.4 and has ongoing leukocytosis currently at 15. On the she had a repeat urinalysis done which was clear with leukoesterase small and bacteria occasional. Urine culture is in progress. She does have previous blood cultures are showing no growth after 24 hours. She has been treated with Levaquin and Flagyl due to ALLERGY to penicillin. According to the patient, daughters at the bedside and nursing staff, patient has been essentially and active. She transferred from bed to chair today with physical therapy. She complains of weakness in her legs unable to lift her left leg and weakness of her right arm and feels that everything is very heavy. She is having output from her colostomy and brown liquid stool. She complains of frequent incontinence of urine for which she is wearing a depends. Patient states that she has had this problem prior to this admission and was on medication for it. Her Cruz catheter has been removed. Patient is eating very little and Ensure has been added. She remains on TPN with access of right central line which is to be removed today and catheter tip sent for culture. She has had a PICC line placed in the left arm. Patient complains about abdominal pain which is not controlled and she forgets to take her medicine when it is due and then her pain is more significant. She states the pain is why she is not moving and doing physical therapy. Suggested that patient keep track of her next dose of pain medicine on her board and also to request pain medicine before physical therapy works with her. 11/02/2017 72-year-old woman is started have some recovery from her surgery. She is no longer on TPN, has developed some appetite and has had solid foods throughout the day. Despite this she has a very negative attitude, relates nobody is helping her, and is quite uncooperative. 11/05/2017 patient continues recover from her surgery. She's been seen by the surgeon and continues to have improvement with no plans for further surgical intervention. Patient is doing well off of TPN. Pain is improving but persists. No nausea or emesis or diarrhea are related. Objective - Vital Signs Vital signs: Vital Signs Temp 96.9 F L 11/05/17 14:32 Pulse 92 11/05/17 20:34 Resp 16 11/05/17 14:32 BP 119/63 11/05/17 14:32 Pulse Ox 96 11/05/17 20:24 Intake & Output 11/05/17 11/05/17 11/06/17 06:59 18:59 06:59 Other: Voiding Method Bedside Commode # Voids 5 1 3 # Bowel Movements 0 ABP, PAP, CO, CI - Last Documented Arterial Blood Pressure 117/43 - Exam Gen: This is a 72-year-old patient seen sitting in a chair at the bedside in no acute distress. HEENT: Head is atraumatic, normocephalic. Pupils equal, round. Sclerae is anicteric. Mucous membranes of the mouth are somewhat dry. NECK: Supple. No JVD. No lymphadenopathy. No thyromegaly. LUNGS: Clear to auscultation. No wheezes or rhonchi. No intercostal retractions. HEART: Regular rate and rhythm. No murmur. ABDOMEN: Soft. Bowel sounds are present. +[address] on the left side draining brown liquid stool. Large dressing in place to the right abdomen which was not removed for evaluation.. EXTREMITIES: Trace bilateral pedal edema. Dorsalis pedis is +2 bilaterally. NEUROLOGICAL: Patient is awake, alert and oriented x3 - Labs CBC & Chem 7: 11/05/17 07:32 11/05/17 07:32 Labs: Abnormal Lab Results - Last 24 Hours (Table) 11/04/17 11/05/1718 Range/Units 22:45 02:04 07:09 RBC (3.80-5.40) m/uL Hgb (11.4-16.0) gm/dL Hct (34.0-46.0) % RDW (11.5-15.5) % Plt Count (150-450) k/uL Chloride (98-107) mmol/L BUN (7-17) mg/dL Creatinine (0.52-1.04) mg/dL Glucose (74-99) mg/dL POC Glucose (mg/dL) 131 H 182 H 149 H (75-99) mg/dL 11/05/17 11/05/17 11/05/17 Range/Units 07:32 07:32 11:31 RBC 3.71 L (3.80-5.40) m/uL Hgb 10.1 L (11.4-16.0) gm/dL Hct 31.4 L (34.0-46.0) % RDW 15.8 H (11.5-15.5) % Plt Count 467 H (150-450) k/uL Chloride 111 H (98-107) mmol/L BUN 6 L (7-17) mg/dL Creatinine 0.50 L (0.52-1.04) mg/dL Glucose 150 H (74-99) mg/dL POC Glucose (mg/dL) 65 L (75-99) mg/dL 11/05/17 11/05/17 11/05/17 Range/Units 11:46 12:13 14:23 RBC (3.80-5.40) m/uL Hgb (11.4-16.0) gm/dL Hct (34.0-46.0) % RDW (11.5-15.5) % Plt Count (150-450) k/uL Chloride (98-107) mmol/L BUN (7-17) mg/dL Creatinine (0.52-1.04) mg/dL Glucose (74-99) mg/dL POC Glucose (mg/dL) 59 L 156 H 223 H (75-99) mg/dL 11/05/17 11/05/17 Range/Units 17:03 20:49 RBC (3.80-5.40) m/uL Hgb (11.4-16.0) gm/dL Hct (34.0-46.0) % RDW (11.5-15.5) % Plt Count (150-450) k/uL Chloride (98-107) mmol/L BUN (7-17) mg/dL Creatinine (0.52-1.04) mg/dL Glucose (74-99) mg/dL POC Glucose (mg/dL) 165 H 171 H (75-99) mg/dL Microbiology - Last 24 Hours (Table) 10/30/17 08:25 Blood Culture - Final Blood No Growth after 144 hours 10/30/17 09:06 Blood Culture - Final Blood No Growth after 144 hours Laboratory Results WBC 8.2 k/uL (3.8-10.6) 11/05/17 07:32 RBC 3.71 m/uL (3.80-5.40) L 11/05/17 07:32 Hgb 10.1 gm/dL (11.4-16.0) L 11/05/17 07:32 Hct 31.4 % (34.0-46.0) L 11/05/17 07:32 MCV 84.6 fL (80.0-100.0) 11/05/17 07:32 MCH 27.1 pg (25.0-35.0) 11/05/17 07:32 MCHC 32.0 g/dL (31.0-37.0) 11/05/17 07:32 RDW 15.8 % (11.5-15.5) H 11/05/17 07:32 Plt Count 467 k/uL (150-450) H 11/05/17 07:32 Neutrophils % 74 % 11/05/17 07:32 Lymphocytes % 14 % 11/05/17 07:32 Monocytes % 7 % 11/05/17 07:32 Eosinophils % 2 % 11/05/17 07:32 Basophils % 0 % 11/05/17 07:32 Neutrophils # 6.1 k/uL (1.3-7.7) 11/05/17 07:32 Lymphocytes # 1.2 k/uL (1.0-4.8) 11/05/17 07:32 Monocytes # 0.6 k/uL (0-1.0) 11/05/17 07:32 Eosinophils # 0.1 k/uL (0-0.7) 11/05/17 07:32 Basophils # 0.0 k/uL (0-0.2) 11/05/17 07:32 Manual Slide Review Performed 10/29/17 08:19 Hypochromasia Slight 11/05/17 07:32 Sample Site casey 10/25/17 12:00 ABG pH 7.45 (7.35-7.45) 10/25/17 12:00 ABG pCO2 32 mmHg (35-45) L 10/25/17 12:00 ABG pO2 134 mmHg (83-108) H 10/25/17 12:00 ABG HCO3 22 mmol/L (21-25) 10/25/17 12:00 ABG Total CO2 23 mmol/L (19-24) 10/25/17 12:00 ABG O2 Saturation 99.6 % (94-97) H 10/25/17 12:00 ABG Base Excess -2.0 mmol/L 10/25/17 12:00 Solo Test no 10/25/17 12:00 FiO2 40 % 10/25/17 12:00 Sodium 138 mmol/L (137-145) 11/05/17 07:32 Potassium 4.0 mmol/L (3.5-5.1) 11/05/17 07:32 Chloride 111 mmol/L (98-107) H 11/05/17 07:32 Carbon Dioxide 23 mmol/L (22-30) 11/05/17 07:32 Anion Gap 4 mmol/L 11/05/17 07:32 BUN 6 mg/dL (7-17) L 11/05/17 07:32 Creatinine 0.50 mg/dL (0.52-1.04) L 11/05/17 07:32 Est GFR (CKD-EPI)AfAm >90 (>60 ml/min/1.73 sqM) 11/05/17 07:32 Est GFR (CKD-EPI)NonAf >90 (>60 ml/min/1.73 sqM) 11/05/17 07:32 Glucose 150 mg/dL (74-99) H 11/05/17 07:32 POC Glucose (mg/dL) 171 mg/dL (75-99) H 11/05/17 20:49 POC Glu Nurse'S Assistant ID Taryn Mckeon 11/05/17 20:49 Calcium 8.4 mg/dL (8.4-10.2) 11/05/17 07:32 Ionized Calcium Randall 5.0 mg/dL (4.5-5.3) 10/26/17 12:58 Phosphorus 4.3 mg/dL (2.5-4.5) 11/02/17 07:33 Magnesium 2.1 mg/dL (1.6-2.3) 11/02/17 07:33 Total Bilirubin 0.3 mg/dL (0.2-1.3) 10/26/17 12:58 AST 16 U/L (14-36) 10/26/17 12:58 ALT 37 U/L (9-52) 10/26/17 12:58 Alkaline Phosphatase 39 U/L (38-126) 10/26/17 12:58 Total Protein 3.6 g/dL (6.3-8.2) L 10/26/17 12:58 Albumin 1.9 g/dL (3.5-5.0) L 10/26/17 12:58 Triglycerides 62 mg/dL (<150) 10/26/17 12:58 Amylase 41 U/L (30-110) 10/22/17 12:34 Lipase 100 U/L (23-300) 10/22/17 12:34 Urine Color Yellow 10/30/17 19:00 Urine Appearance Clear (Clear) 10/30/17 19:00 Urine pH 7.0 (5.0-8.0) 10/30/17 19:00 Ur Specific [place] 1.010 (1.001-1.035) 10/30/17 19:00 Urine Protein Negative (Negative) 10/30/17 19:00 Urine Glucose (UA) 4+ (Negative) H 10/30/17 19:00 Urine Ketones Negative (Negative) 10/30/17 19:00 Urine Blood Negative (Negative) 10/30/17 19:00 Urine Nitrite Negative (Negative) 10/30/17 19:00 Urine Bilirubin Negative (Negative) 10/30/17 19:00 Urine Urobilinogen <2.0 mg/dL (<2.0) 10/30/17 19:00 Ur Leukocyte Esterase Small (Negative) H 10/30/17 19:00 Urine RBC 1 /hpf (0-5) 10/30/17 19:00 Urine WBC 4 /hpf (0-5) 10/30/17 19:00 Ur Squamous Epith Cells 1 /hpf (0-4) 10/30/17 19:00 Urine Bacteria Occasional /hpf (None) H 10/30/17 19:00 Hyaline Casts 1 /lpf (0-2) 10/22/17 13:02 Urine Mucus Rare /hpf (None) H 10/30/17 19:00 Vancomycin Trough 17.4 ug/mL 11/02/17 21:09 Blood Type B Positive 10/24/17 13:49 Blood Type Confirm B Positive 10/24/17 08:02 Blood Type Recheck CABO Indicated 10/24/17 13:49 Antibody Screen NEGATIVE 10/24/17 13:49 Spec Expiration Date 10/27/2017 - 9 10/24/17 13:49 Microbiology 10/30/17 08:25 Blood Blood Culture - Final No Growth after 144 hours 10/30/17 09:06 Blood Blood Culture - Final No Growth after 144 hours 10/31/17 13:48 Catheter Tip Catheter Tip Culture - Final 10/30/17 19:00 Urine,Voided Urine Culture - Final Assessment and Plan (1) Colon neoplasm Current Visit: Yes Status: Acute Code(s): D49.0 - NEOPLASM OF UNSPECIFIED BEHAVIOR OF DIGESTIVE SYSTEM SNOMED Code(s): 466114292 (2) Fever Narrative/Plan: This 72-year-old woman has a very complex hospital stay regarding her history of months of abdominal pain eventually had surgical intervention was found to have evidence of colon cancer. Since then she having difficulties with fever and leukocytosis. Cultures negative so far but there are concerns to potential pneumonia and line related infection and consequently the consult requested antibiotics have been altered to meropenem and vancomycin with the above concerns. Cultures are in progress. 11/02/2017. Cultures remain negative at this point in time the patient has had improvement of her status in that she is now off of TPN, she is tolerating a diet and is not having significant abdominal pain at the moment. Catheter tip cultures negative as are her blood cultures. Is responding well to current antimicrobial therapy. The improvement is related to the patient however she is in a very unpleasant mood at this time. She relates that no one is helping her and that she will never get better. We do reinforce the obvious improvements that she has had over the last few days. Although she is able to voice the improvements she refuses to see that she is having improvement at this time. And as noted was distinctly unpleasant and difficult to communicate with. In plain language she was educated that she has been very ill, she 72 years of age and is going to take her many weeks to have any significant recovery from this level of illness. She is in charge of how quickly she will recover by participating in rehabilitation course. She again states that she simply isn't going to get better. Again reinforced that she has been very ill, it is our expectation is that she will have improvement and that she needs to be hopeful that she'll occur. 11/05/2017 patient has had some improvement overall, sitting upright able to eat her dinner. Pain is better controlled but still somewhat persistent but again improved. Surgeries evaluated and likely she'll be discharged to rehab in the near future. Ideally would complete for further days of meropenem for her intra-abdominal infection responded well to this course of antibiotic therapy. No positive cultures are noted vancomycin is discontinued. Leukocytosis has resolved clinically improved. Current Visit: Yes Status: Acute Code(s): R50.9 - FEVER, UNSPECIFIED SNOMED Code(s): 354046006
[2017-11-06] MEDS: HYDROcodone/APAP 7.5-325MG 1 EACH TAB PO PRN ×5 (00:59→21:55)
[2017-11-06] MEDS: MEROPENEM 1 GM in SODIUM CHLORIDE 0.9% 100 ML IVPB SCH ×4 (01:00→23:22)
[2017-11-06 01:56] LABS: Glucose,Whole Blood 55 mg/dL (75-99)
[2017-11-06 02:00] VITALS: RESP 18
[2017-11-06 02:15] LABS: Glucose,Whole Blood 62 mg/dL (75-99)
[2017-11-06 02:39] LABS: Glucose,Whole Blood 80 mg/dL (75-99)
[2017-11-06 03:17] LABS: Glucose,Whole Blood 106 mg/dL (75-99)
[2017-11-06 04:18] LABS: Glucose,Whole Blood 105 mg/dL (75-99)
[2017-11-06] MEDS: CIPROFLOXACIN 0.3% OPHTH SOLN 5 ML BTL BOTH EYES SCH ×3 (05:11→12:00)
[2017-11-06 07:31] LABS: Glucose,Whole Blood 106 mg/dL (75-99)
[2017-11-06] MEDS: INSULIN ASPART 100 UNIT/ML 1 ML 10 ML VIAL SQ SCH ×4 (08:35→20:46)
[2017-11-06] MEDS: IPRATROPIUM-ALBUTEROL 3 ML NEB INHALATION SCH ×4 (08:46→19:42)
[2017-11-06] MEDS: NYSTATIN 100,000 UNIT/ML SUSP 500,000 UNIT/5 ML CUP PO SCH ×4 (08:47→20:47)
[2017-11-06] MEDS: DONEPEZIL HCL PO SCH (08:48)
[2017-11-06] MEDS: MEMANTINE HCL PO SCH (08:48)
[2017-11-06] MEDS: TROSPIUM CHLORIDE 20 MG TABLET PO SCH ×2 (08:48→20:17)
[2017-11-06] MEDS: ENOXAPARIN 40 MG/0.4 ML SYRINGE SQ SCH (08:48)
[2017-11-06] MEDS: PANTOPRAZOLE 40 MG/10 ML VIAL IVP SCH (08:48)
[2017-11-06] MEDS: PIOGLITAZONE 15 MG TAB PO SCH (08:49)
[2017-11-06] MEDS: FUROSEMIDE 10 MG/ML 4 ML VIAL IV SCH (08:49)
[2017-11-06] MEDS: DOCUSATE 100 MG CAP PO SCH ×2 (08:49→20:17)
[2017-11-06] MEDS: LOSARTAN 50 MG TAB PO SCH (08:49)
[2017-11-06] MEDS: PANTOPRAZOLE 40 MG TABLET PO SCH (08:51)
[2017-11-06] MEDS ORDERED: VANCOMYCIN TROUGH DUE 1 EACH MISC MISCELLANE ONE (09:00)
[2017-11-06] MEDS ORDERED: busPIRone HCl 10 MG TAB PO SCH (09:00)
[2017-11-06] MEDS ORDERED: POTASSIUM CHLORIDE ER 20 MEQ TAB.ER PO SCH (09:00)
[2017-11-06 09:44] LABS: Anion Gap 5 mmol/L; Blood Urea Nitrogen 7 mg/dL (7-17); Calcium 8.9 mg/dL (8.4-10.2); Carbon Dioxide 28 mmol/L (22-30); Chloride 107 mmol/L (98-107); Glucose 131 mg/dL (74-99); Potassium 4.2 mmol/L (3.5-5.1); Sodium 140 mmol/L (137-145)
[2017-11-06 09:49] LABS: Basophils % (A) 0 %; Eosinophils # (A) 0.2 k/uL (0-0.7); Eosinophils % (A) 3 %; HCT 32.8 % (34.0-46.0); HGB 10.4 gm/dL (11.4-16.0); Hypochromasia Slight; Lymphocytes # (A) 1.2 k/uL (1.0-4.8); Lymphocytes % (A) 16 %; MCHC 31.6 g/dL (31.0-37.0); MCV 85.4 fL (80.0-100.0); Mean Platelet Volume 7.5; Monocytes # (A) 0.6 k/uL (0-1.0); Monocytes % (A) 8 %; Neutrophils # (A) 5.1 k/uL (1.3-7.7); Neutrophils % (A) 70 %; Platelet Count 519 k/uL (150-450); RBC 3.84 m/uL (3.80-5.40); RDW 15.9 % (11.5-15.5); WBC 7.2 k/uL (3.8-10.6)
--- NOTE | 2017-11-06 10:37 | CDI ---
Last Revision, March 2017 Date: 11/06/2017 12:00:00 AM From: Ginger AGARWAL,RN,CCDS Admit Date: 10/22/2017 2:02:00 PM Patient Name: Carmen Morocho Visit Number: [id number] ATTENTION: The Clinical Documentation Specialists (CDI) and [facility] Coding Staff appreciate your assistance in clarifying documentation. Please respond to the clarification below the line at the bottom and electronically sign. The CDI & [facility] Coding staff will review the response and follow-up if needed. Please note: Queries are made part of the Legal Health Record. If you have any questions, please contact the author of this message via ITS. Dr. Patrick Oscar Clarification is sought regarding the documentation of suspected Sepsis. Suspected sepsis with fever, leukocytosis, and tachycardia due to intraabdominal infectious process secondary to cecal perforation or other infectious etiology is noted in several progress notes. History/Risk Factors: presenting with constipation and abd pain found to have Colon CA with acute cecal perforation due to obs left colonic mass with OR on of exp lap and rt and left colectomy, partial omenectomy and diverting colostomy, DM2, moderate protein calorie malnutrition, and dementia. Postoperative respiratory failure requiring mechanical ventilation Clinical Indicators: ID notes episodes of fever starting in October 25 of 101.4 with ongoing leukocytosis WBC 10/22 11.4 to high of 18.7 on 11/01 with current Wbcs of 8.2 Blood cultures urine cultures cath tip cultures Final with no growth Vitals signs 10/22 : 172/70 98.1 63 18 to VS on 10/25 143/38 101.4 hr to 106 RR to 26 Other Clinical Indicators: chest persistent bibasilar infiltrate and or atelectasis perhaps more pronounced in rt lung base versus post recent prior : Abd x-ray 10/22 ileus 10/24 free air Treatment has included : Flagyl and Levaquin due to PCN allergies, IV fluid bolus, IV Tylenol, Meropenem and Vancomycin ID Consult 10/31 Cultures negative so far but there are concerns to potential pneumonia and line related infection PN 11/05 ideally would complete for further days of meropenem for her intra-abdominal infection responded well to this course of antibiotic therapy. No positive cultures are noted vancomycin is discontinued In your professional opinion, please clarify if these findings signify one of the following conditions, whether the condition is POA, and cause, if known below the line. Sepsis ruled out Sepsis 2nd to unknown etiology treated Sepsis 2nd to treated Other, please specify Unable to determine Present on Admission: Yes No SIRS Criteria..2 or more of the following may indicate SIRS: Temperature < 96.8F (36C) or > 101.0F (38.3C) Heart Rate > 90 bpm Respiratory Rate > 20 breaths/min or PaCO2 < 32 mmHg White Blood Cell Count > 12,000 or < 4,000 cells/mm3 or > 10% bands Lactate >2.0 mmol/L (>4.0 is equivalent to septic shock) Please continue to document in your progress notes and discharge summary in order to capture severity of illness and risk of mortality. Include clinical findings that support your diagnosis. ____ MTDD
--- NOTE | 2017-11-06 11:53 | P.PN ---
Progress Note - Text Progress Note Date: 11/06/17 The patient's resting comfortably in her chair. She is being discharged to rehab tomorrow. She has no real complaints. On exam her vital signs are stable. Her abdomen soft. Her colostomy is functioning. Status post right colectomy with ileocolonic anastomosis and left colectomy with end colostomy. Patient will hopefully discharge to rehab in the a.m.
[2017-11-06 12:06] LABS: Glucose,Whole Blood 184 mg/dL (75-99)
--- NOTE | 2017-11-06 13:42 | P.PN ---
Subjective Progress Note Date: 11/06/17 72-year-old female who presented to the emergency room with a chief complaint of abdominal pain. The patient reports she has been having abdominal pain for a few months but it has worsened in severity over the last two weeks. She states she waited to come to the hospital after the 17 of October holiday because "all the good doctors go on vacation for the holidays and there would not be anyone good here to take care of me". The patient did have a CT scan of her abdomen in September 2017 due to abdominal pain which revealed large gallstones seen in the region of the gallbladder neck. No gallbladder wall thickening was identified. Mild hepatic steatosis. Moderate fecal stasis. Dilated loop of small bowel proximally measuring 3 cm. The patient was referred to see Dr. Church. However, the patient never followed through with this. She reports decreased appetite. The patient reports she was consuming mostly liquid foods and protein drinks. She reports she tried to eat small amounts of food but would get abdominal pain so she started chewing her food and then spitting it out. She states she has been drinking fluids but likely less than she usually does. She denies nausea or vomiting, however she does report a lot of heartburn and burping. She reports her last bowel movement was 2 1/2 weeks ago. She states she usually has a bowel movement every 2-3 days. She states she had a colonoscopy "years ago" and was told it was normal. She states she has been in bed for the last week due to weakness and fatigue. She denies any urinary symptoms such as frequency, burning, urgency, pain with urination, or odor. She denies fever or chills. Denies chest pain or pressure. She reports mild SOB when lying flat. The patient has a history of diabetes mellitus, hypertension, and gastroesophageal reflux disease. She also reports a history of short term memory loss but is unable to relay what medical condition this is from or what caused it. She is a lifelong non-smoker. She denies alcohol use or drug use. KUB x-ray revealed colonic distention with differential air fluid levels and small bowel dilation. However there is air noted within the distal colon and rectum therefore findings may relate to incomplete large bowel obstruction or ileus associated with colitis. Laboratory data: White count 11.4. Hemoglobin 13.2. Platelet count 251. Sodium 147. Potassium 3.5. Chloride 110. Carbon dioxide 18. BUN 15. Creatinine 0.69. Glucose 126. Total bilirubin 0.7. AST 19. ALT 30. Alkaline phosphatase 62. Amylase 41. Lipase 100. Urinalysis reveals clear yellow urine, 1+ proteinuria, 4+ ketones, 1+ bilirubin, moderate leukocyte esterase, 15 WBC. The patient was admitted to the hospital under the care of Dr. Oscar. Consultations were placed to general surgery. 10/23/2017 Patient seen and examined at the bedside. Patient continues to complain of abdominal pain. Soap suds enema was ordered yesterday but patient has been refusing. Patient states she will do enema this morning. Patient underwent CT of abdomen and pelvis yesterday which revealed dilated large and small bowel fluid levels consistent with generalized ileus. Minimal ascites fluid. Atelectasis at the left lung base. Large calcified gallstone. Hiatal hernia. Patient reports she drank oral contrast yesterday and then had an episode of emesis prior to her computed tomography scan. No further episodes of emesis since that time. Patient remains NPO except for ice chips. General surgery is following. 10/24/2017 Patient seen and examined at the bedside with Dr. Oscar. NG tube was inserted yesterday. Remains connected to LIS. Patient has had a total of approximately 1700cc out since insertion. Approximately 400cc since 0200. Patient does report passing flatus. No bowel movement today. Tolerating ice chips. Reports occasional nausea. Abdomen appears more distended today in comparison to yesterday. Sodium has improved to 144 today. Remains on LR at 100cc. Patient is scheduled for xray of her abdomen. 10/25/2017 Patient had abdominal xray yesterday which revealed free air. She was taken to the OR by Dr. Church. She underwent exploratory laparotomy with right colectomy, left colectomy, partial omentectomy. 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 A colostomy was also performed. She remained intubated and was transferred to the ICU overnight. She was seen and examined this morning in the ICU with Dr. Oscar. She remains vented on 40% Fio2. She is maintaining oxygen saturations greater than 92%. She is sedated on propofol. Patient does withdraw to painful stimuli. She remains hemodynamically stable. NG tube is intact to LIS with bilious output. Approximately 200cc in collection canister. Urinary catheter is intact with yellow urine. Dressing to abdomen is CDI with small area of shadowing to right upper corner of dressing. Colostomy is noted with minimal bloody drainage. 10/26/2017 Patient seen and examined at the bedside. Patient remains in the ICU. She was extubated yesterday. She remains on 2 L nasal cannula with oxygen saturations greater than 92%. Blood pressure has been stable. She is afebrile this morning however the patient did have a temperature last night of 101.1F. She remains on Levaquin and Flagyl. Chest x-ray reveals improved aeration of the lungs with minimal left basilar subsegmental atelectasis and trace pleural effusion. Patient is slightly tachycardic with a heart rate between 100-110. She has an epidural infusing at 5 mL an hour. Patient states her pain is tolerable at this time. Colostomy noted with minimal dark bloody output. NG tube intact to LIS. Indwelling urinary catheter remains intact. Patient denies chest pain or pressure. Denies shortness of breath. She reports dry mouth. White count is 11.6. Hemoglobin is 9.6, down from 11.2. Patient received a few liters of fluid yesterday due to decreased urine output which may account for drop in hemoglobin. 10/27/2017-notes per Dr. Oscar 10/28/2017-notes per Dr. Oscar 10/29/2017 Patient seen and examined at the bedside. Patient is awake and alert. Patient was started on clear liquids and is tolerating well. Denies nausea or vomiting. Patient states she feels as though she can not swallow and feels like she is choking at times, however patient is laying flat in bed and trying to drink. Patient encouraged to sit up in bed when attempting to drink liquids. Patients urinary catheter was discontinued yesterday. Patient is voiding in a brief. She has not been ambulating to the bathroom. She denies shortness of breath, chest pain, or pressure. TPN continues to infuse. Colostomy with small amount of brown output. Lab work from this morning is currently pending. 10/30/2017 Patient seen and examined at the bedside at the bedside on rounds with Dr. Oscar. Patient is sitting up in the chair. She states she does not feel well this morning. Patient did have a fever last night of 100.2. She was slightly tachycardic with a heart rate in the low 100s. She is afebrile this morning. She is tolerating clear liquid diet. Diet has not been advanced yet. Will defer to surgery. Patient continues to have TPN infusing. Blood sugars yesterday were in the 200s. Levemir and novolog with meals were added, in addition to novolog sliding scale. Spoke with dietary yesterday who states patients TPN has the minimal amount of dextrose possible. PT/OT are on consult. Patient continues to have generalized weakness and will likely require RADHA at the time of discharge. 10/31/2017 Patient seen and examined at the bedside. Patient is awake and alert. Patient reports she sat in the chair yesterday and worked with PT. She states she ambulated to the bathroom. Patient reports decreased appetite. She is tolerating PO intake without nausea or vomiting, but reports only taking a few bites of each meal. TPN continues to infuse. Patient is scheduled for midline IV insertion today. Lovenox to be held until after procedure. Right IJ to be removed afterwards and tip cultured. Infectious disease was consulted yesterday due to increasing WBC. Labs from this AM are pending. Patient was pancultured and results are currently pending. Chest x-ray completed yesterday reveals bilateral atelectasis. Patient was encouraged to increase activity as tolerated. Patient is to be up in the chair 3 with meals. Patients blood sugars have been in the 200s. Patient's Levemir was increased to 30 units yesterday. NovoLog with meals was also increased yesterday. Per nursing, they did not give 30 units of Levemir as ordered because the patient sugar was 159. Nursing only gave the patient 15 units of Levemir and did not notify physician. Patient's blood sugar this morning is 239. 11/01/2017-11/05/2017-Per covering provider 11/06/2017 Patient seen and examined at the bedside on rounds with Dr. Oscar. Patient is awake and alert. Patient remains on a regular diet and is tolerating without nausea or vomiting. Patient's white count has been trending downward and is currently within normal limits. Patient is being followed by infectious disease. Patient currently remains on meropenem. Dr. Carty recommends 4 more days of treatment. She has a PICC to left arm. She has been working with PT/OT. Plans are currently in progress for discharge to [facility] tomorrow. Objective - Vital Signs Vital signs: Vital Signs Temp 98.3 F 11/06/17 06:37 Pulse 96 11/06/17 08:56 Resp 18 11/06/17 06:37 BP 127/70 11/06/17 06:37 Pulse Ox 97 11/06/17 06:37 Intake & Output 11/05/17 11/06/17 11/06/17 18:59 06:59 18:59 Other: Voiding Method Bedside Commode Bedside Commode # Voids 1 3 ABP, PAP, CO, CI - Last Documented Arterial Blood Pressure 117/43 - Exam GENERAL: This is a 72-year-old female in no acute distress at the time of examination HEENT: Head is atraumatic, normocephalic. Pupils are equal, round, and reactive to light. Sclerae anicteric. Conjunctivae are clear. Mucus membranes of the mouth are moist. Neck is supple. RESPIRATORY: Clear to auscultation. No wheezing noted. Patient maintaining oxygen saturation greater than 92%. CARDIOVASCULAR: Regular rate and rhythm. S1 and S2 noted. No systolic or diastolic murmur auscultated. No JVD noted. No S3 or S4 noted. GASTROINTESTINAL: Dressing to abdomen is CDI. Colostomy is noted with brown liquid stool. Bowel sounds auscultated 4 quadrants INTEGUMENTARY: No cyanosis. No jaundice. No rashes noted. No cellulitis noted. EXTREMITIES: 2+ peripheral pulses. Minimal bilateral lower extremity edema. No calf tenderness noted. NEUROLOGIC: Cranial nerves II-XII intact. PSYCHIATRIC: Awake, alert, and oriented X 3. Appropriate affect. Intact judgement and insight. - Labs CBC & Chem 7: 11/06/17 08:42 11/06/17 08:42 Labs: Abnormal Lab Results - Last 24 Hours (Table) 11/05/17 11/05/17 11/05/17 Range/Units 14:23 17:03 20:49 Hgb (11.4-16.0) gm/dL Hct (34.0-46.0) % RDW (11.5-15.5) % Plt Count (150-450) k/uL Glucose (74-99) mg/dL POC Glucose (mg/dL) 223 H 165 H 171 H (75-99) mg/dL 11/06/17 11/06/17 11/06/17 Range/Units 01:44 02:13 03:07 Hgb (11.4-16.0) gm/dL Hct (34.0-46.0) % RDW (11.5-15.5) % Plt Count (150-450) k/uL Glucose (74-99) mg/dL POC Glucose (mg/dL) 55 L 62 L 106 H (75-99) mg/dL 11/06/17 11/06/17 11/06/17 Range/Units 04:16 07:10 08:42 Hgb 10.4 L (11.4-16.0) gm/dL Hct 32.8 L (34.0-46.0) % RDW 15.9 H (11.5-15.5) % Plt Count 519 H (150-450) k/uL Glucose (74-99) mg/dL POC Glucose (mg/dL) 105 H 106 H (75-99) mg/dL 11/06/17 11/06/17 Range/Units 08:42 12:03 Hgb (11.4-16.0) gm/dL Hct (34.0-46.0) % RDW (11.5-15.5) % Plt Count (150-450) k/uL Glucose 131 H (74-99) mg/dL POC Glucose (mg/dL) 184 H (75-99) mg/dL Microbiology - Last 24 Hours (Table) 10/30/17 08:25 Blood Culture - Final Blood No Growth after 144 hours 10/30/17 09:06 Blood Culture - Final Blood No Growth after 144 hours Assessment and Plan Plan: ASSESSMENT: Abdominal pain with constipation, patient reports no bowel movement for 2.5 weeks, initial imaging reveals large bowel obstruction, 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, s/p exploratory laparotomy and right and left colectomy and diverticular colostomy and partial omentectomy Postoperative acute hypoxic respiratory failure requiring mechanical ventilation , since extubated, an unexpected but potential outcome of surgery Anemia, hemoglobin 9.6, down from 11.2, suspect due to hemodilution from IV fluids/boluses, improving Suspected sepsis with fever, leukocytosis, and tachycardia due to intraabdominal infectious process secondary to cecal perforation or other infectious etiology Generalized weakness, secondary to abdominal pain, patient reports laying in bed x 1 week History of cholelithiasis Pyuria on admission UA, asymptomatic, patient denies any adverse urinary s/s Hypernatremia, resolved Diabetes mellitus, type II Hyperglycemia, suspect secondary to clear liquids and dextrose in TPN, improving Hypoglycemia, secondary to insulin administration Hypertension Gastroesophageal reflux disease Hypophosphatemia, resolved History of dementia Moderate protein calorie malnutrition, secondary to decreased PO intake Acute conjunctivitis, improving PLAN: General surgery on consult. Appreciate recommendations and input Consult oncology Infectious disease consulted yesterday. Await recommendations and input Continue antibiotics. Dr. Carty recommends meropenem for additional 4 days Increase activity. Encourage ambulation in the hallway NovoLog 10 units with meals was discontinued yesterday. Continue NovoLog sliding scale ACHS. Decrease Levemir from 30 units to 10 minutes at HS Discontinue IV Lasix. Patient to receive dose of PO Lasix tomorrow Begin Buspar 10mg BID for anxiety Monitor labs GI prophylaxis: Protonix 40 mg IV Daily DVT prophylaxis: Lovenox 40mg SQ Daily Monitor vital signs and address as appropriate Discharge planning: Patient lives at home with . Patient will require RADHA before returning home Further recommendations pending patient's course Nurse practitioner note has been reviewed by physician. Signing provider agrees with the documented findings, assessment, and plan of care.
[2017-11-06] MEDS: ACETAMINOPHEN TAB 325 MG TAB PO PRN ×2 (14:24→14:33)
[2017-11-06 17:16] LABS: Glucose,Whole Blood 167 mg/dL (75-99)
--- NOTE | 2017-11-06 18:56 | P.CONS ---
History of Present Illness - Reason for Consult Consult date: 11/06/17 colon adenocarcinoma Requesting physician: Valeria Tai - Chief Complaint SBO - History of Present Illness Pt seen today for new diagnosis of colon adenocarcinoma, s/p left and right colon resections with creation of ostomy. 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 loss, nausea, vomiting, she did note her appetite was less, no other physical c/o or acute changes that she can recall, no personal history of cancer, no family history of caner. Review of Systems 10 point ROS as stated in HPI Past Medical History Past Medical History: Cancer (11/01/17 adenocarcinoma stage II), Dementia, Diabetes Mellitus, GERD/Reflux, Hypertension Additional Past Medical History / Comment(s): "slight memory impairment", scoliosis, dizzy spells and balance issues History of Any Multi-Drug Resistant Organisms: None Reported Past Surgical History: Bowel Resection, Hysterectomy Additional Past Surgical History / Comment(s): rt breast bx-neg, dental implants , ostomy 11/01/17 Additional Past Anesthesia/Blood Transfusion Reaction / Comm: hx clausterphobia. difficulty waking after sx. pt stated that during sx once her heart stopped. Past Psychological History: No Psychological Hx Reported Smoking Status: Never smoker Past Alcohol Use History: None Reported Past Drug Use History: None Reported - Past Family History Mother Family Medical History: Myocardial Infarction (ND) Additional Family Medical History / Comment(s): grandmother had mi as well Father History Unknown: Yes Medications and Allergies Home Medications Medication Instructions Recorded Confirmed Type Baclofen 10 mg PO HS 10/22/17 10/22/17 History Fesoterodine Fumarate [Toviaz] 8 mg PO DAILY 10/22/17 10/22/17 History Glimepiride [Amaryl] 1 mg PO DAILY 10/22/17 10/22/17 History Losartan [Cozaar] 50 mg PO DAILY 10/22/17 10/22/17 History Memantine HCl/Donepezil HCl 1 cap PO DAILY 10/22/17 10/22/17 History [Namzaric 14 mg-10 mg Capsule] Pioglitazone [Actos] 15 mg PO DAILY 10/22/17 10/22/17 History Repaglinide [Prandin] 0.5 mg PO AC-LUNCH 10/22/17 10/22/17 History sitaGLIPtin [Januvia] 100 mg PO DAILY 10/22/17 10/22/17 History Allergies Allergy/AdvReac Type Severity Reaction Status Date / Time Iodinated Contrast- Oral and Allergy Anaphylaxis Verified 10/24/17 14:03 IV Dye iodine Allergy Anaphylaxis Verified 10/24/17 14:03 Penicillins Allergy Unknown Verified 10/24/17 14:03 Childhood shellfish derived [Shellfish] Allergy Anaphylaxis Verified 10/24/17 14:03 Physical Exam Vitals: Vital Signs Temp Pulse Pulse Resp BP Pulse Ox 11/06/17 15:49 96 11/06/17 15:41 92 11/06/17 14:30 97.5 F L 94 18 151/72 98 11/06/17 08:56 96 11/06/17 08:46 96 11/06/17 06:37 98.3 F 86 18 127/70 97 11/06/17 01:12 85 148/68 11/05/17 23:00 97.3 F L 89 18 128/54 97 11/05/17 20:34 92 11/05/17 20:24 96 96 Intake and Output 11/06/17 11/06/17 11/06/17 06:59 14:59 22:59 Intake Total 100 Output Total 600 Balance -500 Intake: Intake, IV Titration 100 Amount Meropenem 1 gm In Sodium 100 Chloride 0.9% 100 ml @ 100 mls/hr IVPB Q8HR [facility] Rx#:[id number] Output: Urine 600 Other: Voiding Method Bedside Commode Bedside Commode # Voids 3 3 Weight 79.7 kg - Constitutional General appearance: average body habitus, cooperative, no acute distress - EENT Eyes: anicteric sclerae, EOMI, normal appearance ENT: hearing grossly normal, normal oropharynx - Neck Neck: no lymphadenopathy - Respiratory Respiratory: bilateral: CTA - Cardiovascular Rhythm: regular Heart sounds: normal: S1, S2 Abnormal Heart Sounds: no systolic murmur, no diastolic murmur, no rub, no S3 Gallop, no S4 Gallop, no click, no other leg Peripheral Edema: bilateral: 2+ - Gastrointestinal LUQ ostomy, liquid, brown stool noted, decreased bowel sounds, surgical dressings C/D/I General gastrointestinal: distended - Integumentary Integumentary: pale - Neurologic Neurologic: CNII-XII intact - Musculoskeletal Musculoskeletal: generalized weakness, strength equal bilaterally - Psychiatric Psychiatric: A&O x's 3, appropriate affect, intact judgment & insight Results CBC & Chem 7: 11/06/17 08:42 11/06/17 08:42 Labs: Abnormal Lab Results - Last 24 Hours (Table) 11/05/17 11/06/17 11/06/17 Range/Units 20:49 01:44 02:13 Hgb (11.4-16.0) gm/dL Hct (34.0-46.0) % RDW (11.5-15.5) % Plt Count (150-450) k/uL Glucose (74-99) mg/dL POC Glucose (mg/dL) 171 H 55 L 62 L (75-99) mg/dL 11/06/17 11/06/17 11/06/17 Range/Units 03:07 04:16 07:10 Hgb (11.4-16.0) gm/dL Hct (34.0-46.0) % RDW (11.5-15.5) % Plt Count (150-450) k/uL Glucose (74-99) mg/dL POC Glucose (mg/dL) 106 H 105 H 106 H (75-99) mg/dL 11/06/17 11/06/17 11/06/17 Range/Units 08:42 08:42 12:03 Hgb 10.4 L (11.4-16.0) gm/dL Hct 32.8 L (34.0-46.0) % RDW 15.9 H (11.5-15.5) % Plt Count 519 H (150-450) k/uL Glucose 131 H (74-99) mg/dL POC Glucose (mg/dL) 184 H (75-99) mg/dL 11/06/17 Range/Units 17:04 Hgb (11.4-16.0) gm/dL Hct (34.0-46.0) % RDW (11.5-15.5) % Plt Count (150-450) k/uL Glucose (74-99) mg/dL POC Glucose (mg/dL) 167 H (75-99) mg/dL CT scan - abdomen: report reviewed CT scan - pelvis: report reviewed Assessment and Plan (1) Stage II carcinoma of colon Narrative/Plan: Case reviewed in detail with Dr. Walton. Pathology, surgical reports and CT scan reports reviewed. Discussed with pt new diagnosis of stage II colon adenocarcinoma. Explained to pt that the left colon had cancer, the right did not. The left colon was obstructed and the right was perforated. Based on the presentation, adjuvant chemotherapy would be the recommendation to reduce risk of cancer recurrence. Being that pt was alone, assured her that no treatment would be considered until she was adequately healed from surgery and had the opportunity to regain some strength. She will meet at that time with the Doctor and discuss recurrence risk percentages and what treatments would be appropriate. Also, Oncotype testing is going to be requested on the tumor to evaluate how aggressive tumor is. This testing further assists in decision making when considering chemo vs no chemo and recurrence of disease. Pt verbalized understanding most of what we discussed. Encouraged pt to have family come to appt with the Doctor. F/U appt will be scheduled. Requisition for Oncotype Dx already sent. Current Visit: Yes Status: Acute Priority: High Code(s): C18.9 - MALIGNANT NEOPLASM OF COLON, UNSPECIFIED SNOMED Code(s): 901396228 Time with Patient: Greater than 30 (counseling and coordingating care)
[2017-11-06] MEDS: BACLOFEN 10 MG TAB PO SCH (20:17)
[2017-11-06 20:33] LABS: Glucose,Whole Blood 154 mg/dL (75-99)
[2017-11-06] MEDS ORDERED: INSULIN DETEMIR 100 UNIT/ML 10 ML VIAL SQ SCH (21:00)
--- NOTE | 2017-11-06 21:33 | P.PN ---
Subjective Progress Note Date: 11/06/17 This is a 72-year-old female patient who has had ongoing problems with abdominal pain for a few months but had been worsening. In September the patient was referred to Dr. Church however she did not follow up. She then presented to [facility] emergency center on October 22 complaining of abdominal pain, decreased appetite heartburn, no nausea or vomiting and lack of bowel movement. She was initially found to have fecal stasis along with dilated loops of the small bowel. NG tube was placed and there was return of significant amount of gastric material. She was treated conservatively until she had further abdominal distention and x-ray of the abdomen showed free air. Patient was taken for exploratory laparotomy on October 24 with right colectomy and left colectomy and partial omentectomy and diverticular colostomy. She was then transferred to the intensive care unit where she was intubated for approximately 24 hours. She was started on TPN which is continued. She has had episodes of fever starting on October 25 of 101.4 and has ongoing leukocytosis currently at 15. On the she had a repeat urinalysis done which was clear with leukoesterase small and bacteria occasional. Urine culture is in progress. She does have previous blood cultures are showing no growth after 24 hours. She has been treated with Levaquin and Flagyl due to ALLERGY to penicillin. According to the patient, daughters at the bedside and nursing staff, patient has been essentially and active. She transferred from bed to chair today with physical therapy. She complains of weakness in her legs unable to lift her left leg and weakness of her right arm and feels that everything is very heavy. She is having output from her colostomy and brown liquid stool. She complains of frequent incontinence of urine for which she is wearing a depends. Patient states that she has had this problem prior to this admission and was on medication for it. Her Cruz catheter has been removed. Patient is eating very little and Ensure has been added. She remains on TPN with access of right central line which is to be removed today and catheter tip sent for culture. She has had a PICC line placed in the left arm. Patient complains about abdominal pain which is not controlled and she forgets to take her medicine when it is due and then her pain is more significant. She states the pain is why she is not moving and doing physical therapy. Suggested that patient keep track of her next dose of pain medicine on her board and also to request pain medicine before physical therapy works with her. 11/02/2017 72-year-old woman is started have some recovery from her surgery. She is no longer on TPN, has developed some appetite and has had solid foods throughout the day. Despite this she has a very negative attitude, relates nobody is helping her, and is quite uncooperative. 11/05/2017 patient continues recover from her surgery. She's been seen by the surgeon and continues to have improvement with no plans for further surgical intervention. Patient is doing well off of TPN. Pain is improving but persists. No nausea or emesis or diarrhea are related. 11/06/2017 patient is having some improvement in that her appetite is allowing her to eat some solids she's having output from her ostomy. Continues to have a bizarre affect. She has a suture that has been retained into the right side of her neck from a catheter. I offered to remove it and obtain a suture removal kit. Upon arriving back with some student nurses she relates that she does not want me to remove the suture in her neck that has been left behind. She relates that her beautician can remove this, we relate that it is a retained suture and would require medical removal. She then just relates that she doesn't trust me. Objective - Vital Signs Vital signs: Vital Signs Temp 97.5 F L 11/06/17 14:30 Pulse 96 11/06/17 20:00 Resp 18 11/06/17 14:30 BP 151/72 11/06/17 14:30 Pulse Ox 98 11/06/17 14:30 Intake & Output 11/06/17 11/06/17 11/07/17 06:59 18:59 06:59 Intake Total 100 Output Total 600 Balance -500 Weight 79.7 kg Intake: Intake, IV Titration 100 Amount Meropenem 1 gm In Sodium 100 Chloride 0.9% 100 ml @ 100 mls/hr IVPB Q8HR [facility] Rx#:[id number] Output: Urine 600 Other: Voiding Method Bedside Commode Bedside Commode # Voids 3 3 3 ABP, PAP, CO, CI - Last Documented Arterial Blood Pressure 117/43 - Exam Gen: This is a 72-year-old patient seen sitting in a chair at the bedside in no acute distress. HEENT: Head is atraumatic, normocephalic. Pupils equal, round. Sclerae is anicteric. Mucous membranes of the mouth are somewhat dry. NECK: Supple. No JVD. No lymphadenopathy. No thyromegaly. LUNGS: Clear to auscultation. No wheezes or rhonchi. No intercostal retractions. HEART: Regular rate and rhythm. No murmur. ABDOMEN: Soft. Bowel sounds are present. +[address] on the left side draining brown liquid stool. Large dressing in place to the right abdomen which was not removed for evaluation.. EXTREMITIES: Trace bilateral pedal edema. Dorsalis pedis is +2 bilaterally. NEUROLOGICAL: Patient is awake, alert and oriented x3 has a very strange affect , concern to ability for reasonable thinking - Labs CBC & Chem 7: 11/06/17 08:42 11/06/17 08:42 Labs: Abnormal Lab Results - Last 24 Hours (Table) 11/06/17 11/06/17 11/06/17 Range/Units 01:44 02:13 03:07 Hgb (11.4-16.0) gm/dL Hct (34.0-46.0) % RDW (11.5-15.5) % Plt Count (150-450) k/uL Glucose (74-99) mg/dL POC Glucose (mg/dL) 55 L 62 L 106 H (75-99) mg/dL 11/06/17 11/06/17 11/06/17 Range/Units 04:16 07:10 08:42 Hgb 10.4 L (11.4-16.0) gm/dL Hct 32.8 L (34.0-46.0) % RDW 15.9 H (11.5-15.5) % Plt Count 519 H (150-450) k/uL Glucose (74-99) mg/dL POC Glucose (mg/dL) 105 H 106 H (75-99) mg/dL 11/06/17 11/06/17 11/06/17 Range/Units 08:42 12:03 17:04 Hgb (11.4-16.0) gm/dL Hct (34.0-46.0) % RDW (11.5-15.5) % Plt Count (150-450) k/uL Glucose 131 H (74-99) mg/dL POC Glucose (mg/dL) 184 H 167 H (75-99) mg/dL 11/06/17 Range/Units 20:31 Hgb (11.4-16.0) gm/dL Hct (34.0-46.0) % RDW (11.5-15.5) % Plt Count (150-450) k/uL Glucose (74-99) mg/dL POC Glucose (mg/dL) 154 H (75-99) mg/dL Laboratory Results WBC 7.2 k/uL (3.8-10.6) 11/06/17 08:42 RBC 3.84 m/uL (3.80-5.40) 11/06/17 08:42 Hgb 10.4 gm/dL (11.4-16.0) L 11/06/17 08:42 Hct 32.8 % (34.0-46.0) L 11/06/17 08:42 MCV 85.4 fL (80.0-100.0) 11/06/17 08:42 MCH 27.0 pg (25.0-35.0) 11/06/17 08:42 MCHC 31.6 g/dL (31.0-37.0) 11/06/17 08:42 RDW 15.9 % (11.5-15.5) H 11/06/17 08:42 Plt Count 519 k/uL (150-450) H 11/06/17 08:42 Neutrophils % 70 % 11/06/17 08:42 Lymphocytes % 16 % 11/06/17 08:42 Monocytes % 8 % 11/06/17 08:42 Eosinophils % 3 % 11/06/17 08:42 Basophils % 0 % 11/06/17 08:42 Neutrophils # 5.1 k/uL (1.3-7.7) 11/06/17 08:42 Lymphocytes # 1.2 k/uL (1.0-4.8) 11/06/17 08:42 Monocytes # 0.6 k/uL (0-1.0) 11/06/17 08:42 Eosinophils # 0.2 k/uL (0-0.7) 11/06/17 08:42 Basophils # 0.0 k/uL (0-0.2) 11/06/17 08:42 Manual Slide Review Performed 10/29/17 08:19 Hypochromasia Slight 11/06/17 08:42 Sample Site casey 10/25/17 12:00 ABG pH 7.45 (7.35-7.45) 10/25/17 12:00 ABG pCO2 32 mmHg (35-45) L 10/25/17 12:00 ABG pO2 134 mmHg (83-108) H 10/25/17 12:00 ABG HCO3 22 mmol/L (21-25) 10/25/17 12:00 ABG Total CO2 23 mmol/L (19-24) 10/25/17 12:00 ABG O2 Saturation 99.6 % (94-97) H 10/25/17 12:00 ABG Base Excess -2.0 mmol/L 10/25/17 12:00 Solo Test no 10/25/17 12:00 FiO2 40 % 10/25/17 12:00 Sodium 140 mmol/L (137-145) 11/06/17 08:42 Potassium 4.2 mmol/L (3.5-5.1) 11/06/17 08:42 Chloride 107 mmol/L (98-107) 11/06/17 08:42 Carbon Dioxide 28 mmol/L (22-30) 11/06/17 08:42 Anion Gap 5 mmol/L 11/06/17 08:42 BUN 7 mg/dL (7-17) 11/06/17 08:42 Creatinine 0.55 mg/dL (0.52-1.04) 11/06/17 08:42 Est GFR (CKD-EPI)AfAm >90 (>60 ml/min/1.73 sqM) 11/06/17 08:42 Est GFR (CKD-EPI)NonAf >90 (>60 ml/min/1.73 sqM) 11/06/17 08:42 Glucose 131 mg/dL (74-99) H 11/06/17 08:42 POC Glucose (mg/dL) 154 mg/dL (75-99) H 11/06/17 20:31 POC Glu Cloth Cutting Machine Operator ID Taryn Mckeon 11/06/17 20:31 Calcium 8.9 mg/dL (8.4-10.2) 11/06/17 08:42 Ionized Calcium Randall 5.0 mg/dL (4.5-5.3) 10/26/17 12:58 Phosphorus 4.3 mg/dL (2.5-4.5) 11/02/17 07:33 Magnesium 2.1 mg/dL (1.6-2.3) 11/02/17 07:33 Total Bilirubin 0.3 mg/dL (0.2-1.3) 10/26/17 12:58 AST 16 U/L (14-36) 10/26/17 12:58 ALT 37 U/L (9-52) 10/26/17 12:58 Alkaline Phosphatase 39 U/L (38-126) 10/26/17 12:58 Total Protein 3.6 g/dL (6.3-8.2) L 10/26/17 12:58 Albumin 1.9 g/dL (3.5-5.0) L 10/26/17 12:58 Triglycerides 62 mg/dL (<150) 10/26/17 12:58 Amylase 41 U/L (30-110) 10/22/17 12:34 Lipase 100 U/L (23-300) 10/22/17 12:34 Urine Color Yellow 10/30/17 19:00 Urine Appearance Clear (Clear) 10/30/17 19:00 Urine pH 7.0 (5.0-8.0) 10/30/17 19:00 Ur Specific [place] 1.010 (1.001-1.035) 10/30/17 19:00 Urine Protein Negative (Negative) 10/30/17 19:00 Urine Glucose (UA) 4+ (Negative) H 10/30/17 19:00 Urine Ketones Negative (Negative) 10/30/17 19:00 Urine Blood Negative (Negative) 10/30/17 19:00 Urine Nitrite Negative (Negative) 10/30/17 19:00 Urine Bilirubin Negative (Negative) 10/30/17 19:00 Urine Urobilinogen <2.0 mg/dL (<2.0) 10/30/17 19:00 Ur Leukocyte Esterase Small (Negative) H 10/30/17 19:00 Urine RBC 1 /hpf (0-5) 10/30/17 19:00 Urine WBC 4 /hpf (0-5) 10/30/17 19:00 Ur Squamous Epith Cells 1 /hpf (0-4) 10/30/17 19:00 Urine Bacteria Occasional /hpf (None) H 10/30/17 19:00 Hyaline Casts 1 /lpf (0-2) 10/22/17 13:02 Urine Mucus Rare /hpf (None) H 10/30/17 19:00 Vancomycin Trough 14.8 ug/mL 11/06/17 08:42 Blood Type B Positive 10/24/17 13:49 Blood Type Confirm B Positive 10/24/17 08:02 Blood Type Recheck CABO Indicated 10/24/17 13:49 Antibody Screen NEGATIVE 10/24/17 13:49 Spec Expiration Date 10/27/2017 - 2349 10/24/17 13:49 Microbiology 10/30/17 08:25 Blood Blood Culture - Final No Growth after 144 hours 10/30/17 09:06 Blood Blood Culture - Final No Growth after 144 hours 10/31/17 13:48 Catheter Tip Catheter Tip Culture - Final 10/30/17 19:00 Urine,Voided Urine Culture - Final Assessment and Plan (1) Colon neoplasm Current Visit: Yes Status: Acute Code(s): D49.0 - NEOPLASM OF UNSPECIFIED BEHAVIOR OF DIGESTIVE SYSTEM SNOMED Code(s): 033906575 (2) Fever Narrative/Plan: This 72-year-old woman has a very complex hospital stay regarding her history of months of abdominal pain eventually had surgical intervention was found to have evidence of colon cancer. Since then she having difficulties with fever and leukocytosis. Cultures negative so far but there are concerns to potential pneumonia and line related infection and consequently the consult requested antibiotics have been altered to meropenem and vancomycin with the above concerns. Cultures are in progress. 11/02/2017. Cultures remain negative at this point in time the patient has had improvement of her status in that she is now off of TPN, she is tolerating a diet and is not having significant abdominal pain at the moment. Catheter tip cultures negative as are her blood cultures. Is responding well to current antimicrobial therapy. The improvement is related to the patient however she is in a very unpleasant mood at this time. She relates that no one is helping her and that she will never get better. We do reinforce the obvious improvements that she has had over the last few days. Although she is able to voice the improvements she refuses to see that she is having improvement at this time. And as noted was distinctly unpleasant and difficult to communicate with. In plain language she was educated that she has been very ill, she 72 years of age and is going to take her many weeks to have any significant recovery from this level of illness. She is in charge of how quickly she will recover by participating in rehabilitation course. She again states that she simply isn't going to get better. Again reinforced that she has been very ill, it is our expectation is that she will have improvement and that she needs to be hopeful that she'll occur. 11/05/2017 patient has had some improvement overall, sitting upright able to eat her dinner. Pain is better controlled but still somewhat persistent but again improved. Surgeries evaluated and likely she'll be discharged to rehab in the near future. Ideally would complete for further days of meropenem for her intra-abdominal infection responded well to this course of antibiotic therapy. No positive cultures are noted vancomycin is discontinued. Leukocytosis has resolved clinically improved. 11/06/2017 patient does have some further improvement of her status. Not having fevers and is eating well. Surgery is allowing her transfer to rehab to complete her course of physical therapy and 7 days of meropenem for the intra- abdominal infection related to the perforated viscus found the time of her surgery. She is improved in many ways. She over does have a strange affect. Potentially the nursing staff for surgeon can remove the attain suture in the right side of her neck. Current Visit: Yes Status: Acute Code(s): R50.9 - FEVER, UNSPECIFIED SNOMED Code(s): 633358243
[2017-11-07 02:14] LABS: Glucose,Whole Blood 120 mg/dL (75-99)
[2017-11-07 07:26] LABS: Glucose,Whole Blood 101 mg/dL (75-99)
[2017-11-07] MEDS: INSULIN ASPART 100 UNIT/ML 1 ML 10 ML VIAL SQ SCH ×2 (07:30→13:19)
[2017-11-07] MEDS: HYDROcodone/APAP 7.5-325MG 1 EACH TAB PO PRN ×3 (07:38→15:57)
[2017-11-07] MEDS: MEMANTINE HCL PO SCH (08:26)
[2017-11-07] MEDS: DONEPEZIL HCL PO SCH (08:26)
[2017-11-07] MEDS: NYSTATIN 100,000 UNIT/ML SUSP 500,000 UNIT/5 ML CUP PO SCH ×2 (08:27→13:19)
[2017-11-07] MEDS: ENOXAPARIN 40 MG/0.4 ML SYRINGE SQ SCH (08:28)
[2017-11-07] MEDS: MEROPENEM 1 GM in SODIUM CHLORIDE 0.9% 100 ML IVPB SCH ×2 (08:35→15:29)
[2017-11-07] MEDS: IPRATROPIUM-ALBUTEROL 3 ML NEB INHALATION SCH ×3 (08:56→15:47)
[2017-11-07] MEDS ORDERED: FUROSEMIDE 20 MG TAB PO SCH (09:00)
[2017-11-07] MEDS: TROSPIUM CHLORIDE 20 MG TABLET PO SCH (09:11)
[2017-11-07] MEDS: DOCUSATE 100 MG CAP PO SCH (09:11)
[2017-11-07] MEDS: LOSARTAN 50 MG TAB PO SCH (09:12)
[2017-11-07] MEDS: PANTOPRAZOLE 40 MG TABLET PO SCH (09:12)
[2017-11-07] MEDS: ACETAMINOPHEN TAB 325 MG TAB PO PRN (09:18)
[2017-11-07] MEDS: PIOGLITAZONE 15 MG TAB PO SCH (09:55)
--- NOTE | 2017-11-07 12:15 | P.DS ---
Providers Date of admission: 10/22/17 14:02 Expected date of discharge: 11/07/17 Attending physician: Patrick Oscar Consults: 10/22/17 14:02 Consult Physician Urgent Consulting Provider: Rj Church Consult Reason/Comments: Large bowel obstruction Do you want consulting provider notified?: Yes 10/24/17 16:39 Consult Physician Routine Consulting Provider: Elena Melgar Consult Reason/Comments: ICU management Do you want consulting provider notified?: Yes 10/30/17 20:14 Consult Physician Routine Consulting Provider: Pascual Carty Consult Reason/Comments: Antibiotic management Do you want consulting provider notified?: Yes 11/06/17 08:29 Consult Physician Routine Consulting Provider: Godfrey Walton Consult Reason/Comments: new dx of colon CA-s/p colectomy Do you want consulting provider notified?: Yes Primary care physician: Patrick Oscar [facility] Course: 72-year-old female who presented to the emergency room with a chief complaint of abdominal pain. The patient reports she has been having abdominal pain for a few months but it has worsened in severity over the last two weeks. She states she waited to come to the hospital after the 17 of October holiday because "all the good doctors go on vacation for the holidays and there would not be anyone good here to take care of me". The patient did have a CT scan of her abdomen in September 2017 due to abdominal pain which revealed large gallstones seen in the region of the gallbladder neck. No gallbladder wall thickening was identified. Mild hepatic steatosis. Moderate fecal stasis. Dilated loop of small bowel proximally measuring 3 cm. The patient was referred to see Dr. Church. However, the patient never followed through with this. She reports decreased appetite. The patient reports she was consuming mostly liquid foods and protein drinks. She reports she tried to eat small amounts of food but would get abdominal pain so she started chewing her food and then spitting it out. She states she has been drinking fluids but likely less than she usually does. She denies nausea or vomiting, however she does report a lot of heartburn and burping. She reports her last bowel movement was 2 1/2 weeks ago. She states she usually has a bowel movement every 2-3 days. She states she had a colonoscopy "years ago" and was told it was normal. She states she has been in bed for the last week due to weakness and fatigue. She denies any urinary symptoms such as frequency, burning, urgency, pain with urination, or odor. She denies fever or chills. Denies chest pain or pressure. She reports mild SOB when lying flat. The patient has a history of diabetes mellitus, hypertension, and gastroesophageal reflux disease. She also reports a history of short term memory loss but is unable to relay what medical condition this is from or what caused it. She is a lifelong non-smoker. She denies alcohol use or drug use. KUB x-ray revealed colonic distention with differential air fluid levels and small bowel dilation. However there is air noted within the distal colon and rectum therefore findings may relate to incomplete large bowel obstruction or ileus associated with colitis. Laboratory data: White count 11.4. Hemoglobin 13.2. Platelet count 251. Sodium 147. Potassium 3.5. Chloride 110. Carbon dioxide 18. BUN 15. Creatinine 0.69. Glucose 126. Total bilirubin 0.7. AST 19. ALT 30. Alkaline phosphatase 62. Amylase 41. Lipase 100. Urinalysis reveals clear yellow urine, 1+ proteinuria, 4+ ketones, 1+ bilirubin, moderate leukocyte esterase, 15 WBC. The patient was admitted to the hospital under the care of Dr. Oscar. Consultations were placed to general surgery. Patient underwent CT of abdomen and pelvis 10/22/2017 which revealed dilated large and small bowel fluid levels consistent with generalized ileus. Minimal ascites fluid. Atelectasis at the left lung base. Large calcified gallstone. Hiatal hernia. Patient had episode of emesis and increased distention and NG tube was inserted. The patient did not seem to be improving with conservative measures so the underwent abdominal xray which revealed free air. She underwent exploratory laparotomy with right colectomy, left colectomy, partial omentectomy. 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 A colostomy was also performed. She remained intubated and was transferred to the ICU overnight. She was successfully extubated the following morning and her respiratory status has been stable since that time. The patient had a right IJ placed and was receiving TPN. Her WBC started to climb. She was bryan cultured and IJ was removed. A left midline was inserted. Infectious disease was consulted. The patient has since been placed on merrom. Her WBC has been trending down and has been within normal limits. Cultures have all been negative. The patients diet was advanced as tolerated. She is tolerating a regular diet. Colostomy is functioning. Ostomy nurse was consulted and performed teaching with patient. The patient remains very weak and was slow to increase her activity. She required a lot of coaching and motivation to increase her activity. She is stable for discharge but requires [facility] at the time of discharge to regain her strength. She will be discharged with left midline catheter to complete course of antibiotics. After completion, midline may be discontinued at [facility]. Discharge Diagnosis: Abdominal pain with constipation, patient reports no bowel movement for 2.5 weeks, initial imaging reveals large bowel obstruction, 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, s/p exploratory laparotomy and right and left colectomy and diverticular colostomy and partial omentectomy Postoperative acute hypoxic respiratory failure requiring mechanical ventilation , since extubated, an unexpected but potential outcome of surgery Anemia, hemoglobin 9.6, down from 11.2, suspect due to hemodilution from IV fluids/boluses, improving Sepsis with fever, leukocytosis, and tachycardia due to intraabdominal infectious process secondary to cecal perforation or other infectious etiology such as infected TLC, however cultures have been negative, unknown etiology but patient has responded to antibiotics and infectious process has resolved Generalized weakness, secondary to abdominal pain, patient reports laying in bed x 1 week History of cholelithiasis Pyuria on admission UA, asymptomatic, patient denies any adverse urinary s/s Hypernatremia, resolved Diabetes mellitus, type II Hyperglycemia, suspect secondary to clear liquids and dextrose in TPN, improving Hypoglycemia, secondary to insulin administration Hypertension Gastroesophageal reflux disease Hypophosphatemia, resolved History of dementia Moderate protein calorie malnutrition, secondary to decreased PO intake Acute conjunctivitis, resolved Nurse practitioner note has been reviewed by physician. Signing provider agrees with the documented findings, assessment, and plan of care. Patient Condition at Discharge: Stable Plan - Discharge Summary Discharge Rx Participant: No New Discharge Prescriptions: New Benzocaine [place] [Hurricaine [place]] 1 spray MUCOUS MEM TID PRN can PRN Reason: Mouth Irritation Docusate [Colace] 100 mg PO BID cap HYDROcodone/APAP 7.5-325MG [[place] 7.5-325] 1 each PO Q4H PRN #18 tab PRN Reason: Pain Ipratropium-Albuterol Nebulize [Duoneb 0.5 mg-3 mg/3 ml Soln] 3 ml INHALATION RT-Q2H PRN ampul.neb PRN Reason: Shortness Of Breath Or Wheezing Pantoprazole [Protonix] 40 mg PO AC-BRKFST tablet. Meropenem [Merrem] 1 gm IVPB Q8HR #21 vial Continue Repaglinide [Prandin] 0.5 mg PO AC-LUNCH Fesoterodine Fumarate [Toviaz] 8 mg PO DAILY sitaGLIPtin [Januvia] 100 mg PO DAILY Pioglitazone [Actos] 15 mg PO DAILY Memantine HCl/Donepezil HCl [Namzaric 14 mg-10 mg Capsule] 1 cap PO DAILY Losartan [Cozaar] 50 mg PO DAILY Glimepiride [Amaryl] 1 mg PO DAILY Baclofen 10 mg PO HS Discharge Medication List Baclofen 10 mg PO HS 10/22/17 [History] Fesoterodine Fumarate [Toviaz] 8 mg PO DAILY 10/22/17 [History] Glimepiride [Amaryl] 1 mg PO DAILY 10/22/17 [History] Losartan [Cozaar] 50 mg PO DAILY 10/22/17 [History] Memantine HCl/Donepezil HCl [Namzaric 14 mg-10 mg Capsule] 1 cap PO DAILY [History] Pioglitazone [Actos] 15 mg PO DAILY 10/22/17 [History] Repaglinide [Prandin] 0.5 mg PO AC-LUNCH 10/22/17 [History] sitaGLIPtin [Januvia] 100 mg PO DAILY 10/22/17 [History] Benzocaine [place] [Hurricaine [place]] 1 spray MUCOUS MEM TID PRN can 11/07/17 [Rx ] Docusate [Colace] 100 mg PO BID cap 11/07/17 [Rx] HYDROcodone/APAP 7.5-325MG [[place] 7.5-325] 1 each PO Q4H PRN #18 tab 11/07/17 [ Rx] Ipratropium-Albuterol Nebulize [Duoneb 0.5 mg-3 mg/3 ml Soln] 3 ml INHALATION RT -Q2H PRN ampul.neb 11/07/17 [Rx] Meropenem [Merrem] 1 gm IVPB Q8HR #21 vial 11/07/17 [Rx] Pantoprazole [Protonix] 40 mg PO AC-BRKFST tablet. 11/07/17 [Rx] Follow up Appointment(s)/Referral(s): Godfrey Walton MD [STAFF PHYSICIAN] - 4 Weeks Pascual Carty MD [STAFF PHYSICIAN] - 1 Week Patrick Oscar MD [Primary Care Provider] - 1-2 days Rj Church MD [STAFF PHYSICIAN] - 1 Week Ambulatory/Diagnostic Orders: Basic Metabolic Panel [LAB.AMB] Location: None Selected Complete Blood Count w/diff [LAB.AMB] Location: None Selected Patient Instructions/Handouts: Diverticulitis (GEN), Colostomy Care (GEN) Activity/Diet/Wound Care/Special Instructions: Colostomy Care Instructions: Last Appliance change: 11.01.2017 Current ostomy supplies: Convatec One Piece Cut to fit with filter #[id number] (three for transition after hospital) No sting prep pads (12 for transition) Ostomy powder (one bottle) Jamshid seals for skin crease before pouch application (four for transition) Change pouching system eery 3-5 days Empty pouching system when 1/2 to 1/3 full Rehab please have Mrs Morocho for DME ostomy supplies for home when discharged from the Rehab facility At that time Mrs Morocho may be able to utilize a disposable pouching system PICC line card given, change dressing every week or as needed. Cardiac, diabetic diet. Activity as tolerated, up with assist, fall precautions. Discharge Disposition: TRANSFER TO SNF/ECF
[2017-11-07 12:34] VITALS: PULSE 90
[2017-11-07 12:54] LABS: Glucose,Whole Blood 198 mg/dL (75-99)
[2017-11-07 14:36] VITALS: BP 129/71; TEMP 98.5
== END 2017-11-07 16:52 | DRG 329 ==
LOC: EC 11:35 → 4MS4W 14:02 → 6ICU 10-24 16:15 → 4MS4W 10-27 16:02
PROVIDERS: ADMIT Family Medicine; ATTEND Family Medicine
PROC: 0D1L0Z4 Bypass Transverse Colon to Cutaneous, Open Approach (ICD-10-PCS; principal; 2017-10-24 10:25)
PROC: 0DBU0ZZ Excision of Omentum, Open Approach (ICD-10-PCS; principal; 2017-10-24 10:25)
PROC: 0DBF0ZZ Excision of Right Large Intestine, Open Approach (ICD-10-PCS; principal; 2017-10-24 10:25)
PROC: 0DBG0ZZ Excision of Left Large Intestine, Open Approach (ICD-10-PCS; principal; 2017-10-24 10:25)
PROC: 02HV33Z Insertion of Infusion Device into Superior Vena Cava, Percutaneous Approach (ICD-10-PCS; 2017-10-31 09:15)
DX: C18.6 Malignant neoplasm of descending colon (principal); J96.01 Acute respiratory failure with hypoxia; K63.1 Perforation of intestine (nontraumatic); A41.9 Sepsis, unspecified organism; E44.0 Moderate protein-calorie malnutrition; E87.0 Hyperosmolality and hypernatremia; F05 Delirium due to known physiological condition; J98.11 Atelectasis; D50.0 Iron deficiency anemia secondary to blood loss (chronic); E11.65 Type 2 diabetes mellitus with hyperglycemia; E11.649 Type 2 diabetes mellitus with hypoglycemia without coma; E83.39 Other disorders of phosphorus metabolism; F03.90 Unspecified dementia, unspecified severity, without behavioral disturbance, psychotic disturbance, mood disturbance, and anxiety; H10.30 Unspecified acute conjunctivitis, unspecified eye; I10 Essential (primary) hypertension; K21.9 Gastro-esophageal reflux disease without esophagitis; K44.9 Diaphragmatic hernia without obstruction or gangrene; K52.9 Noninfective gastroenteritis and colitis, unspecified; K76.0 Fatty (change of) liver, not elsewhere classified; K80.20 Calculus of gallbladder without cholecystitis without obstruction; R32 Unspecified urinary incontinence; Z79.84 Long term (current) use of oral hypoglycemic drugs; Z82.49 Family history of ischemic heart disease and other diseases of the circulatory system; Z88.0 Allergy status to penicillin; Z90.710 Acquired absence of both cervix and uterus; Z93.3 Colostomy status; Z88.8 Allergy status to other drugs, medicaments and biological substances; Z91.041 Radiographic dye allergy status; Z91.013 Allergy to seafood; T38.3X5A Adverse effect of insulin and oral hypoglycemic [antidiabetic] drugs, initial encounter
CPT/HCPCS: 36415; 36569; 36600; 71045; 71046; 74018; 74021; 74176; 76937; 77001; 80048; 80053; 80202; 81001; 82150; 82330; 82805; 83690; 83735; 84100; 84478; 85025; 86850; 86900; 86901; 87040; 87070; 87086; 88307; 88309; 93970; 94002; 94003; 94640; 94760; 96360; 99285

== ENCOUNTER → 2018-03-06 | Outpatient (CLI) | payer BC ==
[2018-03-06 13:17] LABS: Potassium 4.4 mmol/L (3.5-5.1)
[2018-03-06 13:24] LABS: HCT 35.9 % (34.0-46.0); HGB 11.5 gm/dL (11.4-16.0); MCH 27.3 pg (25.0-35.0); MCV 85.3 fL (80.0-100.0); Mean Platelet Volume 7.8; Platelet Count 192 k/uL (150-450); RDW 15.5 % (11.5-15.5)
== END | disposition home or self-care (01) ==
LOC: LABPAT 11:58
PROVIDERS: ATTEND Surgery
DX: C18.9 Malignant neoplasm of colon, unspecified (principal)
CPT/HCPCS: 36415; 80051; 85027; 93005

== ENCOUNTER 2018-03-12 08:03 | Day surgery (SDC) | payer BC, MEDICARE ==
[~2018-03-12 08:03] MED LIST: LACTATED RINGERS 1,000 ML IV SCH
[2018-03-12 08:32] VITALS: TEMP 97.7
[2018-03-12] MEDS ORDERED: LIDOCAINE 1% 20 ML VIAL (10MG/ML) FOR IV START INTRADERMA ONE (08:32)
[2018-03-12] MEDS ORDERED: LACTATED RINGERS 1,000 ML IV ONE (08:32)
[2018-03-12] MEDS ORDERED: LIDOCAINE 1% INJ 10MG/ML (20 ML MDV) ONE (09:21)
[2018-03-12] MEDS ORDERED: PROPOFOL 10 MG/ML 20 ML VIAL IV ONE (09:21)
--- NOTE | 2018-03-12 09:30 | P.GSHP ---
History of Present Illness H&P Date: 03/12/18 Chief Complaint: History of colon cancer This is a 69-year-old female who's had a previous history of colon cancer. Patient presents today for colonoscopy. She is scheduled for reversal of colostomy tomorrow. Past Medical History Past Medical History: Cancer, Dementia, Diabetes Mellitus, GERD/Reflux, Hypertension, Osteoarthritis (OA) Additional Past Medical History / Comment(s): "slight memory impairment", scoliosis, hx migraines, bowel obstruction/colon cancer, leaky bladder History of Any Multi-Drug Resistant Organisms: None Reported Past Surgical History: Bowel Resection, Hysterectomy, Tonsillectomy Additional Past Surgical History / Comment(s): rt breast biopsy, dental implants , bowel resection with colostomy 11/01/17 Past Anesthesia/Blood Transfusion Reactions: Previous Problems w/ Anesthesia Additional Past Anesthesia/Blood Transfusion Reaction / Comment(s): hx claustrophobia. difficulty waking after sx. hallucinations post op, denies heart issues related to surgery Smoking Status: Never smoker - Past Family History Mother Family Medical History: No Reported History Additional Family Medical History / Comment(s): . Father History Unknown: Yes Medications and Allergies Home Medications Medication Instructions Recorded Confirmed Type Pioglitazone [Actos] 15 mg PO DAILY 10/22/17 03/11/18 History Repaglinide [Prandin] 0.5 mg PO DAILY 10/22/17 03/11/18 History sitaGLIPtin [Januvia] 100 mg PO DAILY 10/22/17 03/11/18 History Docusate [Colace] 100 mg PO BID cap 11/07/17 03/11/18 Rx Donepezil [Aricept] 10 mg PO DAILY 03/11/18 03/11/18 History Glimepiride [Amaryl] 1 mg PO AC-BRKFST 03/11/18 03/11/18 History Losartan Potassium [Cozaar] 50 mg PO DAILY 03/11/18 03/11/18 History Allergies Allergy/AdvReac Type Severity Reaction Status Date / Time cheese Allergy Unknown Verified 03/11/18 08:17 Iodinated Contrast- Oral and Allergy Anaphylaxis Verified 03/11/18 08:16 IV Dye iodine Allergy Anaphylaxis Verified 03/11/18 08:16 Penicillins Allergy Unknown Verified 03/11/18 08:16 Childhood potato Allergy Unknown Verified 03/11/18 08:17 rice Allergy Unknown Verified 03/11/18 08:17 shellfish derived [Shellfish] Allergy Anaphylaxis Verified 03/11/18 08:16 Surgical - Exam Vital Signs Temp Pulse Resp BP Pulse Ox 97.7 F 78 18 150/69 97 03/12/18 08:31 03/12/18 08:31 03/12/18 08:31 03/12/18 08:31 03/12/18 08:31 - General well developed, no distress - Eyes PERRL - ENT normal pinna - Neck no masses - Respiratory normal expansion - Cardiovascular Rhythm: regular - Abdomen Stoma left lower quadrant Abdomen: soft, non tender Assessment and Plan Assessment: She colon cancer. We'll perform colonoscopy.
[2018-03-12 09:47] VITALS: PULSE 76; RESP 16
[2018-03-12 09:49] LABS: Glucose,Whole Blood 103 mg/dL (75-99)
--- NOTE | 2018-03-12 09:50 | P.OP ---
Date of Procedure: 03/12/18 Preoperative Diagnosis: History of colon cancer Postoperative Diagnosis: Left colon polyp Procedure(s) Performed: Colonoscopy Anesthesia: MAC Surgeon: Rj Church Pathology: other (Left colon polyp) Condition: stable Disposition: PACU Description of Procedure: The patient's placed on the endoscopy table lateral position area she received IV sedation. Digital rectal exam was performed which revealed impacted stool. This was removed with finger disimpaction. The flexible colonoscope was then placed patient anus and passed throughout the rectum. The rectum is approximately 24 cm. The scope was withdrawn. Next, the colonoscope was passed through the colostomy. The the ileocolonic anastomosis visualized. The remaining ascending colon and transverse colon appeared normal. In the distal left colon near the colostomy there was a pedunculated polyp and this was removed with the snare. Scope was withdrawn for patient.
[2018-03-12] MEDS ORDERED: NA PHOS,M-B/NA PHOS,DI-BA 133 ML ENEMA RECTAL ONE (09:51)
[2018-03-12 10:04] VITALS: BP 144/54
== END 2018-03-12 11:00 | disposition home or self-care (01) ==
LOC: ORWHC2ENDO 08:03
PROVIDERS: ATTEND Surgery
DX: D12.4 Benign neoplasm of descending colon (principal); K21.9 Gastro-esophageal reflux disease without esophagitis; Z93.3 Colostomy status; I10 Essential (primary) hypertension; M19.90 Unspecified osteoarthritis, unspecified site; E11.9 Type 2 diabetes mellitus without complications; F03.90 Unspecified dementia, unspecified severity, without behavioral disturbance, psychotic disturbance, mood disturbance, and anxiety; G43.909 Migraine, unspecified, not intractable, without status migrainosus; Z79.84 Long term (current) use of oral hypoglycemic drugs; Z79.899 Other long term (current) drug therapy; Z91.041 Radiographic dye allergy status; Z91.011 Allergy to milk products; Z88.0 Allergy status to penicillin; Z91.013 Allergy to seafood; Z91.018 Allergy to other foods; Z91.048 Other nonmedicinal substance allergy status
CPT/HCPCS: 88305; 44394; J2001; J2704; 45378

== ENCOUNTER 2018-03-13 07:48 | Inpatient (IN) | payer BC, MEDICARE ==
[~2018-03-13 07:48] MED LIST changes: +DEXAMETHASONE SOD PHOSPHATE 10 MG/ML 1 ML VIAL IV ONE; +HEPARIN SODIUM,PORCINE 5,000 UNIT/ML 1 ML VIAL SQ ONE; -LACTATED RINGERS 1,000 ML IV SCH; +MIDAZOLAM 2 MG/2 ML VIAL IV PRN; +ONDANSETRON 4 MG/2 ML VIAL IVP ONE; +ceFAZolin IN SWFI 2 GM/20 ML SYRINGE IVP ONE; +fentaNYL (PF) 50 MCG/ML 2 ML AMP IV PRN; +metroNIDAZOLE-NS PMX 500 MG in SALINE 1 100ML.BAG IVPB ONE
[2018-03-13 08:24] LABS: Glucose,Whole Blood 210 mg/dL (75-99)
[2018-03-13] MEDS ORDERED: LACTATED RINGERS 1,000 ML IV ONE (08:24)
[2018-03-13] MEDS ORDERED: LIDOCAINE 1% 20 ML VIAL (10MG/ML) FOR IV START INTRADERMA ONE (08:25)
[2018-03-13] MEDS ORDERED: MIDAZOLAM 2 MG/2 ML VIAL IVP ONE (08:46)
[2018-03-13] MEDS ORDERED: fentaNYL (PF) 50 MCG/ML 2 ML AMP IVP ONE (08:46)
--- NOTE | 2018-03-13 09:24 | P.GSHP ---
History of Present Illness H&P Date: 03/13/18 Chief Complaint: History of obstructing colon cancer 's is a 72-year-old female who presents today for reversal of colostomy. Patient has a previous history of perforated colon cancer. Past Medical History Past Medical History: Cancer, Dementia, Diabetes Mellitus, GERD/Reflux, Hypertension, Osteoarthritis (OA) Additional Past Medical History / Comment(s): "slight memory impairment", scoliosis, hx migraines, bowel obstruction/colon cancer, leaky bladder History of Any Multi-Drug Resistant Organisms: None Reported Past Surgical History: Bowel Resection, Hysterectomy, Tonsillectomy Additional Past Surgical History / Comment(s): rt breast biopsy, dental implants , bowel resection with colostomy 11/01/17 Past Anesthesia/Blood Transfusion Reactions: Previous Problems w/ Anesthesia Additional Past Anesthesia/Blood Transfusion Reaction / Comment(s): hx claustrophobia. difficulty waking after sx. hallucinations post op, denies heart issues related to surgery Smoking Status: Never smoker - Past Family History Mother Family Medical History: No Reported History Additional Family Medical History / Comment(s): . Father History Unknown: Yes Medications and Allergies Home Medications Medication Instructions Recorded Confirmed Type Pioglitazone [Actos] 15 mg PO DAILY 10/22/17 03/11/18 History Repaglinide [Prandin] 0.5 mg PO DAILY 10/22/17 03/11/18 History sitaGLIPtin [Januvia] 100 mg PO DAILY 10/22/17 03/11/18 History Docusate [Colace] 100 mg PO BID cap 11/07/17 03/11/18 Rx Donepezil [Aricept] 10 mg PO DAILY 03/11/18 03/11/18 History Glimepiride [Amaryl] 1 mg PO AC-BRKFST 03/11/18 03/11/18 History Losartan Potassium [Cozaar] 50 mg PO DAILY 03/11/18 03/11/18 History Allergies Allergy/AdvReac Type Severity Reaction Status Date / Time cheese Allergy Unknown Verified 03/11/18 08:17 Iodinated Contrast- Oral and Allergy Anaphylaxis Verified 03/11/18 08:16 IV Dye iodine Allergy Anaphylaxis Verified 03/11/18 08:16 Penicillins Allergy Unknown Verified 03/11/18 08:16 Childhood potato Allergy Unknown Verified 03/11/18 08:17 rice Allergy Unknown Verified 03/11/18 08:17 shellfish derived [Shellfish] Allergy Anaphylaxis Verified 03/11/18 08:16 Surgical - Exam Vital Signs Temp Pulse Resp BP Pulse Ox 98.1 F 76 18 134/71 100 03/13/18 08:04 03/13/18 08:04 03/13/18 08:04 03/13/18 08:04 03/13/18 08:04 - General well developed, well nourished, no distress - Eyes PERRL - ENT normal pinna - Neck no masses - Respiratory normal expansion - Cardiovascular Rhythm: regular - Abdomen Colostomy left lower quadrant Abdomen: soft, non tender Results - Labs Abnormal Lab Results - Last 24 Hours (Table) 03/13/18 Range/Units 08:20 POC Glucose (mg/dL) 210 H (75-99) mg/dL Assessment and Plan Assessment: History of perforated colon cancer. We'll perform reversal of colostomy. Patient aware the risk of recurrent colostomy.
[2018-03-13] MEDS ORDERED: NALOXONE 0.4 MG/ML 1 ML VIAL IV PRN (10:35)
[2018-03-13] MEDS ORDERED: ROPIVACAINE 250 MG, fentaNYL (PF) 625 MCG in SODIUM CHLORIDE 0.9% 188 ML EPIDURAL PRN (10:35)
--- NOTE | 2018-03-13 12:28 | P.OP ---
Date of Procedure: 03/13/18 Preoperative Diagnosis: History of colon cancer Postoperative Diagnosis: History of colon cancer Procedure(s) Performed: Reversal of colostomy Repair of incisional hernia Lysis of adhesions Takedown of splenic flexure Anesthesia: BRENDAN Surgeon: Rj Church Estimated Blood Loss (ml): 20 Pathology: other (:) Condition: stable Description of Procedure: The patient's placed on the operating table in the supine position. She received general anesthesia. Her abdomen was prepped and draped usual sterile fashion. The patient had a colostomy left lateral abdominal wall. The abdomen was entered through a midline incision. There was a small incisional hernia. There were extensive adhesions. Approximately 20 minutes of operative time used to lyse adhesions. The colostomy was divided at the fascial level. And then using sharp dissection the splenic flexure was taken down. The rectum was mobilized. The colon was mobilized. There appeared to be adequate length for a xglh-oc-zhty functional end-to-end staple anastomosis to be created. Using the MANA and TA stapler a vlup-ry-vqyi functional end-to-end staple vessels was created. 3-0 GI silk sutures uses crotch stitch. The abdomen was irrigated. There is no bleeding seen. The colostomy was divided the fascial level on the peritoneal side. In the fascia was closed with 0 Ethibond suture. Next using the attachments the fascia was closed the midline. The incisional hernias repaired using 0 PDS suture with fascial closure. Skin was closed with patient top she will was sent to recovery in stable condition. staple. The colostomy was then divided at the skin level by dividing the cutaneous junction with left cautery. The colostomy was removed area skin was closed otto. Patient tolerated procedure well and was sent to recovery in stable condition.
[2018-03-13] MEDS: LACTATED RINGERS 1,000 ML IV SCH (12:45)
[2018-03-13] MEDS: D5-0.45% NACL WITH KCL 20MEQ/L 1,000 ML IV SCH ×2 (14:38→23:25)
[2018-03-13 14:40] LABS: Anion Gap 6 mmol/L; Blood Urea Nitrogen 12 mg/dL (7-17); Calcium 9.1 mg/dL (8.4-10.2); Carbon Dioxide 24 mmol/L (22-30); Chloride 109 mmol/L (98-107); Glucose 176 mg/dL (74-99); Potassium 4.1 mmol/L (3.5-5.1); Sodium 139 mmol/L (137-145)
[2018-03-13] MEDS: BENZOCAINE/MENTHOL LOZENG 1 EACH LOZENGE MUCOUS MEM PRN (14:43)
[2018-03-13] MEDS: KETOROLAC 30 MG/ML 1 ML VIAL IVP PRN ×2 (14:44→20:47)
[2018-03-13] MEDS: ONDANSETRON 4 MG/2 ML VIAL IVP PRN (14:46)
[2018-03-13] MEDS: HEPARIN SODIUM,PORCINE 5,000 UNIT/ML 1 ML VIAL SQ SCH ×2 (14:47→23:37)
[2018-03-13 14:56] LABS: Basophils % (A) 0 %; Eosinophils % (A) 0 %; HCT 33.2 % (34.0-46.0); HGB 10.5 gm/dL (11.4-16.0); Lymphocytes # (A) 0.2 k/uL (1.0-4.8); Lymphocytes % (A) 3 %; MCH 26.9 pg (25.0-35.0); MCHC 31.7 g/dL (31.0-37.0); MCV 84.9 fL (80.0-100.0); Mean Platelet Volume 7.3; Monocytes # (A) 0.1 k/uL (0-1.0); Monocytes % (A) 1 %; Neutrophils # (A) 8.9 k/uL (1.3-7.7); Neutrophils % (A) 96 %; Platelet Count 200 k/uL (150-450); RBC 3.91 m/uL (3.80-5.40); RDW 14.7 % (11.5-15.5); WBC 9.3 k/uL (3.8-10.6)
[2018-03-13 17:54] LABS: Glucose,Whole Blood 210 mg/dL (75-99)
[2018-03-13 20:25] LABS: Glucose,Whole Blood 234 mg/dL (75-99)
[2018-03-13] MEDS: ALVIMOPAN 12 MG CAPSULE PO SCH (20:46)
[2018-03-13] MEDS: FAMOTIDINE 20 MG/2 ML VIAL IV SCH (20:47)
[2018-03-13] MEDS: INSULIN ASPART 100 UNIT/ML 1 ML 10 ML VIAL SQ SCH (20:50)
--- NOTE | 2018-03-13 22:51 | CONS ---
CONSULTATION DATE OF SERVICE: 03/13/2018. I am covering for Dr. Oscar. REASON FOR CONSULTATION: Advice regarding diabetes mellitus and other medical problems, requested by Dr. Church. HISTORY OF PRESENT ILLNESS: This 72-year-old woman with a past history of dementia, diabetes, GERD, hypertension, DJD, being followed by Dr. Oscar in the outpatient setting, underwent reversal of colostomy, repair of incisional hernia, lysis of adhesions and takedown of splenic flexure by Dr. Church. The patient has a history of colon cancer. There is no history of fever, rigors. No headache, loss of sensation. No history of any nausea, vomiting, diarrhea, fever, rigors, chills at this time. PAST MEDICAL HISTORY: History of dementia, diabetes, colon cancer surgery, GERD, hypertension, DJD, history of bowel resection, anxiety. MEDICATIONS: Prior to admission include home medications of: 1. Aricept 10 mg. 2. Januvia 100 mg. 3. Prandin 0.5 mg. 4. Actos 15 mg. 5. Cozaar 50 mg. 6. Amaryl 1 mg with breakfast. 7. Colace 100 mg p.o. b.i.d. ALLERGIES: CHEESE, IODINE, PENICILLIN, POTATOES, RICE, SHELLFISH. FAMILY HISTORY: No history of heart disease or strokes in the family. SOCIAL HISTORY: No history of smoking. No history of alcohol intake. REVIEW OF SYSTEMS: ENT: No diminished vision or hearing. CARDIOVASCULAR: No angina or palpitations. RESPIRATORY: No cough. GI: As mentioned. : No dysuria. NERVOUS SYSTEM: No numbness or weakness. ALLERGY: No asthma or hayfever. MUSCULOSKELETAL: As mentioned. HEMATOLOGY/ONCOLOGY: As mentioned. ENDOCRINE: Diabetes. CONSTITUTIONAL: As mentioned. RHEUMATOLOGY: Negative. PSYCHIATRY: As mentioned earlier. CONSTITUTIONAL: As mentioned earlier. PHYSICAL EXAMINATION: Alert, oriented x3, pulse 89, blood pressure 101/50, respirations 18, temperature normal, pulse ox 100 percent room air. HEENT: Conjunctivae normal. Oral mucosa moist. NECK: No jugular venous distention. No lymph node enlargement. CARDIOVASCULAR: S1 and S2 muffled. LUNGS: Breath sounds diminished in the bases. No rhonchi, no crackles. ABDOMEN: Soft, status post surgery. LEGS: No edema, no swelling. NERVOUS SYSTEM: Higher functions as mentioned earlier. Moves all four limbs. No focal deficits. LYMPHATICS: No lymph nodes palpable in the neck, axillae, groin. SKIN: No ulcers or rashes. JOINTS: No active deformities. LABS: WBC 9.2, hemoglobin 10.5, sodium 130, potassium 4.1. ASSESSMENT: 1. Status post reversal of colostomy, repair of incisional hernia, lysis of adhesions, takedown of splenic flexure. 2. Mild postoperative relative hypotension. 3. Diabetes mellitus type 2. 4. Dementia. 5. Gastroesophageal reflux disease. 6. History of hypertension. 7. History of degenerative joint disease. 8. History of bowel resection. 9. History of stroke. 10.History of CA of the colon. 11.History of anxiety. 12.FULL CODE. RECOMMENDATIONS AND DISCUSSION: This 72-year-old woman who presented with multiple complex medications. We will monitor the patient closely. Continue the current management. I recommend to hold the antihypertensive medication for now. Continue with IV fluids. Otherwise, I would also recommend continue to monitor. Otherwise I would also recommend a set of troponins as well. I would also recommend Accu-Cheks with meals and at bedtime and insulin scale also. Otherwise we will follow the patient closely with you and the patient will be asked to follow with Dr. Oscar closely after discharge. Thank you, Dr. Church, for letting us participate in the care if this patient. A p.o. antidiabetic medication will be initiated once the patient is p.o. and taking in enough calorie intake. MMODL / IJN: [id number] / DAMASO
[2018-03-14 04:41] LABS: Hemoglobin A1C 6.1 % (4.0-6.0)
[2018-03-14] MEDS: BENZOCAINE/MENTHOL LOZENG 1 EACH LOZENGE MUCOUS MEM PRN (04:51)
--- NOTE | 2018-03-14 05:55 | P.PN ---
Progress Note - Text Progress Note Date: 03/14/18 patient evaluated POD 1 VAS 3/10 Vitals Stable Continue Epidural Rate, D/C per primary team
[2018-03-14] MEDS: D5-0.45% NACL WITH KCL 20MEQ/L 1,000 ML IV SCH ×3 (06:03→22:42)
[2018-03-14 08:02] LABS: Glucose,Whole Blood 196 mg/dL (75-99)
[2018-03-14] MEDS: LACTATED RINGERS 1,000 ML IV SCH (08:28)
[2018-03-14] MEDS: HEPARIN SODIUM,PORCINE 5,000 UNIT/ML 1 ML VIAL SQ SCH ×2 (08:37→15:47)
[2018-03-14] MEDS: FAMOTIDINE 20 MG/2 ML VIAL IV SCH ×2 (08:37→22:24)
[2018-03-14] MEDS: INSULIN ASPART 100 UNIT/ML 1 ML 10 ML VIAL SQ SCH ×4 (08:38→22:23)
[2018-03-14] MEDS: ALVIMOPAN 12 MG CAPSULE PO SCH ×2 (08:38→22:24)
[2018-03-14 08:46] LABS: Basophils % (A) 0 %; Eosinophils % (A) 0 %; HCT 29.1 % (34.0-46.0); HGB 9.4 gm/dL (11.4-16.0); Lymphocytes # (A) 0.5 k/uL (1.0-4.8); Lymphocytes % (A) 6 %; MCH 27.8 pg (25.0-35.0); MCHC 32.5 g/dL (31.0-37.0); MCV 85.8 fL (80.0-100.0); Monocytes # (A) 0.4 k/uL (0-1.0); Monocytes % (A) 6 %; Neutrophils # (A) 6.6 k/uL (1.3-7.7); Neutrophils % (A) 87 %; Platelet Count 178 k/uL (150-450); RBC 3.39 m/uL (3.80-5.40); RDW 14.6 % (11.5-15.5); WBC 7.5 k/uL (3.8-10.6)
[2018-03-14 09:08] LABS: Anion Gap 9 mmol/L; Blood Urea Nitrogen 12 mg/dL (7-17); Calcium 9.3 mg/dL (8.4-10.2); Carbon Dioxide 21 mmol/L (22-30); Chloride 108 mmol/L (98-107); Glucose 176 mg/dL (74-99); Potassium 4.6 mmol/L (3.5-5.1); Sodium 138 mmol/L (137-145)
[2018-03-14 12:02] LABS: Glucose,Whole Blood 122 mg/dL (75-99)
--- NOTE | 2018-03-14 16:50 | P.PN ---
Progress Note - Text Progress Note Date: 03/14/18 the patient is resting comfortably. She is postoperative day 1 from reversal of colostomy area she has minimal Clintcomplaints of painpain. On exam her vital signs are stable. Her abdomen is soft.incision site is clean dry and intact. Patient will continue clear liquid diet.
--- NOTE | 2018-03-14 17:01 | PN ---
PROGRESS NOTE I am covering for Dr. Oscar. DATE OF SERVICE: 03/14/2018 This 72-year-old woman who was admitted after surgery is improving significantly. No chest pain. No palpitations. No fever. Epidural is still placed. On exam, alert and oriented x3. Pulse 85, blood pressure 126/66, respiration 16, temperature 97.4, pulse ox 98% on room air. HEENT: Conjunctivae normal. NECK: No jugular venous distention. CARDIOVASCULAR SYSTEM: S1, S2 muffled. RESPIRATORY SYSTEM: Breath sounds diminished at the bases. No rhonchi. No crackles. ABDOMEN: Soft, status post surgery. LEGS: No edema. No swelling. NERVOUS SYSTEM: No focal deficit. LABS: WBC 7.1, hemoglobin 9.4 glucose 196. Hemoglobin A1c 6.1. ASSESSMENT: 1. Status post reversal of colostomy, repair of incisional hernia, lysis of adhesions and takedown of splenic flexure. 2. Mild postoperative relative hypotension, improved. 3. Diabetes mellitus, type 2. 4. Dementia. 5. Gastroesophageal reflux disease. 6. Hypertension. 7. History of degenerative joint disease. 8. History of bowel resection. 9. History of stroke. 10.History of carcinoma of the colon. 11.History of anxiety. 12.FULL CODE. RECOMMENDATIONS AND DISCUSSION: I recommend to continue current medication, continue symptomatic treatment. Other labs are negative at this time. blood sugars elevated and p.o. intake is more stable , p.o. antidiabetic medication could be continued. Otherwise, we will continue to monitor. Further recommendations to follow. MMODL / IJN: [id number] / MTDD
[2018-03-14 17:16] LABS: Glucose,Whole Blood 150 mg/dL (75-99)
[2018-03-14 20:49] LABS: Glucose,Whole Blood 126 mg/dL (75-99)
[2018-03-15] MEDS: HEPARIN SODIUM,PORCINE 5,000 UNIT/ML 1 ML VIAL SQ SCH ×3 (00:07→16:18)
--- NOTE | 2018-03-15 06:48 | P.PN ---
Progress Note - Text Progress Note Date: 03/15/18 69 yo female s/p open reversal of colostomy. POD#2. Epidural running at a rate of 8 ml/hr. Adequate pain control.VAS=2/10. No motor deficit, no itching, no headache. No nausea or vomiting. Epidural catheter in place. No redness, no discharge, no fever. Continue same regimen.
[2018-03-15] MEDS: INSULIN ASPART 100 UNIT/ML 1 ML 10 ML VIAL SQ SCH ×4 (07:44→21:30)
[2018-03-15 07:52] LABS: Glucose,Whole Blood 119 mg/dL (75-99)
[2018-03-15] MEDS: ALVIMOPAN 12 MG CAPSULE PO SCH ×2 (08:04→21:29)
[2018-03-15] MEDS: FAMOTIDINE 20 MG/2 ML VIAL IV SCH ×2 (08:04→21:29)
[2018-03-15] MEDS: BENZOCAINE/MENTHOL LOZENG 1 EACH LOZENGE MUCOUS MEM PRN (08:11)
[2018-03-15] MEDS: KETOROLAC 30 MG/ML 1 ML VIAL IVP PRN ×2 (10:01→18:21)
[2018-03-15 11:29] LABS: Glucose,Whole Blood 131 mg/dL (75-99)
--- NOTE | 2018-03-15 12:54 | P.PN ---
Subjective Progress Note Date: 03/15/18 71-year-old female seen postop visit currently sitting up in bed. Patient states has not passed gas has not had a bowel movement but is tolerating a liquid diet surgical dressing site dry abdomen nondistended soft March 13 reversal of incisional hernia lysis of adhesions takedown of splenic flexure reversal of colostomy in a patient who has a history of colon cancer Objective - Vital Signs Vital signs: Vital Signs Temp 98.5 F 03/15/18 07:00 Pulse 92 03/15/18 08:04 Resp 16 03/15/18 08:04 BP 125/69 03/15/18 07:00 Pulse Ox 98 03/15/18 07:00 Intake & Output 03/14/18 03/15/18 03/15/18 18:59 06:59 18:59 Intake Total 1000 1250 Output Total 1800 1800 1200 Balance -800 -550 -1200 Intake: Intake, IV Titration 1000 1250 Amount D5-0.45% NaCl with KCl 1000 1250 20Meq/l 1,000 ml @ 125 mls/hr IV .Q8H [facility] Rx#: [id number] Output: Urine 1800 1800 1200 Other: Voiding Method Indwelling Catheter Indwelling Catheter Indwelling Catheter - Exam Physical exam 72-year-old female sitting up in bed states has not passed gas has not had a bowel movement was tolerating a clear liquid diet epidural catheter in place for pain control Lungs clear on room air Heart S1-S2 audible regular Abdomen surgical dressing dry soft surgical tenderness appropriate few hypoactive bowel tones indwelling Cruz catheter in place Extremities no edema - Labs CBC & Chem 7: 03/14/18 07:12 03/14/18 07:12 Labs: Abnormal Lab Results - Last 24 Hours (Table) 03/14/18 03/14/18 03/15/18 Range/Units 17:04 20:38 07:35 POC Glucose (mg/dL) 150 H 126 H 119 H (75-99) mg/dL 03/15/18 Range/Units : POC Glucose (mg/dL) 131 H (75-99) mg/dL Assessment and Plan Assessment: Impression History of perforated obstructing colon cancer Postop March 13 reversal of colostomy, repair of incisional hernia, lysis of adhesions, takedown of splenic flexure Plan Epidural per anesthesia pain control Postop surgical care Cruz catheter to be left in place until epidural was removed 6 hours later Cruz per protocol DVT and GI prophylaxis The above impression and plan of care have been discussed and directed by signing physician. Lynn Nguyễn nurse practitioner acting as scribe for signing physician.
[2018-03-15 16:23] LABS: Glucose,Whole Blood 131 mg/dL (75-99)
--- NOTE | 2018-03-15 16:35 | PN ---
PROGRESS NOTE I am covering for Dr. Oscar. DATE OF SERVICE: 03/15/2018 This 72-year-old woman who was admitted status post reversal of colostomy. She is being closely monitored. No chest pain. No palpitations. No fever. Patient is still on epidural. On exam, alert and oriented x3. Pulse 66, blood pressure 126/62, respiration 16, temperature 98.6, pulse ox 100% on room air. HEENT: Conjunctivae normal. NECK: No jugular venous distention. CARDIOVASCULAR SYSTEM: S1, S2 muffled. RESPIRATORY SYSTEM: Breath sounds diminished at the bases. No rhonchi. No crackles. ABDOMEN: Soft. Status post surgery. LEGS: No edema. No swelling. NERVOUS SYSTEM: No focal deficit. LABS: Accu-Cheks 126, 119, 131. Hemoglobin is 9.4. Other labs are noted. ASSESSMENT: 1. Status post reversal of colostomy, repair of incisional hernia, lysis of adhesions as well as takedown of splenic flexure. 2. Mild postoperative relative hypotension, improved. 3. Diabetes mellitus, type 2. 4. Dementia. 5. Gastroesophageal reflux disease. 6. Hypertension. 7. History of degenerative joint disease. 8. History of bowel resection. 9. History of stroke. 10.History of carcinoma of the colon. 11.History of anxiety. 12.FULL CODE. RECOMMENDATIONS AND DISCUSSION: I recommend to continue current medication, continue symptomatic treatment. The patient is still only on clear liquids. I would recommend continuing the current medications. The blood pressure is improved. Will continue to monitor. MMODL / IJN: [id number] /
[2018-03-15] MEDS: LACTATED RINGERS 1,000 ML IV SCH (17:33)
[2018-03-15] MEDS: ONDANSETRON 4 MG/2 ML VIAL IVP PRN (18:18)
[2018-03-15 20:02] LABS: Glucose,Whole Blood 153 mg/dL (75-99)
[2018-03-15] MEDS: D5-0.45% NACL WITH KCL 20MEQ/L 1,000 ML IV SCH (21:19)
[2018-03-16] MEDS: HEPARIN SODIUM,PORCINE 5,000 UNIT/ML 1 ML VIAL SQ SCH ×4 (00:47→23:50)
[2018-03-16] MEDS: D5-0.45% NACL WITH KCL 20MEQ/L 1,000 ML IV SCH ×5 (05:49→20:54)
[2018-03-16 07:42] LABS: Glucose,Whole Blood 139 mg/dL (75-99)
[2018-03-16] MEDS: INSULIN ASPART 100 UNIT/ML 1 ML 10 ML VIAL SQ SCH ×4 (08:15→20:55)
[2018-03-16] MEDS: LACTATED RINGERS 1,000 ML IV SCH (08:41)
[2018-03-16 09:00] VITALS: RESP 16
[2018-03-16] MEDS: FAMOTIDINE 20 MG/2 ML VIAL IV SCH ×2 (09:01→20:55)
[2018-03-16] MEDS: ALVIMOPAN 12 MG CAPSULE PO SCH ×2 (09:02→20:55)
[2018-03-16] MEDS: BENZOCAINE/MENTHOL LOZENG 1 EACH LOZENGE MUCOUS MEM PRN (10:08)
[2018-03-16] MEDS: KETOROLAC 30 MG/ML 1 ML VIAL IVP PRN (10:09)
[2018-03-16] MEDS: METOCLOPRAMIDE 5 MG/ML 2 ML VIAL IVP PRN (10:37)
--- NOTE | 2018-03-16 11:01 | P.PN ---
Subjective Progress Note Date: 03/16/18 Principal diagnosis: Colostomy reversal Patient describing increased abdominal pain after bending sideways. No flatus, no nausea or vomiting. Tolerating clears. No labs from today. Epidural is being removed today. Patient is somewhat confused but this is her baseline. She is afebrile. Objective - Vital Signs Vital signs: Vital Signs Temp 98.8 F 03/16/18 08:59 Pulse 72 03/16/18 08:59 Resp 16 03/16/18 08:59 BP 156/70 03/16/18 08:59 Pulse Ox 100 03/16/18 08:59 Intake & Output 03/15/18 03/16/18 03/16/18 18:59 06:59 18:59 Intake Total 875 1500 Output Total 1975 1000 Balance -1100 500 Intake: Intake, IV Titration 875 1500 Amount D5-0.45% NaCl with KCl 875 1500 20Meq/l 1,000 ml @ 125 mls/hr IV .Q8H [facility] Rx#: [id number] Output: Urine 1975 1000 Other: Voiding Method Indwelling Catheter Indwelling Catheter - Exam Abdomen: Soft, nondistended, mild mid abdominal tenderness - Labs CBC & Chem 7: 03/14/18 07:12 03/14/18 07:12 Labs: Abnormal Lab Results - Last 24 Hours (Table) 03/15/18 03/15/18 03/15/18 Range/Units : 16:11 19:50 POC Glucose (mg/dL) 131 H 131 H 153 H (75-99) mg/dL 03/16/18 Range/Units 07:29 POC Glucose (mg/dL) 139 H (75-99) mg/dL Assessment and Plan (1) H/O colectomy Narrative/Plan: Continue clears. Oral and IV pain meds. Remove Cruz catheter. Ambulate. Check labs tomorrow. Current Visit: No Status: Acute Code(s): Z90.49 - ACQUIRED ABSENCE OF OTHER SPECIFIED PARTS OF DIGESTIVE TRACT SNOMED Code(s): 116421994
[2018-03-16 12:00] LABS: Glucose,Whole Blood 159 mg/dL (75-99)
[2018-03-16] MEDS: HYDROmorphone 1 MG/ML 1 ML SYRINGE IVP PRN ×2 (13:01→20:56)
[2018-03-16] MEDS: HYDROcodone/APAP 5-325MG 1 EACH TAB PO PRN (16:23)
[2018-03-16 17:16] LABS: Glucose,Whole Blood 149 mg/dL (75-99)
[2018-03-16 19:56] LABS: Glucose,Whole Blood 214 mg/dL (75-99)
[2018-03-16] MEDS: LOSARTAN 50 MG TAB PO SCH (20:55)
--- NOTE | 2018-03-17 01:20 | PN ---
PROGRESS NOTE DATE OF SERVICE: 03/16/2018 I am covering for Dr. Oscar. This 72-year-old woman who was sent after a colostomy repair of incision and lysis of adhesions, improved significantly. Epidural pain pump has been removed. No chest pain. No palpitations. No fever. Ambulation increased. EXAM: Alert and oriented x3. Pulse is 70, blood pressure 159/70, respirations 16, temperature 98 degrees, pulse ox 98% on room air. HEENT: Conjunctivae normal. Oral mucosa moist. CARDIOVASCULAR: S1, S2. RESPIRATORY: Breath sounds diminished in the bases. No rhonchi. No crackles. ABDOMEN is soft. Status post surgery. Legs are no edema, no swelling. CENTRAL NERVOUS SYSTEM: No focal deficits. LABS: WBC 7.2, hemoglobin is 9.4 , glucose 149. ASSESSMENT: 1. Status post reversal of colostomy repair of incisional hernia, lysis of adhesion as well as takedown splenic flexure. 2. Mild postoperative relative hypotension, improved. 3. Diabetes type 2. 4. Dementia. 5. Gastroesophageal reflux disease. 6. Hypertension. 7. History of degenerative joint disease. 8. History of bowel resection. 9. History of stroke. 10.History of carcinoma of the colon. 11.History of anxiety. 12.FULL CODE. RECOMMENDATIONS AND DISCUSSION: To continue current management and treatment. Currently the patient is still on clear liquids. I would continue the current medications. Once the patient is on a regular diet, the home dose of antidiabetic medication can be continued. Then I would restart the blood pressure medications currently and continue to monitor. Further recommendations to follow. MMODL / IJN: [id number] / DAMASO
[2018-03-17 06:47] LABS: Glucose,Whole Blood 120 mg/dL (75-99)
[2018-03-17] MEDS: D5-0.45% NACL WITH KCL 20MEQ/L 1,000 ML IV SCH ×3 (07:36→17:00)
[2018-03-17] MEDS: HYDROcodone/APAP 5-325MG 1 EACH TAB PO PRN ×2 (07:37→12:23)
[2018-03-17] MEDS: LOSARTAN 50 MG TAB PO SCH (07:37)
[2018-03-17] MEDS: HEPARIN SODIUM,PORCINE 5,000 UNIT/ML 1 ML VIAL SQ SCH ×2 (07:37→15:52)
[2018-03-17] MEDS: DONEPEZIL 10 MG TAB PO SCH (07:37)
[2018-03-17] MEDS: ALVIMOPAN 12 MG CAPSULE PO SCH ×2 (07:37→22:22)
[2018-03-17] MEDS: INSULIN ASPART 100 UNIT/ML 1 ML 10 ML VIAL SQ SCH ×4 (07:40→22:23)
[2018-03-17] MEDS: FAMOTIDINE 20 MG/2 ML VIAL IV SCH ×3 (07:41→22:23)
[2018-03-17 07:48] LABS: Basophils % (A) 0 %; Eosinophils # (A) 0.1 k/uL (0-0.7); Eosinophils % (A) 1 %; HCT 34.3 % (34.0-46.0); Lymphocytes # (A) 0.9 k/uL (1.0-4.8); Lymphocytes % (A) 13 %; MCH 27.7 pg (25.0-35.0); MCHC 32.1 g/dL (31.0-37.0); MCV 86.2 fL (80.0-100.0); Mean Platelet Volume 8.2; Monocytes # (A) 0.4 k/uL (0-1.0); Monocytes % (A) 5 %; Neutrophils # (A) 5.4 k/uL (1.3-7.7); Neutrophils % (A) 79 %; Platelet Count 198 k/uL (150-450); RBC 3.98 m/uL (3.80-5.40); RDW 14.7 % (11.5-15.5); WBC 6.8 k/uL (3.8-10.6)
[2018-03-17 08:00] LABS: Anion Gap 10 mmol/L; Blood Urea Nitrogen 3 mg/dL (7-17); Calcium 9.4 mg/dL (8.4-10.2); Carbon Dioxide 21 mmol/L (22-30); Chloride 112 mmol/L (98-107); Glucose 123 mg/dL (74-99); Potassium 4.2 mmol/L (3.5-5.1); Sodium 143 mmol/L (137-145)
[2018-03-17] MEDS: HYDROmorphone 1 MG/ML 1 ML SYRINGE IVP PRN ×3 (09:58→22:25)
[2018-03-17] MEDS: KETOROLAC 30 MG/ML 1 ML VIAL IVP PRN (09:59)
[2018-03-17 11:38] LABS: Glucose,Whole Blood 165 mg/dL (75-99)
--- NOTE | 2018-03-17 11:48 | P.PN ---
Subjective Progress Note Date: 03/17/18 Principal diagnosis: Colostomy reversal Patient doing much better today. She has had bowel movement. She is tolerating her liquid diet. Her pain that she was having yesterday is essentially resolved. White blood cell count normal at 6.8. Objective - Vital Signs Vital signs: Vital Signs Temp 98.7 F 03/17/18 07:20 Pulse 74 03/17/18 07:17 Resp 16 03/17/18 07:17 BP 168/74 03/17/18 07:17 Pulse Ox 97 03/17/18 07:17 Intake & Output 03/16/18 03/17/18 03/17/18 18:59 06:59 18:59 Intake Total 620 2025 120 Output Total 6600 827 2 Balance -5980 1198 118 Weight 79.379 kg 79.379 kg Intake: Intake, IV Titration 500 1275 Amount D5-0.45% NaCl with KCl 500 1275 20Meq/l 1,000 ml @ 125 mls/hr IV .Q8H [facility] Rx#: [id number] Oral 120 750 120 Output: Urine 6600 825 Uretheral (Cruz) 1300 Stool 2 2 Other: Voiding Method Indwelling Catheter Toilet Toilet Bedpan # Voids 0 3 - Exam Abdomen: Soft, nondistended, incision clean and dry - Labs CBC & Chem 7: 03/17/18 06:47 03/17/18 06:47 Labs: Abnormal Lab Results - Last 24 Hours (Table) 03/16/18 03/16/18 03/16/18 Range/Units 11:48 17:05 19:55 Hgb (11.4-16.0) gm/dL Lymphocytes # (1.0-4.8) k/uL Chloride (98-107) mmol/L Carbon Dioxide (22-30) mmol/L BUN (7-17) mg/dL Glucose (74-99) mg/dL POC Glucose (mg/dL) 159 H 149 H 214 H (75-99) mg/dL 03/17/18 03/17/18 03/17/18 Range/Units 06:36 06:47 06:47 Hgb 11.0 L (11.4-16.0) gm/dL Lymphocytes # 0.9 L (1.0-4.8) k/uL Chloride 112 H (98-107) mmol/L Carbon Dioxide 21 L (22-30) mmol/L BUN 3 L (7-17) mg/dL Glucose 123 H (74-99) mg/dL POC Glucose (mg/dL) 120 H (75-99) mg/dL 03/17/18 Range/Units 11:27 Hgb (11.4-16.0) gm/dL Lymphocytes # (1.0-4.8) k/uL Chloride (98-107) mmol/L Carbon Dioxide (22-30) mmol/L BUN (7-17) mg/dL Glucose (74-99) mg/dL POC Glucose (mg/dL) 165 H (75-99) mg/dL Assessment and Plan (1) H/O colectomy Narrative/Plan: Will increase diet today. Ambulate. Possible discharge tomorrow. Current Visit: No Status: Acute Code(s): Z90.49 - ACQUIRED ABSENCE OF OTHER SPECIFIED PARTS OF DIGESTIVE TRACT SNOMED Code(s): 340924408
[2018-03-17] MEDS: METOCLOPRAMIDE 5 MG/ML 2 ML VIAL IVP PRN (12:22)
[2018-03-17 17:09] LABS: Glucose,Whole Blood 164 mg/dL (75-99)
--- NOTE | 2018-03-17 19:00 | PN ---
PROGRESS NOTE DATE OF SERVICE: 03/17/2018 I am covering for Dr. Oscar. This 72-year-old woman is admitted after reversal of colostomy is improved significantly. The epidural pain pump is out. The patient is able to ambulate. No chest pain. No palpitations. No fever. EXAM: Alert and oriented x3. Pulse 68, blood pressure 130/77, respiration 16, temperature 98.2, pulse ox 98% room air. HEENT: Conjunctivae normal. Oral mucosa moist. Neck is no jugular venous distention. No carotid bruit. No lymph node enlargement. CARDIOVASCULAR: S1, S2. RESPIRATORY: Breath sounds diminished in the bases. A few scattered rhonchi, no crackles. ABDOMEN: Soft, status post surgery. LEGS: No edema. NERVOUS SYSTEM: No focal deficits. LABS: WBC 6.8, hemoglobin 11, sodium 140, potassium 4.2. ASSESSMENT: 1. Status post reversal of colostomy with repair of incisional hernia, lysis of adhesion as well as takedown splenic flexure. 2. Mild postoperative hypotension, improved. 3. Diabetes mellitus type 2. 4. History of dementia. 5. Gastroesophageal reflux disease. 6. Hypertension. 7. History of degenerative joint disease. 8. Recent of bowel resection. 9. History of stroke. 10.History of carcinoma of the colon. 11.History of anxiety. 12.FULL CODE. RECOMMENDATIONS AND DISCUSSION: I recommend to continue current management and symptomatic treatment. Otherwise at this time I recommend closely monitor. Incentive spirometry. Increase ambulation. Continue rest of the medications. Follow closely with Surgery. DVT prophylaxis. Dr. Oscar will follow. MMODL / IJN: [id number] /
[2018-03-17] MEDS ORDERED: LOSARTAN-HCTZ 50-12.5 MG 1 EACH TAB PO ONE (21:00)
[2018-03-17 21:50] LABS: Glucose,Whole Blood 144 mg/dL (75-99)
[2018-03-17] MEDS: BENZOCAINE/MENTHOL LOZENG 1 EACH LOZENGE MUCOUS MEM PRN (22:24)
[2018-03-18] MEDS: HEPARIN SODIUM,PORCINE 5,000 UNIT/ML 1 ML VIAL SQ SCH ×2 (00:27→09:34)
[2018-03-18] MEDS: HYDROmorphone 1 MG/ML 1 ML SYRINGE IVP PRN (02:26)
[2018-03-18] MEDS: HYDROcodone/APAP 5-325MG 1 EACH TAB PO PRN ×2 (07:10→12:09)
[2018-03-18 07:50] LABS: Glucose,Whole Blood 128 mg/dL (75-99)
[2018-03-18 08:28] VITALS: BP 151/80; PULSE 81; TEMP 99.1
[2018-03-18] MEDS: INSULIN ASPART 100 UNIT/ML 1 ML 10 ML VIAL SQ SCH ×2 (08:45→14:14)
[2018-03-18] MEDS ORDERED: LOSARTAN-HCTZ 50-12.5 MG 1 EACH TAB PO SCH (09:00)
[2018-03-18] MEDS: ALVIMOPAN 12 MG CAPSULE PO SCH (09:34)
[2018-03-18] MEDS: FAMOTIDINE 20 MG/2 ML VIAL IV SCH (09:34)
[2018-03-18] MEDS: DONEPEZIL 10 MG TAB PO SCH (10:37)
[2018-03-18 11:27] LABS: Glucose,Whole Blood 138 mg/dL (75-99)
--- NOTE | 2018-03-18 12:15 | P.PN ---
Subjective Progress Note Date: 03/18/18 Patient examined at the bedside. She is s/p colostomy reversal. Her pain is tolerable. She has been ambulating. Tolerating PO intake. Denies nausea or vomiting. Blood pressure was elevated. Antihypertensives have been adjusted. Currently receiving Hyzaar 100-25mg daily. This will be continued at discharge. Objective - Vital Signs Vital signs: Vital Signs Temp 99.1 F 03/18/18 07:00 Pulse 81 03/18/18 07:00 Resp 16 03/18/18 07:00 BP 151/80 03/18/18 07:00 Pulse Ox 98 03/18/18 07:00 Intake & Output 03/17/18 03/18/18 03/18/18 18:59 06:59 18:59 Intake Total 640 1310 Output Total 3 1 Balance 637 1309 Weight 79.379 kg Intake: Intake, IV Titration 400 600 Amount D5-0.45% NaCl with KCl 400 600 20Meq/l 1,000 ml @ 75 mls /hr IV .[id number] [facility] Rx#: [id number] Oral 240 710 Output: Stool 3 1 Other: Voiding Method Toilet Toilet # Voids 3 2 # Bowel Movements 3 1 - Constitutional General appearance: Present: average body habitus, no acute distress - EENT Eyes: Present: PERRLA - Neck Neck: Present: normal ROM - Respiratory Respiratory: bilateral: CTA, negative: rales, rhonchi, wheezing - Cardiovascular Rhythm: regular Heart sounds: normal: S1, S2 - Gastrointestinal General gastrointestinal: Present: normal bowel sounds, soft - Integumentary Integumentary: Present: normal, normal turgor - Neurologic Neurologic: Present: CNII-XII intact - Musculoskeletal Musculoskeletal: Present: gait normal - Psychiatric Psychiatric: Present: A&O x's 3 - Labs CBC & Chem 7: 03/17/18 06:47 03/17/18 06:47 Labs: Abnormal Lab Results - Last 24 Hours (Table) 03/17/18 03/17/18 03/18/18 Range/Units 16:55 21:38 07:37 POC Glucose (mg/dL) 164 H 144 H 128 H (75-99) mg/dL 03/18/18 Range/Units 11:15 POC Glucose (mg/dL) 138 H (75-99) mg/dL Assessment and Plan Plan: ASSESSMENT: Status post reversal of colostomy with repair of incisional hernia, lysis of adhesions and takedown of splenic flexure Hypertension Diabetes mellitus, type II History of dementia GERD History of degenerative joint disease History of present bowel resection History of carcinoma of the colon History of CVA History of anxiety PLAN: Patient is stable for discharge today from a medical standpoint when cleared by admitting/attending physician. She will be continued on Hyzaar 100-25mg daily for hypertension. Prescription e-prescribed to patients preferred pharmacy. She is to follow up with Dr. Oscar in one week. Nurse practitioner note has been reviewed by physician. Signing provider agrees with the documented findings, assessment, and plan of care.
--- NOTE | 2018-03-18 12:35 | P.DS ---
Providers Date of admission: 03/13/18 07:48 Expected date of discharge: 03/18/18 Attending physician: Rj Church Consults: 03/13/18 12:15 Consult Physician Routine Consulting Provider: Patrick Oscar Consult Reason/Comments: Medical management Do you want consulting provider notified?: Yes Primary care physician: Patrick Oscar [facility] Course: 72-year-old presented to undergo reversal of colostomy who has a history of obstructive colon cancer. Patient has a previous history of a perforated colon cancer. March 13 patient underwent reversal of colostomy, repair of incisional hernia, lysis of adhesions, takedown of splenic flexure. There were no postop events on the day of discharge patient was tolerating a diet status had a bowel movement no nausea no vomiting surgical incision sites were dry. Patient was felt to be appropriate to be discharged home. Impression discharge diagnosis History of perforated obstructing colon cancer Postop March 13 reversal of colostomy, repair of incisional hernia, lysis of adhesions, takedown of splenic flexure Status post reversal of colostomy with repair of incisional hernia, lysis of adhesions and takedown of splenic flexure Hypertension Diabetes mellitus, type II History of dementia GERD History of degenerative joint disease History of present bowel resection History of carcinoma of the colon History of CVA History of anxiety The above impression and plan of care have been discussed and directed by signing physician. Lynn Nguyễn nurse practitioner acting as scribe for signing physician. Plan - Discharge Summary Discharge Rx Participant: Yes New Discharge Prescriptions: New Losartan-Hctz 50-12.5 mg [Hyzaar 50-12.5] 2 each PO DAILY #60 tab HYDROcodone/APAP 5-325MG [[place] 5-325] 1 each PO Q4HR PRN #12 tab PRN Reason: Moderate Pain Continue Repaglinide [Prandin] 0.5 mg PO DAILY sitaGLIPtin [Januvia] 100 mg PO DAILY Pioglitazone [Actos] 15 mg PO DAILY Docusate [Colace] 100 mg PO BID cap Glimepiride [Amaryl] 1 mg PO AC-BRKFST Donepezil [Aricept] 10 mg PO DAILY Discontinued Losartan Potassium [Cozaar] 50 mg PO DAILY Discharge Medication List Pioglitazone [Actos] 15 mg PO DAILY 10/22/17 [History] Repaglinide [Prandin] 0.5 mg PO DAILY 10/22/17 [History] sitaGLIPtin [Januvia] 100 mg PO DAILY 10/22/17 [History] Docusate [Colace] 100 mg PO BID cap 11/07/17 [Rx] Donepezil [Aricept] 10 mg PO DAILY 03/11/18 [History] Glimepiride [Amaryl] 1 mg PO AC-BRKFST 03/11/18 [History] HYDROcodone/APAP 5-325MG [[place] 5-325] 1 each PO Q4HR PRN #12 tab 03/18/18 [Rx] Losartan-Hctz 50-12.5 mg [Hyzaar 50-12.5] 2 each PO DAILY #60 tab 03/18/18 [Rx] Follow up Appointment(s)/Referral(s): Patrick Oscar MD [Primary Care Provider] - 03/25/18 2:00 pm Rj Church MD [STAFF PHYSICIAN] - 03/26/18 1:20 pm Patient Instructions/Handouts: Open Colostomy Reversal (DC) Discharge Disposition: HOME SELF-CARE
[2018-03-18] MEDS: D5-0.45% NACL WITH KCL 20MEQ/L 1,000 ML IV SCH (14:13)
== END 2018-03-18 14:45 | disposition home health service (06) | DRG 331 ==
LOC: 2ORMAIN 07:48 → 4SSUR 12:32
PROVIDERS: ADMIT Surgery; ATTEND Surgery
PROC: 0DBP0ZZ Excision of Rectum, Open Approach (ICD-10-PCS; 2018-03-13)
PROC: 0DNW0ZZ Release Peritoneum, Open Approach (ICD-10-PCS; 2018-03-13)
PROC: 0WQF0ZZ Repair Abdominal Wall, Open Approach (ICD-10-PCS; 2018-03-13)
PROC: 0DBL0ZZ Excision of Transverse Colon, Open Approach (ICD-10-PCS; principal; 2018-03-13 10:05)
DX: Z43.3 Encounter for attention to colostomy (principal); I95.9 Hypotension, unspecified; M41.9 Scoliosis, unspecified; E11.9 Type 2 diabetes mellitus without complications; F03.90 Unspecified dementia, unspecified severity, without behavioral disturbance, psychotic disturbance, mood disturbance, and anxiety; F41.9 Anxiety disorder, unspecified; K66.0 Peritoneal adhesions (postprocedural) (postinfection); I10 Essential (primary) hypertension; K21.9 Gastro-esophageal reflux disease without esophagitis; K43.2 Incisional hernia without obstruction or gangrene; M19.90 Unspecified osteoarthritis, unspecified site; R10.9 Unspecified abdominal pain; G43.909 Migraine, unspecified, not intractable, without status migrainosus; Z79.84 Long term (current) use of oral hypoglycemic drugs; Z79.899 Other long term (current) drug therapy; Z90.710 Acquired absence of both cervix and uterus; Z85.038 Personal history of other malignant neoplasm of large intestine; Z86.73 Personal history of transient ischemic attack (TIA), and cerebral infarction without residual deficits; Z90.49 Acquired absence of other specified parts of digestive tract; Z91.041 Radiographic dye allergy status; Z88.0 Allergy status to penicillin; Z91.013 Allergy to seafood; Z91.018 Allergy to other foods
CPT/HCPCS: 80048; 83036; 84484; 85025; 86850; 86900; 86901; 88304; 93005

== ENCOUNTER 2018-04-05 11:19 | Emergency (ER) | payer BC, MEDICARE ==
[2018-04-05 11:24] VITALS: BP 129/57; PULSE 85; RESP 20; TEMP 97.8
--- NOTE | 2018-04-05 11:48 | ED ---
General Adult HPI - General Chief complaint: Recheck/Abnormal Lab/Rx Stated complaint: POST COLOSTOMY ISSUE Source: patient Mode of arrival: ambulatory Limitations: no limitations - History of Present Illness Initial comments: Dictation was produced using beqom dictation software. please excuse any grammatical, word or spelling errors. Chief Complaint: 72-year-old female presents with left abdominal wound status post colostomy reversal. History of Present Illness: Patient is 72-year-old female. Approximately 3 weeks ago patient had colostomy reversal. Her primary surgeon is Dr. Cristina. Patient was seen in clinic and her otto were removed. She states that slightly after the wound dehisced. She came to the emergency department because her general surgeons clinic is closed. Patient has no complaints at this time. The ROS documented in this emergency department record has been reviewed and confirmed by me. Those systems with pertinent positive or negative responses have been documented in the HPI. All other systems are other negative and/or noncontributory. - Related Data Home Medications Medication Instructions Recorded Confirmed Pioglitazone [Actos] 15 mg PO DAILY 10/22/17 03/11/18 Repaglinide [Prandin] 0.5 mg PO DAILY 10/22/17 03/11/18 sitaGLIPtin [Januvia] 100 mg PO DAILY 10/22/17 03/11/18 Donepezil [Aricept] 10 mg PO DAILY 03/11/18 03/11/18 Glimepiride [Amaryl] 1 mg PO AC-BRKFST 03/11/18 03/11/18 Previous Rx's Medication Instructions Recorded Docusate [Colace] 100 mg PO BID cap 11/07/17 HYDROcodone/APAP 5-325MG [[place] 1 each PO Q4HR PRN #12 tab 03/18/18 5-325] Losartan-Hctz 50-12.5 mg [Hyzaar 2 each PO DAILY #60 tab 03/18/18 50-12.5] Allergies Allergy/AdvReac Type Severity Reaction Status Date / Time cheese Allergy Unknown Verified 04/05/18 11:24 Iodinated Contrast- Oral and Allergy Anaphylaxis Verified 04/05/18 11:24 IV Dye iodine Allergy Anaphylaxis Verified 04/05/18 11:24 Penicillins Allergy Unknown Verified 04/05/18 11:24 Childhood potato Allergy Unknown Verified 04/05/18 11:24 rice Allergy Unknown Verified 12/21/18 11:24 shellfish derived [Shellfish] Allergy Anaphylaxis Verified 04/05/18 11:24 Review of Systems ROS Statement: Those systems with pertinent positive or pertinent negative responses have been documented in the HPI. ROS Other: All systems not noted in ROS Statement are negative. Past Medical History Past Medical History: Cancer, Dementia, Diabetes Mellitus, GERD/Reflux, Hypertension Additional Past Medical History / Comment(s): "slight memory impairment", scoliosis, hx migraines, bowel obstruction/colon cancer, leaky bladder History of Any Multi-Drug Resistant Organisms: None Reported Past Surgical History: Bowel Resection, Hysterectomy Additional Past Surgical History / Comment(s): rt breast biopsy, dental implants , bowel resection with colostomy 11/01/17 Past Anesthesia/Blood Transfusion Reactions: Previous Problems w/ Anesthesia Additional Past Anesthesia/Blood Transfusion Reaction / Comment(s): hx claustrophobia. difficulty waking after sx. hallucinations post op, denies heart issues related to surgery Past Psychological History: No Psychological Hx Reported Smoking Status: Never smoker Past Alcohol Use History: None Reported Past Drug Use History: None Reported - Past Family History Mother Family Medical History: No Reported History Additional Family Medical History / Comment(s): . Father History Unknown: Yes General Exam - General Exam Comments Initial Comments: PHYSICAL EXAM: General Impression: Alert and oriented x3, not in acute distress HEENT: Normocephalic atraumatic, extra-ocular movements intact, pupils equal and reactive to light bilaterally, mucous membranes moist. Cardiovascular: Heart regular rate and rhythm, S1&S2 audible, no murmurs, rubs or gallops Chest: Lungs clear to auscultation bilaterally, no rhonchi, no wheeze, no rales Abdomen: Bowel sounds present, abdomen soft, non-tender, non-distended, no organomegaly Musculoskeletal: Pulses present and equal in all extremities, no peripheral edema Motor: Power 5/5 bilaterally, no focal deficits noted Neurological: CN II-XII grossly intact, no focal motor or sensory deficits noted Skin: Left upper quadrant abdominal wound with [place] tissue and ventilation tissue, no surrounding erythema Psych: Normal affect and mood Limitations: no limitations Course Vital Signs 04/05/18 11:22 Temperature 97.8 F Pulse Rate 85 Respiratory 20 Rate Blood Pressure 129/57 O2 Sat by Pulse 99 Oximetry Medical Decision Making - Medical Decision Making ED course: 72-year-old female presents with wound dehiscence status post colostomy reversal. Discussed patient case with primary surgeon who recommend wound be taped loosely. Patient given Steri-Strips. They're instructed on how to properly manage the wound. They're advised to clean the wound twice a day. Patient stable for discharge. Advised to follow-up with general surgeon after discharge. Disposition Clinical Impression: Wound dehiscence Disposition: HOME SELF-CARE Condition: Good Instructions: Wound Dehiscence (ED) Is patient prescribed a controlled substance at d/c from ED?: No Referrals: Rj Church MD [STAFF PHYSICIAN] - 1-2 days Time of Disposition: 11:47
== END 2018-04-05 11:59 | disposition home or self-care (01) ==
LOC: EC 11:19
DX: T81.30XA Disruption of wound, unspecified, initial encounter (principal); F03.90 Unspecified dementia, unspecified severity, without behavioral disturbance, psychotic disturbance, mood disturbance, and anxiety; E11.9 Type 2 diabetes mellitus without complications; Z85.038 Personal history of other malignant neoplasm of large intestine; Z93.3 Colostomy status; Z79.84 Long term (current) use of oral hypoglycemic drugs; Z79.899 Other long term (current) drug therapy; Z88.0 Allergy status to penicillin; Z91.018 Allergy to other foods; Z91.013 Allergy to seafood; Z91.041 Radiographic dye allergy status; Z88.8 Allergy status to other drugs, medicaments and biological substances
CPT/HCPCS: 99283

== ENCOUNTER → 2018-07-04 | Outpatient (CLI) | payer BC ==
--- NOTE | 2018-07-04 10:47 | MR ---
EXAMINATION TYPE: MR brain wo/w con DATE OF EXAM: 07/04/2018 COMPARISON: CT brain 12/28/2016 HISTORY: Dizziness, Left side weakness/numbness, Memory loss, Cerebral infarct TECHNIQUE: Multiplanar, multisequence images of the brain and brainstem is performed without and with IV contras t, utilizing 6.5 mL intravenous Gadavist . FINDINGS: Diffusion weighted images demonstrate no evidence of a recent infarct or other diffusion ab normality. There is no extra-axial fluid collection or significant interval change in white matter s ignal abnormality. Periventricular confluent and scattered hyperintensities on inversion recovery and T2-weighted sequences are present, approximately 50 lesions are more are present. Large confluent ar ea in the left frontal juxtacortical white matter and external capsule measures approximately 2.7 cm in AP dimension by 2 cm in transverse dimension. The ventricular system and cisternal spaces are norm al in size and appearance. The brain volume is age appropriate. Midline structures demonstrate normal morphology. The craniocervical junction appears within normal limits. Post contrast images demonstrate no abnormal enhancement. The dural venous sinuses appear pa tent. The visualized sinuses are remarkable for inflammatory change in the ethmoid air cells. The donna bes are intact. IMPRESSION: Extensive white matter demyelination changes are again noted. Mild sinus disease.
== END | disposition home or self-care (01) ==
LOC: RADMRIMAIN 07:19
PROVIDERS: ATTEND Psychiatry & Neurology Neurology
DX: G37.8 Other specified demyelinating diseases of central nervous system (principal)
CPT/HCPCS: 82565; 70553; A9585

== ENCOUNTER 2018-08-14 11:01 | Emergency (ER) | payer BC ==
[2018-08-14 11:17] VITALS: RESP 18
[2018-08-14] MEDS ORDERED: SODIUM CHLORIDE 0.9% 1,000 ML IV STA (12:04)
[2018-08-14] MEDS ORDERED: MORPHINE SULFATE 4 MG/ML SYRINGE IVP STA (12:12)
[2018-08-14] MEDS ORDERED: ONDANSETRON 4 MG/2 ML VIAL IVP STA (12:12)
--- NOTE | 2018-08-14 12:27 | ED ---
Abdominal Pain HPI - General Chief Complaint: Abdominal Pain Stated Complaint: Abd pain Time Seen by Provider: 08/14/18 11:36 Source: patient, RN notes reviewed Mode of arrival: ambulatory Limitations: physical limitation - History of Present Illness Initial Comments: 72-year-old female presents emergency Department with chief complaint of abdominal pain. She's been having worsening abdominal pain since April. Patient had 2 surgeries last year for bowel resection and colostomy reversal by Dr. Church. Patient was told that she had a live with the pain and she does not feel comfortable with this. Patient states that the pain is worsened. He states is primarily upper left side. Patient reports no chest pain or shortness fevers or chills. She has some on-and-off diarrhea constipation. Patient denies any dysuria or hematuria. Patient offers no other complaints. Patient states she has not felt lightheaded or causes pain. Patient does admit that she very anxious. - Related Data Home Medications Medication Instructions Recorded Confirmed Repaglinide [Prandin] 0.5 mg PO DAILY 10/22/17 08/14/18 sitaGLIPtin [Januvia] 100 mg PO DAILY 10/22/17 08/14/18 Donepezil [Aricept] 10 mg PO DAILY 03/11/18 08/14/18 Losartan Potassium 100 mg PO DAILY 08/14/18 08/14/18 Allergies Allergy/AdvReac Type Severity Reaction Status Date / Time cheese Allergy Unknown Verified 08/14/18 11:57 Iodinated Contrast- Oral and Allergy Anaphylaxis Verified 08/14/18 11:57 IV Dye iodine Allergy Anaphylaxis Verified 08/14/18 11:57 Penicillins Allergy Unknown Verified 08/14/18 11:57 Childhood potato Allergy Unknown Verified 08/14/18 11:57 rice Allergy Unknown Verified 08/14/18 11:57 shellfish derived [Shellfish] Allergy Anaphylaxis Verified 08/14/18 11:57 Review of Systems ROS Statement: Those systems with pertinent positive or pertinent negative responses have been documented in the HPI. ROS Other: All systems not noted in ROS Statement are negative. Past Medical History Past Medical History: Cancer, Dementia, Diabetes Mellitus, GERD/Reflux, Hypertension Additional Past Medical History / Comment(s): "slight memory impairment", scoliosis, hx migraines, bowel obstruction/colon cancer, leaky bladder History of Any Multi-Drug Resistant Organisms: None Reported Past Surgical History: Bowel Resection, Hysterectomy Additional Past Surgical History / Comment(s): rt breast biopsy, dental implants, bowel resection with colostomy 11/01/17 Past Anesthesia/Blood Transfusion Reactions: Previous Problems w/ Anesthesia Additional Past Anesthesia/Blood Transfusion Reaction / Comment(s): hx c laustrophobia. difficulty waking after sx. hallucinations post op, denies heart issues related to surgery Past Psychological History: No Psychological Hx Reported Smoking Status: Never smoker Past Alcohol Use History: None Reported Past Drug Use History: None Reported - Past Family History Mother Family Medical History: No Reported History Additional Family Medical History / Comment(s): . Father History Unknown: Yes General Exam Limitations: physical limitation General appearance: alert, in no apparent distress Head exam: Present: atraumatic, normocephalic, normal inspection Eye exam: Present: normal appearance, PERRL, EOMI. Absent: scleral icterus, conjunctival injection, periorbital swelling ENT exam: Present: normal exam, normal oropharynx, mucous membranes moist, TM's normal bilaterally Neck exam: Present: normal inspection, full ROM. Absent: tenderness, meningismus, lymphadenopathy Respiratory exam: Present: normal lung sounds bilaterally. Absent: respiratory distress, wheezes, rales, rhonchi, stridor Cardiovascular Exam: Present: regular rate, normal rhythm, normal heart sounds. Absent: systolic murmur, diastolic murmur, rubs, gallop, clicks GI/Abdominal exam: Present: soft, tenderness (Moderate upper abdominal tendern ess.), normal bowel sounds. Absent: distended, guarding, rebound, rigid Course Vital Signs 08/14/18 08/14/18 11:11 14:01 Temperature 98.5 F 98.3 F Pulse Rate 73 60 Respiratory 18 18 Rate Blood Pressure 148/70 137/60 O2 Sat by Pulse 99 98 Oximetry Medical Decision Making - Medical Decision Making 72-year-old female presented for abdominal pain. Patient lab work, urinalysis a nd CT CT shows evidence of moderate fecal stasis. Patient we given magnesium citrate to go home with. Patient otherwise no acute findings. - Lab Data Result diagrams: 08/14/18 12:44 08/14/18 12:44 Lab Results 08/14/18 08/14/18 08/14/18 Range/Units 12:44 12:44 12:44 WBC 5.3 (3.8-10.6) k/uL RBC 4.19 (3.80-5.40) m/uL Hgb 12.0 (11.4-16.0) gm/dL Hct 36.4 (34.0-46.0) % MCV 86.9 (80.0-100.0) fL MCH 28.7 (25.0-35.0) pg MCHC 33.1 (31.0-37.0) g/dL RDW 14.6 (11.5-15.5) % Plt Count 228 (150-450) k/uL Neutrophils % 65 % Lymphocytes % 23 % Monocytes % 6 % Eosinophils % 2 % Basophils % 1 % Neutrophils # 3.4 (1.3-7.7) k/uL Lymphocytes # 1.2 (1.0-4.8) k/uL Monocytes # 0.3 (0-1.0) k/uL Eosinophils # 0.1 (0-0.7) k/uL Basophils # 0.0 (0-0.2) k/uL Sodium 141 (137-145) mmol/L Potassium 4.5 (3.5-5.1) mmol/L Chloride 109 H (98-107) mmol/L Carbon Dioxide 24 (22-30) mmol/L Anion Gap 8 mmol/L BUN 9 (7-17) mg/dL Creatinine 0.64 (0.52-1.04) mg/dL Est GFR (CKD-EPI)AfAm >90 (>60 ml/min/1.73 sqM) Est GFR (CKD-EPI)NonAf 89 (>60 ml/min/1.73 sqM) Glucose 112 H (74-99) mg/dL Plasma Lactic Acid Osmani 0.8 (0.7-2.0) mmol/L Calcium 10.0 (8.4-10.2) mg/dL Total Bilirubin 0.6 (0.2-1.3) mg/dL AST 22 (14-36) U/L ALT 22 (9-52) U/L Alkaline Phosphatase 53 (38-126) U/L Total Protein 7.0 (6.3-8.2) g/dL Albumin 4.4 (3.5-5.0) g/dL Amylase 62 (30-110) U/L Lipase 140 (23-300) U/L Urine Color Urine Appearance (Clear) Urine pH (5.0-8.0) Ur Specific [place] (1.001-1.035) Urine Protein (Negative) Urine Glucose (UA) (Negative) Urine Ketones (Negative) Urine Blood (Negative) Urine Nitrite (Negative) Urine Bilirubin (Negative) Urine Urobilinogen (<2.0) mg/dL Ur Leukocyte Esterase (Negative) Urine WBC (0-5) /hpf Ur Squamous Epith Cells (0-4) /hpf Urine Bacteria (None) /hpf 08/14/18 Range/Units 13:40 WBC (3.8-10.6) k/uL RBC (3.80-5.40) m/uL Hgb (11.4-16.0) gm/dL Hct (34.0-46.0) % MCV (80.0-100.0) fL MCH (25.0-35.0) pg MCHC (31.0-37.0) g/dL RDW (11.5-15.5) % Plt Count (150-450) k/uL Neutrophils % % Lymphocytes % % Monocytes % % Eosinophils % % Basophils % % Neutrophils # (1.3-7.7) k/uL Lymphocytes # (1.0-4.8) k/uL Monocytes # (0-1.0) k/uL Eosinophils # (0-0.7) k/uL Basophils # (0-0.2) k/uL Sodium (137-145) mmol/L Potassium (3.5-5.1) mmol/L Chloride (98-107) mmol/L Carbon Dioxide (22-30) mmol/L Anion Gap mmol/L BUN (7-17) mg/dL Creatinine (0.52-1.04) mg/dL Est GFR (CKD-EPI)AfAm (>60 ml/min/1.73 sqM) Est GFR (CKD-EPI)NonAf (>60 ml/min/1.73 sqM) Glucose (74-99) mg/dL Plasma Lactic Acid Osmani (0.7-2.0) mmol/L Calcium (8.4-10.2) mg/dL Total Bilirubin (0.2-1.3) mg/dL AST (14-36) U/L ALT (9-52) U/L Alkaline Phosphatase (38-126) U/L Total Protein (6.3-8.2) g/dL Albumin (3.5-5.0) g/dL Amylase (30-110) U/L Lipase (23-300) U/L Urine Color Light Yellow Urine Appearance Clear (Clear) Urine pH 7.0 (5.0-8.0) Ur Specific [place] 1.007 (1.001-1.035) Urine Protein Negative (Negative) Urine Glucose (UA) Negative (Negative) Urine Ketones Negative (Negative) Urine Blood Negative (Negative) Urine Nitrite Negative (Negative) Urine Bilirubin Negative (Negative) Urine Urobilinogen <2.0 (<2.0) mg/dL Ur Leukocyte Esterase Small H (Negative) Urine WBC 3 (0-5) /hpf Ur Squamous Epith Cells <1 (0-4) /hpf Urine Bacteria Rare H (None) /hpf Disposition Clinical Impression: Abdominal pain, Constipation Disposition: HOME SELF-CARE Condition: Stable Instructions (If sedation given, give patient instructions): Constipation (ED) Additional Instructions: Please return to the Emergency Department if symptoms worsen or any other concerns. Is patient prescribed a controlled substance at d/c from ED?: No Referrals: None,Stated [Primary Care Provider] - 1-2 days Time of Disposition: 14:21
[2018-08-14 12:53] LABS: Basophils % (A) 1 %; Eosinophils # (A) 0.1 k/uL (0-0.7); Eosinophils % (A) 2 %; HCT 36.4 % (34.0-46.0); Lymphocytes # (A) 1.2 k/uL (1.0-4.8); Lymphocytes % (A) 23 %; MCH 28.7 pg (25.0-35.0); MCHC 33.1 g/dL (31.0-37.0); MCV 86.9 fL (80.0-100.0); Mean Platelet Volume 7.1; Monocytes # (A) 0.3 k/uL (0-1.0); Monocytes % (A) 6 %; Neutrophils # (A) 3.4 k/uL (1.3-7.7); Neutrophils % (A) 65 %; Platelet Count 228 k/uL (150-450); RBC 4.19 m/uL (3.80-5.40); RDW 14.6 % (11.5-15.5); WBC 5.3 k/uL (3.8-10.6)
[2018-08-14 13:04] LABS: ALT 22 U/L (9-52); AST 22 U/L (14-36); Albumin 4.4 g/dL (3.5-5.0); Alkaline Phosphatase 53 U/L (38-126); Amylase 62 U/L (30-110); Anion Gap 8 mmol/L; Blood Urea Nitrogen 9 mg/dL (7-17); Carbon Dioxide 24 mmol/L (22-30); Chloride 109 mmol/L (98-107); Glucose 112 mg/dL (74-99); Lipase 140 U/L (23-300); Potassium 4.5 mmol/L (3.5-5.1); Sodium 141 mmol/L (137-145); Total Bilirubin 0.6 mg/dL (0.2-1.3)
--- NOTE | 2018-08-14 13:15 | CT ---
EXAMINATION TYPE: CT abdomen pelvis wo con DATE OF EXAM: 08/14/2018 HISTORY: pain since colon resection CT DLP: 342 mGycm. Automated Exposure Control for Dose Reduction was Utilized. TECHNIQUE: CT scan of the abdomen and pelvis is performed without oral or IV contrast. COMPARISON: CT abdomen and pelvis October 22, 2017 FINDINGS: Within the limitations of a non-contrast study, the following observations are made. LUNG BASES: There is persistent patchy left basilar linear scarring and/or atelectasis. There is less prominent medial right basilar linear scarring and/or atelectasis. LIVER/GB: Large oval dependent calcified gallstone in the gallbladder dependently is redemonstrated. PANCREAS: No significant abnormality is seen. SPLEEN: Probable 1.1 cm calcified splenic artery aneurysm image 26 is stable.. ADRENALS: No significant abnormality is seen. KIDNEYS: No significant abnormality is seen. BOWEL: Evaluation of bowel is slightly suboptimal secondary to lack of enteric contrast. Stomach is p oorly distended and thus suboptimally evaluated. There is no suspicious small bowel dilatation. Surgi jed sutures are noted from partial right-sided colectomy and small bowel anastomosis right midabdomen axial image 64. There are additional surgical sutures seen in the left lower quadrant axial image 77 . There is moderate to severe fecal prominence in the colon between the sutures. There is more mild f ecal prominence in the proximal sigmoid colon distal to the sutures. There are a few sigmoid colonic diverticula. GENITAL ORGANS: Uterus is surgically absent or markedly atrophic. Scattered pelvic phleboliths are se en. Remnant ovaries are normal in size asked to image 103. LYMPH NODES: No greater than 1cm abdominal or pelvic lymph nodes are appreciated. OSSEOUS STRUCTURES: Levoconvex scoliotic curvature centered L5 level. Small posterior disc herniation s L4-L5 and L5-S1 level are present. OTHER: Mild haziness over fluid in the mesentery is noted. IMPRESSION: Moderate to severe diffuse colonic fecal stasis. Overall no bowel obstruction.
[2018-08-14 14:01] LABS: Appearance,Urine Clear (Clear); Bacteria,Urine Rare /hpf; Bilirubin,Urine Negative (Negative); Blood,Urine Negative (Negative); Color,Urine Light Yellow; Glucose,Urine (UA) Negative (Negative); Ketones,Urine Negative (Negative); Leukocyte Esterase,Urine Small (Negative); Nitrite,Urine Negative (Negative); Protein,Urine Negative (Negative); Specific Gravity,Urine 1.007 (1.001-1.035); Squamous Epithelial Cell,Urine <1 /hpf (0-4); Urobilinogen,Urine <2.0 mg/dL (<2.0); WBC,Urine 3 /hpf (0-5)
[2018-08-14 14:02] VITALS: BP 137/60; PULSE 60; TEMP 98.3
[2018-08-14] MEDS ORDERED: MAGNESIUM CITRATE 296 ML BOTTLE PO ONE (14:19)
== END 2018-08-14 14:37 | disposition home or self-care (01) ==
LOC: EC 11:01
DX: K59.00 Constipation, unspecified (principal); F03.90 Unspecified dementia, unspecified severity, without behavioral disturbance, psychotic disturbance, mood disturbance, and anxiety; E11.9 Type 2 diabetes mellitus without complications; I10 Essential (primary) hypertension; Z85.038 Personal history of other malignant neoplasm of large intestine; Z98.890 Other specified postprocedural states; Z90.710 Acquired absence of both cervix and uterus; Z93.3 Colostomy status; Z79.84 Long term (current) use of oral hypoglycemic drugs; Z79.899 Other long term (current) drug therapy; Z91.018 Allergy to other foods; Z91.041 Radiographic dye allergy status; Z88.0 Allergy status to penicillin; Z91.013 Allergy to seafood
CPT/HCPCS: 99284; 96374; 96375; 96361; 36415; 80053; 82150; 83605; 83690; 85025; 81001; 74176; J2270; J2405